=== PATIENT | female | born 1940 | race Caucasian/White ===

== ENCOUNTER 2017-02-04 15:57 | Emergency (ER) | payer BC, MEDICARE ==
[2014-08-27 08:38] VITALS: BMI 22.5
[~2017-02-04 15:57] MED LIST: ADVIL200 MG PO; AMBIEN10 MG PO; BAYER CHEWABLE81 MG PO; BYSTOLIC10 MG PO; CARDIZEM CD120 MG PO; CELEBREX200 MG; CELEBREX200 MG PO; CLARINEX5 MG PO; CORDARONE200 MG PO; DILT-CD120 MG PO; DIOVAN HCT 320/1 TA2 PO; FLEXERIL10 MG PO; HYDROCODON-ACE1 EAC7 PO; MULTAQ400 MG PO; NORVASC5 MG PO; PLAVIX75 MG PO; PREMARIN0.9 MG PO; PROTONIX40 MG PO; RESTORIL15 MG PO; SYNTHROID50 MCG PO; TEMAZEPAM PO; TRIAMCINOLONE A60 M1 TP; XARELTO15 MG PO; ZOFRAN4 MG PO
== END 2017-02-04 17:27 | disposition home or self-care (01) ==
LOC: D.ER 15:57
DX: R51 Headache (principal); K21.9 Gastro-esophageal reflux disease without esophagitis; I10 Essential (primary) hypertension; E03.9 Hypothyroidism, unspecified; Z95.0 Presence of cardiac pacemaker; Z95.1 Presence of aortocoronary bypass graft

== ENCOUNTER 2017-04-27 13:27 | Inpatient (IN) | payer OTHER, MEDICARE ==
[~2017-04-27] VITALS: Ht 165.1 cm; Wt 60.5 kg
[~2017-04-27 13:27] MED LIST changes: +DIOVAN320 MG PO
[2017-04-27 13:55] LABS: BASOPHILS 0.3 % (0-2); EOSINOPHILS 2.5 % (0-7); HEMATOCRIT 40.1 % (36.0-48.0); HEMOGLOBIN 12.7 g/dL (12-16); IMMATURE GRANULOCYTES 0.4 % (0-5); LYMPHOCYTES 6.2 % (15-50); MCHC 31.7 g/dL (31.0-37.0); MCV 79.1 fL (80.0-100.0); MEAN PLATELET VOLUME 9.7 fL (7.4-10.4); MONOCYTES 5.2 % (2-11); NEUTROPHILS 85.4 % (40-80); PLATELET COUNT 331 10x3/uL (130-400); RBC 5.07 10x6/uL (4.00-5.40); RDW 16.5 % (11.5-14.5); WBC 18.8 10x3/uL (4.8-10.8)
[2017-04-27 14:24] LABS: APPEARANCE SLT CLOUDY (CLEAR); BACTERIA MODERATE /hpf (NONE SEEN); BILIRUBIN NEGATIVE (NEGATIVE); COLOR YELLOW (YELLOW); EPITHELIAL CELLS 25-50 /hpf (0-5); GLUCOSE NEGATIVE (NEGATIVE); KETONE NEGATIVE (NEGATIVE); MUCUS <1+ /lpf (NONE SEEN); NITRITE NEGATIVE (NEGATIVE); PROTEIN TRACE mg/dL (NEGATIVE); RED CELLS - URINE 0-5 /hpf (0-5); SPECIFIC GRAVITY 1.025 (1.005-1.020); UROBILINOGEN NORMAL (NORMAL); WHITE CELLS - URINE 0-5 /hpf (0-5)
[2017-04-27 14:36] LABS: ALBUMIN 3.7 g/dL (3.4-5.0); ANION GAP 17.8 mmol/L (8-16); BILIRUBIN - TOTAL 0.69 mg/dL (0.2-1.3); CALCIUM 9.7 mg/dL (8.5-10.1); CARBON DIOXIDE 18.9 mmol/L (21.0-32.0); CREATININE - SERUM 1.4 mg/dL (0.6-1.3); POTASSIUM - SERUM 4.7 mmol/L (3.5-5.1); PROTEIN - SERUM 7.4 g/dL (6.4-8.2)
[2017-04-27 17:35] LABS: CHOL - HDL RATIO 1.9 ratio (2.3-4.1); LDL-HDL RATIO 0.7 ratio (1.5-3.5)
[2017-04-27] MEDS ORDERED: PEPCID20 MG PO (23:59)
[2017-04-28] MEDS ORDERED: ULORIC40 MG PO
[2017-04-28] MEDS ORDERED: SYNTHROID88 MCG PO
[2017-04-28] MEDS ORDERED: NEURONTIN 300300 MG PO (00:01)
[2017-04-28] MEDS ORDERED: FUROSEMIDE20 MG PO (00:02)
[2017-04-28] MEDS ORDERED: ULTRAM50 MG PO (00:03)
[2017-04-28] MEDS ORDERED: SOMA350 MG PO (00:03)
[2017-04-28 00:32] VITALS: BP 98/51; Ht 165.1 cm; Wt 60.5 kg
[2017-04-28 02:45] VITALS: BP 98/51
[2017-04-28 04:32] VITALS: BP 107/74
[2017-04-28 10:00] LABS: ANION GAP 15.1 mmol/L (8-16); CALCIUM 8.8 mg/dL (8.5-10.1); CARBON DIOXIDE 18.3 mmol/L (21.0-32.0); CREATININE - SERUM 1.4 mg/dL (0.6-1.3); POTASSIUM - SERUM 4.4 mmol/L (3.5-5.1)
[2017-04-28 10:04] LABS: BASOPHILS 0.1 % (0-2); EOSINOPHILS 2.2 % (0-7); HEMATOCRIT 35.8 % (36.0-48.0); HEMOGLOBIN 11.2 g/dL (12-16); IMMATURE GRANULOCYTES 0.4 % (0-5); LYMPHOCYTES 7.9 % (15-50); MCH 24.7 pg (26.0-34.0); MCHC 31.3 g/dL (31.0-37.0); MCV 78.9 fL (80.0-100.0); MEAN PLATELET VOLUME 10.3 fL (7.4-10.4); MONOCYTES 7.4 % (2-11); PLATELET COUNT 253 10x3/uL (130-400); RBC 4.54 10x6/uL (4.00-5.40); RDW 16.6 % (11.5-14.5); WBC 20.2 10x3/uL (4.8-10.8)
[2017-04-28 10:10] LABS: APTT 31.7 SECONDS (22.8-39.4); INR 1.44 (0.85-1.17); PROTIME 17.1 SECONDS (11.6-15.0)
[2017-04-28 10:51] VITALS: BP 113/60
[2017-04-28 11:16] LABS: CKMB 0.7 U/L (0.0-3.6); CREATINE KINASE 40 UL (21-215)
[2017-04-28 11:22] LABS: TROPONIN-I < 0.017 ng/mL (0.000-0.060)
== END 2017-04-28 11:30 | disposition short-term general hospital (02) | DRG 440 ==
LOC: D.ER 13:27 → D.EDHOLD 18:52 → D.MS 19:04
PROVIDERS: Emergency Medicine; Family Medicine
DX: K85.90 Acute pancreatitis without necrosis or infection, unspecified (principal); D72.829 Elevated white blood cell count, unspecified; R47.81 Slurred speech; R41.82 Altered mental status, unspecified; R53.1 Weakness; I10 Essential (primary) hypertension; E03.9 Hypothyroidism, unspecified; D63.8 Anemia in other chronic diseases classified elsewhere; Z95.0 Presence of cardiac pacemaker; I25.10 Atherosclerotic heart disease of native coronary artery without angina pectoris; Z87.891 Personal history of nicotine dependence

== ENCOUNTER 2017-04-28 10:09 | Emergency (ER) | payer OTHER, MEDICARE ==
[2017-04-28 00:32] VITALS: BMI 22.1
[~2017-04-28 10:09] MED LIST changes: +FUROSEMIDE20 MG PO; +NEURONTIN 300300 MG PO; +PEPCID20 MG PO; +SOMA350 MG PO; +SYNTHROID88 MCG PO; +ULORIC40 MG PO; +ULTRAM50 MG PO
== END 2017-04-28 11:10 | disposition critical access hospital (66) ==
LOC: D.ER 10:09
DX: I63.9 Cerebral infarction, unspecified (principal); K21.9 Gastro-esophageal reflux disease without esophagitis; I10 Essential (primary) hypertension; Z95.0 Presence of cardiac pacemaker; E03.9 Hypothyroidism, unspecified

== ENCOUNTER 2017-05-15 17:01 | Inpatient (IN) | payer OTHER, MEDICARE ==
[~2017-05-15] VITALS: Ht 165.1 cm; Wt 61.2 kg
[2017-05-15] MEDS ORDERED: PREMARIN0.3 MG PO (17:21)
[2017-05-15] MEDS ORDERED: VITAMIN B-1250 MCG PO (17:22)
[2017-05-15] MEDS ORDERED: CENTRUM SILVER1 EAC3 PO (17:22)
[2017-05-15 18:36] VITALS: BP 152/73; BMI 22.5
[2017-05-15 20:00] VITALS: BP 144/63
[2017-05-15 20:19] LABS: HEMATOCRIT 33.8 % (36.0-48.0); HEMOGLOBIN 10.4 g/dL (12-16); MCH 25.1 pg (26.0-34.0); MCHC 30.8 g/dL (31.0-37.0); MCV 81.4 fL (80.0-100.0); MEAN PLATELET VOLUME 10.1 fL (7.4-10.4); PLATELET COUNT 486 10x3/uL (130-400); RBC 4.15 10x6/uL (4.00-5.40); RDW 15.8 % (11.5-14.5); WBC 15.3 10x3/uL (4.8-10.8)
[2017-05-15 20:36] LABS: ALBUMIN 2.6 g/dL (3.4-5.0); ANION GAP 15.6 mmol/L (8-16); BILIRUBIN - TOTAL 0.35 mg/dL (0.2-1.3); CALCIUM 9.2 mg/dL (8.5-10.1); CARBON DIOXIDE 25.7 mmol/L (21.0-32.0); POTASSIUM - SERUM 4.3 mmol/L (3.5-5.1); PROTEIN - SERUM 7.6 g/dL (6.4-8.2)
[2017-05-15 21:54] LABS: EOSINOPHILS 2 % (0-7); LYMPHOCYTES 20 % (15-50); MONOCYTES 2 % (2-11); NEUTROPHILS 76 % (40-80); PLATELET ESTIMATE NORMAL
[2017-05-16 04:00] VITALS: BP 135/59
[2017-05-16 04:42] LABS: APPEARANCE TURBID (CLEAR); BILIRUBIN NEGATIVE (NEGATIVE); COLOR YELLOW (YELLOW); GLUCOSE NEGATIVE (NEGATIVE); KETONE NEGATIVE (NEGATIVE); NITRITE NEGATIVE (NEGATIVE); PROTEIN 2+ mg/dL (NEGATIVE); SPECIFIC GRAVITY 1.025 (1.005-1.020); UROBILINOGEN NORMAL (NORMAL)
[2017-05-16 04:52] LABS: BACTERIA MANY /hpf (NONE SEEN); EPITHELIAL CELLS 0-5 /hpf (0-5); RED CELLS - URINE >50 /hpf (0-5); WHITE CELLS - URINE >50 /hpf (0-5); YEAST >1+ WITH HYPHAE /hpf (NONE SEEN)
[2017-05-16 09:22] VITALS: BP 147/66
[2017-05-16 10:55] VITALS: Ht 165.1 cm; Wt 61.2 kg
[2017-05-16] MEDS ORDERED: NEURONTIN 300300 MG PO (10:55)
[2017-05-16] MEDS ORDERED: INDOCIN25 MG PO (10:57)
[2017-05-16] MEDS ORDERED: NORVASC2.5 MG PO (10:59)
[2017-05-16] MEDS ORDERED: PREMARIN0.9 MG PO (11:00)
[2017-05-16] MEDS ORDERED: THERALITH XR T1 EACH PO (11:01)
[2017-05-16 12:44] VITALS: BP 123/73
[2017-05-16 15:15] LABS: INR 1.19 (0.85-1.17); PROTIME 14.7 SECONDS (11.6-15.0)
[2017-05-16 15:20] LABS: % SATURATION 5 % (15-55); IRON 15 ug/dl (35-150); TOTAL IRON BIND CAPACITY 262 ug/dl (260-445); UNSAT IRON BIND CAPACITY 247 ug/dl (150-375)
[2017-05-16 15:34] LABS: FERRITIN 96 ng/mL (3-244); LIPASE 402 U/L (73-393)
[2017-05-16 16:36] VITALS: BP 156/70
[2017-05-16 20:00] VITALS: BP 139/54
[2017-05-17] VITALS: BP 119/71
[2017-05-17 04:00] VITALS: BP 150/66
[2017-05-17 08:11] VITALS: BP 159/67
[2017-05-17 12:46] VITALS: BP 184/82
[2017-05-17 15:54] VITALS: BP 132/54
[2017-05-17 20:00] VITALS: BP 136/61
[2017-05-18] VITALS: BP 156/74
[2017-05-18 04:00] VITALS: BP 145/91; BP 160/77
[2017-05-18 08:18] LABS: FOLATE (FOLIC ACID) - SERUM 15.2 ng/mL (>3.0)
[2017-05-18 08:40] VITALS: BP 139/59
[2017-05-18 13:01] VITALS: BP 120/70
[2017-05-18] MEDS ORDERED: BACTRIM 400-801 TAB PO (14:50)
[2017-05-18] MEDS ORDERED: COUMADIN5 MG PO (14:51)
== END 2017-05-18 17:12 | DRG 56 ==
LOC: D.MS 17:01
PROVIDERS: Internal Medicine Nephrology
DX: I69.354 Hemiplegia and hemiparesis following cerebral infarction affecting left non-dominant side (principal); J18.9 Pneumonia, unspecified organism; N39.0 Urinary tract infection, site not specified; N17.9 Acute kidney failure, unspecified; I69.320 Aphasia following cerebral infarction; R13.12 Dysphagia, oropharyngeal phase; I69.391 Dysphagia following cerebral infarction; I10 Essential (primary) hypertension

== ENCOUNTER 2017-05-18 17:13 | Inpatient (IN) | payer OTHER, MEDICARE ==
[~2017-05-18] VITALS: Ht 165.1 cm; Wt 61.2 kg
--- NOTE | ~2017-05-18 | DS ---
PATIENT:ROGERIO DIXON :42 MEDICAL RECORD: [id number] DISCHARGE SUMMARY ADMISSION DATE: 05/18/17 DISCHARGE DATE: 06/12/17 This is a discharge from inpatient rehab dated 06/12/2017. PRIMARY DIAGNOSIS: Decreased functional ability and ability to provide activities of daily living secondary to stroke. SECONDARY DIAGNOSES: 1. Right side hemiparesis. 2. Oropharyngeal dysphagia. 3. Aphasia. 4. Hypertension. 5. Anemia. 6. Hypothyroidism. 7. Yeast UTI. PROCEDURES THIS HOSPITALIZATION: Bedside swallow eval with no overt signs and symptoms of aspiration. HOSPITAL COURSE: Full H&P is located elsewhere on the chart on this 76-year-old female who was admitted to inpatient rehab for physical therapy and occupational therapy to improve gait, transfer skills, bed mobility, and activities of daily living to a modified independent level. She was evaluated by PT and OT and their plans of care were followed. She was evaluated by speech therapy and their plans of care were followed as well. She required custodial care for observation and assessment and medication administration. She was continued on appropriate home medications. She had a UA consistent with UTI, was started on Zyvox for antibiotic coverage and then Diflucan was added with yeast growing on cultures. She did have a bedside swallow eval on 05/21/2017 with no overt signs and symptoms of aspiration. Diet recommendations from were followed. She was cooperative with all therapies, progressing towards goals. Case management was involved for discharge planning. She was considered stable for discharge on 06/12/2017. DISCHARGE MEDICATIONS: As per discharge medication reconciliation. DISCHARGE DISPOSITION: The patient is discharged to [facility]. She will continue her current diet and level of activity. She will follow up with primary care at the rehab facility and then with her primary care physician upon discharge from that facility. She will follow up with specialists as directed. At least 30 minutes was spent in this discharge activity. TRANSINT:[id number] Voice Confirmation ID: [id number] DOCUMENT ID: [id number] Dictated By: WAYLON BURCIAGA I have interviewed/examined the above patient and agree with these documented findings. DISCHARGE SUMMARY REPORT [id number] DIXONROGERIO SEEMA FRIEDMAN MD at 1157 at 0940 CC: [id number] DICTATION DATE: 06/24/171899 PORCELAIN SLUSHER: 06/25/17 0321 DIS IN 06/12/17 [facility] [address] [id number]
--- NOTE | ~2017-05-18 | RHP ---
PATIENT: ROGERIO DIXON MEDICAL RECORD: [id number] ACCOUNT: [id number] LOCATION:[facility] : 42 ADMISSION DATE: 05/18/17 REHABILITATION HISTORY AND PHYSICAL EXAMINATION POST ADMISSION PHYSICIAN EXAMINATION Post-Admission Physical Examination and History and Physical DATE OF ADMISSION TO THE REHAB: 05/18/2017 ADMITTING DIAGNOSES: Subacute left middle cerebral artery infarct with associated mild mass effect. HISTORY OF PRESENT ILLNESS: The patient is a 76-year-old female patient who is admitted secondary to a subacute left middle cerebral artery territory infarct. She was admitted to the acute hospitalist on 04/27 for pancreatitis, she had a change in condition on 04/28. Upon workup in [facility], she was found to have an acute CVA and was med flighted out to an outsourced hospital for higher level of care. She has not progressed well and according to the family has other 3 strokes while she was there. She was transferred to inpatient hospice where she had a change in condition, began to wake up, became alert and desired to eat. The patient was transferred back to [place] and family requested a workup since the significant change in condition. The patient had further testing and pancreatitis had resolved. CT of her head showed the left middle cerebral artery territory infarct. She does have significant right-sided weakness. She has been evaluated and continues to be treated with PT, OT, and speech therapy, slowly progressed over few days and has become more alert and is eating well with assistance. 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 She has had a very supportive family life, especially from her . She was completely independent with mobility and ADLs. Currently, max assist to total assist for ADLs and mobility. She is aphasic, family plans to continue and progress her and hopefully return her home if possible. COMORBIDITIES: In this patient include status post embolic CVA, pancreatitis, oropharyngeal dysphagia, aphasia, right hemiparesis, hypertension, microcytic anemia, acute kidney injury, possible pneumonia, and history of valvular disease. PAST MEDICAL HISTORY: Significant for CVA. She has had a history of thyroid problems, hypertension, pacemaker problems, valve problems in the past. She has had pancreatitis and splenic infarct. PAST SURGICAL HISTORY: Includes hernia repair, tonsillectomy, adenoidectomy, hysterectomy, valve repair, bilateral carotid endarterectomy, cataract surgery, pacemaker placement. ALLERGIES: TRAZODONE AND CARLO INHIBITORS. CURRENT MEDICATIONS: Include a multivitamin daily. She is on Coumadin 5 mg daily, Synthroid 88 mcg daily, Indocin 50 mg b.i.d., Multaq 400 mg b.i.d., B12 50 mcg daily, aspirin 81 mg daily. She is on Bactrim 1 tab b.i.d., Neurontin 300 mg b.i.d., Pepcid 20 mg b.i.d., and Celebrex 200 mg as needed. HABITS: No alcohol or tobacco use. HISTORY AND PHYSICAL [id number] DIXON,ROGERIO AVILEZ FAMILY HISTORY: Noncontributory. SOCIAL HISTORY: The patient hopes to return back home and get back to her prior level of functioning with her family. REVIEW OF SYSTEMS: Unable to obtain secondary to the patient being aphasic at this time. PHYSICAL EXAMINATION: VITAL SIGNS: Stable, afebrile. GENERAL: Well-developed female in no acute distress, alert upon exam. HEENT: Normocephalic and atraumatic. Mucosa moist. NECK: Supple. LUNGS: Clear at this time. HEART: Irregular rate and rhythm. ABDOMEN: Benign. EXTREMITIES: No clubbing, cyanosis, or edema. NEUROLOGIC: Consistent with a CVA. She is aphasic. LABORATORY DATA: Showed a white count of 9.2, H&H OF 8.9 and 29.9, and platelet count was noted to be 377. Her INR is 1.68. Sodium 140, potassium 4.2, BUN and creatinine of 16 and 1.0, and blood sugar is noted to be 102. ASSESSMENT: This 76-year-old female patient admitted to rehab with a working diagnosis OF middle cerebral artery infarct. The patient has potential to make improvement. We instituted the following multidisciplinary therapies including to, but not limited to physical, occupational, respiratory, speech, nutritional services, prosthetics, and orthotics. Given her complex condition and risk for more complications, rehabilitation service provided at a lower level of care such as a detention facility. PLAN: 1. Admit to [facility] rehab for intensive inpatient therapy to include the following disciplines: A. Physical therapy to improve gait, all transfer skills and bed mobility to a modified independent level. B. Occupational therapy to improve activities of daily living to a modified independent level. C. Case management to assist with discharge planning and placement options. D. Nutrition to assist with nutritional needs. E. Rehabilitation nursing to assist in monitoring the patient's underlying medical conditions and to assist with any type of bowel or bladder management. 2. The patient's current medications and medical care will be continued. 3. The patient will be placed on standard fall precautions. 4. The patient's stay is approximately 10-14 days. 5. Discuss this patient during care team staff meeting this week. I am going to keep her , Jorge L up to date on her care and we will go ahead and continue to progress with speech therapy and we will assess her on a daily basis. TRANSINT:[id number] Voice Confirmation ID: [id number] DOCUMENT ID: [id number] DARIUS notes whether there has been none or any medical/functional HISTORY AND PHYSICAL [id number] DIXON,ROGERIO AVILEZ change since admission: - No change since preadmission screen. DARIUS attests patient continues to be appropriate for IRF: - Continues to be appropriate. SEEMA CAMPOS MD at 1344 CC: [id number] DICTATION DATE: 05/19/17 0836 CENTRAL OFFICE MAINTAINER: 05/19/17 1113 ADM IN [facility] [address] [id number]
[~2017-05-18 17:13] MED LIST changes: +BACTRIM 400-801 TAB PO; +CENTRUM SILVER1 EAC3 PO; +COUMADIN5 MG PO; +INDOCIN25 MG PO; +NORVASC2.5 MG PO; +PREMARIN0.3 MG PO; +THERALITH XR T1 EACH PO; +VITAMIN B-1250 MCG PO
[2017-05-18 18:19] VITALS: BP 131/56; BMI 22.5
[2017-05-18 22:50] VITALS: BP 131/56
[2017-05-19 05:13] LABS: BASOPHILS 0.4 % (0-2); EOSINOPHILS 7.6 % (0-7); HEMATOCRIT 29.9 % (36.0-48.0); HEMOGLOBIN 8.9 g/dL (12-16); IMMATURE GRANULOCYTES 0.4 % (0-5); LYMPHOCYTES 15.9 % (15-50); MCH 24.4 pg (26.0-34.0); MCHC 29.8 g/dL (31.0-37.0); MCV 81.9 fL (80.0-100.0); MEAN PLATELET VOLUME 10.1 fL (7.4-10.4); MONOCYTES 13.2 % (2-11); NEUTROPHILS 62.5 % (40-80); RBC 3.65 10x6/uL (4.00-5.40); RDW 15.8 % (11.5-14.5); WBC 9.2 10x3/uL (4.8-10.8)
[2017-05-19 05:16] LABS: PLATELET COUNT 377 10x3/uL (130-400)
[2017-05-19 05:22] LABS: INR 1.68 (0.85-1.17); PROTIME 19.3 SECONDS (11.6-15.0)
[2017-05-19 05:23] LABS: ANION GAP 15.5 mmol/L (8-16); CALCIUM 8.7 mg/dL (8.5-10.1); CARBON DIOXIDE 23.7 mmol/L (21.0-32.0); POTASSIUM - SERUM 4.2 mmol/L (3.5-5.1)
[2017-05-19 07:11] VITALS: BP 121/61
[2017-05-19 14:11] VITALS: Ht 165.1 cm; Wt 61.2 kg
[2017-05-19 22:35] VITALS: BP 131/58
[2017-05-20 05:13] LABS: INR 1.95 (0.85-1.17); PROTIME 21.7 SECONDS (11.6-15.0)
[2017-05-20 08:00] VITALS: BP 122/53
[2017-05-20 21:45] VITALS: BP 104/53; BP 139/65
[2017-05-21 05:58] LABS: BASOPHILS 0.4 % (0-2); EOSINOPHILS 7.1 % (0-7); HEMATOCRIT 31.6 % (36.0-48.0); HEMOGLOBIN 9.3 g/dL (12-16); IMMATURE GRANULOCYTES 0.6 % (0-5); LYMPHOCYTES 17.5 % (15-50); MCH 24.8 pg (26.0-34.0); MCHC 29.4 g/dL (31.0-37.0); MCV 84.3 fL (80.0-100.0); MEAN PLATELET VOLUME 9.8 fL (7.4-10.4); MONOCYTES 11.1 % (2-11); NEUTROPHILS 63.3 % (40-80); PLATELET COUNT 376 10x3/uL (130-400); RBC 3.75 10x6/uL (4.00-5.40); RDW 16.6 % (11.5-14.5); WBC 9.5 10x3/uL (4.8-10.8)
[2017-05-21 06:03] LABS: ANION GAP 11.7 mmol/L (8-16); CALCIUM 9.2 mg/dL (8.5-10.1); CREATININE - SERUM 1.2 mg/dL (0.6-1.3); POTASSIUM - SERUM 4.7 mmol/L (3.5-5.1)
[2017-05-21 06:10] LABS: INR 2.66 (0.85-1.17); PROTIME 27.7 SECONDS (11.6-15.0)
[2017-05-21 08:26] VITALS: BP 134/65
[2017-05-21 19:45] VITALS: BP 140/72
[2017-05-22 05:25] LABS: INR 2.93 (0.85-1.17); PROTIME 29.8 SECONDS (11.6-15.0)
[2017-05-22 08:04] VITALS: BP 151/62
[2017-05-22 20:00] VITALS: BP 127/54
[2017-05-23 06:41] LABS: ANION GAP 14.9 mmol/L (8-16); CALCIUM 9.2 mg/dL (8.5-10.1); CARBON DIOXIDE 24.7 mmol/L (21.0-32.0); CREATININE - SERUM 1.2 mg/dL (0.6-1.3); INR 2.68 (0.85-1.17); POTASSIUM - SERUM 4.6 mmol/L (3.5-5.1); PROTIME 27.8 SECONDS (11.6-15.0)
[2017-05-23 06:43] LABS: BASOPHILS 0.4 % (0-2); EOSINOPHILS 4.9 % (0-7); HEMOGLOBIN 9.4 g/dL (12-16); IMMATURE GRANULOCYTES 0.4 % (0-5); LYMPHOCYTES 13.5 % (15-50); MCH 24.7 pg (26.0-34.0); MCHC 29.4 g/dL (31.0-37.0); MEAN PLATELET VOLUME 10.3 fL (7.4-10.4); MONOCYTES 7.7 % (2-11); NEUTROPHILS 73.1 % (40-80); PLATELET COUNT 359 10x3/uL (130-400); RBC 3.81 10x6/uL (4.00-5.40); RDW 17.2 % (11.5-14.5); WBC 12.3 10x3/uL (4.8-10.8)
[2017-05-23 11:13] VITALS: BP 130/62
[2017-05-23 22:15] VITALS: BP 138/64
[2017-05-24 06:42] LABS: PROTIME 32.3 SECONDS (11.6-15.0)
[2017-05-24 06:57] LABS: INR 3.24 (0.85-1.17)
[2017-05-24 08:00] VITALS: BP 128/61
[2017-05-24 22:30] VITALS: BP 136/66
[2017-05-25 06:31] LABS: BASOPHILS 0.2 % (0-2); EOSINOPHILS 5.7 % (0-7); HEMATOCRIT 30.5 % (36.0-48.0); IMMATURE GRANULOCYTES 0.5 % (0-5); LYMPHOCYTES 18.9 % (15-50); MCH 24.6 pg (26.0-34.0); MCHC 29.5 g/dL (31.0-37.0); MCV 83.3 fL (80.0-100.0); MEAN PLATELET VOLUME 9.6 fL (7.4-10.4); NEUTROPHILS 63.7 % (40-80); PLATELET COUNT 309 10x3/uL (130-400); RBC 3.66 10x6/uL (4.00-5.40); RDW 17.4 % (11.5-14.5); WBC 9.3 10x3/uL (4.8-10.8)
[2017-05-25 06:38] LABS: ANION GAP 15.6 mmol/L (8-16); CALCIUM 8.8 mg/dL (8.5-10.1); CARBON DIOXIDE 25.7 mmol/L (21.0-32.0); CREATININE - SERUM 1.3 mg/dL (0.6-1.3); POTASSIUM - SERUM 4.3 mmol/L (3.5-5.1)
[2017-05-25 07:13] LABS: INR 3.03 (0.85-1.17); PROTIME 30.7 SECONDS (11.6-15.0)
[2017-05-25 08:00] VITALS: BP 143/64
[2017-05-25 22:25] VITALS: BP 136/67
[2017-05-26 07:19] LABS: INR 2.94 (0.85-1.17)
[2017-05-26 13:29] VITALS: BP 125/963
[2017-05-26 18:26] LABS: APPEARANCE TURBID (CLEAR); BILIRUBIN NEGATIVE (NEGATIVE); COLOR YELLOW (YELLOW); GLUCOSE NEGATIVE (NEGATIVE); KETONE NEGATIVE (NEGATIVE); NITRITE NEGATIVE (NEGATIVE); PROTEIN 1+ mg/dL (NEGATIVE); UROBILINOGEN NORMAL (NORMAL)
[2017-05-26 18:30] LABS: BACTERIA MANY /hpf (NONE SEEN); EPITHELIAL CELLS 0-5 /hpf (0-5); WHITE CELLS - URINE >50 /hpf (0-5); YEAST >1+ WITH HYPHAE /hpf (NONE SEEN)
[2017-05-26 20:15] VITALS: BP 152/73
[2017-05-27 06:56] LABS: INR 2.43 (0.85-1.17); PROTIME 25.8 SECONDS (11.6-15.0)
[2017-05-27 09:40] VITALS: BP 128/62
[2017-05-27 19:35] VITALS: BP 140/64
[2017-05-28 06:33] LABS: BASOPHILS 0.2 % (0-2); EOSINOPHILS 4.8 % (0-7); HEMATOCRIT 31.7 % (36.0-48.0); HEMOGLOBIN 9.4 g/dL (12-16); IMMATURE GRANULOCYTES 0.6 % (0-5); LYMPHOCYTES 15.6 % (15-50); MCH 24.8 pg (26.0-34.0); MCHC 29.7 g/dL (31.0-37.0); MCV 83.6 fL (80.0-100.0); MEAN PLATELET VOLUME 9.3 fL (7.4-10.4); MONOCYTES 10.5 % (2-11); NEUTROPHILS 68.3 % (40-80); PLATELET COUNT 252 10x3/uL (130-400); RBC 3.79 10x6/uL (4.00-5.40); RDW 17.7 % (11.5-14.5)
[2017-05-28 06:42] LABS: ANION GAP 15.9 mmol/L (8-16); CALCIUM 8.8 mg/dL (8.5-10.1); CARBON DIOXIDE 24.1 mmol/L (21.0-32.0); CREATININE - SERUM 1.1 mg/dL (0.6-1.3)
[2017-05-28 06:47] LABS: PROTIME 21.4 SECONDS (11.6-15.0)
[2017-05-28 06:49] LABS: INR 1.92 (0.85-1.17)
[2017-05-28 08:00] VITALS: BP 144/93
[2017-05-28 19:23] VITALS: BP 145/59
[2017-05-29 08:15] VITALS: BP 156/70
[2017-05-29 08:17] LABS: INR 1.67 (0.85-1.17); PROTIME 19.2 SECONDS (11.6-15.0)
[2017-05-29 19:24] VITALS: BP 128/59
[2017-05-30 07:42] LABS: BASOPHILS 0.4 % (0-2); EOSINOPHILS 5.7 % (0-7); HEMATOCRIT 30.5 % (36.0-48.0); HEMOGLOBIN 9.2 g/dL (12-16); IMMATURE GRANULOCYTES 1.8 % (0-5); LYMPHOCYTES 18.4 % (15-50); MCH 25.6 pg (26.0-34.0); MCHC 30.2 g/dL (31.0-37.0); MCV 84.7 fL (80.0-100.0); MEAN PLATELET VOLUME 9.4 fL (7.4-10.4); MONOCYTES 10.9 % (2-11); NEUTROPHILS 62.8 % (40-80); PLATELET COUNT 222 10x3/uL (130-400); RDW 18.7 % (11.5-14.5); WBC 9.8 10x3/uL (4.8-10.8)
[2017-05-30 07:52] LABS: INR 1.73 (0.85-1.17); PROTIME 19.7 SECONDS (11.6-15.0)
[2017-05-30 07:55] LABS: ANION GAP 15.4 mmol/L (8-16); CALCIUM 8.8 mg/dL (8.5-10.1); CARBON DIOXIDE 25.6 mmol/L (21.0-32.0)
[2017-05-30 08:01] VITALS: BP 139/59
[2017-05-30 19:46] VITALS: BP 108/66
[2017-05-31 06:52] LABS: INR 1.66 (0.85-1.17); PROTIME 19.1 SECONDS (11.6-15.0)
[2017-05-31 08:23] VITALS: BP 146/54
[2017-05-31 19:17] VITALS: BP 131/55
[2017-06-01 06:12] LABS: BASOPHILS 0.5 % (0-2); EOSINOPHILS 5.5 % (0-7); HEMATOCRIT 29.4 % (36.0-48.0); HEMOGLOBIN 8.9 g/dL (12-16); IMMATURE GRANULOCYTES 2.5 % (0-5); MCH 25.6 pg (26.0-34.0); MCHC 30.3 g/dL (31.0-37.0); MCV 84.7 fL (80.0-100.0); MEAN PLATELET VOLUME 9.7 fL (7.4-10.4); MONOCYTES 13.1 % (2-11); NEUTROPHILS 61.4 % (40-80); PLATELET COUNT 220 10x3/uL (130-400); RBC 3.47 10x6/uL (4.00-5.40); WBC 9.5 10x3/uL (4.8-10.8)
[2017-06-01 06:21] LABS: INR 1.83 (0.85-1.17); PROTIME 20.6 SECONDS (11.6-15.0)
[2017-06-01 06:31] LABS: ANION GAP 15.8 mmol/L (8-16); CALCIUM 8.8 mg/dL (8.5-10.1); CARBON DIOXIDE 24.3 mmol/L (21.0-32.0); CREATININE - SERUM 1.1 mg/dL (0.6-1.3); POTASSIUM - SERUM 4.1 mmol/L (3.5-5.1)
[2017-06-01 08:30] VITALS: BP 128/58
[2017-06-01 22:15] VITALS: BP 136/97
[2017-06-02 07:23] LABS: INR 1.73 (0.85-1.17); PROTIME 19.7 SECONDS (11.6-15.0)
[2017-06-02 08:00] VITALS: BP 131/61
[2017-06-02 12:50] LABS: APPEARANCE CLOUDY (CLEAR); BILIRUBIN NEGATIVE (NEGATIVE); COLOR YELLOW (YELLOW); GLUCOSE NEGATIVE (NEGATIVE); KETONE NEGATIVE (NEGATIVE); NITRITE NEGATIVE (NEGATIVE); PROTEIN 2+ mg/dL (NEGATIVE); UROBILINOGEN NORMAL (NORMAL)
[2017-06-02 12:52] LABS: BACTERIA MODERATE /hpf (NONE SEEN); EPITHELIAL CELLS 0-5 /hpf (0-5); RED CELLS - URINE 0-5 /hpf (0-5); YEAST >1+ WITH HYPHAE /hpf (NONE SEEN)
[2017-06-02 21:35] VITALS: BP 136/61
[2017-06-03 10:29] LABS: INR 1.82 (0.85-1.17); PROTIME 20.5 SECONDS (11.6-15.0)
[2017-06-03 22:35] VITALS: BP 144/67
[2017-06-04 07:03] LABS: BASOPHILS 0.3 % (0-2); EOSINOPHILS 7.2 % (0-7); HEMATOCRIT 32.9 % (36.0-48.0); HEMOGLOBIN 9.8 g/dL (12-16); IMMATURE GRANULOCYTES 1.3 % (0-5); LYMPHOCYTES 21.3 % (15-50); MCH 25.5 pg (26.0-34.0); MCHC 29.8 g/dL (31.0-37.0); MCV 85.5 fL (80.0-100.0); MEAN PLATELET VOLUME 10.1 fL (7.4-10.4); MONOCYTES 9.6 % (2-11); NEUTROPHILS 60.3 % (40-80); PLATELET COUNT 259 10x3/uL (130-400); RBC 3.85 10x6/uL (4.00-5.40); RDW 19.6 % (11.5-14.5); WBC 8.7 10x3/uL (4.8-10.8)
[2017-06-04 07:12] LABS: INR 1.82 (0.85-1.17); PROTIME 20.5 SECONDS (11.6-15.0)
[2017-06-04 07:22] LABS: ANION GAP 12.2 mmol/L (8-16); CALCIUM 9.1 mg/dL (8.5-10.1); CARBON DIOXIDE 25.9 mmol/L (21.0-32.0); CREATININE - SERUM 1.1 mg/dL (0.6-1.3); POTASSIUM - SERUM 4.1 mmol/L (3.5-5.1)
[2017-06-04 07:40] VITALS: BP 156/96
[2017-06-04 19:19] VITALS: BP 142/63
[2017-06-05 06:58] LABS: INR 1.77 (0.85-1.17); PROTIME 20.1 SECONDS (11.6-15.0)
[2017-06-05 08:00] VITALS: BP 157/72
[2017-06-05 19:09] VITALS: BP 133/62
[2017-06-06 07:08] LABS: BASOPHILS 0.4 % (0-2); EOSINOPHILS 7.4 % (0-7); HEMATOCRIT 32.5 % (36.0-48.0); HEMOGLOBIN 9.8 g/dL (12-16); IMMATURE GRANULOCYTES 0.8 % (0-5); LYMPHOCYTES 22.9 % (15-50); MCH 25.7 pg (26.0-34.0); MCHC 30.2 g/dL (31.0-37.0); MCV 85.1 fL (80.0-100.0); MEAN PLATELET VOLUME 10.1 fL (7.4-10.4); MONOCYTES 9.9 % (2-11); NEUTROPHILS 58.6 % (40-80); PLATELET COUNT 289 10x3/uL (130-400); RBC 3.82 10x6/uL (4.00-5.40); RDW 19.6 % (11.5-14.5); WBC 9.7 10x3/uL (4.8-10.8)
[2017-06-06 07:26] LABS: ANION GAP 14.1 mmol/L (8-16); CARBON DIOXIDE 27.4 mmol/L (21.0-32.0); POTASSIUM - SERUM 4.5 mmol/L (3.5-5.1)
[2017-06-06 07:37] LABS: INR 2.14 (0.85-1.17); PROTIME 23.3 SECONDS (11.6-15.0)
[2017-06-06 08:00] VITALS: BP 131/57
[2017-06-06 22:07] VITALS: BP 127/55
[2017-06-07 07:09] LABS: INR 2.53 (0.85-1.17); PROTIME 26.6 SECONDS (11.6-15.0)
[2017-06-07 08:00] VITALS: BP 132/60
[2017-06-07 19:09] VITALS: BP 142/59
[2017-06-08 06:36] LABS: BASOPHILS 0.7 % (0-2); EOSINOPHILS 8.5 % (0-7); HEMATOCRIT 34.4 % (36.0-48.0); HEMOGLOBIN 10.2 g/dL (12-16); IMMATURE GRANULOCYTES 0.8 % (0-5); LYMPHOCYTES 23.3 % (15-50); MCH 25.4 pg (26.0-34.0); MCHC 29.7 g/dL (31.0-37.0); MCV 85.6 fL (80.0-100.0); MEAN PLATELET VOLUME 10.2 fL (7.4-10.4); MONOCYTES 11.9 % (2-11); NEUTROPHILS 54.8 % (40-80); PLATELET COUNT 317 10x3/uL (130-400); RBC 4.02 10x6/uL (4.00-5.40); RDW 18.9 % (11.5-14.5); WBC 8.7 10x3/uL (4.8-10.8)
[2017-06-08 06:38] LABS: INR 2.9 (0.85-1.17); PROTIME 29.6 SECONDS (11.6-15.0)
[2017-06-08 07:05] LABS: ANION GAP 13.7 mmol/L (8-16); CALCIUM 9.5 mg/dL (8.5-10.1); CARBON DIOXIDE 25.8 mmol/L (21.0-32.0); POTASSIUM - SERUM 4.5 mmol/L (3.5-5.1)
[2017-06-08 07:09] LABS: CREATININE - SERUM 1.3 mg/dL (0.6-1.3)
[2017-06-08 08:00] VITALS: BP 162/67
[2017-06-08 20:39] VITALS: BP 159/66
[2017-06-09 08:05] LABS: INR 4.07 (0.85-1.17); PROTIME 38.7 SECONDS (11.6-15.0)
[2017-06-09 08:38] VITALS: BP 148/59
[2017-06-09 20:54] VITALS: BP 142/66
[2017-06-10 07:45] LABS: INR 4.89 (0.85-1.17); PROTIME 44.7 SECONDS (11.6-15.0)
[2017-06-10 09:09] VITALS: BP 165/78
[2017-06-10 20:00] VITALS: BP 144/70
[2017-06-11 06:03] LABS: INR 4.29 (0.85-1.17); PROTIME 40.3 SECONDS (11.6-15.0)
[2017-06-11 06:25] LABS: ANION GAP 13.4 mmol/L (8-16); CARBON DIOXIDE 23.1 mmol/L (21.0-32.0); CREATININE - SERUM 1.2 mg/dL (0.6-1.3); POTASSIUM - SERUM 4.5 mmol/L (3.5-5.1)
[2017-06-11 06:49] LABS: BASOPHILS 0.4 % (0-2); EOSINOPHILS 11.3 % (0-7); HEMOGLOBIN 9.8 g/dL (12-16); IMMATURE GRANULOCYTES 0.5 % (0-5); MCH 25.6 pg (26.0-34.0); MCHC 30.6 g/dL (31.0-37.0); MCV 83.6 fL (80.0-100.0); MEAN PLATELET VOLUME 9.9 fL (7.4-10.4); MONOCYTES 10.9 % (2-11); NEUTROPHILS 51.9 % (40-80); PLATELET COUNT 372 10x3/uL (130-400); RBC 3.83 10x6/uL (4.00-5.40); RDW 18.7 % (11.5-14.5); WBC 7.8 10x3/uL (4.8-10.8)
[2017-06-11 08:00] VITALS: BP 149/70
[2017-06-11] MEDS ORDERED: ZYVOX600 MG PO (08:12)
[2017-06-11] MEDS ORDERED: COUMADIN5 MG PO (08:19)
[2017-06-11 19:54] VITALS: BP 140/65
[2017-06-12 06:57] LABS: INR 4.26 (0.85-1.17); PROTIME 40.1 SECONDS (11.6-15.0)
[2017-06-12 08:00] VITALS: BP 158/76
[2017-06-30 12:12] LABS: AMPHOTERICIN B MIC 0.5 ug/mL (())
== END 2017-06-12 12:02 | DRG 57 ==
LOC: D.REHAB 17:13
PROVIDERS: Emergency Medicine
DX: I69.351 Hemiplegia and hemiparesis following cerebral infarction affecting right dominant side (principal); N17.9 Acute kidney failure, unspecified; N39.0 Urinary tract infection, site not specified; Z66 Do not resuscitate; I69.320 Aphasia following cerebral infarction; I69.321 Dysphasia following cerebral infarction; I69.391 Dysphagia following cerebral infarction; R13.12 Dysphagia, oropharyngeal phase; I10 Essential (primary) hypertension; D50.9 Iron deficiency anemia, unspecified

== ENCOUNTER → 2017-09-28 13:32 | Outpatient (CLI) | payer MEDICARE ==
[2017-05-19 14:11] VITALS: BMI 22.4
[~2017-09-28 13:32] MED LIST changes: +ZYVOX600 MG PO
[2017-09-28 16:29] LABS: INR 1.74 (0.85-1.17); PROTIME 19.8 SECONDS (11.6-15.0)
== END | disposition home or self-care (01) ==
LOC: D.LABREF 13:32
PROVIDERS: Emergency Medicine
DX: Z51.81 Encounter for therapeutic drug level monitoring (principal); Z79.01 Long term (current) use of anticoagulants; I63.9 Cerebral infarction, unspecified

== ENCOUNTER → 2017-10-12 13:58 | Outpatient (CLI) | payer MEDICARE ==
[2017-05-19 14:11] VITALS: BMI 22.4
[2017-10-12 14:39] LABS: INR 2.58 (0.85-1.17)
== END | disposition home or self-care (01) ==
LOC: D.LABREF 13:58
PROVIDERS: Emergency Medicine
DX: I63.9 Cerebral infarction, unspecified (principal); I48.91 Unspecified atrial fibrillation

== ENCOUNTER → 2017-10-24 14:41 | Outpatient (CLI) | payer MEDICARE ==
[2017-05-19 14:11] VITALS: BMI 22.4
[2017-10-24 16:37] LABS: INR 2.51 (0.85-1.17); PROTIME 26.5 SECONDS (11.6-15.0)
== END | disposition home or self-care (01) ==
LOC: D.LABREF 14:41
PROVIDERS: Emergency Medicine
DX: I63.9 Cerebral infarction, unspecified (principal); I48.2 Chronic atrial fibrillation

== ENCOUNTER 2017-12-21 19:05 | Inpatient (IN) | payer MEDICARE, OTHER ==
[~2017-12-21] VITALS: Ht 157.5 cm; Wt 61.7 kg
--- NOTE | ~2017-12-21 | MORECARE ---
CASE MANAGEMENT DISCHARGE SUMMARY PATIENT: ROGERIO ROJAS UNIT: [id number] ADM DATE: 12/23/17 AGE: 76 : 41 SEX: F ROOM/BED: D.2236 AUTHOR: APRIL JIMÉNEZ PHYSICIAN: REFERRING PHYSICIAN: HUBER ORDOÑEZ MD DATE OF SERVICE: 12/25/17 Discharge Plan Patient Name: ROGERIO ROJAS [facility] [facility] 1940 Planned Disposition: Home with Home Health Anticipated Discharge Date: Discharge Date: Expected LOS: Initial Reviewer: [email or web address] Initial Review Date: 12/25/2017 Generated: 12/25/17 1:05 pm DCPIA - Discharge Planning Initial Assessment Updated by [email or web address]: Nava Álvarez on 12/25/17 11:59 am * How many steps to enter\exit or inside your home? Ramp/0 * PCP Dr. Blanton * Preadmission Environment Home with Family * ADLs Partial Dependent * Partial ADLs (Assistance needed) Ambulation Bathing Dressing Medication Management Toileting Transfers * Equipment Bedside [facility] Bed Leia Lift Other Wheelchair * Other Equipment Gait belt * List name and contact numbers for known caregivers / representatives who currently or will assist patient after discharge: Lilli Forrest - DTR - [phone] Clark Rojas - - [phone] Summer - grand daughter * Verbal permission to speak to the caregivers and representatives has been obtained from the patient. Yes * Community resources currently utilized Home Health * Please name any agencies selected above. [facility] * Additional services required to return to the preadmission environment? No * Can the patient safely return to the preadmission environment? Yes * Has this patient been hospitalized within the prior 30 days at any hospital? No Last DP export: 12/25/17 10:58 a Patient Name: ROGERIO ROJAS Page [id number] at 1205 All edits/amendments must be made on the electronic document DICTATION DATE: 12/25/17 1204 SENIOR TREASURY CONSULTANT: NORA 12/25/17 1204 RPT#: [id number] DC DATE: STATUS: ADM IN [facility] [address] [place] [address] END OF REPORT
--- NOTE | ~2017-12-21 | MORECARE ---
CASE MANAGEMENT DISCHARGE SUMMARY PATIENT: ROGERIO DIXON UNIT: [id number] ADM DATE: 12/23/17 AGE: 76 : 41 SEX: F ROOM/BED: D.2236 AUTHOR: APRIL JIMÉNEZ PHYSICIAN: REFERRING PHYSICIAN: HUBER ORDOÑEZ MD DATE OF SERVICE: 12/25/17 Discharge Plan Patient Name: ROGERIO DIXON [facility] [facility] 1940 Planned Disposition: Home with Home Health Anticipated Discharge Date: Discharge Date: Expected LOS: Initial Reviewer: [email or web address] Initial Review Date: 12/25/2017 Generated: 12/25/17 12:58 pm Patient Name: ROGERIO DIXON Page [phone] at 1158 All edits/amendments must be made on the electronic document DICTATION DATE: 12/25/17 1158 PIPELINE INTEGRITY ENGINEER: NORA 12/25/17 1158 RPT#: [id number] DC DATE: STATUS: ADM IN [facility] [address] [place] [address] END OF REPORT
--- NOTE | ~2017-12-21 | MORECARE ---
CASE MANAGEMENT DISCHARGE SUMMARY PATIENT: ROGERIO ROJAS UNIT: [id number] ADM DATE: 12/23/17 AGE: 76 : 41 SEX: F ROOM/BED: D.2236 AUTHOR: JESSY,DOC PHYSICIAN: REFERRING PHYSICIAN: HUBER ORDOÑEZ MD DATE OF SERVICE: 12/28/17 Discharge Plan Patient Name: ROGERIO ROJAS Facility: [facility]:[place] : 1940 Planned Disposition: Home with Home Health Anticipated Discharge Date: Discharge Date: 12/27/2017 Expected LOS: 0 Initial Reviewer: [email or web address] Initial Review Date: 12/25/2017 Generated: 12/28/17 5:53 pm Comments DCP- Discharge Planning Updated by [email or web address]: Mackenzie Linda on 12/27/17 3:[address] Patient discharging home today, IMM served and explained to daughter. [facility] will be the one to transport patient home, family will call them when they are ready. Patient is current with . CM will continue to follow and assist as needed DCP- Discharge Planning Updated by [email or web address]: Nava Álvarez on 12/25/17 11:[address] Patient Name: ROGERIO ROJAS Admission Status: ER Accout number: [id number] Admission Date: 12-23-2017 : 1940 Admission Diagnosis: Attending: HUBER ORDOÑEZ Current LOS: 2 Anticipated DC Date: Planned Disposition: Home with Home Health Primary Insurance: MEDICARE A & B Discharge Planning Comments: CM met with patient and her daughter (Lilli Forrest) to discuss discharge planning. Patient is alert, nonverbal. I received all information from her daughter. States she lives with her spouse and grand daughter (Summer). Lilli (daughter) states she lives downstairs. Lilli states Radha helps her at night and she is with her during the day so that she has 24/7 care. 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 States they have a leia lift and use it when her mother is unable to assist with transfers. States they use Clark with [facility] to take her to her doctor visits or whenever she needs to get out of the house. States at this time they have [facility] for PT, OT and ST. States this will end after Thanksgiving according to the home health agency. I discussed availability of SNF and DME. Daughter states they have all the DME they need. States they have used [facility] for SNF in the past but declines need at this time. States discharge plan is to return home with family. Daughter states "I have the number to [facility] and will notify him when we are ready. CM will continue to follow and assist with discharge palnning/needs. Argon Tester: Nava Álvarez DCPIA - Discharge Planning Initial Assessment Updated by [email or web address]: Nava Álvarez on 12/25/17 11:59 am * How many steps to enter\\exit or inside your home? Ramp/0 * PCP Dr. Blanton * Preadmission Environment Home with Family * ADLs Partial Dependent * Partial ADLs (Assistance needed) Ambulation Bathing Dressing Medication Management Toileting Transfers * Equipment Bedside [facility] Bed Leia Lift Other Wheelchair * Other Equipment Gait belt * List name and contact numbers for known caregivers / representatives who currently or will assist patient after discharge: Lilli Forrest - DTR - [phone] Clark Rojas - - [phone] Summer - grand daughter * Verbal permission to speak to the caregivers and representatives has been obtained from the patient. Yes * Community resources currently utilized Home Health * Please name any agencies selected above. [facility] * Additional services required to return to the preadmission environment? No * Can the patient safely return to the preadmission environment? Yes * Has this patient been hospitalized within the prior 30 days at any hospital? No Coverage Notice Reviewer: [email or web address] - Mackenzie Linda Notice Issued Date-Time: 12/27/2017 16:38 Notice Type: IM Discharge Notice Notice Delivered To: Family Member Relationship to Patient: Daughter Commission Clerk Name: lilli Delivery Method: HAND - Hand Delivered Lianne Days: Prior Verbal Notification: Recipient Understood Notice: Yes Recipient Signature: Yes Med Rec Note Co-signed by Attending: Coverage Notice Comment: Last DP export: 12/27/17 3:54 p Patient Name: ROGERIO ROJAS Page [phone] at 1654 All edits/amendments must be made on the electronic document DICTATION DATE: 12/28/171652 CUPOLA LINER: NORA 12/28/171652 RPT#: [id number] DC DATE:12/27/17 STATUS: DIS IN [facility] [address] [address] END OF REPORT
--- NOTE | ~2017-12-21 | MORECARE ---
CASE MANAGEMENT DISCHARGE SUMMARY PATIENT: ROGERIO ROJAS UNIT: [id number] ADM DATE: 12/23/17 AGE: 76 : 41 SEX: F ROOM/BED: D.2236 AUTHOR: JESSYDOC PHYSICIAN: REFERRING PHYSICIAN: HUBER ORDOÑEZ MD DATE OF SERVICE: 12/25/17 Discharge Plan Patient Name: ROGERIO ROJAS Facility[facility]:[place] : 1940 Planned Disposition: Home with Home Health Anticipated Discharge Date: Discharge Date: Expected LOS: Initial Reviewer: [email or web address] Initial Review Date: 12/25/2017 Generated: 12/25/17 1:12 pm Comments DCP- Discharge Planning Updated by [email or web address]: Nava Álvarez on 12/25/17 11:[address] Patient Name: ROGERIO Loaiza ROJAS Admission Status: ER Accout number: [id number] Admission Date: 12-23-2017 : 1940 Admission Diagnosis: Attending: HUBER ORDOÑEZ Current LOS: 2 Anticipated DC Date: Planned Disposition: Home with Home Health Primary Insurance: MEDICARE A & B Discharge Planning Comments: CM met with patient and her daughter (Lilli Forrest) to discuss discharge planning. Patient is alert, nonverbal. I received all information from her daughter. States she lives with her spouse and grand daughter (Radha). Lilli (daughter) states she lives downstairs. Lilli states Radha helps her at night and she is with her during the day so that she has 24/7 care. 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 States they have a leia lift and use it when her mother is unable to assist with transfers. States they use Clark with [facility] to take her to her doctor visits or whenever she needs to get out of the house. States at this time they have [facility] for PT, OT and ST. States this will end after Thanks[place] according to the home health agency. I discussed availability of SNF and DME. Daughter states they have all the DME they need. States they have used [facility] for SNF in the past but declines need at this time. States discharge plan is to return home with family. Daughter states "I have the number to [facility] [employer] and will notify him when we are ready. CM will continue to follow and assist with discharge palnning/needs. Package Wrapper: Nava Preeti DCPIA - Discharge Planning Initial Assessment Updated by [id number]: Nava Álvarez on 12/25/17 11:59 am * How many steps to enter\\exit or inside your home? Ramp/0 * PCP Dr. Blanton * Preadmission Environment Home with Family * ADLs Partial Dependent * Partial ADLs (Assistance needed) Ambulation Bathing Dressing Medication Management Toileting Transfers * Equipment Bedside [facility] Bed Leia Lift Other Wheelchair * Other Equipment Gait belt * List name and contact numbers for known caregivers / representatives who currently or will assist patient after discharge: Lilli Forrest - DTR - [phone] Clark Rojas - - [phone] Summer - grand daughter * Verbal permission to speak to the caregivers and representatives has been obtained from the patient. Yes * Community resources currently utilized Home Health * Please name any agencies selected above. [facility] * Additional services required to return to the preadmission environment? No * Can the patient safely return to the preadmission environment? Yes * Has this patient been hospitalized within the prior 30 days at any hospital? No Last DP export: 12/25/17 11:05 a Patient Name: ROGERIO ROJAS Page [phone] at 1212 All edits/amendments must be made on the electronic document DICTATION DATE: 12/25/17 1212 SHIFT MGR: NORA 12/25/17 1212 RPT#: [id number] DC DATE: STATUS: ADM IN [facility] [address] [place] [address] END OF REPORT
--- NOTE | ~2017-12-21 | MORECARE ---
CASE MANAGEMENT DISCHARGE SUMMARY PATIENT: ROGERIO ROJAS UNIT: [id number] ADM DATE: 12/23/17 AGE: 76 : 41 SEX: F ROOM/BED: D.2236 AUTHOR: JESSY,DOC PHYSICIAN: REFERRING PHYSICIAN: HUBRE ORDOÑEZ MD DATE OF SERVICE: 12/27/17 Discharge Plan Patient Name: ROGERIO ROJAS Facility: [facility]:[place] : 1940 Planned Disposition: Home with Home Health Anticipated Discharge Date: Discharge Date: Expected LOS: Initial Reviewer: [email or web address] Initial Review Date: 12/25/2017 Generated: 12/27/17 5:54 pm Comments DCP- Discharge Planning Updated by [email or web address]: Mackenzie Linda on 12/27/17 3:[address] Patient discharging home today, IMM served and explained to daughter. [facility] will be the one to transport patient home, family will call them when they are ready. Patient is current with HH. CM will continue to follow and assist as needed DCP- Discharge Planning Updated by [email or web address]: Nava Álvarez on 12/25/17 11:[address] Patient Name: ROGERIO ROJAS Admission Status: ER Accout number: [id number] Admission Date: 12-23-2017 : 1940 Admission Diagnosis: Attending: HUBER ORDOÑEZ Current LOS: 2 Anticipated DC Date: Planned Disposition: Home with Home Health Primary Insurance: MEDICARE A & B Discharge Planning Comments: CM met with patient and her daughter (Lilli Forrest) to discuss discharge planning. Patient is alert, nonverbal. I received all information from her daughter. States she lives with her spouse and grand daughter (Summer). Lilli (daughter) states she lives downstairs. Lilli states Summer helps her at night and she is with her during the day so that she has 24/7 care. 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 States they have a leia lift and use it when her mother is unable to assist with transfers. States they use Clark with [facility] to take her to her doctor visits or whenever she needs to get out of the house. States at this time they have [facility] for PT, OT and ST. States this will end after Thanksgiving according to the home health agency. I discussed availability of SNF and DME. Daughter states they have all the DME they need. States they have used [facility] for SNF in the past but declines need at this time. States discharge plan is to return home with family. Daughter states "I have the number to [facility] and will notify him when we are ready. CM will continue to follow and assist with discharge palnning/needs. Sausage Cutter: Nava Álvarez DCPIA - Discharge Planning Initial Assessment Updated by [id number]: Nava Álvarez on 12/25/17 11:59 am * How many steps to enter\\exit or inside your home? Ramp/0 * PCP Dr. Blanton * Preadmission Environment Home with Family * ADLs Partial Dependent * Partial ADLs (Assistance needed) Ambulation Bathing Dressing Medication Management Toileting Transfers * Equipment Bedside Com[facility] Hospital Bed Leia Lift Other Wheelchair * Other Equipment Gait belt * List name and contact numbers for known caregivers / representatives who currently or will assist patient after discharge: Lilli Forrest - DTR - [phone] Clark Rojas - - [phone] Summer - grand daughter * Verbal permission to speak to the caregivers and representatives has been obtained from the patient. Yes * Community resources currently utilized Home Health * Please name any agencies selected above. [facility] * Additional services required to return to the preadmission environment? No * Can the patient safely return to the preadmission environment? Yes * Has this patient been hospitalized within the prior 30 days at any hospital? No External Providers External Provider: [facility] Next Contact Date: Service Request Date: Service Type: Resolution: Reviewer: Comments: Coverage Notice Reviewer: [email or web address] Shannon Linda Notice Issued Date-Time: 12/27/2017 16:38 Notice Type: IM Discharge Notice Notice Delivered To: Family Member Relationship to Patient: Daughter Ac/Dc Rewinder Name: lilli Delivery Method: HAND - Hand Delivered Lianne Days: Prior Verbal Notification: Recipient Understood Notice: Yes Recipient Signature: Yes Med Rec Note Co-signed by Attending: Coverage Notice Comment: Last DP export: 12/25/17 11:12 a Patient Name: ROGERIO ROJAS Page [phone] at 1654 All edits/amendments must be made on the electronic document DICTATION DATE: 12/27/171652 SPORTS DOCTOR: NORA 12/27/171652 RPT#: [id number] DC DATE: STATUS: ADM IN [facility] [address] [place] [address] END OF REPORT
[2017-12-21 20:12] LABS: BASOPHILS 0.4 % (0-2); HEMATOCRIT 42.3 % (36.0-48.0); HEMOGLOBIN 13.9 g/dL (12-16); IMMATURE GRANULOCYTES 0.3 % (0-5); LYMPHOCYTES 22.8 % (15-50); MCH 27.5 pg (26.0-34.0); MCHC 32.9 g/dL (31.0-37.0); MCV 83.8 fL (80.0-100.0); MEAN PLATELET VOLUME 10.7 fL (7.4-10.4); MONOCYTES 9.9 % (2-11); NEUTROPHILS 57.6 % (40-80); PLATELET COUNT 250 10x3/uL (130-400); RBC 5.05 10x6/uL (4.00-5.40); WBC 10.1 10x3/uL (4.8-10.8)
[2017-12-21 20:28] LABS: INR 2.15 (0.85-1.17); PROTIME 23.4 SECONDS (11.6-15.0)
[2017-12-21 20:35] VITALS: BP 127/65
[2017-12-21 20:40] LABS: ALBUMIN 3.8 g/dL (3.4-5.0); ALKALINE PHOSPHATASE 109 U/L (46-116); ALT (SGPT) 24 U/L (10-68); BILIRUBIN - TOTAL 0.62 mg/dL (0.2-1.3); CALC OSMOLALITY 286 mosm/kg (275-300); CALCIUM 9.5 mg/dL (8.5-10.1); CARBON DIOXIDE 24.1 mmol/L (21.0-32.0); CHLORIDE - SERUM 105 mmol/L (98-107); GLUCOSE 116 mg/dL (74-106); POTASSIUM - SERUM 4.6 mmol/L (3.5-5.1); PROTEIN - SERUM 8.1 g/dL (6.4-8.2); SODIUM 140 mmol/L (136-145); UREA NITROGEN 31 mg/dL (7-18); eGFR NON AFRICAN AMERICAN 57 mL/min (90-120)
[2017-12-21 20:43] LABS: CKMB 1.6 U/L (0.0-3.6); CREATINE KINASE 49 UL (21-215); PRO BNP 440 pg/mL (0-450); THYROID STIMULATING HORMONE 3.86 uIU/mL (0.36-3.74); TROPONIN-I 0.057 ng/mL (0.000-0.060)
[2017-12-21 21:23] LABS: APPEARANCE CLEAR (CLEAR); BILIRUBIN NEGATIVE (NEGATIVE); COLOR YELLOW (YELLOW); GLUCOSE NEGATIVE (NEGATIVE); KETONE NEGATIVE (NEGATIVE); NITRITE NEGATIVE (NEGATIVE); PROTEIN TRACE mg/dL (NEGATIVE); SPECIFIC GRAVITY 1.015 (1.005-1.020); UROBILINOGEN NORMAL (NORMAL)
[2017-12-21 21:25] VITALS: BP 139/75
[2017-12-22 01:24] VITALS: BP 112/54; BMI 24.9
[2017-12-22 12:28] LABS: BASOPHILS 0.3 % (0-2); EOSINOPHILS 6.7 % (0-7); HEMATOCRIT 38.7 % (36.0-48.0); HEMOGLOBIN 12.6 g/dL (12-16); IMMATURE GRANULOCYTES 0.4 % (0-5); LYMPHOCYTES 22.2 % (15-50); MCH 27.2 pg (26.0-34.0); MCHC 32.6 g/dL (31.0-37.0); MCV 83.6 fL (80.0-100.0); MEAN PLATELET VOLUME 11.4 fL (7.4-10.4); MONOCYTES 9.3 % (2-11); NEUTROPHILS 61.1 % (40-80); PLATELET COUNT 272 10x3/uL (130-400); RBC 4.63 10x6/uL (4.00-5.40); RDW 16.1 % (11.5-14.5); WBC 9.8 10x3/uL (4.8-10.8)
[2017-12-22 12:43] LABS: ALBUMIN 3.4 g/dL (3.4-5.0); ANION GAP 14.3 mmol/L (8-16); BILIRUBIN - TOTAL 0.7 mg/dL (0.2-1.3); CALCIUM 9.6 mg/dL (8.5-10.1); POTASSIUM - SERUM 4.3 mmol/L (3.5-5.1); PROTEIN - SERUM 7.2 g/dL (6.4-8.2)
[2017-12-22 13:06] LABS: INR 2.04 (0.85-1.17); PROTIME 22.4 SECONDS (11.6-15.0)
[2017-12-22 13:21] VITALS: Ht 157.5 cm; Wt 61.7 kg
[2017-12-22] MEDS ORDERED: NORVASC2.5 MG PO (14:50)
[2017-12-22] MEDS ORDERED: CYMBALTA20 MG PO (14:50)
[2017-12-22] MEDS ORDERED: VITAMIN B-12500 MC1 PO (14:53)
[2017-12-22] MEDS ORDERED: NEURONTIN600 MG PO (14:54)
[2017-12-22] MEDS ORDERED: NORCO 5/325 TAB1 TAB PO (14:56)
[2017-12-22] MEDS ORDERED: TYLENOL W/CODEI1 TAB PO (14:57)
[2017-12-22 18:07] VITALS: BP 143/72
[2017-12-23 06:38] LABS: BASOPHILS 0.2 % (0-2); EOSINOPHILS 4.9 % (0-7); HEMATOCRIT 35.5 % (36.0-48.0); HEMOGLOBIN 11.2 g/dL (12-16); IMMATURE GRANULOCYTES 0.2 % (0-5); LYMPHOCYTES 14.6 % (15-50); MCH 26.9 pg (26.0-34.0); MCHC 31.5 g/dL (31.0-37.0); MCV 85.1 fL (80.0-100.0); MEAN PLATELET VOLUME 10.8 fL (7.4-10.4); MONOCYTES 10.2 % (2-11); NEUTROPHILS 69.9 % (40-80); RBC 4.17 10x6/uL (4.00-5.40); RDW 16.1 % (11.5-14.5); WBC 10.2 10x3/uL (4.8-10.8)
[2017-12-23 06:46] LABS: INR 2.07 (0.85-1.17); PLATELET COUNT 211 10x3/uL (130-400); PROTIME 22.7 SECONDS (11.6-15.0)
[2017-12-23 07:04] LABS: ANION GAP 14.2 mmol/L (8-16); BILIRUBIN - TOTAL 0.84 mg/dL (0.2-1.3); CALCIUM 9.1 mg/dL (8.5-10.1); POTASSIUM - SERUM 4.2 mmol/L (3.5-5.1); PROTEIN - SERUM 6.2 g/dL (6.4-8.2)
[2017-12-24 07:45] LABS: BASOPHILS 0.3 % (0-2); EOSINOPHILS 6.4 % (0-7); HEMATOCRIT 35.8 % (36.0-48.0); HEMOGLOBIN 11.3 g/dL (12-16); IMMATURE GRANULOCYTES 0.3 % (0-5); LYMPHOCYTES 22.2 % (15-50); MCH 27.1 pg (26.0-34.0); MCHC 31.6 g/dL (31.0-37.0); MCV 85.9 fL (80.0-100.0); MEAN PLATELET VOLUME 10.9 fL (7.4-10.4); MONOCYTES 10.5 % (2-11); NEUTROPHILS 60.3 % (40-80); PLATELET COUNT 234 10x3/uL (130-400); RBC 4.17 10x6/uL (4.00-5.40); RDW 15.9 % (11.5-14.5); WBC 9.7 10x3/uL (4.8-10.8)
[2017-12-24 07:56] LABS: INR 2.01 (0.85-1.17); PROTIME 22.2 SECONDS (11.6-15.0)
[2017-12-24 08:06] LABS: ANION GAP 10.9 mmol/L (8-16); BILIRUBIN - TOTAL 1.04 mg/dL (0.2-1.3); CALCIUM 9.1 mg/dL (8.5-10.1); CREATININE - SERUM 0.9 mg/dL (0.6-1.3); POTASSIUM - SERUM 3.9 mmol/L (3.5-5.1); PROTEIN - SERUM 6.6 g/dL (6.4-8.2)
[2017-12-25 06:28] LABS: BASOPHILS 0.2 % (0-2); EOSINOPHILS 4.8 % (0-7); HEMATOCRIT 35.7 % (36.0-48.0); HEMOGLOBIN 11.3 g/dL (12-16); IMMATURE GRANULOCYTES 0.2 % (0-5); LYMPHOCYTES 14.4 % (15-50); MCH 27.2 pg (26.0-34.0); MCHC 31.7 g/dL (31.0-37.0); MCV 85.8 fL (80.0-100.0); MEAN PLATELET VOLUME 11.2 fL (7.4-10.4); MONOCYTES 10.3 % (2-11); NEUTROPHILS 70.1 % (40-80); PLATELET COUNT 235 10x3/uL (130-400); RBC 4.16 10x6/uL (4.00-5.40); RDW 15.9 % (11.5-14.5)
[2017-12-25 06:53] LABS: ANION GAP 13.3 mmol/L (8-16); BILIRUBIN - TOTAL 0.89 mg/dL (0.2-1.3); CALCIUM 8.9 mg/dL (8.5-10.1); CARBON DIOXIDE 27.6 mmol/L (21.0-32.0); CREATININE - SERUM 0.9 mg/dL (0.6-1.3); POTASSIUM - SERUM 3.9 mmol/L (3.5-5.1); PROTEIN - SERUM 6.2 g/dL (6.4-8.2)
[2017-12-25 07:10] LABS: INR 1.8 (0.85-1.17); PROTIME 20.4 SECONDS (11.6-15.0)
[2017-12-25 20:08] VITALS: BP 155/84
[2017-12-26 05:00] VITALS: BP 142/68
[2017-12-26 06:48] LABS: BASOPHILS 0.4 % (0-2); HEMOGLOBIN 10.9 g/dL (12-16); IMMATURE GRANULOCYTES 0.3 % (0-5); LYMPHOCYTES 20.7 % (15-50); MCH 26.8 pg (26.0-34.0); MCHC 31.1 g/dL (31.0-37.0); MCV 86.2 fL (80.0-100.0); MEAN PLATELET VOLUME 10.8 fL (7.4-10.4); MONOCYTES 10.6 % (2-11); PLATELET COUNT 231 10x3/uL (130-400); RBC 4.06 10x6/uL (4.00-5.40); RDW 15.9 % (11.5-14.5)
[2017-12-26 06:49] LABS: WBC 7.4 10x3/uL (4.8-10.8)
[2017-12-26 06:58] LABS: INR 1.79 (0.85-1.17); PROTIME 20.3 SECONDS (11.6-15.0)
[2017-12-26 07:06] LABS: ALBUMIN 2.8 g/dL (3.4-5.0); ANION GAP 10.9 mmol/L (8-16); BILIRUBIN - TOTAL 0.63 mg/dL (0.2-1.3); CALCIUM 9.2 mg/dL (8.5-10.1); CARBON DIOXIDE 27.8 mmol/L (21.0-32.0); POTASSIUM - SERUM 3.7 mmol/L (3.5-5.1); PROTEIN - SERUM 6.5 g/dL (6.4-8.2)
[2017-12-26 09:57] VITALS: BP 148/70
[2017-12-26 12:48] VITALS: BP 128/62
[2017-12-26 17:08] VITALS: BP 105/57
[2017-12-26 20:00] VITALS: BP 137/64
[2017-12-27 05:00] VITALS: BP 118/58
[2017-12-27 06:08] LABS: BASOPHILS 0.3 % (0-2); EOSINOPHILS 8.7 % (0-7); HEMATOCRIT 35.8 % (36.0-48.0); HEMOGLOBIN 11.1 g/dL (12-16); IMMATURE GRANULOCYTES 0.2 % (0-5); LYMPHOCYTES 23.3 % (15-50); MCH 26.9 pg (26.0-34.0); MCV 86.7 fL (80.0-100.0); MEAN PLATELET VOLUME 11.2 fL (7.4-10.4); MONOCYTES 9.2 % (2-11); NEUTROPHILS 58.3 % (40-80); PLATELET COUNT 261 10x3/uL (130-400); RBC 4.13 10x6/uL (4.00-5.40); RDW 15.8 % (11.5-14.5)
[2017-12-27 06:25] LABS: INR 1.45 (0.85-1.17); PROTIME 17.2 SECONDS (11.6-15.0)
[2017-12-27 06:27] LABS: ALBUMIN 3.1 g/dL (3.4-5.0); ANION GAP 12.7 mmol/L (8-16); BILIRUBIN - TOTAL 0.42 mg/dL (0.2-1.3); CALCIUM 8.9 mg/dL (8.5-10.1); CARBON DIOXIDE 29.8 mmol/L (21.0-32.0); CREATININE - SERUM 1.3 mg/dL (0.6-1.3); POTASSIUM - SERUM 3.5 mmol/L (3.5-5.1); PROTEIN - SERUM 6.9 g/dL (6.4-8.2)
[2017-12-27 08:35] VITALS: BP 130/67
[2017-12-27 13:48] VITALS: BP 110/51
[2017-12-27] MEDS ORDERED: LEVAQUIN750 MG PO (16:26)
[2017-12-27] MEDS ORDERED: MIRALAX17 GM PO (16:28)
[2017-12-27 17:53] VITALS: BP 126/77
== END 2017-12-27 21:37 | disposition home health service (06) | DRG 884 ==
LOC: D.ER 19:05 → D.MS 23:28 → OBSVTIME 23:28 → D.MS 12-23 15:29
PROVIDERS: Emergency Medicine; Family Medicine
DX: R54 Age-related physical debility (principal); G93.41 Metabolic encephalopathy; I50.43 Acute on chronic combined systolic (congestive) and diastolic (congestive) heart failure; N39.0 Urinary tract infection, site not specified; I69.351 Hemiplegia and hemiparesis following cerebral infarction affecting right dominant side; K59.09 Other constipation; Z79.01 Long term (current) use of anticoagulants; E03.9 Hypothyroidism, unspecified; I10 Essential (primary) hypertension; I11.0 Hypertensive heart disease with heart failure; D72.1 Eosinophilia; I25.10 Atherosclerotic heart disease of native coronary artery without angina pectoris; D50.9 Iron deficiency anemia, unspecified; Z95.0 Presence of cardiac pacemaker

== ENCOUNTER → 2018-01-09 12:56 | Outpatient (CLI) | payer MEDICARE, OTHER ==
[2017-12-22 13:21] VITALS: BMI 24.8
[~2018-01-09 12:56] MED LIST changes: +CYMBALTA20 MG PO; +LEVAQUIN750 MG PO; +MIRALAX17 GM PO; +NEURONTIN600 MG PO; +NORCO 5/325 TAB1 TAB PO; +TYLENOL W/CODEI1 TAB PO; +VITAMIN B-12500 MC1 PO
== END | disposition home or self-care (01) ==
LOC: D.LABREF 12:56
DX: N39.0 Urinary tract infection, site not specified (principal); I69.351 Hemiplegia and hemiparesis following cerebral infarction affecting right dominant side

== ENCOUNTER 2018-03-05 12:15 | Inpatient (IN) | payer MEDICARE, OTHER ==
[~2018-03-05] VITALS: Ht 157.5 cm; Wt 68.0 kg
[2018-03-05 12:48] VITALS: BP 161/80; BMI 27.5
--- NOTE | 2018-03-05 14:45 | NUR ---
PT LYING IN BED. CL IN REACH. PT DENIES NEEDS OR PAIN. WCTM
--- NOTE | 2018-03-05 19:45 | NUR ---
RECEIVED PATIENT SITTING UP IN BED WATCHING TV. PATIENT ASSESSMENT & VITAL SIGNS DONE. PATIENT HAD NO S/S OF PAIN OR DISTRESS. PATIENT UNABLE TO USE CALL LIGHT. PATIENT CHECKED ON FREQUENTLY. BED LOW. ALARM ON. WILL CONTINUE TO MONITOR.
[2018-03-05 20:00] VITALS: BP 133/67
--- NOTE | 2018-03-06 01:24 | NUR ---
PATIENT EYES CLOSED. RESPIRATIONS 18 & EVEN. PATIENT BED LOW. ALARM ON. CALL LIGHT WITHIN REACH. WILL CONTINUE TO MONITOR.
--- NOTE | 2018-03-06 04:30 | NUR ---
PATIENT ABLE TO LIFT BUTTOCKS OFF PAD FOR CHANGE. PATIENT USED LEFT HAND & HELPED PULL UP BRIEF. PATIENT BED LOW. ALARM ON. CALL LIGHT WITHIN REACH. WILL CONTINUE TO MONITOR.
[2018-03-06 07:01] LABS: BASOPHILS 0.3 % (0-2); EOSINOPHILS 8.5 % (0-7); HEMATOCRIT 37.6 % (36.0-48.0); IMMATURE GRANULOCYTES 0.3 % (0-5); LYMPHOCYTES 25.5 % (15-50); MCHC 31.9 g/dL (31.0-37.0); MCV 84.5 fL (80.0-100.0); MEAN PLATELET VOLUME 11.2 fL (7.4-10.4); MONOCYTES 8.5 % (2-11); NEUTROPHILS 56.9 % (40-80); PLATELET COUNT 260 10x3/uL (130-400); RBC 4.45 10x6/uL (4.00-5.40); RDW 14.2 % (11.5-14.5); WBC 8.8 10x3/uL (4.8-10.8)
[2018-03-06 07:12] LABS: ANION GAP 12.6 mmol/L (8-16); CALCIUM 9.1 mg/dL (8.5-10.1); CARBON DIOXIDE 25.6 mmol/L (21.0-32.0); CREATININE - SERUM 1.1 mg/dL (0.6-1.3); POTASSIUM - SERUM 4.2 mmol/L (3.5-5.1)
[2018-03-06 09:40] LABS: INR 2.55 (0.85-1.17); PROTIME 26.7 SECONDS (11.6-15.0)
[2018-03-06 12:59] VITALS: BMI 27.4
--- NOTE | 2018-03-06 15:19 | NUR ---
RESTING QUIETLY.CL IN REACH.
--- NOTE | 2018-03-06 15:51 | NUR ---
PATIENT ADMITTED TO REHAB . SHE IS A CLIENT OF [facility], DME AT HOME IS A BEDSIDE COMMODE, MANOLO LIFT AND WHEELCHAIR. DR. CAMPOS IS HER PCP. SHE HAS 11/09 CARE GIVERS AND WILL DISCHARGE HOME. WILL CONTINUE TO FOLLOW WITH PATIENT.
--- NOTE | 2018-03-06 16:41 | RHP ---
PATIENT: ROGERIO DIXON MEDICAL RECORD: [id number] ACCOUNT: [id number] LOCATION:[facility] : [birth year] ADMISSION DATE: 03/05/18 REHABILITATION HISTORY AND PHYSICAL EXAMINATION POST ADMISSION PHYSICIAN EXAMINATION DATE OF ADMISSION: 03/05/2018. ADMITTING DIAGNOSIS: Sequelae of CVA. HISTORY OF PRESENT ILLNESS: The patient is a 77-year-old female patient with a history of subacute left middle cerebral artery infarct. She has had right-sided weakness and aphasia. She was originally rehabilitated at [facility], went to a skilled facility. She had been working with [employer] and has done well; however, I felt like she could be placed back in the hospital in the inpatient rehab to get some further therapy to help her at home and help her family with being able to get her more independent in her ADLs. She continues to exhibit decreased independence with basic ADLs secondary to mobility, balance, strength, and functional deficit of the right upper extremity. OT services will provide some new reeducation of how to use her right upper extremity and also some therapeutic activity with functional activity during ADLs. PT will hopefully provide some strength, balance, and transfer training, so the patient can prepare her wheelchair using her left upper and lower extremity. Speech therapy will work with the patient for verbal communication training, so she can demonstrate ability to indicate distress. Before her CVA, she was independent with ADLs and mobility. 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 She is currently mod to max assist for ADLs and remains immobile. The patient is working very hard towards therapy goals, but making slow progress. She and her family are going to take her back home after this short stay in the rehabilitation. COMORBIDITIES: Include right hemiplegia, AFib, history of CVA, hypertension, chronic kidney disease, generalized weakness, deconditioning, hypothyroidism, history of valve replacement, coronary artery disease, CHF, and pancreatitis. PAST MEDICAL HISTORY: Significant for CVA with right hemiparesis, thyroid problems, hypertension, pancreatitis, splenic infarct, arthritis, and depression. PAST SURGICAL HISTORY: Includes hernia repair, tonsillectomy and adenoidectomy, hysterectomy, valve repair, cataract surgery, history of catheterization, and pacemaker placement. ALLERGIES: CARLO INHIBITORS AND TRAZODONE. CURRENT MEDICATIONS: Include polyethylene glycol 17 grams in 8 ounces of water daily, Celebrex 200 mg daily, aspirin chewable 81 mg daily, Cymbalta 20 mg daily, levothyroxine 88 mcg daily, amlodipine 2.5 mg daily, multivitamin daily, Neurontin 300 mg daily and 600 mg b.i.d. She is on Tylenol 1 tab q.4 hours p.r.n., Fortuna 5/325 every 6 hours p.r.n., Coumadin 5 mg daily, Pepcid 20 mg b.i.d., Zofran p.r.n., and Multaq 400 mg b.i.d. with meals. HABITS: No alcohol or tobacco use. FAMILY HISTORY: Noncontributory. HISTORY AND PHYSICAL [id number] DIXON,ROGERIO SOCIAL HISTORY: The patient hopes to return back home. She is somewhat aphasic per family request. REVIEW OF SYSTEMS: Unable to obtain. PHYSICAL EXAMINATION: GENERAL: A well-developed female in no acute distress, alert upon exam. HEENT: Normocephalic and atraumatic. Mucosa moist. NECK: Supple. No lymphadenopathy. LUNGS: Clear at this time. HEART: Irregular rate and rhythm. ABDOMEN: Benign. EXTREMITIES: No clubbing, cyanosis, or edema. NEUROLOGIC: She does have noted weakness, mainly unilateral. She is aphasic. LABORATORY DATA: White count is 8.8, H&H of 12 and 37, and platelet count is 260. Her sodium is 141, potassium 4.2, BUN and creatinine of 30 and 1.1, and blood sugar is noted to be 85. Her INR is not available at this time. ASSESSMENT: This is a 77-year-old female patient admitted to the rehab with a working diagnosis of sequelae secondary to CVA. The patient has potential to make improvement. We instituted the following multidisciplinary therapies including but not limited to physical, occupational, respiratory, speech, nutritional services, prosthetics and orthotics. Given her complex medical condition and risks for more complications, rehabilitation services cannot be provided at a low level of care such as skilled nurse facility. PLAN: 1. Admit to [facility] rehab for intensive inpatient therapy to include the following disciplines: A. Physical therapy to improve gait, all transfer skills and bed mobility to a modified independent level. B. Occupational therapy to improve activities of daily living to a modified independent level. C. Case management to assist with discharge planning and placement options. D. Nutrition to assist with nutritional needs. E. Rehabilitation nursing to assist in monitoring the patient's underlying medical conditions and to assist with any type of bowel or bladder management. 2. The patient's current medication and medical care will be continued. 3. The patient will be placed on standard fall precautions. 4. I am going to follow her INR closely. 5. We will check her vitamin D levels and also her thyroid stuff during her stay. 6. We will hopefully get her more mobile and help her to be able to be more helpful towards her family members at home and we will keep her family abreast of her care. TRANSINT:[id number] Voice Confirmation ID: [id number] DOCUMENT ID: [id number] DARIUS notes whether there has been none or any medical/functional change since admission: - No change since prescreen. HISTORY AND PHYSICAL [id number] DIXON,ROGERIO MCCOY attests patient continues to be appropriate for IRF: - Continues to be appropriate. SEEMA CAMPOS MD at 1641 CC: [id number] DICTATION DATE: 03/06/18824 SCUBA DIVE TRAINING INSTRUCTOR: 03/06/18 0937 ADM IN [facility] [address] [id number]
--- NOTE | 2018-03-06 18:34 | NUR ---
PT RESTING IN BED WITH EYES OPEN CALL LIGHT IN REACH NO PROBLEMS WILL MONITER
--- NOTE | 2018-03-06 19:31 | NUR ---
AWAKE AND ALERT BUT APHASIC. ONLY SAYS "PATRICIO" IN RESPONSE TO ALL QUESTIONS. RESPIRATIONS UNLABORED. RIGHT SIDE FLACCID. NO ACUTE DISTRESS NOTED. SAFETY MEASURES IN PLACE.
[2018-03-07 01:19] VITALS: BP 141/64
--- NOTE | 2018-03-07 01:59 | NUR ---
RESTING IN BED WITH RESPIRATIONS UNLABORED. NO DISTRESS NOTED.
--- NOTE | 2018-03-07 04:22 | NUR ---
CONTINUES RESTING IN BED WITH NO DISTRESS NOTED.
[2018-03-07 08:00] VITALS: BP 106/53
--- NOTE | 2018-03-07 08:15 | NUR ---
PT RESTING IN BED WITH EYES OPEN CALL LIGHT IN REACH NO PROBLEMS WILL MONITER
--- NOTE | 2018-03-07 12:05 | NUR ---
CL IN REACH
--- NOTE | 2018-03-07 13:07 | NUR ---
PT INCONTINENT OF URINE PT CLEANED AND DRYED AND REPOSITIONED IN BED CALL LIGHT IN REACH WILL MONITER
--- NOTE | 2018-03-07 18:43 | NUR ---
PT RESTING IN BED WITH DAUGHTER AT BEDSIDE CALL LIGHT IN REACH WILL MONITER
[2018-03-07 19:00] VITALS: BP 134/54
--- NOTE | 2018-03-07 20:16 | NUR ---
AWAKE AND ALERT TALKING WITH FAMILY. SMILING. NOTED ASPHAGIC. RESPIRATIONS UNLABORED. NO DISTRESS NOTED.
--- NOTE | 2018-03-08 03:12 | NUR ---
RESTING IN BED WITH NO DISTRESS NOTED.
--- NOTE | 2018-03-08 06:34 | NUR ---
AWAKE AND ALERT. RESPIRATIONS UNLABORED. NO DISTRESS NOTED.
[2018-03-08 07:14] VITALS: BP 156/80
[2018-03-08 07:20] LABS: BASOPHILS 0.9 % (0-2); EOSINOPHILS 9.4 % (0-7); HEMATOCRIT 39.7 % (36.0-48.0); HEMOGLOBIN 12.7 g/dL (12-16); IMMATURE GRANULOCYTES 0.2 % (0-5); LYMPHOCYTES 29.6 % (15-50); MCH 27.1 pg (26.0-34.0); MCV 84.6 fL (80.0-100.0); MEAN PLATELET VOLUME 11.3 fL (7.4-10.4); MONOCYTES 9.5 % (2-11); NEUTROPHILS 50.4 % (40-80); PLATELET COUNT 270 10x3/uL (130-400); RBC 4.69 10x6/uL (4.00-5.40); RDW 14.4 % (11.5-14.5); WBC 8.6 10x3/uL (4.8-10.8)
[2018-03-08 07:32] LABS: CALCIUM 9.3 mg/dL (8.5-10.1); CARBON DIOXIDE 26.2 mmol/L (21.0-32.0); CREATININE - SERUM 1.2 mg/dL (0.6-1.3); POTASSIUM - SERUM 4.2 mmol/L (3.5-5.1)
--- NOTE | 2018-03-08 08:00 | NUR ---
SITTING UP IN BED FOR BREAKFAST. INCONT OF BOWEL AND BLADDER. PT AND BED CHANGED. FAMILY AT BEDSIDE.
--- NOTE | 2018-03-08 12:37 | NUR ---
SITTING IN WC IN ROOM EATING LUNCH. FAMILY STILL WITH PT. SHE IS FLACCID ON RIGHT SIDE. SHE ANSWERS ALL QUESTIONS WITH THE WORD "PATRICIO". CAN FOLLOW SIMPLE COMMANDS. NO SKIN BREAKDOWN NOTED. CALL LIGHT IN REACH
--- NOTE | 2018-03-08 18:22 | NUR ---
SITTING UP IN BED EATING SUPPER. FAMILY STILL WITH PT IN ROOM.
--- NOTE | 2018-03-08 19:20 | NUR ---
PATIENT RECEIVED SITTING UP IN BED WATCHING TV. PATIENT ASSESSMENT DONE. PATIENT HAD NO C/O PAIN OR DISTRESS. PATIENT BED LOW. ALARM ON. CALL LIGHT WITHIN REACH. WILL CONTINUE TO MONITOR.
[2018-03-08 20:02] VITALS: BP 119/55
--- NOTE | 2018-03-08 21:47 | NUR ---
PATIENT GIVEN BED BATH. REDNESS NOTED TO PERIAREA & BUTTOCKS. BUTT PASTE APPLIED. LINENS CHANGED. PATIENT TOLERATED IT WELL. BED LOW. ALARM ON. CALL LIGHT WITHIN REACH. WILL CONTINUE TO MONITOR.
--- NOTE | 2018-03-08 23:47 | NUR ---
PT ASLEEP NO NEEDS NOTED FLUIDS AND CALL LIGHT WITHIN REACH
--- NOTE | 2018-03-09 02:15 | NUR ---
PATIENT CHECKED FOR INCONTINENCE. PATIENT HAD SOFT MEDIUM BM, & URINE. PATIENT CLEANED BUTT PASTE APPLIED TO RED AREA TO INNER BUTTOCKS & PERIAREA. CALL LIGHT PLACED WITHIN REACH. BED LOW. ALARM ON. WILL CONTINUE TO MONITOR.
[2018-03-09 06:37] LABS: INR 2.78 (0.85-1.17); PROTIME 28.6 SECONDS (11.6-15.0)
--- NOTE | 2018-03-09 06:56 | NUR ---
RESTING QUIETLY IN BED. NO S/S DISTRESS OR NEEDS. CALL LIGHT IN REACH. BED IN LOWEST POSITION.
[2018-03-09 08:07] VITALS: BP 172/74
--- NOTE | 2018-03-09 12:13 | NUR ---
PARTICIPATED IN THERAPY THIS AM. SAT IN WC IN ROOM, ASSISTED TO BED TOTAL ASSIST. ACCIDENT URINE ON LINENS THIS AM. REPOSITIONED UP IN BED. FAMILY AT .
--- NOTE | 2018-03-09 18:23 | NUR ---
NO CHANGE IN ASSESSMENT. RESP EVEN AND UNLABORED. NO DISTRES NOTED.
--- NOTE | 2018-03-09 22:41 | NUR ---
WATCHING TV NO NEEDS NOTED FLUIDS AND CALL LIGHT WITHIN REACH
[2018-03-09 23:09] VITALS: BP 111/66
--- NOTE | 2018-03-10 | NUR ---
PT ASLEEP NO NEEDS NOTED FLUIDS AND CALL LIGHT WITHIN REACH
--- NOTE | 2018-03-10 08:00 | NUR ---
PATIENT ALERT AND AWAKE THIS MORNING. FED SELF 60% OF BREAKFAST. NO COMPLAINTS AT THIS TIME. WILL CONTINUE TO MONITOR.
--- NOTE | 2018-03-10 10:06 | NUR ---
HAD INCONTINENT EPISODE. COMPLETE BED CHANGE DONE.
[2018-03-10 10:47] VITALS: BP 161/66
--- NOTE | 2018-03-10 16:41 | NUR ---
PATIENT SLEPT MOST OF AFTERNOON WITH DAUGHTER AND AT BEDSIDE. HAD 2 MORE INCONTIENT EPISODES SO FAR THIS SHIFT. RESTING QUIETLY AT THIS TIME.
--- NOTE | 2018-03-10 19:10 | NUR ---
THE PATIENT WAS SITTING IN BED WHEN STAFF ENTERED HER AREA. BED IN LOW POSITION WITH SIDERAILS X2 AND CALL LIGHT WITHIN REACH. PATIENT EDUCATED ON USE OF A CALL LIGHT BUT UNABLE TO RETURN EDUCATE. THE PATIENT APPEARS COMFORTABLE WITH NO CONCERNS AT THIS TIME.
--- NOTE | 2018-03-11 01:22 | NUR ---
THE PATIENT APPEARS TO BE SLEEPING COMFORTABLY. BED REMAINS IN LOW POSITITON WITH SIDERAILS X2 AND CALL LIGHT WITHIN REACH.
[2018-03-11 05:46] VITALS: BP 148/61
[2018-03-11 07:23] LABS: BASOPHILS 0.8 % (0-2); EOSINOPHILS 8.7 % (0-7); HEMATOCRIT 37.8 % (36.0-48.0); HEMOGLOBIN 12.1 g/dL (12-16); IMMATURE GRANULOCYTES 0.2 % (0-5); LYMPHOCYTES 23.8 % (15-50); MCH 27.1 pg (26.0-34.0); MCV 84.6 fL (80.0-100.0); MEAN PLATELET VOLUME 10.9 fL (7.4-10.4); MONOCYTES 10.1 % (2-11); NEUTROPHILS 56.4 % (40-80); PLATELET COUNT 258 10x3/uL (130-400); RBC 4.47 10x6/uL (4.00-5.40); RDW 14.3 % (11.5-14.5); WBC 8.8 10x3/uL (4.8-10.8)
[2018-03-11 07:35] LABS: ANION GAP 14.2 mmol/L (8-16); CALCIUM 9.1 mg/dL (8.5-10.1); POTASSIUM - SERUM 4.2 mmol/L (3.5-5.1)
[2018-03-11 08:27] VITALS: BP 168/74
--- NOTE | 2018-03-11 09:40 | NUR ---
PATIENT AWAKE AND ALERT THIS MORNING. FED SELF 60% OF BREAKFAST. NO OTHER COMPLAINTS. RESTING IN BED WITH DAUGHTER AT BEDSIDE.
--- NOTE | 2018-03-11 16:30 | NUR ---
PATIENT RESTING QUIETLY IN BED AT THIS TIME WITH VIOLET AT BEDSIDE. HAD THERAPY TODAY AND TOLERATED WELL BUT IS TIRED. NO COMPLAINTS AT THIS TIME. WILL CONTINUE TO MONITOR.
[2018-03-11 19:00] VITALS: BP 117/56
--- NOTE | 2018-03-11 20:02 | NUR ---
PT WATCHING TV NO NEEDS NOTED AT THIS TIME FLUIDS AND CALL LIGHT WITHIN REACH
--- NOTE | 2018-03-12 03:19 | NUR ---
PT ASLEEP NO NEEDS NOTED FLUIDS AND CALL LIGHT WITHIN REACH
--- NOTE | 2018-03-12 07:34 | NUR ---
SITTING UP IN BED.DENIES NEEDS.
[2018-03-12 08:00] VITALS: BP 143/64
--- NOTE | 2018-03-12 08:00 | NUR ---
PT RESTING IN BED WITH EYES OPEN CALL LIGHT IN REACH NO PROBLEMS WILL MONITER
[2018-03-12 08:01] LABS: INR 2.99 (0.85-1.17); PROTIME 30.3 SECONDS (11.6-15.0)
[2018-03-12 12:33] VITALS: Ht 157.5 cm; Wt 68.0 kg
--- NOTE | 2018-03-12 18:06 | NUR ---
PT RESTING IN BED WITH EYES OPEN CALL LIGHT IN REACH NO PROBLEMS WILL MONITER
[2018-03-12 19:00] VITALS: BP 123/56
--- NOTE | 2018-03-12 19:09 | NUR ---
AWAKE AND ALERT. RESPIRATIONS UNLABORED. NO DISTRESS NOTED. SITTING IN WHEELCHAIR.
--- NOTE | 2018-03-13 00:20 | NUR ---
NOTED WITH LEGS HANGING OFF BED. REMINDED TO NOT GET UP WITHOUT OF ASSISTANCE. STATED "COFFEE" SMALL CUP OF COFFEE GIVEN PO. NOW RESTING WITH NO DISTRESS NOTED.
--- NOTE | 2018-03-13 03:32 | NUR ---
RESTING IN BED WITH NO DISTRESS NOTED. NO CHANGE IN CONDITION NOTED.
--- NOTE | 2018-03-13 06:34 | NUR ---
RESTING IN BED WITH NO DISTRESS NOTED. CONDITION UNCHANGED. QUIET HOURS.
[2018-03-13 07:30] LABS: BASOPHILS 0.9 % (0-2); EOSINOPHILS 11.8 % (0-7); HEMATOCRIT 35.9 % (36.0-48.0); HEMOGLOBIN 11.5 g/dL (12-16); IMMATURE GRANULOCYTES 0.1 % (0-5); LYMPHOCYTES 27.5 % (15-50); MCV 84.3 fL (80.0-100.0); MEAN PLATELET VOLUME 11.1 fL (7.4-10.4); NEUTROPHILS 46.7 % (40-80); PLATELET COUNT 263 10x3/uL (130-400); RBC 4.26 10x6/uL (4.00-5.40); RDW 14.4 % (11.5-14.5); WBC 6.9 10x3/uL (4.8-10.8)
[2018-03-13 07:51] LABS: CALCIUM 8.9 mg/dL (8.5-10.1); CARBON DIOXIDE 24.1 mmol/L (21.0-32.0); POTASSIUM - SERUM 4.1 mmol/L (3.5-5.1)
[2018-03-13 08:00] VITALS: BP 152/76
--- NOTE | 2018-03-13 08:00 | NUR ---
SHIFT ASSMT COMPLETED.
[2018-03-13 08:18] LABS: INR 2.4 (0.85-1.17); PROTIME 25.4 SECONDS (11.6-15.0)
--- NOTE | 2018-03-13 12:00 | NUR ---
SITTING UP IN WC EATING LUNCH.
[2018-03-13 19:00] VITALS: BP 103/53
--- NOTE | 2018-03-13 19:28 | NUR ---
PATIENT IS RESTING IN HER BED. BED IS DOWN LOW WITH SIDE RAILS UP X2. BED ALARM ACTIVATED AND CALL LIGHT IN REACH.
--- NOTE | 2018-03-13 21:56 | NUR ---
PATIENT IS RESTING IN HER BED. SHE DENIES ANY NEEDS. BED IS DOWN LOW WITH SIDE RAILS UP X2, BED ALARM ACTIVATED AND CALL LIGHT IN REACH.
--- NOTE | 2018-03-14 00:12 | NUR ---
PATIENT SLEEPING. BED IS DOWN LOW. SIDE RAILS ARE UP X2. BED ALARM REMAINS ACTIVATED. CALL LIGHT IS IN REACH.
--- NOTE | 2018-03-14 04:10 | NUR ---
PATIENT IS SLEEPING. BED IS DOWN LOW WITH SIDE RAILS UP X2 AND BED ALARM ACTIVATED.
[2018-03-14 08:00] VITALS: BP 161/70
[2018-03-14 08:31] LABS: INR 1.98 (0.85-1.17); PROTIME 21.8 SECONDS (11.6-15.0)
--- NOTE | 2018-03-14 13:17 | NUR ---
Nutrition Follow Up: Pt was nonverbal but shook head yes when asked if her appetite was good. She shook her head no when asked if there were any nutritional concerns. Pt's daughter present and stated that everything is good and pt's appetite is great. RD encouraged pt to increase po intake as able. Diet: Regular Mechanical Soft with Chopped Meats PO intake: 61% meal avg BM: 03/14/18 Labs reviewed Meds noted including MV, Vit B12 Rec continue current diet. Will continue to honor food preferences. RD following.
[2018-03-14 19:00] VITALS: BP 137/54
--- NOTE | 2018-03-14 19:40 | NUR ---
PATIENT RECEIVED SITTING UP IN BED WATCHING TV. PATIENT ASSESSMENT & VITAL SIGNS DONE. PATIENT BED LOW. ALARM ON. CALL LIGHT WITHIN REACH. WILL CONTINUE TO MONITOR.
--- NOTE | 2018-03-15 02:11 | NUR ---
PATIENT EYES CLOSED. RESPIRATIONS 18 & EVEN. BED LOW. ALARM ON. CALL LIGHT WITHIN REACH. WILL CONTINUE TO MONITOR.
[2018-03-15 07:51] LABS: ANION GAP 13.6 mmol/L (8-16); BASOPHILS 0.6 % (0-2); CALCIUM 8.7 mg/dL (8.5-10.1); CREATININE - SERUM 1.2 mg/dL (0.6-1.3); EOSINOPHILS 9.8 % (0-7); HEMATOCRIT 35.9 % (36.0-48.0); HEMOGLOBIN 11.3 g/dL (12-16); IMMATURE GRANULOCYTES 0.1 % (0-5); LYMPHOCYTES 30.3 % (15-50); MCH 26.8 pg (26.0-34.0); MCHC 31.5 g/dL (31.0-37.0); MCV 85.1 fL (80.0-100.0); MEAN PLATELET VOLUME 11.2 fL (7.4-10.4); MONOCYTES 11.7 % (2-11); NEUTROPHILS 47.5 % (40-80); PLATELET COUNT 292 10x3/uL (130-400); POTASSIUM - SERUM 4.6 mmol/L (3.5-5.1); RBC 4.22 10x6/uL (4.00-5.40); RDW 14.3 % (11.5-14.5)
[2018-03-15 08:00] VITALS: BP 144/63
--- NOTE | 2018-03-15 08:00 | NUR ---
PATIENT IS NON VERBALE. SITTING UP IN BED TO EAT BREAKFAST. FOOD CUT UP FOR PATIENT. PATIENT ABLE TO FEED SELF WITH SOME ASST. BED ALARM ON. CALL LIGHT WITHIN REACH. WILL CONTINUE WITH PLAN OF CARE.
[2018-03-15 08:08] LABS: INR 2.16 (0.85-1.17); PROTIME 23.4 SECONDS (11.6-15.0)
--- NOTE | 2018-03-15 10:45 | NUR ---
PATIENT IN REHAB ROOM. WORKING WITH PHYSICAL THERAPIST.
--- NOTE | 2018-03-15 16:49 | NUR ---
PATIENT SITTING UP IN WHEELCHAIR AT BEDSIDE AFTER THERAPY. FAMILY IN ROOM VISITING.
[2018-03-15 19:00] VITALS: BP 125/60
--- NOTE | 2018-03-15 23:28 | NUR ---
RESTING IN BED WITH RESPIRATIONS UNLABORED. NO DISTRESS NOTED. SAFETY MEASURES IN PLACE.
--- NOTE | 2018-03-16 04:31 | NUR ---
RESTING IN BED WITH NO DISTRESS NOTED. RESPIRATIONS UNLABORED.
[2018-03-16 07:12] LABS: INR 2.32 (0.85-1.17); PROTIME 24.8 SECONDS (11.6-15.0)
--- NOTE | 2018-03-16 08:00 | NUR ---
PATIENT IS ALERT. UNABLE TO COMMUNICATE WELL. BED ALARM ON. CALL LIGHT WITHIN REACH ON LEFT HAND. FLACCID ON RIGHT SIDE. WILL CONTINUE WITH PLAN OF CARE.
[2018-03-16 10:09] VITALS: BP 134/66
--- NOTE | 2018-03-16 10:23 | NUR ---
PATIENT IS INCONT OF BOWEL AND BLADDER. THIS NURSE CHANGED PATIENT. VERONIQUE CARE GIVEN.
--- NOTE | 2018-03-16 17:42 | NUR ---
FAMILY IN ROOM. HELPING PATIENT EAT SUPPER
[2018-03-16 20:04] VITALS: BP 120/48
--- NOTE | 2018-03-16 20:06 | NUR ---
AWAKE AND ALERT. RESTING IN BED. RESPIRATIONS UNLABORED. RIGHT SIDE FLACCID. ASPHAGIC. NO ACUTE DISTRESS NOTED.
--- NOTE | 2018-03-17 01:32 | NUR ---
RESTING IN BED WITH NO DISTRESS NOTED. CALL LIGHT IN REACH. RESPIRATIONS UNLABORED.
[2018-03-17 07:19] LABS: INR 2.59 (0.85-1.17); PROTIME 27.1 SECONDS (11.6-15.0)
--- NOTE | 2018-03-17 07:23 | NUR ---
RESTING QUIETLY IN BED. NO S/S DISTRESS. CALL LIGHT IN REACH. BED IN LOWEST POSITION.
--- NOTE | 2018-03-17 07:45 | NUR ---
RECEIVED REPORT. SITTING UP IN BED ALERT EYES OPEN, WHEN ASKING ORIENTATION QUESTIONS PT JUST SMILES AND SAYS COFFEE. NO FAMILY AT BEDSIDE NOTED. CALL LIGHT WITHIN REACH, FALL PRECAUTIONS IN PLACE
[2018-03-17 08:00] VITALS: BP 120/63
--- NOTE | 2018-03-17 10:15 | NUR ---
PERFORMED INCONTIENCE CARE D/T LARGE URINE INCONTIENCY
--- NOTE | 2018-03-17 12:45 | NUR ---
PERFORMED INCONTINENCE CARE D/T MED INCONTINENCE CARE
--- NOTE | 2018-03-17 17:36 | NUR ---
LYING IN BED EYES CLOSED RESTING. FAMILY AT BEDSIDE NOTED. CALL LIGHT WITHIN REACH, FALL PRECAUTIONS IN PLACE
--- NOTE | 2018-03-17 18:37 | NUR ---
PERFORMED INCONTINENCE CARE D/T MED URINE INCONTINENCE
--- NOTE | 2018-03-17 19:33 | NUR ---
AWAKE AND ALERT. RESTING IN BED. RESPIRATIONS UNLABORED. RIGHT SIDE FLACCID. APHASIC. SPEAKS OCCASSIONAL ONE WORD NOT RELATED TO CONVERSATION. SMILING AND COOPERATIVE. CALL LIGHT IN PLACE AND SAFETY MEASURES IN PLACE.
[2018-03-17 21:06] VITALS: BP 133/60
--- NOTE | 2018-03-18 05:45 | NUR ---
QUIET HOURS. NO CHANGE IN CONDITION NOTED. RESTING QUIETLY.
[2018-03-18 07:16] LABS: BASOPHILS 0.7 % (0-2); EOSINOPHILS 10.7 % (0-7); HEMATOCRIT 37.3 % (36.0-48.0); HEMOGLOBIN 11.7 g/dL (12-16); IMMATURE GRANULOCYTES 0.1 % (0-5); LYMPHOCYTES 28.2 % (15-50); MCH 26.6 pg (26.0-34.0); MCHC 31.4 g/dL (31.0-37.0); MCV 84.8 fL (80.0-100.0); MEAN PLATELET VOLUME 10.7 fL (7.4-10.4); MONOCYTES 10.4 % (2-11); NEUTROPHILS 49.9 % (40-80); PLATELET COUNT 269 10x3/uL (130-400); RDW 14.2 % (11.5-14.5); WBC 7.5 10x3/uL (4.8-10.8)
[2018-03-18 07:33] LABS: ANION GAP 13.6 mmol/L (8-16); CALCIUM 8.9 mg/dL (8.5-10.1); CARBON DIOXIDE 26.4 mmol/L (21.0-32.0); CREATININE - SERUM 1.1 mg/dL (0.6-1.3)
[2018-03-18 07:34] LABS: INR 2.5 (0.85-1.17); PROTIME 26.3 SECONDS (11.6-15.0)
[2018-03-18 08:00] VITALS: BP 133/58
--- NOTE | 2018-03-18 10:48 | NUR ---
PATIENT AWAKE AND ALERT THIS MORNING. FED SELF 90% OF BREAKFAST. AND GRAND-DAUGHTER AT BEDSIDE. BOTTOM IS RED, CALMOSEPTINE APPLIED. UP FOR THERAPY. TOLERATED WELL. WILL CONTINUE TO MONITOR. CALL LIGHT WITHIN REACH.
--- NOTE | 2018-03-18 18:06 | NUR ---
PATIENT SITTING IN ROOMEATING SUPPER AT THIS TIME WITH GRANDDAUGHTER AT BEDSIDE. TOLERATED PT WELL. NO COMPLAINTS AT THIS TIME. WILL CONTINUE TO MONITOR.
[2018-03-18 19:00] VITALS: BP 116/57
[2018-03-19 07:47] LABS: INR 2.29 (0.85-1.17); PROTIME 24.5 SECONDS (11.6-15.0)
--- NOTE | 2018-03-19 08:15 | NUR ---
PT RESTING IN BED WITH EYES OPEN CALL LIGHT IN REACH AT BEDSIDE CALL LIGHT IN REACH PT EATING BREAKFAST WITH ASSISTANCE IN SET UP
--- NOTE | 2018-03-19 12:00 | NUR ---
EATING LUNCH.FAMILY AT BEDSIDE
--- NOTE | 2018-03-19 12:46 | NUR ---
Nutrition Follow Up: Pt shook head yes and daughter stated that pt's appetite was good. Daughter/pt reported no nutritional concerns at this time. Diet: Regular Mechanical Soft with Chopped Meats PO Intake: 81% meal avg BM: 03/16/18 Meds and labs reviewed Rec continue current diet. RD following.
--- NOTE | 2018-03-19 18:56 | NUR ---
PT RESTING IN BED WITH EYES OPEN CALL LIGHT IN REACH WILL MONITER
[2018-03-19 19:00] VITALS: BP 143/61
--- NOTE | 2018-03-19 19:26 | NUR ---
INTRODUCED SELF TO PATIENT, PATIENT AWAKE IN BED WATCHING TV. BED IN LOWEST POSITION, NO CALL LIGHT IN REACH.
--- NOTE | 2018-03-19 22:40 | NUR ---
ANSWERED CALL LIGHT, PATIENT NEEDED TO BE CHANGED. NEW CHUCKS AND WATER PROVIDED. NO S/SX OF PAIN OR DISCOMFORT.
--- NOTE | 2018-03-20 06:19 | NUR ---
PATIENT AWAKE SITTING QUIETLY IN THE ROOM, TOOK 0600 MEDS WITHOUT DIFFICULTY. BED IN LOWEST POSITION, CALL LIGHT IN REACH.
[2018-03-20 07:27] LABS: BASOPHILS 0.4 % (0-2); EOSINOPHILS 11.3 % (0-7); HEMATOCRIT 38.2 % (36.0-48.0); HEMOGLOBIN 12.1 g/dL (12-16); IMMATURE GRANULOCYTES 0.1 % (0-5); LYMPHOCYTES 27.9 % (15-50); MCH 26.9 pg (26.0-34.0); MCHC 31.7 g/dL (31.0-37.0); MCV 85.1 fL (80.0-100.0); MEAN PLATELET VOLUME 10.9 fL (7.4-10.4); MONOCYTES 12.3 % (2-11); PLATELET COUNT 287 10x3/uL (130-400); RBC 4.49 10x6/uL (4.00-5.40); RDW 14.2 % (11.5-14.5)
[2018-03-20 07:48] LABS: ANION GAP 14.6 mmol/L (8-16); CALCIUM 9.3 mg/dL (8.5-10.1); CARBON DIOXIDE 25.6 mmol/L (21.0-32.0); POTASSIUM - SERUM 4.2 mmol/L (3.5-5.1)
[2018-03-20 08:00] VITALS: BP 123/47
--- NOTE | 2018-03-20 09:02 | NUR ---
ALERT. NO SIGNS OF PAIN NOTED. AT BS. CL IN REACH.
--- NOTE | 2018-03-20 11:41 | NUR ---
PARTICIPATED IN THERAPY THIS AM. NO SIGNS OF DISTRESS NOTED,
[2018-03-20 13:13] LABS: INR 2.35 (0.85-1.17)
--- NOTE | 2018-03-20 16:32 | NUR ---
SITTING IN WC IN ROOM. NO CHANGE IN ASSESSMENT. FAMILY AT BS. ACCIDENT X2 OF URINE ON LINENS/FLOOR TODAY.
[2018-03-20 19:00] VITALS: BP 109/53
--- NOTE | 2018-03-20 19:26 | NUR ---
AWAKE AND RESTING IN BED. RESPIRATIONS UNLABORED. RIGHT SIDE FLACCID. APHASIC. NO DISTRESS NOTED. CALL LIGHT IN REACH.
--- NOTE | 2018-03-21 00:43 | NUR ---
RESTING IN BED WITH NO DISTRESS NOTED. RESPIRATIONS UNLABORED. CALL LIGHT IN REACH.
--- NOTE | 2018-03-21 03:20 | NUR ---
RESTING IN BED WITH RTESPIRATIONS UNLABORED. NO DISTRESS NOTED.
--- NOTE | 2018-03-21 05:45 | NUR ---
QUIET HOURS. RESPIRATIONS UNLABORED. NO DISTRESS NOTED.
[2018-03-21 07:19] LABS: INR 2.82 (0.85-1.17); PROTIME 28.9 SECONDS (11.6-15.0)
--- NOTE | 2018-03-21 07:39 | NUR ---
PATIENT RESTING IN BED. BED ALARM ON. CALL LIGHT WITHIN REACH. VOICES NO NEEDS AT THIS TIME. WILL CONTINUE WITH PLAN OF CARE
--- NOTE | 2018-03-21 08:00 | NUR ---
IN ROOM WITH PATIENT. STATES PATIENT IS WET. THIS NURSE AND NURSE ASST WENT INTO PATIENTS ROOM TO CHANGE PATIENT. WOULD NOT LET US CHANGE PATIENT UNTIL AFTER SHE HAS EATTEN HER BREAKFAST. FEEDING PATIENT BREAKFAST
[2018-03-21 08:08] VITALS: BP 109/58
--- NOTE | 2018-03-21 08:15 | NUR ---
PATIENT IS DONE EATTING. THIS NURSE AND NURSE ASST IN ROOM TO CHANGE PATIENT. BLUE PADS CHANGED. GOWN AND SHEETS DRY
--- NOTE | 2018-03-21 10:10 | NUR ---
PATIENT IN REHAB. WORKING WITH PHYSICAL THERAPIST. DENIES ANY PAIN/DISC AT THIS TIME.
--- NOTE | 2018-03-21 12:00 | NUR ---
SITTING UP IN WC FOR LUNCH.CL IN REACH.
--- NOTE | 2018-03-21 16:09 | NUR ---
PATIENT IS A TOTAL ASST OF TWO TO CHANGE WET PANTS. PATIENT IS NOT ABLE TO STAND STRAIGHT UP OR TO TURN WHEN STANDING.
[2018-03-21 19:00] VITALS: BP 176/47
--- NOTE | 2018-03-21 19:32 | NUR ---
AWAKE AND ALERT. SITTING UP IN CHAIR. DIFFICULTY SPEECH BUT IS IMPROVING WITH WORDS AT TIMES. ASSISTED TO BED. SMILING AND COOPERATIVE. RESPIRATIONS UNLABORED. CALL LIGHT IN REACH.
--- NOTE | 2018-03-22 03:53 | NUR ---
RESTING IN BED WITH NO DISTRESS NOTED. RESPIRATIONS UNLABORED. CALL LIGHT IN REACH.
--- NOTE | 2018-03-22 07:27 | NUR ---
PATIENT IS ALERT/CONFUSED. APASIC. BED ALARM ON. CALL LIGHT WITHIN REACH. WILL CONTINUE WITH PLAN OF CARE
[2018-03-22 07:35] LABS: INR 2.48 (0.85-1.17); PROTIME 26.1 SECONDS (11.6-15.0)
[2018-03-22 07:47] VITALS: BP 167/72
--- NOTE | 2018-03-22 10:12 | NUR ---
PATIENT IN REHAB ROOM. WORKING WITH PHYSICAL THERAPIST
--- NOTE | 2018-03-22 14:44 | NUR ---
PATIENT INCONT OF URINE. TOLTAL ASST OF TWO TO CHANGE OUT OF WET PANTS AND BRIEFS .
--- NOTE | 2018-03-22 17:52 | NUR ---
DAUGHTER IN ROOM WITH PATIENT. HELPING PATIENT EAT SUPPER. PRN BACLOFEN GIVEN PER DAUGHTER REQUEST
--- NOTE | 2018-03-22 19:46 | NUR ---
PATIENT IS SLEEPING. BED IS DOWN LOW WITH SIDE RAILS UP X2. CALL LIGHT IN REACH.
--- NOTE | 2018-03-22 20:27 | NUR ---
PATIENT IS RESTING IN HER BED. BED IS DOWN LOW WITH SIDE RAILS UP X2. CALL LIGHT IS IN REACH.
--- NOTE | 2018-03-23 00:08 | NUR ---
PATIENT IS SLEEPING. BED IS DOWN LOW WITH SIDE RAILS UP X2. CALL LIGHT IS IN REACH.
--- NOTE | 2018-03-23 04:08 | NUR ---
PATIENT IS SLEEPING. BED IS DOWN LOW WITH SIDE RAILS UP X2. CALL LIGHT IS IN REACH.
[2018-03-23 07:19] LABS: INR 2.17 (0.85-1.17); PROTIME 23.5 SECONDS (11.6-15.0)
--- NOTE | 2018-03-23 07:40 | NUR ---
ALERT. MOSTLY NON VERBAL. REPEATS SAME WORD . AT BS. CONFUSED. NO DISTRESS NOTED. CL IN REACH.
[2018-03-23 08:18] VITALS: BP 196/89
--- NOTE | 2018-03-23 11:43 | NUR ---
RESTING IN ROOM WO DISTRESS. IN ROOM. CL IN REACH.
--- NOTE | 2018-03-23 19:09 | NUR ---
PATIENT IS SLEEPING. BED IS DOWN LOW WITH SIDE RAILS UP X2 AND CALL LIGHT IS IN REACH.
--- NOTE | 2018-03-23 20:22 | NUR ---
PATIENT IS RESTING IN HER BED. NO SIGNS OF DISTRESS.
--- NOTE | 2018-03-24 00:14 | NUR ---
PATIENT IS RESTING IN HER BED. SHE IS SMILING AND SHOWS NO SIGNS OF DISTRESS. VITAL SIGNS ARE STABLE. BED IS DOWN LOW WITH SIDE RAILS UP X2.
[2018-03-24 00:15] VITALS: BP 124/60
--- NOTE | 2018-03-24 04:13 | NUR ---
PATIENT IS SLEEPING. BED IS DOWN LOW WIHT SIDE RAILS UP X2 AND CALL LIGHT IS IN REACH.
[2018-03-24 06:34] LABS: INR 2.35 (0.85-1.17)
--- NOTE | 2018-03-24 07:19 | NUR ---
REQUESTED VIT B-12 FROM PHARMACY. PYXIS IS OUT. (DOSE 500MG/ONLY HAD 250MG IN PYXIS).
--- NOTE | 2018-03-24 07:44 | NUR ---
ALERT. CONFUSED. RESP EVEN AND UNLABORED. NO C/O PAIN. FAMILY AT BS.
[2018-03-24 07:59] VITALS: BP 134/63
--- NOTE | 2018-03-24 15:48 | NUR ---
NO CHANGE IN ASSESSMENT. WATCHING TV WHILE RESTING IN BED. FAMILY AT BS. CL IN REACH.
[2018-03-24 18:43] VITALS: BP 118/61
--- NOTE | 2018-03-24 19:01 | NUR ---
PATIENT IS AWAKE. SPOUSE IS AT BEDSIDE. THEY DENY ANY NEEDS.
--- NOTE | 2018-03-24 20:48 | NUR ---
PATIENT IS SLEEPING. BED IS DOWN LOW WITH SIDE RAILS UP X2. CALL LIGHT IS IN REACH.
--- NOTE | 2018-03-25 00:13 | NUR ---
PATIENT IS SLEEPING. BED IS DOWN LOW WITH SIDE RAILS UP X2.
--- NOTE | 2018-03-25 04:10 | NUR ---
PATIENT IS SLEEPING. BED IS DWON LOW WITH SIDE RAILS UP X2.
--- NOTE | 2018-03-25 07:35 | NUR ---
PT RESTING QUIETLY. CL IN REACH. NO SIGNS OF DISTRESS OR PAIN. BED IN LOW POSITION. SIDE RAILS X2. WILL CONTINUE TO MONITOR.
[2018-03-25 07:53] LABS: INR 2.59 (0.85-1.17)
[2018-03-25 08:00] VITALS: BP 187/73
--- NOTE | 2018-03-25 11:43 | NUR ---
PT LYING IN BED. CL IN REACH. PT DENIES NEEDS OR PAIN. CHANGED PT X2 THIS AM. WCTM BED IN LOW POSITION. SIDE RAILS X2. VISITOR IN ROOM.
--- NOTE | 2018-03-25 15:33 | NUR ---
PT IN THERAPY. DENIES NEEDS
--- NOTE | 2018-03-25 17:44 | NUR ---
PT SITTING UP IN BED.CL IN REACH. PT DENIES NEEDS OR PAIN. VISITOR IN ROOM.
--- NOTE | 2018-03-25 19:15 | NUR ---
PT WATCHING TV, INFORMED PT THAT I WILL BE BACK SHORTLY TO DO ASSESSMENT, DENIES NEEDS OR PAIN AT THIS TIME, BED IN LOW POSITION, SIDE RAILS X 2, CALL LIGHT IN REACH, BED ALARM ON AND WORKING PROPERLY
[2018-03-25 20:00] VITALS: BP 148/69
--- NOTE | 2018-03-25 20:00 | NUR ---
ASSESSMENT PER FLOW SHEET, PT APHASIC, BED IN LOW POSITION, SIDE RAILS X 2, CALL LIGHT IN REACH, BED ALARM ON AND WORKING PROPERLY
--- NOTE | 2018-03-25 21:15 | NUR ---
PT AWAKE, ADM 2100 MEDS PER MD ORDERS, SEE EMAR, IN APPLIESAUCE
--- NOTE | 2018-03-25 22:00 | NUR ---
PT AWAKE, PT INCONTINENT, PT CLEANED UP WITH WET WARM WIPES, BLUE CHUX CHANGED, PT REFUSES TO CHANGE INTO GOWN, LEFT PT IN OWN SHIRT, BED IN LOW POSITION, SIDE RAILS X 2, CALL LIGHT IN REACH, BED ALARM ON AND WORKING PROPERLY
--- NOTE | 2018-03-25 23:15 | NUR ---
PT AWAKE, PARTIALS REMOVED, WARM BLANKET PROVIDED, PT DENIES NEEDS OR PAIN, BED IN LOW POSITION, SIDE RAILS X 2, CALL LIGHT IN REACH, BED ALARM ON AND WORKING PROPERLY
--- NOTE | 2018-03-26 03:12 | NUR ---
THIS RN AND MELLO CAIN CLEANED PT UP WITH WET WIPES, BLUE CHUX CHANGED, BUTT PASTE APPLIED, PT REPOSITIONED IN BED, PT DENIES NEEDS OR PAIN AT THIS TIME, BED IN LOW POSITION, SIDE RAILS X 2, CALL LIGHT IN REACH, BED ALARM ON AND WORKING PROPERLY
--- NOTE | 2018-03-26 05:18 | NUR ---
PT RESTING WITH EYES CLOSED, AROUSES TO SOFT VERBAL STIMULATION, ADM 0600 MED PER MD ORDERS, SEE EMAR, WITH APPLESAUCE, PT DENIES NEEDS OR PAIN AT THIS TIME, BED IN LOW POSITION, SIDE RAILS X 2, CALL LIGHT IN REACH, BED ALARM ON AND WORKING PROPERLY
[2018-03-26 06:09] LABS: INR 2.97 (0.85-1.17); PROTIME 30.1 SECONDS (11.6-15.0)
--- NOTE | 2018-03-26 07:25 | NUR ---
REMAINS SLEEPING.CL IN REACH. AT BEDSIDE.
--- NOTE | 2018-03-26 07:27 | NUR ---
PT RESTING QUIETLY. CL IN REACH. NO SIGNS OF DISTRESS OR PAIN. BED IN LOW POSITION. SIDE RAILS X2. RESP EVEN AND UNLABORED. WILL CONTINUE TO MONITOR.
[2018-03-26 08:00] VITALS: BP 123/55
--- NOTE | 2018-03-26 11:02 | NUR ---
Nutrition Follow Up: Chart reviewed Diet: Regular Mech Soft with Chopped Meats PO Intake: 78% meal avg BM: 03/22/18 Labs reviewed Meds noted including Vit B12, MV Rec continue current diet. RD following.
--- NOTE | 2018-03-26 11:10 | NUR ---
PT IN THERAPY. DENIES NEEDS
--- NOTE | 2018-03-26 14:38 | NUR ---
PT SITTING UP IN WHEELCHAIR. CL IN REACH. PT DENIES NEEDS OR PAIN. WCTM
--- NOTE | 2018-03-26 17:46 | NUR ---
PT SITTING UP IN BED. CL IN REACH. PT DENIES NEEDS OR PAIN. WCTM
--- NOTE | 2018-03-26 19:12 | NUR ---
PATIENT IS RESTING IN HER BED. NO SIGNS OF DISTRESS. BED IS DOWN LOW WITH SIDE RAILS UP X2.
--- NOTE | 2018-03-26 20:45 | NUR ---
PATIENT IS RESTING IN HER BED. BED IS DWON LOW WITH SIDE RAILS UP X2.
[2018-03-26 21:34] VITALS: BP 120/60
[2018-03-27 07:20] LABS: PROTIME 24.9 SECONDS (11.6-15.0)
[2018-03-27 07:21] LABS: CALCIUM 8.8 mg/dL (8.5-10.1); CARBON DIOXIDE 24.1 mmol/L (21.0-32.0); CREATININE - SERUM 1.1 mg/dL (0.6-1.3); POTASSIUM - SERUM 4.1 mmol/L (3.5-5.1)
[2018-03-27 07:30] LABS: BASOPHILS 0.8 % (0-2); HEMATOCRIT 35.7 % (36.0-48.0); HEMOGLOBIN 11.3 g/dL (12-16); IMMATURE GRANULOCYTES 0.3 % (0-5); LYMPHOCYTES 33.1 % (15-50); MCH 26.3 pg (26.0-34.0); MCHC 31.7 g/dL (31.0-37.0); MCV 83.2 fL (80.0-100.0); MEAN PLATELET VOLUME 10.5 fL (7.4-10.4); MONOCYTES 12.3 % (2-11); NEUTROPHILS 43.5 % (40-80); PLATELET COUNT 278 10x3/uL (130-400); RBC 4.29 10x6/uL (4.00-5.40); WBC 7.1 10x3/uL (4.8-10.8)
[2018-03-27 07:31] LABS: INR 2.33 (0.85-1.17)
--- NOTE | 2018-03-27 07:39 | NUR ---
RESTING WO DISTRESS. RESP EVEN AND UNLABORED.
[2018-03-27 08:00] VITALS: BP 141/59
--- NOTE | 2018-03-27 12:03 | NUR ---
SHOWER TODAY PER THERAPY.
--- NOTE | 2018-03-27 17:09 | NUR ---
SITTING UP IN CHAIR. NO C/O PAIN. FAMILY AT BS. NO CHANGE IN ASSESSMENT.
--- NOTE | 2018-03-27 18:47 | NUR ---
ACCIDENT URINE X2 ON CLOTHING/CHAIR.
--- NOTE | 2018-03-27 19:30 | NUR ---
THE PATIENT WAS LYING IN BED WHEN STAFF ENTERED HER ROOM. BED IN THE LOW POSITION WITH SIDERAILS X2 AND CALL LIGHT WITHIN REACH. THE PATIENT WAS EDUCATED ON THE USE OF A CALL LIGHT AND WAS ABLE TO DEMONSTRATE, BUT FURTHER EDUCATION IS NEEDED. THE PATIENT APPEARS COMFORTABLE WITH NO QUESTIONS OR CONCERNS AT THIS TIME.
--- NOTE | 2018-03-28 04:03 | NUR ---
THE PATIENT APPEARS TO BE SLEEPING. BED IN LOW POSITION WITH SIDERAILS X2 AND CALL LIGHT WITHIN REACH.
[2018-03-28 08:05] VITALS: BP 129/59
--- NOTE | 2018-03-28 09:43 | NUR ---
PATIENT DISCHARGING HOME TODAY WITH FAMILY. [facility] WILL PROVIDE THERAPY AT HOME. NO NEW DME NEEDED AT THIS TIME. HOUSE CALLS WILL SEE PATIENT IN 5-[address] CAMPOS NEEDED. PATIENT CHOICE FORM FOR HOME HEALTH AND [facility] [place] FORMS SIGNED AND COPIES GIVEN TO PATIENT SPOUSE AND FILED IN CHART. DISCHARGE INSTRUCTIONS WITH FIM DATA FAXED TO PCP, HOME HEALTH AND [facility].
== END 2018-03-28 12:30 | disposition home health service (06) | DRG 56 ==
LOC: D.REHAB 12:15
PROVIDERS: ADMIT Emergency Medicine
DX: I69.320 Aphasia following cerebral infarction (principal); K85.90 Acute pancreatitis without necrosis or infection, unspecified; G81.91 Hemiplegia, unspecified affecting right dominant side; I13.0 Hypertensive heart and chronic kidney disease with heart failure and stage 1 through stage 4 chronic kidney disease, or unspecified chronic kidney disease; I48.91 Unspecified atrial fibrillation; N18.9 Chronic kidney disease, unspecified; I50.9 Heart failure, unspecified; I25.10 Atherosclerotic heart disease of native coronary artery without angina pectoris; E03.9 Hypothyroidism, unspecified; R53.1 Weakness; R15.9 Full incontinence of feces

== ENCOUNTER → 2018-06-13 11:35 | Outpatient (CLI) | payer MEDICARE, OTHER ==
[2018-03-12 12:33] VITALS: BMI 27.4
[~2018-06-13 11:35] MED LIST changes: +CYMBALTA30 MG PO; +MACRODANTIN100 MG PO; +MELATONIN 3 MG1 TAB PO; +MELATONIN5 MG PO
[2018-06-13 11:51] LABS: APPEARANCE CLOUDY (CLEAR); BILIRUBIN NEGATIVE (NEGATIVE); COLOR YELLOW (YELLOW); GLUCOSE NEGATIVE (NEGATIVE); KETONE NEGATIVE (NEGATIVE); NITRITE POSITIVE (NEGATIVE); PROTEIN TRACE mg/dL (NEGATIVE); UROBILINOGEN NORMAL (NORMAL)
[2018-06-13 11:52] LABS: BACTERIA MANY /hpf (NONE SEEN); EPITHELIAL CELLS OCC /hpf (0-5); MUCUS <1+ /lpf (NONE SEEN); RED CELLS - URINE 0-5 /hpf (0-5); WHITE CELLS - URINE >50 /hpf (0-5)
== END | disposition home or self-care (01) ==
LOC: D.LABREF 11:35
PROVIDERS: ATTEND Internal Medicine Nephrology
DX: N18.9 Chronic kidney disease, unspecified (principal); I69.351 Hemiplegia and hemiparesis following cerebral infarction affecting right dominant side; I50.9 Heart failure, unspecified

== ENCOUNTER 2018-06-14 17:01 | Inpatient (IN) | payer MEDICARE, OTHER ==
[~2018-06-14] VITALS: Ht 157.5 cm; Wt 61.6 kg
[~2018-06-14 17:01] MED LIST changes: -CYMBALTA30 MG PO; -MACRODANTIN100 MG PO; -MELATONIN 3 MG1 TAB PO; -MELATONIN5 MG PO; -NORCO 5/325 TAB1 TAB PO; +Norco 5/325 PO
[2018-06-14] MEDS ORDERED: COUMADIN5 MG PO (20:22)
[2018-06-14] MEDS ORDERED: CYMBALTA30 MG PO (20:23)
[2018-06-14] MEDS ORDERED: NORVASC5 MG PO (20:25)
[2018-06-14] MEDS ORDERED: MELATONIN 3 MG1 TAB PO (20:26)
[2018-06-14 20:27] VITALS: BP 129/50
[2018-06-14] MEDS ORDERED: MELATONIN5 MG PO (20:27)
[2018-06-14] MEDS ORDERED: MACRODANTIN100 MG PO (20:28)
[2018-06-14 22:08] VITALS: BP 129/50; BMI 26.0
--- NOTE | 2018-06-14 22:40 | NUR ---
RECIEVED PT DURING SHIFT CHANGE IN W/C WITH STAFF AND FAMILY AT SIDE. UNABLE TO ANSWER QUESTIONS AND ONLY SAYING COFFEE. HISTORY OF CVA WITH RIGHT SIDED PARALYSIS. INCONTINENT OF B/B. IV STARTED TO RIGHT HAND AND D5 1/2 NS INFUSING AT 100 AT THIS TIME. WILL INCREASE UNTIL REACHES 150. VEINS ARE VERY SMALL AND DIFFICULT TO STICK. HAD A BM WHEN ARRIVED TO ROOM. PERICARE PROVIDED AND YELLOW GOWN PLACED ON PT. AMADO ALARM ON BED. NO S/S OF DISTRESS OBSERVED.
[2018-06-15 01:10] VITALS: BP 91/46
[2018-06-15 05:28] VITALS: BP 106/45
[2018-06-15 06:51] LABS: BASOPHILS 0.5 % (0-2); EOSINOPHILS 7.4 % (0-7); HEMATOCRIT 27.9 % (36.0-48.0); HEMOGLOBIN 8.6 g/dL (12-16); IMMATURE GRANULOCYTES 0.3 % (0-5); LYMPHOCYTES 21.8 % (15-50); MCHC 30.8 g/dL (31.0-37.0); MCV 81.1 fL (80.0-100.0); MEAN PLATELET VOLUME 10.1 fL (7.4-10.4); MONOCYTES 10.2 % (2-11); NEUTROPHILS 59.8 % (40-80); PLATELET COUNT 279 10x3/uL (130-400); RBC 3.44 10x6/uL (4.00-5.40); RDW 15.3 % (11.5-14.5); WBC 8.7 10x3/uL (4.8-10.8)
[2018-06-15 07:25] LABS: ALBUMIN 2.9 g/dL (3.4-5.0); BILIRUBIN - TOTAL 1.07 mg/dL (0.2-1.3); CALCIUM 8.5 mg/dL (8.5-10.1); CARBON DIOXIDE 25.1 mmol/L (21.0-32.0); CREATININE - SERUM 1.1 mg/dL (0.6-1.3); POTASSIUM - SERUM 4.1 mmol/L (3.5-5.1); PROTEIN - SERUM 6.3 g/dL (6.4-8.2); THYROID STIMULATING HORMONE 1.18 uIU/mL (0.36-3.74)
[2018-06-15 07:32] LABS: INR 3.41 (0.85-1.17); PROTIME 33.6 SECONDS (11.6-15.0)
[2018-06-15 07:49] VITALS: BP 113/74
--- NOTE | 2018-06-15 08:00 | NUR ---
ASSESSMENT COMPLETE. R SIDED WEAKNESS FROM CVA LAST YEAR. ONLY SAYS "COFEE" AND "COLD". INCONT OF BOWEL AND BLADDER. REDNESS NOTED TO BUTTOCKS. GOVERNMENT AUDITOR SHOWING SR 90 PER TECH. SCAB NOTED TO R GREAT TOE. SCD'S IN USE TO BILAT LEGS. DAUGHTER AT BEDSIDE.
[2018-06-15 10:04] LABS: % SATURATION 6 % (15-55); IRON 19 ug/dl (35-150); TOTAL IRON BIND CAPACITY 307 ug/dl (260-445); UNSAT IRON BIND CAPACITY 288 ug/dl (150-375)
[2018-06-15 10:21] VITALS: BMI 25.9
[2018-06-15 10:31] LABS: FERRITIN 39 ng/mL (3-244); LIPASE 112 U/L (73-393)
[2018-06-15 11:21] VITALS: BP 126/51
--- NOTE | 2018-06-15 12:00 | NUR ---
NO CHANGES NOTED AT THIS TIME. DAUGHTER AT BEDSIDE.
[2018-06-15 15:38] VITALS: BP 126/56
--- NOTE | 2018-06-15 16:00 | NUR ---
NO CHANGES NOTED AT THIS TIME.
--- NOTE | 2018-06-15 16:56 | MORECARE ---
CASE MANAGEMENT DISCHARGE SUMMARY PATIENT: ROGERIO DIXON UNIT: [id number] ADM DATE: 06/14/18 AGE: 77 : 41 SEX: F ROOM/BED: D.1213 AUTHOR: APRIL JIMÉNEZ PHYSICIAN: REFERRING PHYSICIAN: CHANDAN BLANTON MD DATE OF SERVICE: 06/15/18 Discharge Plan Patient Name: ROGERIO DIXON [facility] [facility] 1940 Planned Disposition: Home Anticipated Discharge Date: Discharge Date: Expected LOS: Initial Reviewer: LALITHA Initial Review Date: 06/15/2018 Generated: 06/15/18 5:56 pm DCPIA - Discharge Planning Initial Assessment Updated by LALITHA: Alethea Venegas on 06/15/18 4:52 pm * Is the patient Alert and Oriented? Yes * How many steps to enter\exit or inside your home? * PCP Javier Blanton * Pharmacy [facility] [address] * Preadmission Environment Home with Family * ADLs Total Dependent * Equipment Walker Wheelchair * Other Equipment hospital bed, gait belt * List name and contact numbers for known caregivers / representatives who currently or will assist patient after discharge: Daughter [phone] * Verbal permission to speak to the caregivers and representatives has been obtained from the patient. N/A * Community resources currently utilized None * Additional services required to return to the preadmission environment? No * Can the patient safely return to the preadmission environment? Yes * Has this patient been hospitalized within the prior 30 days at any hospital? No Patient Name: ROGERIO DIXON Page [id number] at 1656 All edits/amendments must be made on the electronic document DICTATION DATE: 06/15/181654 OFFICE COORDINATOR: NORA 06/15/181654 RPT#: [id number] DC DATE: STATUS: ADM IN [facility] [address] [place] [address] END OF REPORT
--- NOTE | 2018-06-15 17:03 | MORECARE ---
CASE MANAGEMENT DISCHARGE SUMMARY PATIENT: ROGERIO DIXON UNIT: [id number] ADM DATE: 06/14/18 AGE: 77 : 41 SEX: F ROOM/BED: D.1213 AUTHOR: JESSY,DOC PHYSICIAN: REFERRING PHYSICIAN: CHANDAN BLANTON MD DATE OF SERVICE: 06/15/18 Discharge Plan Patient Name: ROGERIO DIXON Facility: [facility]:[place] : 1940 Planned Disposition: Home Anticipated Discharge Date: Discharge Date: Expected LOS: Initial Reviewer: [email or web address] Initial Review Date: 06/15/2018 Generated: 06/15/18 6:03 pm Comments DCP- Discharge Planning Updated by [email or web address]: Alethea Venegas on 06/15/18 3:[address] Patient Name: ROGERIO DIXON Admission Status: Urgent Accout number: [id number] Admission Date: 06-14-2018 : 1940 Admission Diagnosis: Attending: JAVIER BLANTON Current LOS: 1 Anticipated DC Date: Planned Disposition: Home Primary Insurance: MEDICARE A & B Discharge Planning Comments: CM met with patient and daughter about discharge planning. CM explained CM role and verbal consent was given to do dc assessment. CM educated on Home Health, DME and rehab services that are available. Daughter states discharge plan is to return to home . The family are her total caregivers. Pt has all DME that the family feels she needs. States home environment is safe. Denies any discharge planning needs at this time. Family states the mobile van service they use and will call at dc will transport home upon discharge. CM will continue to follow and assist as needed with discharge planning needs. Inhalation Therapy Teacher: Alethea Venegas DCPIA - Discharge Planning Initial Assessment Updated by [email or web address]: Alethea Venegas on 06/15/18 4:52 pm * Is the patient Alert and Oriented? Yes * How many steps to enter\exit or inside your home? * PCP Javier Blanton * Pharmacy [facility] [address] * Preadmission Environment Home with Family * ADLs Total Dependent * Equipment Walker Wheelchair * Other Equipment hospital bed, gait belt * List name and contact numbers for known caregivers / representatives who currently or will assist patient after discharge: Daughter [phone] * Verbal permission to speak to the caregivers and representatives has been obtained from the patient. N/A * Community resources currently utilized None * Additional services required to return to the preadmission environment? No * Can the patient safely return to the preadmission environment? Yes * Has this patient been hospitalized within the prior 30 days at any hospital? No Last DP export: 06/15/18 3:56 p Patient Name: ROGERIO DIXON Page [id number] at 1703 All edits/amendments must be made on the electronic document DICTATION DATE: 06/15/181701 SHEETER MACHINE OPERATOR: NORA 06/15/181701 RPT#: [id number] DC DATE: STATUS: ADM IN [facility] [address] [place] [address] END OF REPORT
--- NOTE | 2018-06-15 17:50 | NUR ---
DAUGHTER REPORTS THAT UA/CULTURE WAS DONE SUNDAY BY HOME HEALTH NURSE AND SENT TO THE LAB HERE. LAB REPORT LOCATED. NADIA GLASGOW APN NOTIFIED OF RESULTS. NEW ORDER RECEIVED. DAUGHTER AT BEDSIDE INFORMED OF RESULTS AND NEW ORDER FOR LEVAQUIN.
--- NOTE | 2018-06-15 19:46 | NUR ---
THE PATIENT WAS AWAKE AND WATCHING TELEVISION WITH HER FAMILY. PATIENT IS A&O X1. BED IS IN THE LOW POSITION WITH SIDERAILS X2 AND CALL LIGHT WITHIN REACH. FAMILY WAS EDUCATE DON AND DEMONSTRATED USE OF A CALL LIGHT. THE PATIENT APPEARS COMFORTABLE WITH NO QUESTIONS OR CONCERNS AT THIS TIME.
[2018-06-16 00:50] VITALS: BP 125/48
--- NOTE | 2018-06-16 03:05 | NUR ---
THE PATIENT APPEARS TO BE SLEEPING. FAMILY IN THE ROOM.
[2018-06-16 05:00] VITALS: BP 113/52
[2018-06-16 06:41] LABS: BASOPHILS 0.2 % (0-2); EOSINOPHILS 3.8 % (0-7); HEMATOCRIT 26.1 % (36.0-48.0); HEMOGLOBIN 8.1 g/dL (12-16); IMMATURE GRANULOCYTES 0.4 % (0-5); LYMPHOCYTES 14.2 % (15-50); MCH 25.2 pg (26.0-34.0); MCV 81.3 fL (80.0-100.0); NEUTROPHILS 68.4 % (40-80); PLATELET COUNT 253 10x3/uL (130-400); RBC 3.21 10x6/uL (4.00-5.40); RDW 15.4 % (11.5-14.5); WBC 12.8 10x3/uL (4.8-10.8)
[2018-06-16 06:47] LABS: INR 2.81 (0.85-1.17); PROTIME 28.9 SECONDS (11.6-15.0)
[2018-06-16 06:53] LABS: ANION GAP 13.5 mmol/L (8-16); CALCIUM 8.4 mg/dL (8.5-10.1); CARBON DIOXIDE 22.6 mmol/L (21.0-32.0); CREATININE - SERUM 0.9 mg/dL (0.6-1.3); POTASSIUM - SERUM 4.1 mmol/L (3.5-5.1)
[2018-06-16 08:09] VITALS: BP 127/63
--- NOTE | 2018-06-16 10:45 | NUR ---
CONFUSED. RESPONDS TO EVERY QUESTION AND STATEMENT, "COFFEE." FAMILY AT BEDSIDE. NOTIFY BRANDON ZUNIGA OF NEW ONSET OF WHEEZING AND SOB. BED BATH AND LINEN CHANGE COMPLETE. ENCOURAGE TO TAKE DEEP SLOW BREATHES. CONTINUE PLAN OF CARE AND SAFETY PRECAUTIONS.
--- NOTE | 2018-06-16 14:30 | NUR ---
LAB CALLS INQUIRING ABOUT UA. PER PATIENT DAUGHTER, UA COLLECTED IN OUTPATIENT 06/13/18.
[2018-06-16 15:43] VITALS: BP 122/61
[2018-06-16 20:51] VITALS: BP 148/66
--- NOTE | 2018-06-16 21:50 | NUR ---
INITIAL ROUNDING ON THE PATIENT, SHE IS AWAKE AND RESPONDS TO GREETING SAYING "COFFEE, COFFEE, COLD". FAMILY AT THE BEDSIDE.
[2018-06-17] VITALS (23 sets, daily range): BP systolic 105–151; BP diastolic 42–74; Ht 157.5 cm; Wt 61.6 kg
--- NOTE | 2018-06-17 01:33 | NUR ---
CALLED DR MILLER AGAIN PER RESPIRATORY REQUEST FOR LASIX. ONE TIME ORDER RECVD FOR IV LASIX
[2018-06-17 05:32] LABS: PROTIME 23.3 SECONDS (11.6-15.0)
[2018-06-17 05:36] LABS: INR 2.15 (0.85-1.17)
[2018-06-17 05:39] LABS: ANION GAP 17.6 mmol/L (8-16); CALCIUM 8.7 mg/dL (8.5-10.1); CARBON DIOXIDE 22.7 mmol/L (21.0-32.0); CREATININE - SERUM 1.3 mg/dL (0.6-1.3); POTASSIUM - SERUM 3.3 mmol/L (3.5-5.1)
[2018-06-17 06:10] LABS: BASOPHILS 0 % (0-2); EOSINOPHILS 0.2 % (0-7); HEMATOCRIT 26.1 % (36.0-48.0); HEMOGLOBIN 8.2 g/dL (12-16); IMMATURE GRANULOCYTES 0.3 % (0-5); LYMPHOCYTES 2.2 % (15-50); MCH 25.4 pg (26.0-34.0); MCHC 31.4 g/dL (31.0-37.0); MCV 80.8 fL (80.0-100.0); MEAN PLATELET VOLUME 10.5 fL (7.4-10.4); MONOCYTES 3.3 % (2-11); PLATELET COUNT 277 10x3/uL (130-400); RBC 3.23 10x6/uL (4.00-5.40); RDW 15.2 % (11.5-14.5)
[2018-06-17 06:11] LABS: WBC 17.9 10x3/uL (4.8-10.8)
--- NOTE | 2018-06-17 08:36 | NUR ---
CALL REPORT TO SHIRA YUSUF IN ICU. TRANSFER TO ROOM 2304.
--- NOTE | 2018-06-17 09:00 | NUR ---
RECEVIED PATIENT FROM FLOOR VIA BED, ON O2 AT 14 LPM VIA HIGH FLOW CANNULA, SPO2- 99%, NO S/S OF RESPIRATORY DISTRESS, RR 20, REGULAR RATE AND RHYTHM, BBS CLEAR WITH EXPIRATORY WHEEZES NOTED TO RIGHT, HR 88, NSR ON CM, O2 DECREASED TO 4 LPM WITH SP02 - 96%. HEAD TO TOE ASSESSMENT COMPLETED. POSITIONED IN BED.
--- NOTE | 2018-06-17 09:20 | NUR ---
Nutrition follow-up: Pt tx to ICU today due to breathing issues Labs reviewed Wt: 142# PO intake poor at this time RDN following.
--- NOTE | 2018-06-17 09:30 | NUR ---
PATIENTS DAUGHTER AND NIECE AT BEDSIDE, VSS. SPO2 - 96% ON 4LPM VIA NC, O2 DECREASED TO 2 LPM VIA NC. UPDATED AND ANSWERED QUESTIONS.
--- NOTE | 2018-06-17 09:45 | NUR ---
DR. MCCANN AT ROOM UPDATED AND EXAMINES PATIENT. SPEAKS WITH PATIENTS DAUGHTER. VSS. SPO2 - 93% ON 2 LPM VIA NC.
--- NOTE | 2018-06-17 10:56 | NUR ---
PATIENT INCONTINENT URINE X 2 SINCE ARRIVAL IN ICU, SPOKE TO DR. MCCANN WHO ORDERS CHANDRA CATH PLACE TO MONITOR I&O DUE TO DEHYDRATION AND THEN FLUID OVERLOAD WITH LASIX GIVEN. CHANDRA CATH PLACED WITH 150 CC OF URINE, STRAW COLORED WITH SEDIMENT RETURNED.
--- NOTE | 2018-06-17 11:30 | NUR ---
REASSESSMENT COMPLETED. VSS. URINE SAMPLE OBTAINED FROM CHANDRA AND SENT TO LAB. REPOSITIONED IN BED.
--- NOTE | 2018-06-17 13:17 | NUR ---
PATIENT TURNED AND REPOSITIONED, VSS. WATCHING TV.
--- NOTE | 2018-06-17 14:56 | NUR ---
REASSESSMENT COMPLETE. VSS. BBS - CLEAR, SPO2 - 97% ON 2 LPM NC. TURNED AND REPOSITIONED IN BED.
--- NOTE | 2018-06-17 16:49 | NUR ---
PATIENT TURNED AND REPOSITIONED IN BED. DINNER TRAY PROVIDED. VSS.
--- NOTE | 2018-06-17 19:20 | NUR ---
Received patient resting in bed with eyes open and family at bedside, assessment completed per flowsheet. Patient nods appropriately/follows instructions, inappropriate verbal responses to questions. S1/S2 noted NSR on telemetry with HR 96, rythmic and regular. Breathing is even/unlabored on 2L via NC with O2 sat 93%, crackles noted bialteral upper with expiratory wheeze mid and clear lower. Abdomen is flat/soft with bowel sounds active x4, non-tender. Lundy secured with clear/yellow urine noted. RUE/RLE impaired ROM from previous stroke, all pulses palpable with cap refill < 3 sec. Denies pain or other needs at this time, see flowsheet for details. All VSS and will continue to monitor.
--- NOTE | 2018-06-17 21:10 | NUR ---
HS meds given without difficulty, family at bedside. Repositioned for comfort, no further needs and will continue to monitor.
--- NOTE | 2018-06-17 23:10 | NUR ---
Reassessment completed per flowsheet, no changes from previous assessment with family at bedside. S1/S2 noted NSR on telemetry with HR 92, rythmic and regular. Breathing is even/unlabored on 2L via NC with O2 sat 92%, crackles noted bilateral upper with expiratory wheeze mid and diminished lower. All pulses palpable with cap refill < 3 sec, skin warm/dry. Denies pain or other needs at this time, see flowsheet for details. All VSS and will continue to monitor.
[2018-06-18] VITALS (20 sets, daily range): BP systolic 101–147; BP diastolic 54–95
--- NOTE | 2018-06-18 01:10 | NUR ---
Patient resting in bed with eyes closed and family at bedside, no s/s of distress at this time. All VSS and will continue to monitor.
--- NOTE | 2018-06-18 03:10 | NUR ---
Reassessment completed per flowsheet, no changes noted from previous assessment. S1/S2 noted NSR on telemetry with HR 92, rythmic and regular. Breathing is even/unlabored on 4L via NC with O2 sat 92%, lung sounds clear bilateral upper with expiratory wheeze noted mid and clear lower. All pulses palpable with cap refill < 3 sec, skin warm/dry. Denies pain or other needs at this time, see flowsheet for details. All VSS and will continue to monitor.
[2018-06-18 05:17] LABS: INR 2.44 (0.85-1.17); PROTIME 25.8 SECONDS (11.6-15.0)
[2018-06-18 05:40] LABS: HEMATOCRIT 24.2 % (36.0-48.0); HEMOGLOBIN 7.6 g/dL (12-16); MCH 25.2 pg (26.0-34.0); MCHC 31.4 g/dL (31.0-37.0); MCV 80.1 fL (80.0-100.0); MEAN PLATELET VOLUME 10.6 fL (7.4-10.4); PLATELET COUNT 282 10x3/uL (130-400); RBC 3.02 10x6/uL (4.00-5.40); RDW 15.2 % (11.5-14.5); WBC 21.4 10x3/uL (4.8-10.8)
[2018-06-18 05:51] LABS: ANION GAP 14.9 mmol/L (8-16); CALCIUM 8.8 mg/dL (8.5-10.1); CARBON DIOXIDE 23.6 mmol/L (21.0-32.0); CREATININE - SERUM 1.4 mg/dL (0.6-1.3); POTASSIUM - SERUM 3.5 mmol/L (3.5-5.1); THYROID STIMULATING HORMONE 1.92 uIU/mL (0.36-3.74)
--- NOTE | 2018-06-18 07:20 | NUR ---
REPORT RECIEVED, SHIFT ASSESSMENT COMPLETE, PT IS ALERT FOLLOWS COMMANDS, ON 4L HF WITH 97% O2 SAT. ALL PPP, VSS,
[2018-06-18 08:10] LABS: ANISOCYTOSIS OCC; HYPOCHROMASIA OCC; LYMPHOCYTES 5 % (15-50); MONOCYTES 26 % (2-11); NEUTROPHILS 66 % (40-80); PLATELET ESTIMATE NORMAL
--- NOTE | 2018-06-18 09:10 | NUR ---
FAMILY AT BEDSIDE, UPDATE GIVEN
[2018-06-18 10:14] LABS: FOLATE (FOLIC ACID) - SERUM >20.0 ng/mL (>3.0)
--- NOTE | 2018-06-18 11:15 | NUR ---
DR. ORDOÑEZ AT BEDSIDE, NEW ORDERS RECIEVED
--- NOTE | 2018-06-18 13:03 | NUR ---
FAMILY AT BEDSIDE, UPDATE GIVEN
--- NOTE | 2018-06-18 15:00 | NUR ---
PT O2 SAT DROPPING, VENTI MASK PLACED, O2 SAT 95%
--- NOTE | 2018-06-18 16:00 | NUR ---
PT PLACED ON BIPAP AT THIS TIME, DR. MCCANN AND DR. ORDOÑEZ AT BEDSIDE
--- NOTE | 2018-06-18 17:00 | NUR ---
FAMILY AT BEDSIDE, PT RESTING AT THIS TIME, WILL CON'T TO MONITOR
--- NOTE | 2018-06-18 19:20 | NUR ---
REPORT RECEIVED, SHIFT ASSESSMENT COMPLETED PER FLOW SHEET. AWAKE AND ALERT. DAUGHTER AT BEDSIDE. ON BIPAP 01/28, 50%. LT HAND PIV PATENT, NO SIGNS OF INFECTION OR INFILTRATION. SEE FLOW SHEET FOR COMPLETE ASSESSMENT. TEMPERATURE ELEVATED, WILL CALL PHYSICIAN.
--- NOTE | 2018-06-18 19:25 | NUR ---
TEMPERATURE ELEVATED. CALLED DR. MADDOX, WILL WAIT FOR CALL BACK.
--- NOTE | 2018-06-18 19:35 | NUR ---
AUGUSTO COTTO APN, WHO IS OTR DRIVER FOR DR. ORDOÑEZ RETURED CALL. UPDATE GIVEN ON PATIENT STATUS, VS REVIEWED. NEW ORDERS RECEIVED.
--- NOTE | 2018-06-18 20:51 | NUR ---
SCHEDULED MEDS GIVEN, DAUGHTER AT BEDSIDE. NO PROBLEMS NOTED SWALLOWING. PLACED ON 7 L OXYMIZER AND ORAL CARE PROVIDED. AFTER INTERVENTIONS PATIENT WAS PLACED BACK ON BIPAP. WILL CONTINUE TO MONITOR.
--- NOTE | 2018-06-18 22:00 | NUR ---
VIOLET AT BEDSIDE, NO ACUTE DISTRESS NOTED. WILL CONTINUE TO MONITOR.
--- NOTE | 2018-06-18 23:01 | NUR ---
REASSESSMENT COMPLETED PER FLOW SHEET, SEE FOR DETAILS. VIOLET AT BEDSIDE. REPOSITIONED IN BED. WILL CONTINUE TO MONITOR.
[2018-06-19] VITALS (25 sets, daily range): BP systolic 92–150; BP diastolic 53–71
--- NOTE | 2018-06-19 01:00 | NUR ---
RESTING, NO ACUTE CHANGES NOTED. WILL CONTINUE TO MONITOR.
--- NOTE | 2018-06-19 01:45 | NUR ---
Assumed care of patient, resting in bed on BiPAP 50% with family at bedside. No s/s of distress, all VSS and will continue to monitor.
--- NOTE | 2018-06-19 03:10 | NUR ---
Reassessment completed per flowsheet, see flowsheet for details. S1/S2 noted NSR on telemetry with HR 98, rythmic and regular. Breathing is shallow on BiPAP 50% with O2 sat 97%, crackles noted bilateral upper and mid with diminished lower. Impaired ROM RUE/RLE with all pulses palpable, cap refill < 3 sec with skin warm/dry. Repositioned for comfort, no further needs at this time and will continue to monitor.
--- NOTE | 2018-06-19 05:00 | NUR ---
Patient sleeping in bed on BiPAP 50% with family at bedside, no s/s of distress. All VSS and will continue to monitor.
--- NOTE | 2018-06-19 07:00 | NUR ---
REPORT RECIEVED, SHIFT ASSESSMENT COMPLETE, PT IS ALERT, FOLLOWS COMMANDS, ON 50% BIPAP WITH 97% O2 SAT. ALL PPP, VSS, CALL LIGHT IN REACH
--- NOTE | 2018-06-19 09:00 | NUR ---
COMPLETE BATH AND LINEN CHANGE, PT TOLERATED WELL
--- NOTE | 2018-06-19 09:37 | NUR ---
Nutrition follow-up: Diet: Regular moist mechanical soft with thin liquids PO intake ~50% of meals Labs reviewed Wt: 150# Pt still on BIPAP Will offer nutritional supplements to increase kcal, protein intake RDN following.
[2018-06-19 09:42] LABS: BASOPHILS 0.1 % (0-2); EOSINOPHILS 1.6 % (0-7); HEMATOCRIT 28.5 % (36.0-48.0); IMMATURE GRANULOCYTES 0.4 % (0-5); LYMPHOCYTES 4.9 % (15-50); MCH 26.2 pg (26.0-34.0); MCHC 33.3 g/dL (31.0-37.0); MCV 78.7 fL (80.0-100.0); MEAN PLATELET VOLUME 10.2 fL (7.4-10.4); MONOCYTES 12.6 % (2-11); NEUTROPHILS 80.4 % (40-80); PLATELET COUNT 277 10x3/uL (130-400); RBC 3.62 10x6/uL (4.00-5.40); WBC 18.6 10x3/uL (4.8-10.8)
[2018-06-19 09:48] LABS: HEMOGLOBIN 9.5 g/dL (12-16)
--- NOTE | 2018-06-19 10:00 | NUR ---
DR. MCCANN AT BEDSIDE, UPDATE GIVEN TO FAMILY
[2018-06-19 10:09] LABS: ALBUMIN 2.6 g/dL (3.4-5.0); ANION GAP 15.7 mmol/L (8-16); BILIRUBIN - TOTAL 1.06 mg/dL (0.2-1.3); CARBON DIOXIDE 24.3 mmol/L (21.0-32.0); CREATININE - SERUM 1.4 mg/dL (0.6-1.3); PROTEIN - SERUM 6.7 g/dL (6.4-8.2)
--- NOTE | 2018-06-19 11:15 | NUR ---
PT UPTO CHAIR AT THIS TIME, TOTAL LIFT, PLACED ON VENTI MASK, DR. MCCANN AT BEDSIDE
--- NOTE | 2018-06-19 12:15 | NUR ---
DR. ORDOÑEZ AT BEDSIDE, UPDATE GIVEN TO FAMILY, NEW ORDERS RECIEVED,
--- NOTE | 2018-06-19 13:15 | NUR ---
PT BACK TO BED AT THIS TIME, PT TOLERATED WEL
--- NOTE | 2018-06-19 15:10 | NUR ---
REASSESSMENT COMPLETE, NO CHANGES NOTED, PT RESTING AT THIS TIME, VSS, CALL LIGHT IN REACH
--- NOTE | 2018-06-19 17:00 | NUR ---
FAMILY AT BEDSIDE, UPDATE GIVEN
--- NOTE | 2018-06-19 19:10 | NUR ---
Received patient resting in bed with eyes open and family at bedside, assessment completed per flowsheet. Patient Awake/Alert with Aphasia noted, nods appropriately/follows instructions. S1/S2 noted Sinus Tach on telemetry with HR 102, rythmic and regular. Breathing is shallow on BiPAP 50% with O2 sat 97%, crackles noted bilateral upper and mid with diminished lower. Abdomen is flat/soft with bowel sounds active x4, non-tender. Lundy secured, clear yellow urine noted. Impaired ROM RUE/RLE with weakness noted LUE/LLE, all pulses palpable with cap refill < 3 sec with skin warm/dry. Denies pain or other needs at this time, see flowsheet for details. All VSS and will continue to monitor.
--- NOTE | 2018-06-19 19:40 | NUR ---
Patient provided food tray with daughter at bedside, changed from BiPAP 50% to 6L HFNC with O2 sat 93%. Patient feeding self with L hand, daughter at bedside to assist. No difficulties swallowing/breathing observed with mechanical soft diet, no overt s/s of aspiration seen. All VSS and will continue to monitor.
--- NOTE | 2018-06-19 21:05 | NUR ---
Patient resting in bed with eyes open and family at bedside, discussed medications/current status with all questions answered to satisfaction. HS meds given with applesauce, no difficulties swallowing observed. Repositioned for comfort, all VSS and will continue to monitor.
--- NOTE | 2018-06-19 23:00 | NUR ---
Reassessment completed per flowsheet, no changes from previous assessment. S1/S2 noted Sinus Tach with HR 108, rythmic and regular. Breathing is shallow on BiPAP 50% with O2 sat 96%, crackles noted bilateral upper and mid with diminished lower. All pulses palpable with cap refill < 3 sec, skin warm/dry. Denies pain or other needs at this time, see flowsheet for details. All VSS and will continue to monitor.
[2018-06-20] VITALS (26 sets, daily range): BP systolic 100–141; BP diastolic 46–94
--- NOTE | 2018-06-20 00:58 | NUR ---
Patient sleeping in bed on BiPAP 50% with family at bedside, no s/s of distress at this time. All VSS and will continue to monitor.
--- NOTE | 2018-06-20 03:00 | NUR ---
Reassessment completed per flowsheet, no changes from previous assessment. S1/S2 noted Sinus Tach on telemetry with HR 102, rythmic and regular. Breathing is shallow on BiPAP 50% with O2 sat 95%, crackles noted bilateral upper and mid with diminished lower. All pulses palpable with cap refill < 3 sec, skin warm/dry. Denies pain or other needs at this time, see flowsheet for details. All VSS and will continue to monitor.
[2018-06-20 03:57] LABS: BASOPHILS 0.1 % (0-2); EOSINOPHILS 1.2 % (0-7); HEMATOCRIT 28.6 % (36.0-48.0); HEMOGLOBIN 9.3 g/dL (12-16); IMMATURE GRANULOCYTES 0.5 % (0-5); LYMPHOCYTES 3.7 % (15-50); MCHC 32.5 g/dL (31.0-37.0); MCV 79.9 fL (80.0-100.0); MEAN PLATELET VOLUME 10.1 fL (7.4-10.4); MONOCYTES 12.1 % (2-11); NEUTROPHILS 82.4 % (40-80); PLATELET COUNT 263 10x3/uL (130-400); RBC 3.58 10x6/uL (4.00-5.40); RDW 15.3 % (11.5-14.5); WBC 19.8 10x3/uL (4.8-10.8)
[2018-06-20 04:07] LABS: INR 2.31 (0.85-1.17); PROTIME 24.7 SECONDS (11.6-15.0)
[2018-06-20 04:25] LABS: ALBUMIN 2.6 g/dL (3.4-5.0); BILIRUBIN - TOTAL 1.35 mg/dL (0.2-1.3); CALCIUM 8.8 mg/dL (8.5-10.1); CARBON DIOXIDE 24.7 mmol/L (21.0-32.0); CREATININE - SERUM 1.5 mg/dL (0.6-1.3); MAGNESIUM - SERUM 1.8 mg/dL (1.8-2.4); PHOSPHOROUS 3.4 mg/dL (2.5-4.9)
[2018-06-20 04:26] LABS: POTASSIUM - SERUM 2.7 mmol/L (3.5-5.1)
--- NOTE | 2018-06-20 05:00 | NUR ---
Patient sleeping in bed on BiPAP 50% with family at bedside, no s/s of distress at this time. Repositioned for comfort, no further needs and will continue to monitor.
--- NOTE | 2018-06-20 07:09 | NUR ---
REPORT RECEIVED. ASSESSMENT COMPLETE PER FLOW SHEET. VSS. PT RESTING COMFORTABLY DENIES NEEDS WILL CONTINUE TO MONITOR
--- NOTE | 2018-06-20 07:10 | NUR ---
REPORT RECIEVED, SHIFT ASSESSMENT COMPLETE, PT IS AWAKE AND ALERT, FOLLOWS COMMANDS, ON 6L HF WITH 94% O2 SAT. ALL PPP, VSS, CALL LIGHT IN REACH
--- NOTE | 2018-06-20 09:30 | NUR ---
PT UPTO CHAIR WITH PT, TOLERATED WELL
--- NOTE | 2018-06-20 10:00 | NUR ---
DR. MCCANN AT BEDSIDE, NEW ORDERS RECIEVED
--- NOTE | 2018-06-20 10:26 | NUR ---
DR. ORDOÑEZ AT BEDSIDE, UPDATE GIVEN
--- NOTE | 2018-06-20 10:37 | NUR ---
DANYELLE DELEON AT BEDSIDE TO PLACE MIDLINE, PT BACK TO BED
--- NOTE | 2018-06-20 13:30 | NUR ---
PT TO CT AT THIS TIME VIA BED
--- NOTE | 2018-06-20 13:45 | NUR ---
PT BACK FROM CT, HOOKED TO MONITORS
--- NOTE | 2018-06-20 15:00 | NUR ---
REASSESSMENT COMPLETE, NO CHANGES NOTED, PT RESTING AT THIS TIME, FAMILY AT BEDSIDE, WILL CON'T TO MONITOR
--- NOTE | 2018-06-20 16:24 | NUR ---
OT NOTE: PT COMPLETED UE PROM TO DECREASE RISK OF SKIN BREAKDOWN. 140/148 THANK YOU, MARYLOU HONG
--- NOTE | 2018-06-20 19:15 | NUR ---
PT RECEIVED WITH EYES OPEN HH AID AT BEDSIDE. VSS STABLE. ON OXIMIZER 8LPM. NO COMPLAINTS OF PAIN. WILL CONTINUE TO OBSERVE. CALL LIGHT IN REACH.
--- NOTE | 2018-06-20 20:33 | NUR ---
FAMILY AT BEDSIDE, HH AIDE HAS LEFT. RECEIVED PO MEDICATIONS WITH APPLESAUCE. A SMALL COUGH NOTED, SPO2 MAINTAINED. NO S/S OF DISTRESS. RESPIRATORY PLACED PT ON BIPAP 50%. TOLERATING WELL AT THIS TIME. WILL CONTINUE TO OBSERVE.
--- NOTE | 2018-06-20 21:32 | NUR ---
PT ON BIPAP 50%. FAMILY AT BEDSIDE. VSS. REPOSITIONING PROVIDED. CALL LIGHT IN REACH. WILL CONTINUE TO OBSERVE.
--- NOTE | 2018-06-20 23:04 | NUR ---
PT RESTING WITH EYES CLOSED AND CHEST RISING. ON BIPAP 50%. FAMILY AT BEDSIDE. VSS. WILL CONTINUE TO OBSERVE.
[2018-06-21] VITALS (37 sets, daily range): BP systolic 75–129; BP diastolic 38–68
--- NOTE | 2018-06-21 01:18 | NUR ---
PT WITH EYES CLOSED AND CHEST RISING. ON BIPAP 50%. FAMILY AT BEDSIDE. VSS. CALL LIGHT IN REACH. WILL CONTINUE TO OBSERVE.
[2018-06-21 03:40] LABS: HEMATOCRIT 28.9 % (36.0-48.0); HEMOGLOBIN 9.3 g/dL (12-16); MCH 26.3 pg (26.0-34.0); MCHC 32.2 g/dL (31.0-37.0); MCV 81.6 fL (80.0-100.0); MEAN PLATELET VOLUME 10.1 fL (7.4-10.4); PLATELET COUNT 273 10x3/uL (130-400); RBC 3.54 10x6/uL (4.00-5.40); RDW 15.7 % (11.5-14.5); WBC 22.2 10x3/uL (4.8-10.8)
[2018-06-21 03:54] LABS: ANION GAP 14.9 mmol/L (8-16); CALCIUM 9.4 mg/dL (8.5-10.1); CARBON DIOXIDE 28.4 mmol/L (21.0-32.0); CREATININE - SERUM 1.4 mg/dL (0.6-1.3); MAGNESIUM - SERUM 2.1 mg/dL (1.8-2.4); POTASSIUM - SERUM 3.3 mmol/L (3.5-5.1)
[2018-06-21 04:05] LABS: EOSINOPHILS 2 % (0-7); LYMPHOCYTES 7 % (15-50); MONOCYTES 10 % (2-11); NEUTROPHILS 79 % (40-80); PLATELET ESTIMATE NORMAL
--- NOTE | 2018-06-21 06:53 | NUR ---
REASSESSMENT COMPLETED, SEE FLOW SHEET. CONTINUES BIPAP. TOLERATING WELL. WILL CONTINUE TO OBSERVE.
--- NOTE | 2018-06-21 06:55 | NUR ---
POTASSIUM 3.3 TREATED WITH KCL 10MEQ IV PER ELECTROLYTE PROTOCOL. REPORTED TO ONCOMING STAFF.
--- NOTE | 2018-06-21 08:53 | NUR ---
Nutrition follow-up: Pt now intubated, s/p bronch NPO labs reviewed Wt: 144# Midline placed Recommend Pulmocare start @ 25 ml/hr with increase to goal rate of 45 ml/hr with 25 ml H2O flush Q hr. RDN following.
--- NOTE | 2018-06-21 08:58 | NUR ---
PT RESTING COMFORTABLY VSS. ATE 30% BREAKFAST. DENIES NEEDS WILL CONTINUE TO MONITOR
--- NOTE | 2018-06-21 09:00 | NUR ---
DR. MCCANN AT BEDSIDE, PT INTUBATED AND BROSANCHEZ PERFORMED, PT TOLERATED WELL
--- NOTE | 2018-06-21 10:00 | NUR ---
FAMILY AT BEDSIDE, UPDATE GIVEN BY DR. MCCANN
--- NOTE | 2018-06-21 10:55 | NUR ---
AT BEDSIDE, UPDATE GIVEN, NEW ORDERS RECIEVED
--- NOTE | 2018-06-21 11:00 | NUR ---
REASSESSMENT DREW, PT NOW SEDATED ON VENT, FOLLOWS COMMANDS, VSS, WILL CON'T TO MONITOR
--- NOTE | 2018-06-21 11:35 | NUR ---
PT'S CALLED AND SAID TO NOT GIVE OUT ANY INFORMATION TO ANYONE UNTIL HE SPEAKS WITH ENA LATER. SAID TO DELETE THE CODE NUMBER AND THAT HE WOULD GIVE A NEW ONE LATER. UPDATED ENA, SECOND CUTTER.
[2018-06-21 12:22] LABS: MACROPHAGES BF 33 %; MESOTHELIALS BF 12 %; NEUT - BF 37 %
[2018-06-21 13:24] LABS: MACROPHAGES BF 1 %; NEUT - BF 80 %
[2018-06-21 13:27] LABS: MACROPHAGES BF 1 %; NEUT - BF 86 %
--- NOTE | 2018-06-21 15:30 | NUR ---
REASSESSMENT COMPLETE, NO CHANGES NOTED, WILL CON'T TO MONITOR
--- NOTE | 2018-06-21 15:48 | NUR ---
UPDATE CALLED TO DR. ORDOÑEZ, NEW ORDERS RECIEVED
--- NOTE | 2018-06-21 17:15 | NUR ---
VENT ALARMING. ORAL ENDOTRACH CARE ADM. REPOSITIONED ON R SIDE. VSS NO NEW CHANGES WILL CONTINUE TO MONTIOR
--- NOTE | 2018-06-21 21:10 | NUR ---
NO VISITORS PRESENT AT THIS TIME, ORAL CARE AND SUCTIONING PROVIDED, THICK BROWNISH SECRETIONS NOTED, POSITIONED FOR COMFORT SUPPORTED WITH PILLOWS.
[2018-06-22] VITALS (36 sets, daily range): BP systolic 88–122; BP diastolic 44–61
[2018-06-22 03:16] LABS: BASOPHILS 0.1 % (0-2); EOSINOPHILS 4.6 % (0-7); HEMATOCRIT 27.5 % (36.0-48.0); HEMOGLOBIN 8.4 g/dL (12-16); IMMATURE GRANULOCYTES 0.5 % (0-5); LYMPHOCYTES 7.4 % (15-50); MCH 25.4 pg (26.0-34.0); MCHC 30.5 g/dL (31.0-37.0); MCV 83.1 fL (80.0-100.0); MEAN PLATELET VOLUME 10.4 fL (7.4-10.4); MONOCYTES 7.7 % (2-11); NEUTROPHILS 79.7 % (40-80); PLATELET COUNT 254 10x3/uL (130-400); RBC 3.31 10x6/uL (4.00-5.40); RDW 16.2 % (11.5-14.5); WBC 20.8 10x3/uL (4.8-10.8)
[2018-06-22 03:26] LABS: ANION GAP 17.1 mmol/L (8-16); CALCIUM 9.1 mg/dL (8.5-10.1); CARBON DIOXIDE 24.9 mmol/L (21.0-32.0); CREATININE - SERUM 1.3 mg/dL (0.6-1.3)
--- NOTE | 2018-06-22 05:10 | NUR ---
AM LABS REVIEWED, NOTHING TO TREAT PER ELECTROLYTE PROTOCOL.
--- NOTE | 2018-06-22 11:30 | NUR ---
DR. AMIN CHANGED VENT SETTINGS
--- NOTE | 2018-06-22 21:15 | NUR ---
NO VISITORS PRESENT AT THIS TIME, ORAL CARE AND SUCTIONING PROVIDED, REPOSITIONED SUPPORTED WITH PILLOWS.
[2018-06-22 22:05] LABS: ACID FAST SMEAR Negative (()); AFB SPECIMEN PROCESSING Concentration (())
[2018-06-23] VITALS (75 sets, daily range): BP systolic 74–158; BP diastolic 27–80
--- NOTE | 2018-06-23 01:00 | NUR ---
PT REPOSITIONED FOR COMFORT, TF RESIDUAL 20CC, INCREASED RATE TO 20 CC/HR, ORAL CARE PROVIDED.
--- NOTE | 2018-06-23 03:12 | NUR ---
TF BAG CHANGED OUT, ORAL CARE PROVIDED, POSITIONED FOR COMFORT SUPPORTED WITH PILLOWS.
[2018-06-23 04:26] LABS: BASOPHILS 0.1 % (0-2); EOSINOPHILS 6.5 % (0-7); HEMATOCRIT 28.6 % (36.0-48.0); HEMOGLOBIN 9.1 g/dL (12-16); IMMATURE GRANULOCYTES 0.8 % (0-5); LYMPHOCYTES 13.5 % (15-50); MCH 25.9 pg (26.0-34.0); MCHC 31.8 g/dL (31.0-37.0); MCV 81.5 fL (80.0-100.0); MEAN PLATELET VOLUME 10.1 fL (7.4-10.4); MONOCYTES 7.9 % (2-11); NEUTROPHILS 71.2 % (40-80); PLATELET COUNT 270 10x3/uL (130-400); RBC 3.51 10x6/uL (4.00-5.40); RDW 16.2 % (11.5-14.5); WBC 18.2 10x3/uL (4.8-10.8)
[2018-06-23 04:46] LABS: ALBUMIN 2.5 g/dL (3.4-5.0); BILIRUBIN - TOTAL 0.86 mg/dL (0.2-1.3); CALCIUM 8.8 mg/dL (8.5-10.1); CARBON DIOXIDE 30.7 mmol/L (21.0-32.0); CREATININE - SERUM 1.3 mg/dL (0.6-1.3); MAGNESIUM - SERUM 1.9 mg/dL (1.8-2.4); PROTEIN - SERUM 6.8 g/dL (6.4-8.2)
[2018-06-23 04:55] LABS: POTASSIUM - SERUM 2.7 mmol/L (3.5-5.1)
--- NOTE | 2018-06-23 05:37 | NUR ---
NO VISITORS PRESENT AT THIS TIME, ORAL CARE AND SUCTIONING PROVIDED, POTASSIUM COVERED PER ELECTROLYTE PROTOCOL, VSS.
--- NOTE | 2018-06-23 10:04 | NUR ---
UTILIZING WEDGES FOR REPOSITIONING
--- NOTE | 2018-06-23 11:34 | NUR ---
PATIENT WILL WAKE WHEN SEDATION ON HOLD FOR 7 MIN.
--- NOTE | 2018-06-23 12:37 | NUR ---
SBP CONSISTANTLY IN 70s, DECREASED SEDATION WITHOUT INCREASE IN BP, LEVOPHED STARTED ORDERED,
--- NOTE | 2018-06-23 19:38 | NUR ---
PT RECEIVED SEDATED ON VENT, OPENS EYES SPONTANEOUSLY. VSS. RECEIVING DIPROVAN AND LEVOPHED. CHANDRA PATENT WITH YELLOW URINE NOTED. OGT WITH PULMACARE AT 45ML/HR WITH FLUSH AT 100ML/2HR. ASSESSMENT COMPLETED, SEE FLOW SHEET. WILL CONTINUE TO OBSERVE.
--- NOTE | 2018-06-23 23:50 | NUR ---
REASSESSMENT COMPLETED, SEE FLOW SHEET. REPOSITIONING PROVIDED. WILL CONTINUE TO OBSERVE.
[2018-06-24] VITALS (99 sets, daily range): BP systolic 91–154; BP diastolic 25–83
--- NOTE | 2018-06-24 02:15 | NUR ---
PT REPOSITIONED. TITRATING LEVOPHED TOLERATED. WILL CONTINUE TO OBSERVE.
--- NOTE | 2018-06-24 03:08 | NUR ---
REASSESSMENT COMPLETED, SEE FLOW SHEET. WILL CONTINUE TO OBSERVE.
[2018-06-24 04:30] LABS: HEMATOCRIT 36.3 % (36.0-48.0); HEMOGLOBIN 11.5 g/dL (12-16); MCH 25.6 pg (26.0-34.0); MCHC 31.7 g/dL (31.0-37.0); MCV 80.7 fL (80.0-100.0); MEAN PLATELET VOLUME 10.1 fL (7.4-10.4); PLATELET COUNT 444 10x3/uL (130-400); RDW 16.4 % (11.5-14.5)
[2018-06-24 04:41] LABS: INR 2.41 (0.85-1.17); PROTIME 25.5 SECONDS (11.6-15.0)
[2018-06-24 04:58] LABS: EOSINOPHILS 4 % (0-7); LYMPHOCYTES 11 % (15-50); MONOCYTES 12 % (2-11); NEUTROPHILS 65 % (40-80); PLATELET ESTIMATE INCREASED; PLATELET MORPHOLOGY GIANT PLTS PRESENT
[2018-06-24 05:02] LABS: ALBUMIN 2.6 g/dL (3.4-5.0); ANION GAP 15.3 mmol/L (8-16); BILIRUBIN - TOTAL 0.87 mg/dL (0.2-1.3); CALCIUM 8.6 mg/dL (8.5-10.1); CARBON DIOXIDE 27.4 mmol/L (21.0-32.0); CREATININE - SERUM 1.2 mg/dL (0.6-1.3); MAGNESIUM - SERUM 2.2 mg/dL (1.8-2.4); PHOSPHOROUS 3.7 mg/dL (2.5-4.9); POTASSIUM - SERUM 3.7 mmol/L (3.5-5.1); PROTEIN - SERUM 7.3 g/dL (6.4-8.2)
--- NOTE | 2018-06-24 06:15 | NUR ---
HEBICLENS BATH GIVEN WITH COMPLETE LINEN CHANGE. PT TOLERATED WELL. WILL CONTINUE TO OBSERVE.
--- NOTE | 2018-06-24 10:15 | NUR ---
WILL GIVE NEUROTON WHEN AVAILABLE FROM Rx
--- NOTE | 2018-06-24 12:22 | NUR ---
Nutrition follow-up: Pulmocare off at this time for bronchoscopy Per nursing, pt has been tolerating TF @ 45 ml/hr Labs reviewed Wt: 142# RDN following.
--- NOTE | 2018-06-24 19:00 | NUR ---
REC'D TO CARE, CIRCLE SAW OPERATOR PER FLOWSHEET. PT SEDATED ON VENT. OPENS EYES AND WILL WEAKLY FOLLOW COMMANDS WITH L EXTR, R EXTR WITH MINIMAL MOVEMENT/SHAKING NOTED - HX CVA. IVFS INFUSING TO L ARM MIDLINE, DSG C/D/I - SEE FLOWSHEET. CM - ST, NO SIGN OF DISTRESS. WILL CONT Q2H TURN/ORAL CARE. HEELS BRIDGED. ALARMS ON.
--- NOTE | 2018-06-24 21:00 | NUR ---
HERE, UPDATE GIVEN AND QUESTIONS ANSWERED. PT REPOSITIONED UP IN BED, ORAL CARE AND ROM PROVIDED. RUBEN - .
[2018-06-24 21:52] LABS: MACROPHAGES BF 2 %; NEUT - BF 95 %
[2018-06-24 21:55] LABS: MACROPHAGES BF 2 %; NEUT - BF 93 %
--- NOTE | 2018-06-24 23:10 | NUR ---
REASSESSMENT PER FLOWSHEET. NO ACUTE CHANGES. NO SIGN OF DISTRESS.
[2018-06-25] VITALS (24 sets, daily range): BP systolic 91–125; BP diastolic 36–67
--- NOTE | 2018-06-25 01:00 | NUR ---
PT HAD LARGE FORMED DARK BROWN BM. COMPLETE HIBICLENS BATH AND VERONIQUE-CARE DONE. HAIR WASHED. LOTION TO DRY SKIN. YEAST-LIKE REDNESS TO PERINEUM - POSITIONED TO KEEP DRY.
--- NOTE | 2018-06-25 03:30 | NUR ---
REASSESSMENT PER FLOWSHEET, NO ACUTE CHANGES. NO SIGN OF DISTRESS.
--- NOTE | 2018-06-25 03:58 | NUR ---
PT HAD MED FORMED BM. VERONIQUE-CARE DONE, PAD CHANGED AND PT REPOSITIONED UP IN BED WITH PILLOWS. VSS. NO SIGN OF DISTRESS.
[2018-06-25 04:52] LABS: BASOPHILS 0.3 % (0-2); EOSINOPHILS 4.3 % (0-7); IMMATURE GRANULOCYTES 2.2 % (0-5); LYMPHOCYTES 12.6 % (15-50); MCH 25.2 pg (26.0-34.0); MEAN PLATELET VOLUME 10.4 fL (7.4-10.4); MONOCYTES 6.8 % (2-11); NEUTROPHILS 73.8 % (40-80); RDW 16.7 % (11.5-14.5); WBC 19.5 10x3/uL (4.8-10.8)
--- NOTE | 2018-06-25 05:00 | NUR ---
REPOSITIONED UP IN BED, ORAL CARE DONE, PT AROUSES EASILY, FOLLOWS COMMANDS, NO SIGN OF DISTRESS. VSS.
[2018-06-25 05:05] LABS: PLATELET COUNT 297 10x3/uL (130-400); RBC 3.57 10x6/uL (4.00-5.40)
[2018-06-25 05:20] LABS: ALBUMIN 2.2 g/dL (3.4-5.0); ANION GAP 14.3 mmol/L (8-16); BILIRUBIN - TOTAL 0.55 mg/dL (0.2-1.3); CALCIUM 7.9 mg/dL (8.5-10.1); CARBON DIOXIDE 25.9 mmol/L (21.0-32.0); CREATININE - SERUM 1.1 mg/dL (0.6-1.3); MAGNESIUM - SERUM 2.3 mg/dL (1.8-2.4); POTASSIUM - SERUM 4.2 mmol/L (3.5-5.1); PROTEIN - SERUM 5.5 g/dL (6.4-8.2)
--- NOTE | 2018-06-25 09:38 | NUR ---
SEDATION OFF, RT CHANGED VENT SETTINGS FOR TRIAL, LASIX IV GIVEN
--- NOTE | 2018-06-25 10:09 | NUR ---
NO NOTED CHANGE
--- NOTE | 2018-06-25 10:21 | NUR ---
NO CHANGE AT PRESENT
--- NOTE | 2018-06-25 11:49 | NUR ---
CPAP TRIAL: @0940 SWITCHED PATIENT TO SPONT 11/23 40%. @1145 SWITCHED PATIENT TO SIMV (PATIENT FAILED TRIAL) RR 46, HR 96, SPO2 99%, RSBI 140.
--- NOTE | 2018-06-25 11:49 | NUR ---
PATIENT FAILED RESP. TRIAL, RR RATE UP INTO THE 40s, RT CHANGED VENT SETTINGS, TF RESTARTED AND SEDATION RESTARTED PER RN
--- NOTE | 2018-06-25 19:00 | NUR ---
REC'D TO CARE, TREE TRIMMING LINE TECHNICIAN PER FLOWSHEET, PT SEDATED ON VENT VIA OETT, VSS. PT WILL MOVE L EXTR TO COMMAND, R SIDE VERY WEAK, HX CVA.
--- NOTE | 2018-06-25 20:18 | NUR ---
OT NOTE: PT REMAINS ON VENT. WILL DC UNTIL PT IS MORE ABLE TO PARTICIPATE. DENA CHRISTIANSON,OTR/L
--- NOTE | 2018-06-25 21:00 | NUR ---
NO VISITORS, PT REPOSITIONED UP IN BED, ORAL CARE PROVIDED, ROM DONE AND HEELS BRIDGED.
--- NOTE | 2018-06-25 23:00 | NUR ---
REASSESSMENT PER FLOWSHEET, NO ACUTE CHANGES. PT AWAKENS EASILY, NO SIGN OF DISTRESS. CHANDRA-CARE PER PROTOCOL. REDNESS TO VERONIQUE-AREA - CLEANSED AND DRIED. REPOSITIONED TO L SIDE WITH PILLOWS.
[2018-06-26] VITALS (28 sets, daily range): BP systolic 85–146; BP diastolic 36–74
--- NOTE | 2018-06-26 01:00 | NUR ---
PT AWAKENS EASILY, NO SIGN OF DISTRESS. VSS. REPOSITIONED FOR COMFORT - HEELS BRIDGED. ALARMS ON.
--- NOTE | 2018-06-26 03:00 | NUR ---
REASSESSMENT PER FLOWSHEET, NO ACUTE CHANGES.
--- NOTE | 2018-06-26 05:00 | NUR ---
REPOSITIONED UP IN BED TO L SIDE WITH PILLOWS. STERILD DSG CHANGE TO L MIDLINE PER PROTOCOL, NO REDNESS OR SWELLING AT SITE.
[2018-06-26 05:32] LABS: ALBUMIN 2.1 g/dL (3.4-5.0); ANION GAP 12.9 mmol/L (8-16); BILIRUBIN - TOTAL 0.47 mg/dL (0.2-1.3); CARBON DIOXIDE 24.9 mmol/L (21.0-32.0); CREATININE - SERUM 1.1 mg/dL (0.6-1.3); MAGNESIUM - SERUM 2.2 mg/dL (1.8-2.4); POTASSIUM - SERUM 3.8 mmol/L (3.5-5.1); PROTEIN - SERUM 6.1 g/dL (6.4-8.2)
[2018-06-26 05:48] LABS: HEMATOCRIT 25.8 % (36.0-48.0); HEMOGLOBIN 7.8 g/dL (12-16); MCH 25.4 pg (26.0-34.0); MCHC 30.2 g/dL (31.0-37.0); MEAN PLATELET VOLUME 10.5 fL (7.4-10.4); PLATELET COUNT 267 10x3/uL (130-400); RBC 3.07 10x6/uL (4.00-5.40)
--- NOTE | 2018-06-26 07:00 | NUR ---
REC'D REPORT AND RESUMED CARE, ETT TO VENTILATION AND SECURED, IN SIMV MODE, RATE OF 16 AND 40% FIO2, OGT WITH PULMOCARE INFUSING AT 45 CC/HR, RESIDUAL CHECK 15 CC, LEFT UUPER ARM MIDLINE WITH NS AT 75 CC/HR AND PROPOFAL AT 20 MCG/7.8 CC/HR, LEFT WRIST WITH SOFT RESTRAINT, CHANDRA CATHETER WITH CLEAR YELLOW DRAINAGE TO BAG, REPOSTIIONED TO BACK WITH HEELS FLOATED, EYES ONPEN FOLLOWS SIMPLE COMMANDS, ASSESSMNET COMPLETED PER FLOWSHEET
--- NOTE | 2018-06-26 07:30 | NUR ---
PROPOFAL TITRATED TO 15 MCG FOR PENDING CPAP TRIAL
--- NOTE | 2018-06-26 08:00 | NUR ---
PROPOFAL TITRATED TO 10 MCG FOR PENDING CPAP TRIAL
--- NOTE | 2018-06-26 08:10 | NUR ---
PROPORAL TITRATED TO 5 MCG FOR PENDING CPAP TRIAL
[2018-06-26 08:30] LABS: BASOPHILS 1 % (0-2); EOSINOPHILS 1 % (0-7); LYMPHOCYTES 14 % (15-50); MONOCYTES 11 % (2-11); NEUTROPHILS 66 % (40-80); PLATELET ESTIMATE NORMAL
--- NOTE | 2018-06-26 08:30 | NUR ---
PROPOFAL OFF FOR CPAP TRIAL, PATIENT AWAKE AND FOLLOWING COMMANDS
[2018-06-26 08:31] LABS: ANISOCYTOSIS OCC
--- NOTE | 2018-06-26 08:35 | NUR ---
CPAP TRIAL BEGAN, PROPOFAL TITRATED OFF LINES FLUSHED
--- NOTE | 2018-06-26 08:39 | NUR ---
Nutrition follow-up: Pt remains intubated TF on hold for possible extubation today Labs reviewed Wt: 143# RDN following.
--- NOTE | 2018-06-26 11:00 | NUR ---
LARGE DIARRHEA STOOL TO VERONIQUE PAD, SKINCARE AND LINEN CHANGE COMPLETED, CONTINUES ON CPAP, WITH ELEVATED TEMP AT 101.5, ROOM COOLED AND COVERS OFF, NO OTHER ACUTE CHANGE FROM PREVIOUS ASSESSMENT
--- NOTE | 2018-06-26 12:35 | NUR ---
EXTUBATED WITHOUT DIFFICULTY, 2L NC INITIATED,, ORAL CARE AND SUCTION COMPLETED, ENCOURAGED COUGHING, IS AND ACUPELLA TO BEDSIDE, TEACHING COMPLETED
--- NOTE | 2018-06-26 15:00 | NUR ---
RESTING WITH NO SIGNS OF DISTRESS, VSS, DENIES PAIN, NO ACUTE CHANGE FROM PREVIOUS ASSESSMENT, REPOSITIONED UP AND TO BACK
--- NOTE | 2018-06-26 16:00 | NUR ---
I AND O'S COMPLETED, NO FAMILY HERE AT THIS TIME
--- NOTE | 2018-06-26 17:00 | NUR ---
SPO2 86, O2 TITRATED TO 5L NC, PER DR MCCANN
[2018-06-26 17:08] LABS: ACID FAST SMEAR Negative (()); AFB SPECIMEN PROCESSING Concentration (())
[2018-06-26 17:08] LABS: ACID FAST SMEAR Negative (()); AFB SPECIMEN PROCESSING Concentration (())
--- NOTE | 2018-06-26 18:00 | NUR ---
O2 SAT 99%, O2 TITRATED TO 4L NC
--- NOTE | 2018-06-26 19:10 | NUR ---
Received patient resting in bed with eyes closed, assessment completed per flowsheet. Patient lethargic, answers appropriately/follows instructions. S1/S2 noted Sinus Tach on telemetry with HR 115, rythmic and regular. Breathing is shallow/unlabored on 7L HFNC with O2 sat 94%, crackles noted bilateral upper and mid with diminished lower. Abdomen is soft/round with bowel sounds active x4, non-tender. Ludny secured, clear/yellow urine. RUE/RLE impaired ROM, remianing pulses palpable with cap refill < 3 sec. Denies pain or other needs at this time, see flowsheet for details. All VSS and will continue to monitor.
--- NOTE | 2018-06-26 21:00 | NUR ---
Patient resting in bed with eyes closed, no visitors at this time. Repositioned for comfort, denies pain or other needs and will continue to monitor.
--- NOTE | 2018-06-26 22:45 | NUR ---
Patient O2 sat < 90% on 7L via HFNC, O2 increased to 12L with humidity added by RT. O2 sat increased to 93% and will continue to monitor.
--- NOTE | 2018-06-26 23:10 | NUR ---
Reassessment completed per flowsheet. Patient Sinus Tach on telemetry with HR 110, rythmic and regular. Breathing is shallow on 12L via HFNC with O2 sat 96%, crackles noted bilateral upper and mid with diminished lower. All pulses palpable with cap refill < 3 sec, skin warm/dry. Denies pain or other needs at this time, see flowsheet for details. All VSS and will continue to monitor.
[2018-06-27] VITALS (21 sets, daily range): BP systolic 80–177; BP diastolic 6–88
--- NOTE | 2018-06-27 01:00 | NUR ---
Patient sleeping in bed with eyes closed, no s/s of distress at this time. Weak non-prodictive cough noted, denies pain or other needs and will continue to monitor.
--- NOTE | 2018-06-27 03:10 | NUR ---
Reassessment completed per flowsheet, no changes from previous assessment. S1/S2 noted Sinus Tach on telemetry with HR 113, rythmic and regular. Breathing is shallow on 12L via HFNC with O2 sat 94%, crackles noted bilateral upper and mid with diminished lower. All pulses palpable with cap refill < 3 sec, skin warm/dry. Denies pain or other needs at this time, see flowsheet for details. All VSS and will continue to monitor.
[2018-06-27 04:36] LABS: INR 1.44 (0.85-1.17); PROTIME 16.9 SECONDS (11.6-15.0)
--- NOTE | 2018-06-27 05:00 | NUR ---
Patient laying in bed with eyes closed, O2 sat remains > 90% with observed increased work of breathing. Moderate BM noted, patient cleaned and repositioned with full linen change performed. Will continue to monitor.
--- NOTE | 2018-06-27 05:45 | NUR ---
Patient work of breathing elevated with O2 sat 89%, weak non-productive cough noted on 12L HFNC. Discussed current status with market development manager, ABG ordered to verify condition.
--- NOTE | 2018-06-27 09:00 | NUR ---
PER DR. MCCANN HOLD PO MEDS FOR TODAY
--- NOTE | 2018-06-27 09:30 | NUR ---
OOB TO CHAIR WITH PERSONNEL X2, 50 % LIFT, ATTEMPTS TO USE LEFT FOOT TO PIVOT,
--- NOTE | 2018-06-27 11:09 | MORECARE ---
CASE MANAGEMENT DISCHARGE SUMMARY PATIENT: ROGERIO DIXON UNIT: [id number] ADM DATE: 06/14/18 AGE: 77 : 42 SEX: F ROOM/BED: D.2304 AUTHOR: JESSY,DOC PHYSICIAN: REFERRING PHYSICIAN: CHANDAN BLANTON MD DATE OF SERVICE: 06/27/18 Discharge Plan Patient Name: ROGERIO DIXON Facility: [facility]:[place] : 1940 Planned Disposition: Home Anticipated Discharge Date: Discharge Date: Expected LOS: Initial Reviewer: [email or web address] Initial Review Date: 06/15/2018 Generated: 06/27/18 12:09 pm DCP- Discharge Planning Updated by [email or web address]: Alethea Venegas on 06/15/18 3:[address] Patient Name: ROGERIO DIXON Admission Status: Urgent Accout number: [id number] Admission Date: 06-14-2018 : 1940 Admission Diagnosis: Attending: JAVIER BLANTON Current LOS: 1 Anticipated DC Date: Planned Disposition: Home Primary Insurance: MEDICARE A & B Discharge Planning Comments: CM met with patient and daughter about discharge planning. CM explained CM role and verbal consent was given to do dc assessment. CM educated on Home Health, DME and rehab services that are available. Daughter states discharge plan is to return to home . The family are her total caregivers. Pt has all DME that the family feels she needs. States home environment is safe. Denies any discharge planning needs at this time. Family states the mobile van service they use and will call at dc will transport home upon discharge. CM will continue to follow and assist as needed with discharge planning needs. Room Service Supervisor: Alethea Venegas DCPIA - Discharge Planning Initial Assessment Updated by [email or web address]: Alethea Venegas on 06/15/18 4:52 pm * Is the patient Alert and Oriented? Yes * How many steps to enter\exit or inside your home? * PCP Javier Blanton * [facility]acy [facility] [address] * Preadmission Environment Home with Family * ADLs Total Dependent * Equipment Walker Wheelchair * Other Equipment hospital bed, gait belt * List name and contact numbers for known caregivers / representatives who currently or will assist patient after discharge: Daughter [phone] * Verbal permission to speak to the caregivers and representatives has been obtained from the patient. N/A * Community resources currently utilized None * Additional services required to return to the preadmission environment? No * Can the patient safely return to the preadmission environment? Yes * Has this patient been hospitalized within the prior 30 days at any hospital? No Last DP export: 06/15/18 4:03 p Patient Name: ROGERIO DIXON Page [id number] at 1109 All edits/amendments must be made on the electronic document DICTATION DATE: 06/27/181108 MARBLEIZER: NORA 06/27/181108 RPT#: [id number] DC DATE: STATUS: ADM IN [facility] [address] [place] [address] END OF REPORT
--- NOTE | 2018-06-27 13:30 | NUR ---
BACK TO BED WITH ASSIST, TOLERATED TRANSFER WITHOUT DIFFICULTY, VSS, CONTINUES TO ASK FOR COFFEE, STRICT NPO AT THIS TIME
--- NOTE | 2018-06-27 14:00 | NUR ---
OOB TO [facility] CHAIR FOR PENDING MODIFIED BARIUM IN RADIOLOGY, TOLERATED TRANSFER WELL
--- NOTE | 2018-06-27 14:30 | NUR ---
BACK TO ROOM FROM RAKEL TONY, RECONNECTED TO ICU MONITORS, VSS, REPOSITIONED IN BED TO BACK WITH HEELS FLOATED
--- NOTE | 2018-06-27 15:00 | NUR ---
SLEEPING WITH NO SIGNS OF DISTRESS, VSS, NO ACUTE CHANGE FROM PREVIOUS
--- NOTE | 2018-06-27 18:00 | NUR ---
COUMADIN 4MG PO GIVEN CRUSHED IN APPLE SAUCE, TOLERATED WITHOUT DIFFICULTY
--- NOTE | 2018-06-27 19:10 | NUR ---
RECEIVED REPORT. RECEIVED PT IN BED. AWAKE AND ALERT. NONVERBAL AT PRESENT. HOB UP 45 DEGREES. MONITORS CONNECTED TO PATIENT WITH ALARMS TURNED ON. VSS. SHIFT ASSESSMENT COMPLETED AT THIS TIME. NO ACUTE DISTRESS OBSERVED.
--- NOTE | 2018-06-27 21:00 | NUR ---
AWAKE AND ALERT. VSS. NO ACUTE DISTRESS OBSERVED AT PRESENT
--- NOTE | 2018-06-27 23:00 | NUR ---
REASSESSMENT COMPLETED PER FLOW SHEET WITH NO CHANGES OR ACUTE DISTRESS OBSERVED AT PRESENT. VSS
--- NOTE | 2018-06-28 01:00 | NUR ---
RESTING WITH EYES CLOSED, EASILY ROUSED AND ALERT. VSS. NO ACUTE DISTRESS OBSERVED AT PRESENT
[2018-06-28 03:00] VITALS: BP 114/90
--- NOTE | 2018-06-28 03:00 | NUR ---
REASSESSMENT COMPLETED PER FLOW SHEET WITH NO CHANGES OR ACUTE DISTRESS OBSERVED AT PRESENT. VSS.
--- NOTE | 2018-06-28 05:00 | NUR ---
RESTING WITH EYES CLOSED, EASILY ROUSED AND ALERT. VSS. NO ACUTE DISTRESS OBSERVED.
[2018-06-28 07:00] VITALS: BP 104/38
--- NOTE | 2018-06-28 08:30 | NUR ---
OOB TO CHAIR WITH ASSIST FROM PT, TOLERATED TRANSFER WITHOUT DIFFICULTY
--- NOTE | 2018-06-28 10:15 | NUR ---
MORNING MEDS GIVEN PER APR FLOWSHEET
--- NOTE | 2018-06-28 10:31 | NUR ---
Nutrition Follow Up: Spoke with pt and family member who reported that diet may advance today. Chart reviewed. Diet: NPO I<O BM: 06/27/18 Wt stable Labs reviewed Meds noted including Solu Medrol, Lasix Rec advancing VICTORIA as medically feasible. If diet unable to advance, rec resume TF. RD following.
[2018-06-28 11:00] VITALS: BP 122/59
--- NOTE | 2018-06-28 11:00 | NUR ---
CONTINUES UP IN CHAIR WITH DAUGHTER AT BEDSIDE, IS AND ACAPPELLA IN USE, NO OTHER ACUTE CHANGE FROM PREVIOUS ASSESSMENT
[2018-06-28 11:10] LABS: HEMATOCRIT 26.4 % (36.0-48.0); MCHC 30.3 g/dL (31.0-37.0); MCV 82.5 fL (80.0-100.0); MEAN PLATELET VOLUME 10.8 fL (7.4-10.4); RDW 16.4 % (11.5-14.5); WBC 15.7 10x3/uL (4.8-10.8)
[2018-06-28 11:11] LABS: PLATELET COUNT 394 10x3/uL (130-400)
[2018-06-28 11:28] LABS: LYMPHOCYTES 5 % (15-50); MONOCYTES 2 % (2-11); NEUTROPHILS 92 % (40-80)
[2018-06-28 11:29] LABS: PLATELET ESTIMATE NORMAL
--- NOTE | 2018-06-28 13:45 | NUR ---
EVALUATED AND EXCEPTED TO HOSPICE FOR COMFORT CARE
[2018-06-28 14:00] VITALS: BP 110/62
--- NOTE | 2018-06-28 14:06 | NUR ---
Rehab Prescreening Consult recieved and the chart has been reviewed. According to the PT notes she is a total assist patient and cannot support herself to sit up. She also has an order to transfer out of ICU to the floor. Rehab will follow and see if she can progress with therapy and be able to actively participate in the required 3 hrs of therapy a day that medicare requires. Thank You for the referral. Nadine Raya RN Clinical liaison, Rehab
--- NOTE | 2018-06-28 14:30 | NUR ---
TRAY ORDERED FOR PATIENT. STATED SHE HAD NOT EATENT LUNCH YET. REPOSITIONED AND CHANGED AT THIS TIME. RASH TO BUTTOCKS NOTED. IV INTACT. CALL LIGHT WITHIN REACH. FAMILY AT BEDSIDE.
[2018-06-28 16:50] VITALS: BP 129/57
--- NOTE | 2018-06-28 17:50 | NUR ---
PATIENT CHANGED AND REPOSITIONED. NO COMPLAINTS AT THIS TIME. CHANDRA AND IV INTACT. FAMILY AT BEDSIDE. CALL JEANETTEW CARLOS GENTILE.
[2018-06-28 20:00] VITALS: BP 100/55
[2018-06-29] VITALS: BP 109/50
[2018-06-29 04:00] VITALS: BP 126/53
[2018-06-29 09:13] VITALS: BP 140/51
--- NOTE | 2018-06-29 11:50 | NUR ---
PT DAUGHTER C/O OF WHITE SUBSTANCE CLUMPED AROUND PT VERONIQUE AREA, I EXPRESSED TO THE PT THAT I APPOLIZE AND PT FAMILY STATED "I THINK THIS OCCURED WHILE SHE WAS IN ICU ON THE VENT" I EXPRESSED TO THE FAMILY MEMBER WE WOULD DO BETTER AT MONITORING AND CLEANING THE PT VERONIQUE AREA
--- NOTE | 2018-06-29 11:50 | NUR ---
ALSO GAVE FAMILY MEMBER SOME CREAM TO USE ON PT VERONIQUE AREA
--- NOTE | 2018-06-29 11:54 | NUR ---
CHANDRA CATH D/C WITH 450CC OUTPUT OF YELLOW URINE AT THIS TIME PT TOLERATED W/O COMPLAINT FAMILY AT BEDSIDE
--- NOTE | 2018-06-29 13:59 | NUR ---
I have reviewed this patient and I concur with the Shift Assessment completed by the Licensed Practical Nurse today this shift.
[2018-06-29 14:18] VITALS: BP 143/56
--- NOTE | 2018-06-29 19:00 | NUR ---
REPORT RECEIVED AND CARE OF PT ASSUMED. PT SITTING UP IN CHAIR VISITING WITH FAMILY MEMBERS. LEFT MIDLINE SALINE LOCKED. O2 IN USE VIA NC AT 2L. WILL MONITOR FOR NEEDS.
[2018-06-29 19:53] VITALS: BP 140/54
--- NOTE | 2018-06-29 20:54 | NUR ---
HS MEDICATIONS GIVEN CRUSHED AND OR THICKENED PER DIET ORDERS. ASSISTED PT BACK TO BED WITH AIRPLANE COVERER HELP. WILL CONTINUE TO MONITOR FOR NEEDS. FAMILY MEMBERS ARE AT BEDSIDE.
--- NOTE | 2018-06-29 23:50 | NUR ---
PT CLEANED AND BEDPADS CHANGED DUE TO INCONTINENCE. APPLIED DALLIN'S PASTE TO REDDENED PERINEAL AREA. TURNED ONTO RIGHT SIDE PER TURN SCHEDULE, PROPPED WITH WEDGES. PILLOW PLACED BETWEEN KNEES. HEEL PROTECTORS ON BLE. WILL CONTINUE TO MONITOR FOR NEEDS. BED ALARM IN USE FOR SAFETY.
[2018-06-30] VITALS: BP 120/45
--- NOTE | 2018-06-30 02:39 | NUR ---
BEDPAD CHANGED DUE TO INCONTINENCE EPISODE. VERONIQUE CARE PERFORMED AND DALLIN'S PASTE APPLIED TO REDDENED AREAS. POSITIONED IN SUPINE POSITION PER TURN SCHEDULE. HEELS BRIDGED AND HEEL PROTECTORS IN PLACE. FAMILY MEMBER IS AT BEDSIDE.
[2018-06-30 04:00] VITALS: BP 134/60
[2018-06-30 05:42] LABS: BASOPHILS 0.1 % (0-2); EOSINOPHILS 0.6 % (0-7); HEMATOCRIT 26.6 % (36.0-48.0); HEMOGLOBIN 7.9 g/dL (12-16); IMMATURE GRANULOCYTES 1.4 % (0-5); LYMPHOCYTES 5.9 % (15-50); MCH 24.8 pg (26.0-34.0); MCHC 29.7 g/dL (31.0-37.0); MCV 83.6 fL (80.0-100.0); MEAN PLATELET VOLUME 10.1 fL (7.4-10.4); RBC 3.18 10x6/uL (4.00-5.40); RDW 16.4 % (11.5-14.5); WBC 16.3 10x3/uL (4.8-10.8)
[2018-06-30 05:43] LABS: PLATELET COUNT 499 10x3/uL (130-400)
[2018-06-30 05:44] LABS: CALCIUM 9.4 mg/dL (8.5-10.1); CARBON DIOXIDE 27.8 mmol/L (21.0-32.0); CREATININE - SERUM 1.3 mg/dL (0.6-1.3); POTASSIUM - SERUM 3.8 mmol/L (3.5-5.1)
[2018-06-30 05:49] LABS: INR 1.81 (0.85-1.17); PROTIME 20.3 SECONDS (11.6-15.0)
--- NOTE | 2018-06-30 07:30 | NUR ---
LYING IN BED. ALERT AND ORIENTED. NONVERBAL. NODS HEAD TO ANSWER QUESTIONS. LUNGS CLEAR BILATERALLY IN ALL LAMB. HEART SOUND S1 AND S2 HEARD IN ALL LAMB. BOWEL SOUNDS ACTIVE X 4. INCONTINENT. BED CHANGED. TURNED TO RIGHT SIDE. SKIN INTACT. REDNESS NOTED TO VERONIQUE AREA. BILATERAL HEEL PROTECTORS IN PLACE. SCDS IN PLACE. GRANDDAUGHTER AT BEDSIDE. DENIES PAIN. DENIES NEEDS. BED LOW. FALL PRECAUTIONS IN PLACE. CALL [place] AND PERSONAL ITEMS IN REACH. LEFT MIDLINE PATENT WITHOUT REDNESS. O2 IN PLACE AT 2L NC
[2018-06-30 08:45] VITALS: BP 117/77
--- NOTE | 2018-06-30 09:45 | NUR ---
SITTING IN CHAIR AT BEDSIDE PER NURSING STAFF. DENIES PAIN. DENIES NEEDS
--- NOTE | 2018-06-30 11:24 | MORECARE ---
CASE MANAGEMENT DISCHARGE SUMMARY PATIENT: ROGERIO DIXON UNIT: [id number] ADM DATE: 06/14/18 AGE: 77 : 41 SEX: F ROOM/BED: D.2230 AUTHOR: JESSY,DOC PHYSICIAN: REFERRING PHYSICIAN: CHANDAN BLANTON MD DATE OF SERVICE: 06/30/18 Discharge Plan Patient Name: ROGERIO DIXON Facility: [facility]:[place] : 1940 Planned Disposition: Home Anticipated Discharge Date: Discharge Date: Expected LOS: Initial Reviewer: [email or web address] Initial Review Date: 06/15/2018 Generated: 06/30/18 12:23 pm Comments DCP- Discharge Planning Updated by [email or web address]: Debra Duvall on 06/30/18 10:[address] CASE MANAGEMENT CONSULT RECEIVED. CM WENT TO MET WITH THE PATIENT. SHE AND HER , ENOCH, ARE AT THE BEDSIDE. CM EXPLAINED ROLE AND REQUEST TO REVISIT FOR DISCHARGE PLANNING. THE STATES HE HAD SPOKEN WITH DR BLANTON REGARDING HIS . HE STATES DR BLANTON ENCOURAGED HIM TO HAVE HIS EVALUATED FOR REHAB AT [facility]. HE DID NOT WISH TO CONSIDER SNF AT THIS TIME. REHAB PRESCREEN ORDER RECEIVED. DCP- Discharge Planning Updated by [id number]: Alethea Venegas on 06/15/18 3:[address] Patient Name: ROGERIO DIXON Admission Status: Urgent Accout number: [id number] Admission Date: 06-14-2018 : 1940 Admission Diagnosis: Attending: JAVIER BLANTON Current LOS: 1 Anticipated DC Date: Planned Disposition: Home Primary Insurance: MEDICARE A & B Discharge Planning Comments: CM met with patient and daughter about discharge planning. CM explained CM role and verbal consent was given to do dc assessment. CM educated on Home Health, DME and rehab services that are available. Daughter states discharge plan is to return to home . The family are her total caregivers. Pt has all DME that the family feels she needs. States home environment is safe. Denies any discharge planning needs at this time. Family states the mobile van service they use and will call at dc will transport home upon discharge. CM will continue to follow and assist as needed with discharge planning needs. Commercial Accountant: Alethea Venegas DCPIA - Discharge Planning Initial Assessment Updated by [email or web address]: Alethea Venegas on 06/15/18 4:52 pm * Is the patient Alert and Oriented? Yes * How many steps to enter\exit or inside your home? * PCP Javier Blanton * [facility] * Preadmission Environment Home with Family * ADLs Total Dependent * Equipment Walker Wheelchair * Other Equipment hospital bed, gait belt * List name and contact numbers for known caregivers / representatives who currently or will assist patient after discharge: Daughter [phone] * Verbal permission to speak to the caregivers and representatives has been obtained from the patient. N/A * Community resources currently utilized None * Additional services required to return to the preadmission environment? No * Can the patient safely return to the preadmission environment? Yes * Has this patient been hospitalized within the prior 30 days at any hospital? No Last DP export: 06/27/18 10:09 am Patient Name: ROGERIO DIXON Page [id number] at 1124 All edits/amendments must be made on the electronic document DICTATION DATE: 06/30/18 1123 CAREER COORDINATOR: NORA 06/30/18 1123 RPT#: [id number] DC DATE: STATUS: ADM IN [facility] [address] [place] [address] END OF REPORT
--- NOTE | 2018-06-30 11:31 | MORECARE ---
CASE MANAGEMENT DISCHARGE SUMMARY PATIENT: ROGERIO DIXON UNIT: [id number] ADM DATE: 06/14/18 AGE: 77 : 41 SEX: F ROOM/BED: D.2230 AUTHOR: APRIL JIMÉNEZ PHYSICIAN: REFERRING PHYSICIAN: CHANDAN BLANTON MD DATE OF SERVICE: 06/30/18 Discharge Plan Patient Name: ROGERIO DIXON Facility: [facility]:[place] : 1940 Planned Disposition: Home Anticipated Discharge Date: Discharge Date: Expected LOS: Initial Reviewer: [email or web address] Initial Review Date: 06/15/2018 Generated: 06/30/18 12:30 pm Comments DCP- Discharge Planning Updated by [email or web address]: Debra Duvall on 06/30/18 10:[address] REHAB PRESCREEN WAS DONE 06/28/18. REHAB WILL FOLLOW HER TO SEE IF SHE CAN PROGRESS WITH THERAPY AND TO BE ABLE TO PARTICIPATE IN THE REQUIRED 3 HRS OF THERAPY A DAY. THAT IS THE MEDICARE REQUIREMENT FOR ACUTE REHAB. DCP- Discharge Planning Updated by [id number]: Debra Duvall on 06/30/18 10:[address] CASE MANAGEMENT CONSULT RECEIVED. CM WENT TO MET WITH THE PATIENT. SHE AND HER , ENOCH, ARE AT THE BEDSIDE. CM EXPLAINED ROLE AND REQUEST TO REVISIT FOR DISCHARGE PLANNING. THE STATES HE HAD SPOKEN WITH DR BLANTON REGARDING HIS . HE STATES DR BLANTON ENCOURAGED HIM TO HAVE HIS EVALUATED FOR REHAB AT [facility]. HE DID NOT WISH TO CONSIDER SNF AT THIS TIME. REHAB PRESCREEN ORDER RECEIVED. DCP- Discharge Planning Updated by [email or web address]: Alethea Venegas on 06/15/18 3:[address] Patient Name: ROGERIO Loaiza DIXON Admission Status: Urgent Accout number: [id number] Admission Date: 06-14-2018 : 1940 Admission Diagnosis: Attending: JAVIRE BLANTON Current LOS: 1 Anticipated DC Date: Planned Disposition: Home Primary Insurance: MEDICARE A & B Discharge Planning Comments: CM met with patient and daughter about discharge planning. CM explained CM role and verbal consent was given to do dc assessment. CM educated on Home Health, DME and rehab services that are available. Daughter states discharge plan is to return to home . The family are her total caregivers. Pt has all DME that the family feels she needs. States home environment is safe. Denies any discharge planning needs at this time. Family states the mobile van service they use and will call at dc will transport home upon discharge. CM will continue to follow and assist as needed with discharge planning needs. Administrator Of Home Health: Alethea Venegas DCPIA - Discharge Planning Initial Assessment Updated by [email or web address]: Alethea Venegas on 06/15/18 4:52 pm * Is the patient Alert and Oriented? Yes * How many steps to enter\exit or inside your home? * PCP Javier Blanton * Pharm[facility] [address] * Preadmission Environment Home with Family * ADLs Total Dependent * Equipment Walker Wheelchair * Other Equipment hospital bed, gait belt * List name and contact numbers for known caregivers / representatives who currently or will assist patient after discharge: Daughter [phone] * Verbal permission to speak to the caregivers and representatives has been obtained from the patient. N/A * Community resources currently utilized None * Additional services required to return to the preadmission environment? No * Can the patient safely return to the preadmission environment? Yes * Has this patient been hospitalized within the prior 30 days at any hospital? No Last DP export: 06/30/18 10:24 a Patient Name: ROGERIO DIXON Page [phone] at 1131 All edits/amendments must be made on the electronic document DICTATION DATE: 06/30/18 113 MIDDLEWARE ENGINEER: NORA 06/30/18 1130 RPT#: [id number] NE DATE: STATUS: ADM IN [facility] [address] [place] [address] END OF REPORT
[2018-06-30 12:23] VITALS: BP 157/75
--- NOTE | 2018-06-30 12:43 | NUR ---
SITTING IN CHAIR. FAMILY AT BEDSIDE. DENIES NEEDS.
--- NOTE | 2018-06-30 14:41 | NUR ---
OBTAINED VERBAL CONSENT FOR BLOOD OVER PHONE FROM SPOUSE.
--- NOTE | 2018-06-30 17:15 | NUR ---
BLOOD INITIATED. VITALS STABLE.
--- NOTE | 2018-06-30 17:30 | NUR ---
BLOOD CONTINUES INFUSING. VITALS STABLE
[2018-06-30 17:39] VITALS: BP 138/57
--- NOTE | 2018-06-30 19:00 | NUR ---
REPORT RECEIVED AND CARE OF PT ASSUMED. PT LYING IN SUPINE POSITION WITH HOB AT 30 DEGREES. LEFT MIDLINE PATENT WITH PRBC'S INFUSING AT THIS TIME. SCD'S IN PLACE ON BLE. WILL MONITOR FOR NEEDS. FAMILY MEMBERS ARE AT BEDSIDE.
[2018-06-30 20:00] VITALS: BP 141/52
--- NOTE | 2018-06-30 20:20 | NUR ---
PRBC INFUSION COMPLETE AND LINE FLUSHING.
--- NOTE | 2018-06-30 20:30 | NUR ---
PT CHANGED AFTER INCONTINENT EPISODE. IN AND OUT CATH PERFORMED TO COLLECT URINE FOR ORDERED UA. DALLIN'S APPLIED TO REDNESS IN VERONIQUE AREA. TURNED ONTO RIGHT SIDE PER TURN SCHEDULE. FAMILY MEMBERS ARE AT BEDSIDE.
[2018-06-30 21:08] LABS: APPEARANCE CLEAR (CLEAR); BILIRUBIN NEGATIVE (NEGATIVE); COLOR YELLOW (YELLOW); GLUCOSE NEGATIVE (NEGATIVE); KETONE NEGATIVE (NEGATIVE); NITRITE NEGATIVE (NEGATIVE); PROTEIN TRACE mg/dL (NEGATIVE); UROBILINOGEN NORMAL (NORMAL)
--- NOTE | 2018-06-30 21:48 | NUR ---
HS MEDICATIONS GIVEN...PILLS CRUSHED AND MIXED WITH PUDDING, AND K+ POWDER MIXED WITH THICKENED JUICE. PT TOLERATED WELL. FAMILY MEMBERS ARE AT BEDSIDE.
[2018-07-01 03:00] VITALS: BP 102/80
[2018-07-01 05:19] LABS: HEMATOCRIT 34.7 % (36.0-48.0); HEMOGLOBIN 10.8 g/dL (12-16); MCH 26.6 pg (26.0-34.0); MCHC 31.1 g/dL (31.0-37.0); MCV 85.5 fL (80.0-100.0); MEAN PLATELET VOLUME 10.3 fL (7.4-10.4); PLATELET COUNT 522 10x3/uL (130-400); RBC 4.06 10x6/uL (4.00-5.40); WBC 30.4 10x3/uL (4.8-10.8)
[2018-07-01 05:30] LABS: ANION GAP 14.8 mmol/L (8-16); CALCIUM 9.1 mg/dL (8.5-10.1); CREATININE - SERUM 1.1 mg/dL (0.6-1.3); POTASSIUM - SERUM 3.8 mmol/L (3.5-5.1)
[2018-07-01 05:44] LABS: LYMPHOCYTES 12 % (15-50); MONOCYTES 9 % (2-11); NEUTROPHILS 75 % (40-80); PLATELET ESTIMATE INCREASED
--- NOTE | 2018-07-01 08:15 | NUR ---
PT SITTING UP IN BED. ALERT, BUT NON VERBAL. FAMILY AT BEDSIDE. PT MOANING, FAMILY REPORTS PAIN. TYLENOL ADMINISTERED PER MD ORDERS. LEFT UPPER ARM MIDLINE INTACT AND SL, SITE WITHOUT REDNESS OR EDEMA. FAMILY ASSISTED PT UP TO BEDSIDE CHAIR. PT DRE WELL. PT AND FAMILY DENY FURTHER NEEDS AT THIS TIME. CL WITHIN REACH. ENCOURAGED TO CALL WITH NEEDS. CONTINUE POC
[2018-07-01 09:10] VITALS: BP 187/73
--- NOTE | 2018-07-01 10:43 | NUR ---
ASSISTED FAMILY IN PLACING PT BACK TO BED. O2 @ 4L HIFLO NC IN PLACE. BATH AND PERICARE PROVIDED PER FAMILY AT THIS TIME. CL WITHIN REACH.
--- NOTE | 2018-07-01 11:26 | NUR ---
EDUCATED PT AND FAMILY REGARDING NEW MEDICATION FOR REDNESS IN PERINEA AREA. FAMILY VOICES UNDERSTANDING
--- NOTE | 2018-07-01 11:30 | NUR ---
PT FAMILY/CAREGIVER AT BEDSIDE. PROVIDED INCONTINENT CARE AND ASSISTED TO BEDSIDE CHAIR FOR LUNCH. NO ACUTE DISTRESS NOTED AT THIS TIME. ENCOURAGED TO CALL WITH NEEDS. WILL CONTINUE TO MONITOR.
--- NOTE | 2018-07-01 12:40 | NUR ---
PT ASSISTED FROM BEDSIDE CHAIR BACK TO BED PER FAMILY/CAREGIVER. INCONTINENT CARE PROVIDED AT THIS TIME. VERONIQUE AREA REMAINS EXCORIATED AND REDDENED. APPLIED NYSTATIN OINTMENT PER MD ORDERS TO VERONIQUE AREA.
[2018-07-01 12:54] LABS: INR 1.6 (0.85-1.17); PROTIME 18.5 SECONDS (11.6-15.0)
--- NOTE | 2018-07-01 13:30 | NUR ---
ASSISTED FAMILY IN PROVIDING INCONTINENT CARE AT THIS TIME. PT TURNED TO RIGHT SIDE. O2 @ 4L NC IN PLACE O2 SATS 97%. WILL CONTINUE TO MONITOR.
[2018-07-01 13:33] VITALS: BP 151/60
--- NOTE | 2018-07-01 15:20 | NUR ---
PT PROVIDED VERONIQUE CARE. APPLIED NYSTATIN OINTMENT PER MD ORDERS.
[2018-07-01 16:49] VITALS: BP 114/63
--- NOTE | 2018-07-01 17:05 | NUR ---
PT FAMILY/CAREGIVER PROVIDED VERONIQUE CARE, ASSISTED WITH. PT TRANSFERED FROM BED TO BEDSIDE CHAIR. NO ACUTE DISTRESS NOTED.
[2018-07-01 18:00] VITALS: BP 148/55
--- NOTE | 2018-07-01 18:38 | NUR ---
INCONTINENT CARE PROVIDED PER FAMILY/CAREGIVER, ASSISTED FAMILY WITH. REMAINS UP IN CHAIR AT BEDSIDE. O2 IN PLACE. NO ACUTE DISTRESS NOTED. WILL CONTINUE TO MONITOR.
[2018-07-02 01:06] VITALS: BP 138/80
--- NOTE | 2018-07-02 03:01 | NUR ---
REC'D. AT CHGE OF SHIFT. DTR DOING INCONTINENT CARE. LASIX EARLIER.BOTTOM AND VERONIQUE AREA RED.MYCOLOG CREAM APPLIED BY DTR.WILL CONTINUE TO MONITOR FOR ANY CHGES. AND FOLLOW CURRENT PLAN OF CARE.
[2018-07-02 05:19] LABS: BASOPHILS 0.3 % (0-2); EOSINOPHILS 3.4 % (0-7); HEMATOCRIT 33.7 % (36.0-48.0); HEMOGLOBIN 10.2 g/dL (12-16); IMMATURE GRANULOCYTES 4.2 % (0-5); LYMPHOCYTES 12.8 % (15-50); MCH 26.4 pg (26.0-34.0); MCHC 30.3 g/dL (31.0-37.0); MCV 87.3 fL (80.0-100.0); MEAN PLATELET VOLUME 10.5 fL (7.4-10.4); MONOCYTES 5.9 % (2-11); NEUTROPHILS 73.4 % (40-80); PLATELET COUNT 466 10x3/uL (130-400); RBC 3.86 10x6/uL (4.00-5.40); RDW 16.9 % (11.5-14.5); WBC 26.5 10x3/uL (4.8-10.8)
[2018-07-02 05:29] LABS: ANION GAP 13.6 mmol/L (8-16); CARBON DIOXIDE 29.7 mmol/L (21.0-32.0); CREATININE - SERUM 1.1 mg/dL (0.6-1.3); POTASSIUM - SERUM 4.3 mmol/L (3.5-5.1)
--- NOTE | 2018-07-02 05:49 | NUR ---
I have reviewed this patient and I concur with the Shift Assessment completed by the Licensed Practical Nurse today this shift.
[2018-07-02 05:51] LABS: INR 1.81 (0.85-1.17); PROTIME 20.4 SECONDS (11.6-15.0)
[2018-07-02 05:56] VITALS: BP 151/57
[2018-07-02 09:13] VITALS: BP 143/65
--- NOTE | 2018-07-02 11:01 | MORECARE ---
CASE MANAGEMENT DISCHARGE SUMMARY PATIENT: ROGERIO DIXON UNIT: [id number] ADM DATE: 06/14/18 AGE: 77 : 41 SEX: F ROOM/BED: D.2230 AUTHOR: JESSY,DOC PHYSICIAN: REFERRING PHYSICIAN: CHANDAN BLANTON MD DATE OF SERVICE: 07/02/18 Discharge Plan Patient Name: ROGERIO DIXON Facility: [facility]:[place] : 1940 Planned Disposition: Home Anticipated Discharge Date: Discharge Date: Expected LOS: Initial Reviewer: [email or web address] Initial Review Date: 06/15/2018 Generated: 07/02/18 12:01 pm Comments DCP- Discharge Planning Updated by [email or web address]: Nava Álvarez on 07/02/18 9:[address] Met with patient and daughter, Lilli, in the room. States discharge plan is for inpatient rehab at [facility]. Daughter states if she is not approved for inpatient rehab, they would consider [facility], DIANNE form signed. CM will continue to follow and assist with discharge planning/needs. DCP- Discharge Planning Updated by [email or web address]: Debra Duvall on 06/30/18 10:[address] REHAB PRESCREEN WAS DONE 06/28/18. REHAB WILL FOLLOW HER TO SEE IF SHE CAN PROGRESS WITH THERAPY AND TO BE ABLE TO PARTICIPATE IN THE REQUIRED 3 HRS OF THERAPY A DAY. THAT IS THE MEDICARE REQUIREMENT FOR ACUTE REHAB. DCP- Discharge Planning Updated by [id number]: Debra Duvall on 06/30/18 10:[address] CASE MANAGEMENT CONSULT RECEIVED. CM WENT TO MET WITH THE PATIENT. SHE AND HER , ENOCH, ARE AT THE BEDSIDE. CM EXPLAINED ROLE AND REQUEST TO REVISIT FOR DISCHARGE PLANNING. THE STATES HE HAD SPOKEN WITH DR BLANTON REGARDING HIS . HE STATES DR BLANTON ENCOURAGED HIM TO HAVE HIS EVALUATED FOR REHAB AT [facility]. HE DID NOT WISH TO CONSIDER SNF AT THIS TIME. REHAB PRESCREEN ORDER RECEIVED. DCP- Discharge Planning Updated by [id number]: Alethea Venegas on 06/15/18 3:[address] Patient Name: ROGERIO Loaiza DIXON Admission Status: Urgent Accout number: [id number] Admission Date: 06-14-2018 : 111942 Admission Diagnosis: Attending: JAVIER BLANTON Current LOS: 1 Anticipated DC Date: Planned Disposition: Home Primary Insurance: MEDICARE A & B Discharge Planning Comments: CM met with patient and daughter about discharge planning. CM explained CM role and verbal consent was given to do dc assessment. CM educated on Home Health, DME and rehab services that are available. Daughter states discharge plan is to return to home . The family are her total caregivers. Pt has all DME that the family feels she needs. States home environment is safe. Denies any discharge planning needs at this time. Family states the mobile van service they use and will call at dc will transport home upon discharge. CM will continue to follow and assist as needed with discharge planning needs. Kiln Operator: Alethea Venegas DCPIA - Discharge Planning Initial Assessment Updated by [id number]: Alethea Venegas on 06/15/18 4:52 pm * Is the patient Alert and Oriented? Yes * How many steps to enter\exit or inside your home? * PCP Javier Blanton * Pharmacy [facility] [address] * Preadmission Environment Home with Family * ADLs Total Dependent * Equipment Walker Wheelchair * Other Equipment hospital bed, gait belt * List name and contact numbers for known caregivers / representatives who currently or will assist patient after discharge: Daughter [phone] * Verbal permission to speak to the caregivers and representatives has been obtained from the patient. N/A * Community resources currently utilized None * Additional services required to return to the preadmission environment? No * Can the patient safely return to the preadmission environment? Yes * Has this patient been hospitalized within the prior 30 days at any hospital? No Coverage Notice Reviewer: [id number] Shannon Álvarez Notice Issued Date-Time: 07/02/2018 10:52 Notice Type: Patient Choice Letter Notice Delivered To: Family Member Relationship to Patient: Daughter Corporate Representative Name: Lilli Forrest Delivery Method: HAND - Hand Delivered Lianne Days: Prior Verbal Notification: Recipient Understood Notice: Yes Recipient Signature: Yes Med Rec Note Co-signed by Attending: Coverage Notice Comment: DIANNE for [facility] Last DP export: 06/30/18 10:31 a Patient Name: ROGERIO DIXON Page [phone] at 1101 All edits/amendments must be made on the electronic document DICTATION DATE: 07/02/181100 STATISTICS TUTOR: NORA 07/02/181100 RPT#: [id number] DC DATE: STATUS: ADM IN [facility] [address] [place] [address] END OF REPORT
[2018-07-02 12:00] VITALS: BP 152/68
--- NOTE | 2018-07-02 14:41 | NUR ---
Nutrition follow up Pureed diet ordered with 50,75,100% intake yesterday Daughter reports pt had a change today and she has not eaten much and "aspirated" meals Spoke with speech therapist about this Will continue to monitor and follow up
[2018-07-02 21:14] VITALS: BP 94/49
[2018-07-03] VITALS (9 sets, daily range): BP systolic 100–165; BP diastolic 47–96
--- NOTE | 2018-07-03 01:24 | NUR ---
RESTING IN BED RESPRATIONS EVEN AND UNLABORED FAMILY AT BEDSIDE. NO NEEDS AT THIS TIME.
[2018-07-03 06:48] LABS: HEMATOCRIT 31.7 % (36.0-48.0); HEMOGLOBIN 9.6 g/dL (12-16); MCH 26.2 pg (26.0-34.0); MCHC 30.3 g/dL (31.0-37.0); MCV 86.6 fL (80.0-100.0); MEAN PLATELET VOLUME 10.2 fL (7.4-10.4); PLATELET COUNT 425 10x3/uL (130-400); RBC 3.66 10x6/uL (4.00-5.40); RDW 17.1 % (11.5-14.5); WBC 21.3 10x3/uL (4.8-10.8)
[2018-07-03 07:00] LABS: CALCIUM 8.8 mg/dL (8.5-10.1); CARBON DIOXIDE 31.4 mmol/L (21.0-32.0); CREATININE - SERUM 1.1 mg/dL (0.6-1.3); MAGNESIUM - SERUM 2.2 mg/dL (1.8-2.4); PHOSPHOROUS 3.8 mg/dL (2.5-4.9); POTASSIUM - SERUM 4.4 mmol/L (3.5-5.1)
[2018-07-03 07:48] LABS: INR 1.95 (0.85-1.17); PROTIME 21.6 SECONDS (11.6-15.0)
[2018-07-03 08:37] LABS: EOSINOPHILS 4 % (0-7); LYMPHOCYTES 11 % (15-50); MONOCYTES 15 % (2-11); NEUTROPHILS 68 % (40-80)
[2018-07-03 08:38] LABS: ANISOCYTOSIS OCC; PLATELET ESTIMATE INCREASED; ROULEAUX OCC
--- NOTE | 2018-07-03 15:41 | NUR ---
PATIENT TOLERATING MEDS CRUSHED IN APPLESAUCE AND THICKEND JUICE
--- NOTE | 2018-07-03 15:53 | NUR ---
Nutrition Follow Up Reviewed chart and spoke with nursing and speech therapist Speech therapist plans to see pt today to make adjustments if needed Pt has a pureed diet ordered however refusing trays Pt was started on procalamine and PEG placement is being considered RD following
--- NOTE | 2018-07-03 16:14 | NUR ---
PER DR MARTINEZ PATIENT IS TO HAVE NOTHING BY MOUTH
--- NOTE | 2018-07-03 20:20 | NUR ---
STATES REPORT GIVEN TO CLEMENTE. TRANSFERED VIA BED WITH ASSISTANCE OF RESP. THERAPY.FAMILY IN ASSISTANCE.ROOM [address]ARTINE[address]
--- NOTE | 2018-07-03 21:23 | NUR ---
PT RECEIVED FROM [facility] AT 2009. TRANSFERRED TO ICU BED. PT TOLERATED WELL. RECEIVING O2 VIA MASK AND O2 TANK, CHANGED TO VAPOTHERM 40L/70%. VSS. LEFT ARM RESTRAINED DUE TO PULLING AT NGT. RIGHT ARM WEAK WITH LITTLE MOVEMENT. NO S/S OF DISTRESS/PAIN. WILL CONTINUE TO OBSERVE.
--- NOTE | 2018-07-03 23:37 | NUR ---
PT WITH EYES CLOSED AND CHEST RISING. ON VAPOTHERM 40LPM 70%O2, TOLERATING WELL. REASSESSMENT COMPLETED, SEE FLOW SHEET. WILL CONTINUE TO OBSERVE.
[2018-07-04] VITALS (24 sets, daily range): BP systolic 122–188; BP diastolic 60–102
--- NOTE | 2018-07-04 01:12 | NUR ---
PT WITH EYES CLOSED AND CHEST RISING. CONTINUES VAPOTHERM WITH NO CHANGED TO SETTINGS. AROUSES EASILY. VSS. WILL CONTINUE TO OBSERVE.
--- NOTE | 2018-07-04 02:42 | NUR ---
PT INCONTINENT OF URINE, PERICARE PROVIDED WITH PARTIAL LINEN CHANGE. PT TOLERATED WELL. DRESSING TO LEFT UPPER ARM MIDLINE CHANGED DUE TO LAST CHANGE ON 06/26/18. WILL CONTINUE TO OBSERVE.
--- NOTE | 2018-07-04 04:07 | NUR ---
PT WITH EYES CLOSED AND CHEST RISING. EASILY AROUSED TO VERBAL STIMULI. REASSESSMENT COMPLETED, SEE FLOW SHEET. WILL CONTINUE TO OBSERVE.
[2018-07-04 04:40] LABS: BASOPHILS 0.1 % (0-2); EOSINOPHILS 0.5 % (0-7); IMMATURE GRANULOCYTES 2.6 % (0-5); INR 2.13 (0.85-1.17); LYMPHOCYTES 5.4 % (15-50); MCH 26.1 pg (26.0-34.0); MCHC 30.3 g/dL (31.0-37.0); MCV 86.2 fL (80.0-100.0); MEAN PLATELET VOLUME 10.6 fL (7.4-10.4); MONOCYTES 0.8 % (2-11); NEUTROPHILS 90.6 % (40-80); PLATELET COUNT 429 10x3/uL (130-400); PROTIME 23.2 SECONDS (11.6-15.0); RBC 3.83 10x6/uL (4.00-5.40); RDW 17.5 % (11.5-14.5)
[2018-07-04 04:41] LABS: WBC 14.5 10x3/uL (4.8-10.8)
[2018-07-04 04:44] LABS: CALCIUM 8.9 mg/dL (8.5-10.1)
--- NOTE | 2018-07-04 05:30 | NUR ---
NGT ADVANCE 4CM TO 5 CM PT PHYSICIAN ORDER. NGT RESECURED AT 2245. PT TOLERATED WELL.
--- NOTE | 2018-07-04 05:57 | NUR ---
PT INCONTINENT OF URINE WITH PERICARE PROVIDED. BATH GIVEN WITH LINENS CHANGED. PT TOLERATED WELL. WILL CONTINUE TO OBSERVE
--- NOTE | 2018-07-04 08:35 | NUR ---
Nutrition follow-up: Pt now in ICU NPO NGT in place Clinimix PPN started @ 50 ml/hr Labs reviewed Wt: 135# Recommend starting Pulmocare @ 20 ml/hr with gradual increase to goal rate of 40 ml/hr RDN following.
--- NOTE | 2018-07-04 10:00 | NUR ---
PT PULLED OUT NG TUBE, AWARE. RESTRAINT D/C'D AT THIS TIME. MONITORS ON AND WORKING, VITALS STABLE, NO SIGNS/SYMPTOMS OF PAIN OR DISCOMFORT NOTED AT THIS TIME, WILL CONTINUE TO OBSERVE.
--- NOTE | 2018-07-04 11:00 | NUR ---
NO CHANGES, SEE FLOW SHEET FOR FURTHER DETIALS, MONITORS ON AND WORKING, VITALS STABLE. WILL CONTINUE TO OBSERVE.
--- NOTE | 2018-07-04 13:00 | NUR ---
FAMILY AT BEDSIDE, UPDATE PROVIDED, NO SIGNS/SYMPTOMS OF PAIN OR DISCOMFORT NOTED AT THIS TIME. PT TURNED AND REPOSITIONED, VERONIQUE CARE DONE Q1H AND PRN, ORAL CARE PROVIDED Q1H AND PRN, COMPLETE LINEN CHANGE COMPLETED AT THIS TIME WELL. WILL CONTINUE TO OBSERVE.
--- NOTE | 2018-07-04 15:00 | NUR ---
MONITORS ON AND WORKING, VITALS STABLE, NO SIGNS/SYMPTOMS OF PAIN OR DISCOMFORT NOTED. SEE FLOW SHEET FOR FURTHER DETIALS.
[2018-07-04] MEDS ORDERED: K-DUR20 MEQ PO (16:16)
--- NOTE | 2018-07-04 17:00 | NUR ---
PT TURNED AND REPOSITIONED FOR COMFORT, NO SIGNS/SYMPTOMS OF PAIN OR DISCOMFORT NOTED. PT CLEANED VERONIQUE CARE PROVIDED AND COMPLETE LINEN CHANGE COMPLETED AT THIS TIME. WILL CONTINUE TO OBSERVE.
--- NOTE | 2018-07-04 19:30 | NUR ---
SHIFT ASSESSMENT COMPLETE, PER NURSING FLOWSHEET. PATIENT REPOSITIONED, ORAL CARE PROVIDIED, PARTIAL LINEN CHANGE FOR INCONTINENT URINE EPISODE
--- NOTE | 2018-07-04 21:00 | NUR ---
PATIENT REPOSITIONED, ORAL CARE PROVIDED, PARTIAL LINEN CHANGE FOR INCONTINENT URINE EPISODE
--- NOTE | 2018-07-04 23:00 | NUR ---
RE-ASSESSMENT COMPLETE, PER NURSING FLOWSHEET, ORAL CARE PROVIDED, PATIENT REPOSITIONED, COMPLETE LINEN CHANGE FOR INCONTINENT URINE EPISODE, NYSTATIN APPLIED
[2018-07-05] VITALS (25 sets, daily range): BP systolic 100–153; BP diastolic 50–99
--- NOTE | 2018-07-05 01:00 | NUR ---
PATIENT REPOSITIONED, PARTIAL LINEN CHANGE FOR INCONTINENT URINE EPISODE, NYSTATIN APPLIED TO VERONIQUE AREA
--- NOTE | 2018-07-05 03:00 | NUR ---
RE-ASSESSMENT COMPLETE, PER NURSING FLOWSHEET, PATIENT REPOSITIONED, PARTIAL LINEN CHANGE FOR INCONTINENT URINE EPISODE
[2018-07-05 04:47] LABS: HEMATOCRIT 33.8 % (36.0-48.0); HEMOGLOBIN 10.6 g/dL (12-16); MCH 26.7 pg (26.0-34.0); MCHC 31.4 g/dL (31.0-37.0); MCV 85.1 fL (80.0-100.0); MEAN PLATELET VOLUME 10.2 fL (7.4-10.4); PLATELET COUNT 431 10x3/uL (130-400); RBC 3.97 10x6/uL (4.00-5.40); RDW 17.3 % (11.5-14.5)
[2018-07-05 04:51] LABS: INR 2.33 (0.85-1.17); PROTIME 24.8 SECONDS (11.6-15.0)
--- NOTE | 2018-07-05 05:00 | NUR ---
PATIENT REPOSITITIONED, ORAL CARE PROVIDED, COMPLETE LINEN CHANGE FOR INCONTINENT URINE EPISODE
[2018-07-05 05:04] LABS: ANION GAP 15.1 mmol/L (8-16); CALCIUM 8.9 mg/dL (8.5-10.1); CARBON DIOXIDE 24.6 mmol/L (21.0-32.0); CREATININE - SERUM 0.9 mg/dL (0.6-1.3); MAGNESIUM - SERUM 2.4 mg/dL (1.8-2.4); PHOSPHOROUS 3.8 mg/dL (2.5-4.9); POTASSIUM - SERUM 4.7 mmol/L (3.5-5.1)
[2018-07-05 05:06] LABS: EOSINOPHILS 1 % (0-7); LYMPHOCYTES 8 % (15-50); MONOCYTES 2 % (2-11); NEUTROPHILS 84 % (40-80); PLATELET ESTIMATE INCREASED
--- NOTE | 2018-07-05 07:00 | NUR ---
PT RESTING IN BED, PARTIAL LINEN CHANGE PERFORMED DUE TO INCONTINENCE OF URINE. SHIFT ASSESSMENT PERFORMED. CALL LIGHT WITHIN REACH. BED IN LOWEST POSITION, HOB AT 30 DEGREE, SIDERAILS UP X2. WILL CONT TO FOLLOW POC
--- NOTE | 2018-07-05 09:00 | NUR ---
PT RESTING IN BED, FAMILY AT BEDSIDE. FAMILY CONCERNED OF ORAL LESIONS. ADVISED FAMILY THAT WITH FREQUENT ORAL CARE AND MOISTURIZER, LESIONS WILL HEAL. DEMONSTRATED ORAL CARE TO FAMILY. FAMILY STATES THAT THE LAST TIME THE PT WAS IN THE ICU, THE FAMILY WAS GIVEN SPECIAL MD ORDERS TO BE ALLOWED TO STAY AT BEDSIDE AT ALL TIMES. SPOKE WITH ICU CHARGE NURSE AND THE LAST TIME PT WAS IN THE ICU SHE WAS NOT EXPECTED TO PULL THROUGH SO FAMILY WAS GIVEN THAT PERMISSION BUT DUE TO PT SOMEWHAT STABLE CONDITION, FAMILY WILL NEED TO ADHERE TO VISITING HOURS. FAMILY VERBALIZES UNDERSTANDING. CALL LIGHT WITHIN REACH. SIDE RAILS UP X2, BED IN LOWEST POSITION. WILL CONT TO FOLLOW POC
--- NOTE | 2018-07-05 10:50 | NUR ---
CHLOREXIDENE FOAM BATH PROVIDED AND COMPLETE LINEN CHANGE PROVIDED. CARDIAC ELECTRODES CHANGED. PT POSITIONED ON LEFT SIDE. SIDE RAILS X2, CALL LIGHT WITHIN REACH, BED IN LOWEST POSITION, WILL CONT TO FOLLOW POC
--- NOTE | 2018-07-05 11:03 | NUR ---
PT GROANING AND MOANING. PT SHAKES HER HEAD YES WHEN ASKED IF SHE IS IN PAIN. PAGED SINCE PT ONLY HAS PO PAIN MEDICATION ORDERED AND PT IS NPO. ASKED PT IF SHE WOULD LIKE DENA, HER DAUGHTER. PT SHAKES HER HEAD YES, DAUGHTER ASSISTED FROM WAITING ROOM INTO PT ROOM.
--- NOTE | 2018-07-05 11:54 | NUR ---
DR. MARTINEZ AT BEDSIDE, SPOKE AT LENGTH ABOUT PT POC, FAMILY HAS DECIDED TO MAKE PT A DNR
--- NOTE | 2018-07-05 13:15 | NUR ---
PT GRIMACING AND MOANING. SHAKES HEAD YES WHEN ASKED IF IN PAIN. PAGED . FAMILY AT BEDSIDE. CALL LIGHT WITHIN REACH. WILL CONT TO FOLLOW POC
--- NOTE | 2018-07-05 15:11 | NUR ---
PT SLEEPING, BROTHER JUST ARRIVED FROM OUT OF [place]OWN AND IS PRESENT AT BEDSIDE. SCDS IN PLACE, HEEL PROTECTORS IN PLACE. BED IN LOWEST POSITION, CALL LIGHT WITHIN REACH. WILL CONT TO FOLLOW POC
--- NOTE | 2018-07-05 17:00 | NUR ---
FAMILY ALERTED NURSE THAT PT HAD A "RASH" ON HER CHEST. UPON ASSESSMENT, PT HAS THICK RED STREAKS ACROSS HER CHEST ALL GOING IN THE SAME DIRECTION, PLACED PT HAND ON HER CHEST AND THE STREAKS LINE UP WITH PT FINGERNAILS. ASKED PT IF SHE IS ITCHING. PT SHOOK HER HEAD YES. CALLED AND RECIEVED NEW ORDER FOR PRN IV BENADRYL. BED IN LOWEST POSITION, CALL LIGHT WITHIN REACH. WILL CONT TO FOLLOW POC
--- NOTE | 2018-07-05 19:30 | NUR ---
SHIFT ASSESSMENT COMPLETE, PER NURSING FLOWSHEET. ORAL CARE PROVIDED, PARIAL LINEN CHANGE FOR URINARY INCONTINENCE, NYSTATIN CREAM APPLIED, PATIENT REPOSITIONED, VSS, WILL CONTINUE TO MONIOTOR
--- NOTE | 2018-07-05 21:00 | NUR ---
PATIENT REPOSITIONED, PARTIAL LINEN CHANGE FOR URINARY INCONTIENCE, NYSTATIN CREAM APPLIED, METICULOUS VERONIQUE CARE PROVIDED PRIOR TO NYSTATIN APPLICATION
--- NOTE | 2018-07-05 21:45 | NUR ---
REPORT RECEIVED AGREE WITH ASSESSMENT
--- NOTE | 2018-07-05 21:45 | NUR ---
REPORT GIVEN TO CHAVEZ RINCON RN, TO ASSUME THIS PATIENT'S CARE
--- NOTE | 2018-07-05 23:00 | NUR ---
REASSESSMENT MADE CPOC VSS
[2018-07-06] VITALS (22 sets, daily range): BP systolic 117–164; BP diastolic 55–93
--- NOTE | 2018-07-06 00:50 | NUR ---
PT MOANING NODS HEAD YES TO QUESTION OF PAIN MEDICATED WITH PRN MED CPOC
--- NOTE | 2018-07-06 01:00 | NUR ---
VSS NO DISTRESS NOTED CPOC PAIN MED EFFECTIVE
[2018-07-06 02:49] LABS: BASOPHILS 0.1 % (0-2); EOSINOPHILS 1.5 % (0-7); HEMATOCRIT 32.3 % (36.0-48.0); IMMATURE GRANULOCYTES 1.4 % (0-5); LYMPHOCYTES 5.9 % (15-50); MCH 26.1 pg (26.0-34.0); MCV 84.3 fL (80.0-100.0); MEAN PLATELET VOLUME 10.3 fL (7.4-10.4); MONOCYTES 4.3 % (2-11); NEUTROPHILS 86.8 % (40-80); PLATELET COUNT 415 10x3/uL (130-400); RBC 3.83 10x6/uL (4.00-5.40); RDW 16.7 % (11.5-14.5)
[2018-07-06 02:52] LABS: INR 2.27 (0.85-1.17); PROTIME 24.4 SECONDS (11.6-15.0)
[2018-07-06 02:55] LABS: ANION GAP 13.2 mmol/L (8-16); CALCIUM 8.6 mg/dL (8.5-10.1); CARBON DIOXIDE 25.7 mmol/L (21.0-32.0); CREATININE - SERUM 0.8 mg/dL (0.6-1.3); MAGNESIUM - SERUM 2.3 mg/dL (1.8-2.4); PHOSPHOROUS 3.7 mg/dL (2.5-4.9); POTASSIUM - SERUM 4.9 mmol/L (3.5-5.1)
--- NOTE | 2018-07-06 03:00 | NUR ---
REASSESSMENT CPOC LINEN CHANGE WET FROM INCONTINENCE
--- NOTE | 2018-07-06 05:00 | NUR ---
LINEN CHANGE AND PARTIAL BED BATH INCONTINENT URINE
--- NOTE | 2018-07-06 05:40 | NUR ---
PT ITCHING ABD AND HAIR MOANING. ASKED IF SHE WAS HURTING OR ITCHING. JUST NODS HEAD YES. MEDICATED WITH BENADRYL 25 MG PER PRN. HAD TAKEN OUT DIALUDID BUT WASTED DID NOT GIVE SINCE PT ITCHING. WILL MONITOR
--- NOTE | 2018-07-06 08:03 | NUR ---
AWAKES TO PHYSICAL STIMULATION. SPEECH GARBLED. RETURNS TO SLEEP QUICKLY. LEFT MIDLINE INFUSING WITH CLIMI 75 ML HOUR. NO DISTRESS
--- NOTE | 2018-07-06 09:00 | NUR ---
FAMILY HERE UPDATE GIVEN. PATIENT SLEEPING WELL. NO DISTRESS
--- NOTE | 2018-07-06 10:00 | NUR ---
VOIDING INCONT IN BED. PERICARE GIVEN BATH GIVEN. COMPLETE LINEN CHANGE PATEINT TOLERATED FAIR. RESP THERAPY WEANING OXYGEN TOLERATED
--- NOTE | 2018-07-06 12:00 | NUR ---
DR. MARTINEZ HERE TALKED WITH FAMILY. NO DISTRESS. CONTINUE TO WEAN OXYGEN
--- NOTE | 2018-07-06 13:30 | NUR ---
VOIDED LARGE AMOUNT OF URINE. REPOSITIONED PARTIAL LINE CHANGE. PATIENT TOLERATED FAIR
--- NOTE | 2018-07-06 13:30 | NUR ---
DR. CAMPOS HERE TALKED WITH FAMILY. NO DISTRESS.
--- NOTE | 2018-07-06 15:30 | NUR ---
NO CHANGES NO DISTRESS. AWAKE AND WATCHING TV
--- NOTE | 2018-07-06 16:30 | NUR ---
FAMILY HERE UPDATE GIVEN NO DISTRESS NO CHANGE
--- NOTE | 2018-07-06 19:00 | NUR ---
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 O2 NC 4 LPM BREATH SOUNDS RELATIVELY CLEAR O2 SAT 97%. CM ALARMS ON AND AUDIBLE. MIDLINE PATENT LEFT ARM. NO CHANDRA PT INCONTINENT OF URINE CLEANED UP AND BATH WITH CHG COMPLETE LINEN CHANGED. NODS HEAD NO TO PAIN
--- NOTE | 2018-07-06 23:00 | NUR ---
CHECKING ON PATIENT DENIES PAIN OR SOB REPOSITIONED FOR COMFORT AND PARTIAL LINEN CHANGE AFTER PT INCONTINENT OF URINE.
[2018-07-07 02:56] LABS: HEMATOCRIT 31.5 % (36.0-48.0); HEMOGLOBIN 9.9 g/dL (12-16); MCH 26.2 pg (26.0-34.0); MCHC 31.4 g/dL (31.0-37.0); MCV 83.3 fL (80.0-100.0); PLATELET COUNT 356 10x3/uL (130-400); RBC 3.78 10x6/uL (4.00-5.40); RDW 16.5 % (11.5-14.5)
[2018-07-07 03:09] LABS: ANION GAP 11.9 mmol/L (8-16); CALCIUM 9.1 mg/dL (8.5-10.1); CARBON DIOXIDE 26.7 mmol/L (21.0-32.0); CREATININE - SERUM 0.8 mg/dL (0.6-1.3); MAGNESIUM - SERUM 2.4 mg/dL (1.8-2.4); PHOSPHOROUS 3.4 mg/dL (2.5-4.9); POTASSIUM - SERUM 4.6 mmol/L (3.5-5.1)
[2018-07-07 03:41] LABS: EOSINOPHILS 1 % (0-7); LYMPHOCYTES 11 % (15-50); MONOCYTES 9 % (2-11); NEUTROPHILS 70 % (40-80); PLATELET ESTIMATE NORMAL
--- NOTE | 2018-07-07 05:30 | NUR ---
INCONTINENT OF URINE COMPLETE LINEN CHANGE AND BATH PT STATES COLD WARM BLANKET PLACED POST BATH.
--- NOTE | 2018-07-07 05:50 | NUR ---
REPORT CALLED TO JARED TORREZ GOING TO ROOM 2207.
--- NOTE | 2018-07-07 07:00 | NUR ---
BETH YEBOAH VIA BED WITH STAFF. MIDLINE WITH DRESSING C/D/I TO UPER LEFT ARM. SHE IS NPO. O2 AT 4L VIA N/C. NO S/S OF DISTRESS. SOURS IN MOUTH, DENTERS IN PLACE. POSE ALARM, SCD'S IN PLACE. CALL LIGHT IN REACH, BED LOW.
[2018-07-07 08:57] VITALS: BP 166/69
[2018-07-07 12:26] VITALS: BP 148/68
--- NOTE | 2018-07-07 13:42 | NUR ---
MEDCIATED WITH OXY AT THIS TIME FOR C/O PAIN. C/L IN REACH AT BEDSIDE
[2018-07-07 17:49] VITALS: BP 143/56
[2018-07-07 20:00] VITALS: BP 116/47
--- NOTE | 2018-07-07 20:00 | NUR ---
ALERT NON VERBAL NODS OR SHAKES HEAD, FAMILY AT BEDSIDE, SEE SHIFT ASSESSMENT, INCONTIENT OF URINE PADS CHANGED, CALL LIGHT IN REACH
[2018-07-07 23:25] VITALS: BP 148/68
[2018-07-08 04:30] VITALS: BP 102/56
[2018-07-08 05:13] LABS: BASOPHILS 0.1 % (0-2); EOSINOPHILS 0.5 % (0-7); HEMATOCRIT 35.7 % (36.0-48.0); HEMOGLOBIN 11.2 g/dL (12-16); IMMATURE GRANULOCYTES 2.2 % (0-5); LYMPHOCYTES 5.7 % (15-50); MCH 26.2 pg (26.0-34.0); MCHC 31.4 g/dL (31.0-37.0); MCV 83.4 fL (80.0-100.0); MEAN PLATELET VOLUME 10.2 fL (7.4-10.4); MONOCYTES 3.5 % (2-11); PLATELET COUNT 362 10x3/uL (130-400); RBC 4.28 10x6/uL (4.00-5.40); RDW 16.9 % (11.5-14.5); WBC 16.4 10x3/uL (4.8-10.8)
[2018-07-08 05:32] LABS: ANION GAP 13.3 mmol/L (8-16); BILIRUBIN - TOTAL 0.85 mg/dL (0.2-1.3); CALCIUM 9.4 mg/dL (8.5-10.1); CARBON DIOXIDE 27.7 mmol/L (21.0-32.0); CREATININE - SERUM 0.9 mg/dL (0.6-1.3); PROTEIN - SERUM 7.6 g/dL (6.4-8.2)
--- NOTE | 2018-07-08 07:47 | NUR ---
AWAKE AND ALERT. ORIENTED TO SELF. PATIENT IS NON VERBAL AND DIFFICULT TO ASSESS ORIENTATION. FAMILY AT BEDSIDE. LUNGS HAVE INSPIRATORY WHEEZES INTERMITTANTLY, NO COUGH NOTED. SKIN IS INTACT WITHOUT REDNESS. RIGHT MIDLINE PATENT WITHOUT REDNESS AT INSERTION SITE. NO NEEDS NOTED.
[2018-07-08 08:29] VITALS: BP 106/39
--- NOTE | 2018-07-08 10:00 | NUR ---
REPOSITIONED TO RIGHT SIDE PER FAMILY. DENIES NEEDS.
--- NOTE | 2018-07-08 10:06 | EC ---
PATIENT:ROGERIO DIXON DATE OF SERVICE: 06/14/18 SEX: F MEDICAL RECORD: [id number] DATE OF : 42 LOCATION:[facility] AGE OF PATIENT: 77 ADMISSION DATE: 06/14/18 REFERRING PHYSICIAN: INTERPRETING PHYSICIAN: AMY MANDUJANO MD ECHOCARDIOGRAM REPORT ECHO CHARGES 4 ECHO COMPLETE Date: 07/02/17 CLINICAL DIAGNOSIS: AFIB HX OF MV REPAIR,PACER ECHOCARDIOGRAPHIC MEASUREMENTS (adult normal given) AC root (d.<3.7cm) 3.0 cm LV Septum d (<1.2 cm> 1.4 cm Valve Excursion 1.6 cm LV Septum (systole) 1.6 cm Left Atria (s.<4.0cm> 3.1 cm LVPW d(<1.2cm) 1.4 cm RV (d.<2.3cm) 3.7 cm LVPW (sytole) 1.6 cm LV diastole(<5.6CM) 2.6 cm MV E-F(>70mm/sec) cm LV systole 1.7 cm LVOT Diameter 1.9 cm MV exc.(>10mm) 0.90 cm Est.ejection fraction (50-75%) % DOPPLER: LVIT cm/sec A 133 cm/sec E 202 cm/sec LA cm/sec RVSP 21 mmHg LVOT 125 cm/sec AOP1/2T m/s Asc. Ao 142 cm/sec RVOT 85 cm/sec RA cm/sec PA 117 cm/sec AV Gradient Peak 8.09 mmHg AV Mean 4.19 mmHg AV Area 2.5 cm MV Gradient Peak 17.75mmHg MV Mean 5.98 mmHg MV Area cm COMMENTS: Drill Press Tender: 2 HORACE DOWELL Electric Motor Tester Assembler: 3 Dr. Clayton TAPE# PACS Pericardial Effusion N DATE OF SERVICE: Adequate 2D, color flow, spectral Doppler, and M-Mode. Mild LVH. LV internal dimension is normal. Wall motion is normal. EF is greater than or equal to 55%. Aortic valve sclerosis without evidence of stenosis on Doppler interrogation. Left atrium is normal at 3.1 cm. Mitral valve shows mitral valve repair with acceptable Doppler velocity and only mild MR. Right-sided chambers grossly normal. Trace TR. TRANSINT:[id number] Voice Confirmation ID: [id number] DOCUMENT ID: [id number] ECHOCARDIOGRAM REPORT [id number] ROGERIO DIXON GREGORY A MD at 1006 CC: [id number] DICTATION DATE: 07/02/18 1155 CAPACITOR INSPECTOR: 07/02/18 1305 ADM IN [facility] [address] [place] [address]
--- NOTE | 2018-07-08 10:26 | NUR ---
Nutrition Follow up: NPO Reviewed chart-pt pulled out NGT and therefore no TF at this time Plans for PEG sunday or Procalamine at 75mL/hour REC: May want to consider TPN and lipids to better meet pts nutritional needs until PEG placed RD following
--- NOTE | 2018-07-08 12:26 | NUR ---
FAMILY REQUESTED PAIN MEDS FOR PATIENT. PATIENT IS CRYING AND RESTLESS. GIVNE ONE MG DILAUDID SLOW IVP FOR SAME. WILL MONITOR.
--- NOTE | 2018-07-08 13:21 | NUR ---
RESTING QUIETLY WTIH EYES CLOSED. NO NEEDS NOTED.
[2018-07-08 14:50] VITALS: BP 116/68
[2018-07-08 16:32] VITALS: BP 154/82
--- NOTE | 2018-07-08 17:00 | NUR ---
HAD MODERATE AMOUNT OF GREENISH EMESIS. DENIES NAUSEA. WILL CALL FOR ZOFRAN.
--- NOTE | 2018-07-08 19:00 | NUR ---
IN/OUT CATH USING STERILE TECHNIQUE. 250CC CLEAR YELLOW URINE RETURNED. SPECIMEN SENT TO LAB. NO CHANGES NOTED. FAMILY AT BEDSIDE.
--- NOTE | 2018-07-08 20:00 | NUR ---
RESTING IN BED, NON VERBAL NODS OR SHAKES HEAD IN RESPONSE TO QUESTIONS, NO APPARENT DISTRESS, FAMILY AT BEDSIDE, CALL LIGHT IN REACH
[2018-07-08 21:24] VITALS: BP 116/51
[2018-07-09 01:28] VITALS: BP 137/57
[2018-07-09 05:34] VITALS: BP 131/69
[2018-07-09 05:37] LABS: BASOPHILS 0.1 % (0-2); EOSINOPHILS 0.6 % (0-7); HEMATOCRIT 31.4 % (36.0-48.0); HEMOGLOBIN 9.9 g/dL (12-16); IMMATURE GRANULOCYTES 1.5 % (0-5); LYMPHOCYTES 6.3 % (15-50); MCH 26.2 pg (26.0-34.0); MCHC 31.5 g/dL (31.0-37.0); MCV 83.1 fL (80.0-100.0); MEAN PLATELET VOLUME 10.9 fL (7.4-10.4); NEUTROPHILS 87.5 % (40-80); PLATELET COUNT 329 10x3/uL (130-400); RBC 3.78 10x6/uL (4.00-5.40); RDW 17.3 % (11.5-14.5); WBC 17.5 10x3/uL (4.8-10.8)
[2018-07-09 05:56] LABS: ALBUMIN 4.1 g/dL (3.4-5.0); ALKALINE PHOSPHATASE 84 U/L (46-116); ALT (SGPT) 23 U/L (10-68); BILIRUBIN - TOTAL 0.85 mg/dL (0.2-1.3); CALC OSMOLALITY 279 mosm/kg (275-300); CALCIUM 9.4 mg/dL (8.5-10.1); CARBON DIOXIDE 25.5 mmol/L (21.0-32.0); CHLORIDE - SERUM 99 mmol/L (98-107); GLUCOSE 149 mg/dL (74-106); PROTEIN - SERUM 6.7 g/dL (6.4-8.2); SODIUM 133 mmol/L (136-145); UREA NITROGEN 44 mg/dL (7-18)
[2018-07-09 05:59] LABS: CREATININE - SERUM 0.6 mg/dL (0.6-1.3); eGFR NON AFRICAN AMERICAN > 90 mL/min (90-120)
--- NOTE | 2018-07-09 07:37 | NUR ---
PT IS RESTING IN BED WITH EYES OPEN. RESPIRATIONS ARE EVEN AND UNLABORED. FAMILY IS AT BEDSIDE. PT IS NON VERBAL AND SHOWS NO SIGNS OF DISTRESS AT THIS TIME. PT IS PARALYZED TO RIGHT SIDE AND IS SHOWING SOME CONTRACTURES TO THE RIGHT UPPER EXTREMITY. ROM COMPLETED. BED IS IN THE LOWEST POSITION. CALL LIGHT AND BEDSIDE TABLE ARE WITHIN REACH. SIDE RAILS X 2. AMADO ALARM IS ON AND WORKING. PT FAMILY AND PT DENY FURTHER NEEDS AT THIS TIME. WILL CONT TO MONITOR.
--- NOTE | 2018-07-09 08:30 | NUR ---
PT REPOSITIONED ONTO RIGHT SIDE. WEDGE USED FOR SUPPORT.
[2018-07-09 09:10] VITALS: BP 132/70
--- NOTE | 2018-07-09 10:30 | NUR ---
PT REPOSITIONED TO BACK.
--- NOTE | 2018-07-09 12:30 | NUR ---
PT ASSISTED INTO WHEELCHAIR BY FAMILY MEMBER. PT FAMILY MEMBER DENIES FURTHER NEEDS AT THIS TIME. WILL CONT TO MONITOR.
--- NOTE | 2018-07-09 14:00 | NUR ---
PT ASSISTED BACK TO BED. PT POSITIONED ONTO RIGHT SIDE. WEDGE USED FOR SUPPORT.
--- NOTE | 2018-07-09 15:14 | MORECARE ---
CASE MANAGEMENT DISCHARGE SUMMARY PATIENT: ROGERIO DIXON UNIT: [id number] ADM DATE: 06/14/18 AGE: 77 : 41 SEX: F ROOM/BED: D.2205 AUTHOR: JESSY,DOC PHYSICIAN: REFERRING PHYSICIAN: CHANDAN BLANTON MD DATE OF SERVICE: 07/09/18 Discharge Plan Patient Name: ROGERIO DIXON Facility: [facility]:[place] : 1940 Planned Disposition: Home Anticipated Discharge Date: Discharge Date: Expected LOS: Initial Reviewer: [email or web address] Initial Review Date: 06/15/2018 Generated: 07/09/18 4:14 pm Comments DCP- Discharge Planning Updated by [id number]: Mackenzie Torreken on 07/09/18 2:[address] RHIANNA WITH INPATIENT REHAB STATES THAT SHE IS TO LOW LEVEL FOR INPATIENT REHAB, REFERRAL SENT TO [facility] PER FAMILY REQUEST DCP- Discharge Planning Updated by [id number]: Nava Álvarez on 07/02/18 9:[address] Met with patient and daughter, Lilli, in the room. States discharge plan is for inpatient rehab at [facility]. Daughter states if she is not approved for inpatient rehab, they would consider [facility], DIANNE form signed. CM will continue to follow and assist with discharge planning/needs. DCP- Discharge Planning Updated by [id number]: Debra Duvall on 06/30/18 10:[address] REHAB PRESCREEN WAS DONE 06/28/18. REHAB WILL FOLLOW HER TO SEE IF SHE CAN PROGRESS WITH THERAPY AND TO BE ABLE TO PARTICIPATE IN THE REQUIRED 3 HRS OF THERAPY A DAY. THAT IS THE MEDICARE REQUIREMENT FOR ACUTE REHAB. DCP- Discharge Planning Updated by [id number]: Debra Duvall on 06/30/18 10:[address] CASE MANAGEMENT CONSULT RECEIVED. CM WENT TO MET WITH THE PATIENT. SHE AND HER , ENOCH, ARE AT THE BEDSIDE. CM EXPLAINED ROLE AND REQUEST TO REVISIT FOR DISCHARGE PLANNING. THE STATES HE HAD SPOKEN WITH DR BLANTON REGARDING HIS . HE STATES DR BLANTON ENCOURAGED HIM TO HAVE HIS EVALUATED FOR REHAB AT [facility]. HE DID NOT WISH TO CONSIDER SNF AT THIS TIME. REHAB PRESCREEN ORDER RECEIVED. DCP- Discharge Planning Updated by [id number]: Alethea Venegas on 06/15/18 3:[address] Patient Name: ROGERIO Loaiza DIXON Admission Status: Urgent Accout number: [id number] Admission Date: 06-14-2018 : 1940 Admission Diagnosis: Attending: JAVIER BLANTON Current LOS: 1 Anticipated DC Date: Planned Disposition: Home Primary Insurance: MEDICARE A & B Discharge Planning Comments: CM met with patient and daughter about discharge planning. CM explained CM role and verbal consent was given to do dc assessment. CM educated on Home Health, DME and rehab services that are available. Daughter states discharge plan is to return to home . The family are her total caregivers. Pt has all DME that the family feels she needs. States home environment is safe. Denies any discharge planning needs at this time. Family states the mobile van service they use and will call at dc will transport home upon discharge. CM will continue to follow and assist as needed with discharge planning needs. Senior Licensing Manager: Alethea Venegas DCPIA - Discharge Planning Initial Assessment Updated by [id number]: Alethea Venegas on 06/15/18 4:52 pm * Is the patient Alert and Oriented? Yes * How many steps to enter\exit or inside your home? * PCP Javier Blanton * [facility] [address] * Preadmission Environment Home with Family * ADLs Total Dependent * Equipment Walker Wheelchair * Other Equipment hospital bed, gait belt * List name and contact numbers for known caregivers / representatives who currently or will assist patient after discharge: Daughter [phone] * Verbal permission to speak to the caregivers and representatives has been obtained from the patient. N/A * Community resources currently utilized None * Additional services required to return to the preadmission environment? No * Can the patient safely return to the preadmission environment? Yes * Has this patient been hospitalized within the prior 30 days at any hospital? No External Providers [facility] Next Contact Date: Service Request Date: Service Type: Resolution: Reviewer: Comments: Coverage Notice Reviewer: [email or web address] Shannon Álvarez Notice Issued Date-Time: 07/02/2018 10:52 Notice Type: Patient Choice Letter Notice Delivered To: Family Member Relationship to Patient: Daughter Account Contact Associate Name: Lilli Forrest Delivery Method: HAND - Hand Delivered Lianne Days: Prior Verbal Notification: Recipient Understood Notice: Yes Recipient Signature: Yes Med Rec Note Co-signed by Attending: Coverage Notice Comment: [facility] for [facility] Last DP export: 07/02/18 10:01 a Patient Name: ROGERIO DIXON Page [phone] at 1514 All edits/amendments must be made on the electronic document DICTATION DATE: 07/09/181512 LAB MANAGER: NORA 07/09/181512 RPT#: [id number] DC DATE: STATUS: ADM IN [facility] [address] [place] [address] END OF REPORT
--- NOTE | 2018-07-09 15:58 | NUR ---
OT NOTE: PT COMPLETED BED MOB SUPINE TO SIT WITH MAX A. PT COMPLETED EOB SITTING TO WORK ON CORE STRENGTH WITH MIN A. PT COMPLETED RUE PROM TO DECREASE RISK OF SKIN BREAKDOWN AND CONTRACTURE MANAGEMENT. THANK YOU, MARYLOU HONG
--- NOTE | 2018-07-09 16:00 | NUR ---
PT REPOSITIONED ONTO LEFT SIDE. WEDGE USED FOR SUPPORT.
[2018-07-09 16:44] VITALS: BP 137/63
--- NOTE | 2018-07-09 18:04 | NUR ---
PT REPOSITIONED TO BACK. BED IS IN THE LOWEST POSITION. CALL LIGHT AND BEDSIDE TABLE ARE WITHIN REACH. SIDE RAILS X 2. AMADO ALARM IS ON AND WORKING. WILL CONT TO MONITOR.
--- NOTE | 2018-07-09 20:00 | NUR ---
ALERT NON VERBAL, NO APPARENT DISTRESS, SHAKES HEAD NO WHEN ASK IF IN PAIN, SEE SHIFT ASSESSMENT, CALL LIGHT IN REACH, FAMILY MEMBER AT BEDSIDE
[2018-07-09 20:57] VITALS: BP 167/77
[2018-07-10 01:42] VITALS: BP 154/57
[2018-07-10 04:58] LABS: BASOPHILS 0.1 % (0-2); EOSINOPHILS 0.8 % (0-7); HEMATOCRIT 30.9 % (36.0-48.0); HEMOGLOBIN 9.7 g/dL (12-16); IMMATURE GRANULOCYTES 1.4 % (0-5); LYMPHOCYTES 5.5 % (15-50); MCH 26.3 pg (26.0-34.0); MCHC 31.4 g/dL (31.0-37.0); MCV 83.7 fL (80.0-100.0); MEAN PLATELET VOLUME 10.6 fL (7.4-10.4); MONOCYTES 4.2 % (2-11); PLATELET COUNT 316 10x3/uL (130-400); RBC 3.69 10x6/uL (4.00-5.40); RDW 17.6 % (11.5-14.5); WBC 15.9 10x3/uL (4.8-10.8)
[2018-07-10 05:19] LABS: ALBUMIN 4.1 g/dL (3.4-5.0); ALKALINE PHOSPHATASE 77 U/L (46-116); ALT (SGPT) 22 U/L (10-68); BILIRUBIN - TOTAL 0.92 mg/dL (0.2-1.3); CALC OSMOLALITY 277 mosm/kg (275-300); CALCIUM 9.5 mg/dL (8.5-10.1); CARBON DIOXIDE 27.7 mmol/L (21.0-32.0); CHLORIDE - SERUM 99 mmol/L (98-107); CREATININE - SERUM 0.7 mg/dL (0.6-1.3); GLUCOSE 149 mg/dL (74-106); POTASSIUM - SERUM 4.8 mmol/L (3.5-5.1); SODIUM 133 mmol/L (136-145); UREA NITROGEN 38 mg/dL (7-18); eGFR NON AFRICAN AMERICAN 86 mL/min (90-120)
[2018-07-10 05:24] VITALS: BP 137/58
--- NOTE | 2018-07-10 06:31 | NUR ---
IN AND OUT CATH DONE FOR UA
--- NOTE | 2018-07-10 07:27 | NUR ---
AWAKE AND ALERT. ORIENTED TO SELF. DIFFFICULT TO ASSESS ORIENTATION PATIENT IS NON VERBAL. RESPONDS YES TO ALL QUESTIONS. LUNGS HAVE INSPIRATORY WHEEZES THROUGHOUT, NO COUGH NOTED. SKIN IS INTACT WITHOUT REDNESS. MIDLINE TO LEFT UPPER ARM IS PATENT WITHOUT REDNESS AT INSERTION SITE. NO NEEDS NOTED.
[2018-07-10 08:22] LABS: AMORPHOUS SEDIMENT <1+ /lpf (NONE SEEN); APPEARANCE HAZY (CLEAR); BILIRUBIN NEGATIVE (NEGATIVE); COLOR YELLOW (YELLOW); EPITHELIAL CELLS 0-5 /hpf (0-5); GLUCOSE NEGATIVE (NEGATIVE); KETONE NEGATIVE (NEGATIVE); MUCUS <1+ /lpf (NONE SEEN); NITRITE NEGATIVE (NEGATIVE); PROTEIN TRACE mg/dL (NEGATIVE); RED CELLS - URINE RARE /hpf (0-5); SPECIFIC GRAVITY 1.015 (1.005-1.020); UROBILINOGEN NORMAL (NORMAL)
[2018-07-10 08:26] LABS: BACTERIA FEW /hpf (NONE SEEN)
[2018-07-10 08:56] VITALS: BP 126/61
--- NOTE | 2018-07-10 10:00 | NUR ---
INCONTINENT OF URINE. SKIN CARE PER STAFF. LINENS CHANGED. REPOSITIONED IN BED FOR COMFORT.
--- NOTE | 2018-07-10 11:21 | MORECARE ---
CASE MANAGEMENT DISCHARGE SUMMARY PATIENT: ROGERIO DIXON UNIT: [id number] ADM DATE: 06/14/18 AGE: 77 : 41 SEX: F ROOM/BED: D.2205 AUTHOR: JESSY,DOC PHYSICIAN: REFERRING PHYSICIAN: CHANDAN BLANTON MD DATE OF SERVICE: 07/10/18 Discharge Plan Patient Name: ROGERIO DIXON Facility: [facility]:[place] : 1940 Planned Disposition: Home Anticipated Discharge Date: Discharge Date: Expected LOS: Initial Reviewer: [email or web address] Initial Review Date: 06/15/2018 Generated: 07/10/18 12:20 pm Comments DCP- Discharge Planning Updated by [id number]: Mackenzie Linda on 07/10/18 10:[address] Referral sent to [facility] (07/09) I spoke with Teresita today and she said that she has to review it and will call me back DCP- Discharge Planning Updated by [id number]: Mackenzie Linda on 07/09/18 2:[address] RHIANNA WITH INPATIENT REHAB STATES THAT SHE IS TO LOW LEVEL FOR INPATIENT REHAB, REFERRAL SENT TO [facility] PER FAMILY REQUEST DCP- Discharge Planning Updated by [id number]: Nava Douglasskelsey on 07/02/18 9:[address] Met with patient and daughter, Lilli, in the room. States discharge plan is for inpatient rehab at [facility]. Daughter states if she is not approved for inpatient rehab, they would consider [facility], DIANNE form signed. CM will continue to follow and assist with discharge planning/needs. DCP- Discharge Planning Updated by [id number]: Debra Duvall on 06/30/18 10:[address] REHAB PRESCREEN WAS DONE 06/28/18. REHAB WILL FOLLOW HER TO SEE IF SHE CAN PROGRESS WITH THERAPY AND TO BE ABLE TO PARTICIPATE IN THE REQUIRED 3 HRS OF THERAPY A DAY. THAT IS THE MEDICARE REQUIREMENT FOR ACUTE REHAB. DCP- Discharge Planning Updated by [email or web address]: Debra Duvall on 06/30/18 10:[address] CASE MANAGEMENT CONSULT RECEIVED. CM WENT TO MET WITH THE PATIENT. SHE AND HER , ENOCH, ARE AT THE BEDSIDE. CM EXPLAINED ROLE AND REQUEST TO REVISIT FOR DISCHARGE PLANNING. THE STATES HE HAD SPOKEN WITH DR BLANTON REGARDING HIS . HE STATES DR BLANTON ENCOURAGED HIM TO HAVE HIS EVALUATED FOR REHAB AT [facility]. HE DID NOT WISH TO CONSIDER SNF AT THIS TIME. REHAB PRESCREEN ORDER RECEIVED. DCP- Discharge Planning Updated by [id number]: Alethea Venegas on 06/15/18 3:[address] Patient Name: ROGERIO Loaiza DIXON Admission Status: Urgent Accout number: [id number] Admission Date: 06-14-2018 : 1940 Admission Diagnosis: Attending: JAVIER BLANTON Current LOS: 1 Anticipated DC Date: Planned Disposition: Home Primary Insurance: MEDICARE A & B Discharge Planning Comments: CM met with patient and daughter about discharge planning. CM explained CM role and verbal consent was given to do dc assessment. CM educated on Home Health, DME and rehab services that are available. Daughter states discharge plan is to return to home . The family are her total caregivers. Pt has all DME that the family feels she needs. States home environment is safe. Denies any discharge planning needs at this time. Family states the mobile van service they use and will call at dc will transport home upon discharge. CM will continue to follow and assist as needed with discharge planning needs. Director It Project: Alethea Venegas DCPIA - Discharge Planning Initial Assessment Updated by [id number]: Alethea Venegas on 06/15/18 4:52 pm * Is the patient Alert and Oriented? Yes * How many steps to enter\exit or inside your home? * PCP Javier Blanton * [facility] [address] * Preadmission Environment Home with Family * ADLs Total Dependent * Equipment Walker Wheelchair * Other Equipment hospital bed, gait belt * List name and contact numbers for known caregivers / representatives who currently or will assist patient after discharge: Daughter [phone] * Verbal permission to speak to the caregivers and representatives has been obtained from the patient. N/A * Community resources currently utilized None * Additional services required to return to the preadmission environment? No * Can the patient safely return to the preadmission environment? Yes * Has this patient been hospitalized within the prior 30 days at any hospital? No Coverage Notice Reviewer: [id number] Shannon Álvarez Notice Issued Date-Time: 07/02/2018 10:52 Notice Type: Patient Choice Letter Notice Delivered To: Family Member Relationship to Patient: Daughter Inventory Analyst Name: Lilli Forrest Delivery Method: HAND - Hand Delivered Lianne Days: Prior Verbal Notification: Recipient Understood Notice: Yes Recipient Signature: Yes Med Rec Note Co-signed by Attending: Coverage Notice Comment: [facility] for [facility] Last DP export: 07/09/18 2:14 p Patient Name: ROGERIO DIXON Page [phone] at 1121 All edits/amendments must be made on the electronic document DICTATION DATE: 07/10/18 112 PLANT SCIENTIST: NORA 07/10/18 1120 RPT#: [id number] DC DATE: STATUS: ADM IN [facility] [address] [place] [address] END OF REPORT
[2018-07-10 13:26] VITALS: BP 173/80
--- NOTE | 2018-07-10 15:30 | NUR ---
UP TO CHIAR WITH 2 PERSON MAX ASSIST. INCONTINENT OF URINE AT THIS TIME.
--- NOTE | 2018-07-10 16:30 | NUR ---
BACK TO BED WITH 2 PERSON MAX ASSIST. INCONTINENT OF URINE. SKIN CARE PER STAFF. DRESSING TO LEFT UPPER ARM MIDLIN CHANGED PER PROTOCAL. DENIES NEED.S
--- NOTE | 2018-07-10 16:41 | NUR ---
OT NOTE: PT COMPLETED BED MOB WITH MAX A. PT COMPLETED EOB SITTING WITH CGA. PT COMPLETED RUE PROM TO DECREASE TONE AND RISK OF SKIN BREAKDOWN. PT REQUIRED MAX A WITH HYGIENE. THANK YOU, MARYLOU HONG
[2018-07-10 17:25] VITALS: BP 157/74
--- NOTE | 2018-07-10 17:30 | NUR ---
GIVEN 50MG BENEDRYL SLOW IVP FOR C/O NAUSEA AND OR PAIN. WILL MONITOR.
--- NOTE | 2018-07-10 18:00 | NUR ---
RESTING QUIETLY WITH EYES CLOSED. NO NEEDS NOTED. NO CHANGES NOTED. DAUGHTER AT BEDSIDE.
--- NOTE | 2018-07-10 19:25 | NUR ---
LYING IN BED. DAUGHTER AT BEDSIDE. ALERT. 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 RT SIDE IS FLACCID. RESP NONLABORED. O2 @ 2L/NC. INCONT OF URINE. REPOSITIONED FOR COMFORT AFTER PERICARE PERFORMED. BBS COARSE. NONPROD COUGH NOTED. NPO. SURGICAL CONSENTS SIGNED AND ON CHART. BRUISES NOTED TO BUE. NS @ 20 MLHR INFUSING WITH CLINIMIX @ 75 MLHR TO LT UPPER ARM MIDLINE. SCDS IN USE BILAT. RT HEEL PROTECTOR IN USE. TELEMETRY SHOWS SR WITH RATE OF 86. MEDICATED FOR C/O GEN PAIN WITH DILAUDID. SR ELEVATED X2. AMADO ALARM IN USE FOR PT SAFETY. CL IN REACH.
[2018-07-10 20:00] VITALS: BP 156/83
--- NOTE | 2018-07-10 20:15 | NUR ---
INCONT OF URINE. PERICARE PERFORMED.
--- NOTE | 2018-07-10 22:00 | NUR ---
INCONT OF URINE. PERICARE PERFORMED. REPOSITIONED TO LT SIDE. SITTER AT BEDSIDE. CL IN REACH. NO DISTRESS.
[2018-07-11] VITALS (10 sets, daily range): BP systolic 131–180; BP diastolic 56–83
--- NOTE | 2018-07-11 00:05 | NUR ---
INCONT OF URINE. PERICARE PERFORMED. REPOSITIONED FOR COMFORT. SITTER AT BEDSIDE. CL IN REACH.
--- NOTE | 2018-07-11 02:00 | NUR ---
INCONT OF URINE. PERICARE PERFORMED. REPOSITIONED FOR COMFORT. SITTER AT BEDSIDE. CL IN REACH.
[2018-07-11 04:36] LABS: BASOPHILS 0.1 % (0-2); EOSINOPHILS 1.1 % (0-7); HEMOGLOBIN 10.1 g/dL (12-16); IMMATURE GRANULOCYTES 1.2 % (0-5); MCH 26.4 pg (26.0-34.0); MCHC 31.6 g/dL (31.0-37.0); MCV 83.6 fL (80.0-100.0); MEAN PLATELET VOLUME 10.2 fL (7.4-10.4); MONOCYTES 8.8 % (2-11); NEUTROPHILS 77.8 % (40-80); PLATELET COUNT 285 10x3/uL (130-400); RBC 3.83 10x6/uL (4.00-5.40); RDW 17.3 % (11.5-14.5); WBC 12.8 10x3/uL (4.8-10.8)
[2018-07-11 04:46] LABS: INR 1.34 (0.85-1.17)
[2018-07-11 05:17] LABS: ALBUMIN 3.9 g/dL (3.4-5.0); ALKALINE PHOSPHATASE 83 U/L (46-116); ALT (SGPT) 21 U/L (10-68); BILIRUBIN - TOTAL 0.86 mg/dL (0.2-1.3); CALC OSMOLALITY 276 mosm/kg (275-300); CALCIUM 9.4 mg/dL (8.5-10.1); CARBON DIOXIDE 27.3 mmol/L (21.0-32.0); CHLORIDE - SERUM 98 mmol/L (98-107); CREATININE - SERUM 0.6 mg/dL (0.6-1.3); GLUCOSE 138 mg/dL (74-106); POTASSIUM - SERUM 4.7 mmol/L (3.5-5.1); PROTEIN - SERUM 7.1 g/dL (6.4-8.2); SODIUM 133 mmol/L (136-145); UREA NITROGEN 38 mg/dL (7-18); eGFR NON AFRICAN AMERICAN > 90 mL/min (90-120)
--- NOTE | 2018-07-11 05:43 | NUR ---
ISABELLE AND JAZMYNE CHANGE DONE AT THIS TIME.
--- NOTE | 2018-07-11 08:07 | NUR ---
AWAKE AND ALERT. ORIENTED TO SELF. DIFFICULT TO ASSESS ORIENTATITON SINCE PATIENT IS NON VERBAL. LUNGS ARE CLEAR BUT DIMINISHED THROUGHOUT, OCCASSIONAL DRY COUGH NOTED. SKIN IS INTACT WTIHOUT REDNESS. FAMILY AT BEDSIDE. NPO FOR SURGERY. MIDLINE TO LEFT UPPER ARM IS PATENT WITHOUT REDNESS AT INSERITION SITE. NO NEEDS NOTED.
--- NOTE | 2018-07-11 08:50 | NUR ---
OFF UNIT VIA BED FOR PROCEDURE.
--- NOTE | 2018-07-11 09:43 | NUR ---
EGD WITH PEG TUBE PLACED, ABDOMINAL BINDER IN PLACE. REPORT CALLED TO KLEBER SILVA. VSS
--- NOTE | 2018-07-11 09:59 | NUR ---
RETURNED FROM PROCEDURE. VSS. NO FAMILY IN ROOM AT THIS TIME.
--- NOTE | 2018-07-11 11:43 | NUR ---
PEG TUBE FLLUSHED WITH 20CC H2O PER ORDERS. PLACED TO GRAVITY WELL.
--- NOTE | 2018-07-11 12:01 | NUR ---
REQUESTED BY FAMILY AND GIVEN 0.5MG DILAUDID SLOW IVP FOR C/O ABDOMINAL PAIN LEVEL 6. WILL MONITOR.
--- NOTE | 2018-07-11 14:00 | NUR ---
VSS. INCONTINENT OF URINE. FAMILY CHANGED PATIENT AND REPOSITIONED. DENIES NEEDS.
--- NOTE | 2018-07-11 17:11 | NUR ---
RESTING QUIETLY IN BED. NO C/O AT THIS TIME. FAMILY AT BEDSIDE.
--- NOTE | 2018-07-11 18:30 | NUR ---
RESTING QUIETLY IN BED. DENIES NEEDS. NO CHANGES NOTED.
[2018-07-12] VITALS: BP 150/65
--- NOTE | 2018-07-12 02:40 | NUR ---
RESTING IN BED FAMILY AT BEDSIDE. PEG TUB IN PLACE CHECKED BY a&a. ABD BINDER IN PLACE.NO S/S OF DISTRESS
[2018-07-12 04:00] VITALS: BP 178/79
--- NOTE | 2018-07-12 04:38 | NUR ---
MDDLINE WAS NOTED TO BE LEAKING WITH PT CARE AND WHEN PT. ROLLED IT CAME OUT OF ARM. APEARS TO BE INTACT. WITH MARKINGS JUST PAST 12. PLACED IN BAG FOR VACKULAR NURSE TO SEE. 20 GAG PLACED TO RIGHT HAND WITH TWO ATEMPS TOLLARATED WELL.
[2018-07-12 05:21] LABS: BASOPHILS 0.1 % (0-2); EOSINOPHILS 1.1 % (0-7); HEMATOCRIT 32.7 % (36.0-48.0); HEMOGLOBIN 10.4 g/dL (12-16); IMMATURE GRANULOCYTES 1.1 % (0-5); LYMPHOCYTES 8.7 % (15-50); MCH 26.8 pg (26.0-34.0); MCHC 31.8 g/dL (31.0-37.0); MCV 84.3 fL (80.0-100.0); MEAN PLATELET VOLUME 10.7 fL (7.4-10.4); MONOCYTES 8.3 % (2-11); NEUTROPHILS 80.7 % (40-80); PLATELET COUNT 277 10x3/uL (130-400); RBC 3.88 10x6/uL (4.00-5.40); RDW 17.5 % (11.5-14.5); WBC 14.4 10x3/uL (4.8-10.8)
[2018-07-12 05:39] LABS: ALBUMIN 4.1 g/dL (3.4-5.0); ANION GAP 12.2 mmol/L (8-16); BILIRUBIN - TOTAL 1.14 mg/dL (0.2-1.3); CALCIUM 9.7 mg/dL (8.5-10.1); CARBON DIOXIDE 28.9 mmol/L (21.0-32.0); CREATININE - SERUM 0.8 mg/dL (0.6-1.3); POTASSIUM - SERUM 5.1 mmol/L (3.5-5.1); PROTEIN - SERUM 7.3 g/dL (6.4-8.2)
--- NOTE | 2018-07-12 07:42 | NUR ---
ALERT BUT NONVERBAL. LUNGS CLEAR BILATERALLY IN ALL LAMB. HEART SOUNDS S1 AND S2 HEARD IN ALL LAMB. BOWEL SOUNDS ACTIVE X 4. SKIN INTACT WITHOUT REDNESS. HEEL PROTECTORS NOTED. O2 IN PLACE AT 2L NC. IV TO RIGHT HAND PATENT WITHOUT REDNESS. PEG TUBE NOTED. SCDS IN PLACE. BED LOW. CALL LANDAVERDE AND PERSONAL ITEMS IN REACH. WILL CONTINUE TO MONITOR.
--- NOTE | 2018-07-12 08:32 | NUR ---
NUTRITION F/U TUBE FEED ORDERS WRITTEN AND NURSING MESSAGE ENTERED TO START TUBE FEEDS. TAPER AND DC PROCALAMINE. RD FOLLOWING
[2018-07-12 09:00] VITALS: BP 146/71
--- NOTE | 2018-07-12 10:18 | NUR ---
RESTING IN BED. DAUGHTER AT BEDSIDE. DENIES NEEDS.
--- NOTE | 2018-07-12 11:02 | NUR ---
CALLED KITCHEN FOR PATIENT JEVITY. STATES WILL BRING TO UNIT.
--- NOTE | 2018-07-12 11:30 | NUR ---
EDUCATION PROVIDED ON NEED FOR STOOL SAMPLE. DAUGHTER AT BEDSIDE VERBALIZED UNDERSTANDING.
--- NOTE | 2018-07-12 12:30 | NUR ---
FIRST DOSE OF JEVITY INITIATED. TOLERATING AT THIS POINT. WILL CONTINUE TO MONITOR.
--- NOTE | 2018-07-12 12:57 | NUR ---
ASSISTED BACK TO BED PER THERAPY. GOWN CHANGED D/T BEING SOILED IN CHAIR. WARM BLANKET PROVIDED. DENIES FURTHER NEEDS.
[2018-07-12 13:23] VITALS: BP 168/74
--- NOTE | 2018-07-12 14:16 | NUR ---
RESTING IN BED.DENIES PAIN. DENIES NEEDS. DAUGHTER AT BEDSIDE. WILL CONTINUE TO MONITOR.
[2018-07-12 17:22] VITALS: BP 143/61
--- NOTE | 2018-07-12 17:37 | NUR ---
CONTINUES TO TOLERATE TUBE FEED. DENIES NEEDS. DAUGHTER AT BEDSIDE. WILL CONTINUE TO MONITOR.
--- NOTE | 2018-07-12 18:26 | NUR ---
RESTING IN BED. DENIES PAIN. DENIES NEEDS. BED LOW. CALL LANDAVERDE AND PERSONAL ITEMS IN REACH. FALL PRECAUTIONS IN PLACE.
[2018-07-12 19:47] VITALS: BP 151/68
[2018-07-13] VITALS: BP 137/66
[2018-07-13 04:00] VITALS: BP 151/66
--- NOTE | 2018-07-13 04:44 | NUR ---
PT IN BED IN LOW FOWLERS POSITION. ALERT AND ORIENTED X4. RESPIRATIONS EVEN AND UNLABORED. VS STABLE AND AFREBRILE. NO VISUAL CUES OF DISTRESS NOTED. DENIES ANY OTHER NEEDS AT THIS TIME. BED LOW, SIDE RAILS UP X2. CALL LIGHT IN REACH. WILL CONTINUE TO MONITOR.
[2018-07-13 07:36] LABS: CALC OSMOLALITY 278 mosm/kg (275-300); CALCIUM 9.4 mg/dL (8.5-10.1); CARBON DIOXIDE 24.5 mmol/L (21.0-32.0); CHLORIDE - SERUM 97 mmol/L (98-107); CREATININE - SERUM 0.7 mg/dL (0.6-1.3); GLUCOSE 110 mg/dL (74-106); SODIUM 133 mmol/L (136-145); UREA NITROGEN 45 mg/dL (7-18); eGFR NON AFRICAN AMERICAN 86 mL/min (90-120)
[2018-07-13 07:38] LABS: POTASSIUM - SERUM 4.2 mmol/L (3.5-5.1)
[2018-07-13 08:35] VITALS: BP 134/62
[2018-07-13 08:47] LABS: BASOPHILS 0.1 % (0-2); EOSINOPHILS 2.9 % (0-7); HEMATOCRIT 30.7 % (36.0-48.0); HEMOGLOBIN 9.8 g/dL (12-16); LYMPHOCYTES 15.3 % (15-50); MCH 26.7 pg (26.0-34.0); MCHC 31.9 g/dL (31.0-37.0); MCV 83.7 fL (80.0-100.0); MEAN PLATELET VOLUME 10.3 fL (7.4-10.4); MONOCYTES 12.6 % (2-11); NEUTROPHILS 68.1 % (40-80); PLATELET COUNT 236 10x3/uL (130-400); RBC 3.67 10x6/uL (4.00-5.40); RDW 17.8 % (11.5-14.5); WBC 13.7 10x3/uL (4.8-10.8)
--- NOTE | 2018-07-13 10:11 | NUR ---
PT NON-VERBAL, DAUGHTER IN ROOM. BREATH SOUNDS COURSE BILAT. PEG TUBE TO LUQ, ABDOMINAL BINDER IN PLACE, JEVITY 1.2 RUNNING AT 40 ML/HR, RESIDUAL CHECKED 60ML. IV TO RIGHT WRIST, PATENT, DRESSING CDI. MEPILEX TO LEFT HEEL. USING LAZARO BROWN SCALE, PT PAIN RATED AT 7/10, MEDICATED PER ORDERS, WILL MONITOR. BED LOW, CALL LIGHT IN REACH. NO OTHER NEEDS AT THIS TIME.
[2018-07-13 12:48] VITALS: BP 140/58
--- NOTE | 2018-07-13 15:17 | NUR ---
PT RESTING IN BED. FAMILY AT BEDSIDE. NO OTHER NEEDS AT THIS TIME.
[2018-07-13 16:47] VITALS: BP 126/58
[2018-07-13 20:00] VITALS: BP 138/62
[2018-07-14] VITALS: BP 131/47
[2018-07-14 04:00] VITALS: BP 160/72
[2018-07-14 07:15] LABS: BASOPHILS 0.1 % (0-2); EOSINOPHILS 1.5 % (0-7); HEMATOCRIT 30.6 % (36.0-48.0); HEMOGLOBIN 9.7 g/dL (12-16); IMMATURE GRANULOCYTES 0.9 % (0-5); LYMPHOCYTES 10.8 % (15-50); MCH 26.8 pg (26.0-34.0); MCHC 31.7 g/dL (31.0-37.0); MCV 84.5 fL (80.0-100.0); MEAN PLATELET VOLUME 10.9 fL (7.4-10.4); MONOCYTES 11.3 % (2-11); NEUTROPHILS 75.4 % (40-80); PLATELET COUNT 260 10x3/uL (130-400); RBC 3.62 10x6/uL (4.00-5.40); RDW 17.8 % (11.5-14.5)
[2018-07-14 07:31] LABS: CALC OSMOLALITY 278 mosm/kg (275-300); CALCIUM 9.2 mg/dL (8.5-10.1); CARBON DIOXIDE 26.2 mmol/L (21.0-32.0); CHLORIDE - SERUM 100 mmol/L (98-107); CREATININE - SERUM 0.6 mg/dL (0.6-1.3); GLUCOSE 90 mg/dL (74-106); POTASSIUM - SERUM 4.5 mmol/L (3.5-5.1); SODIUM 135 mmol/L (136-145); UREA NITROGEN 38 mg/dL (7-18); eGFR NON AFRICAN AMERICAN > 90 mL/min (90-120)
[2018-07-14 09:05] VITALS: BP 139/64
--- NOTE | 2018-07-14 11:16 | NUR ---
rehab prescreen: we have reviewed this pt chart and unfortunlly she is to low function to bet able to paricipate the required 3 hours of therapy that medicare requires. the patient may be better suited for a group home care facility where she can get ther therapy that is needed at a slower pace. thank you for this eval. katerina gonzalez lpn clinical liasion
[2018-07-14 13:10] VITALS: BP 139/63
--- NOTE | 2018-07-14 13:18 | NUR ---
DRESSING TO PEG TUBE BLOODY. DRESSING CHANGED. NO REDDNESS OR SWELLING NOTED.
--- NOTE | 2018-07-14 15:13 | NUR ---
PT NON-VERBAL. FAMILY AT BEDSIDE. COURSE WHEEZING TO ALL LAMB, 2L O2 PER NC. IV TO RIGHT WRIST, SALINE LOCKED. PEG TUBE RO LUQ, ABDOMINAL BINDER IN PLACE. PT INCONTINENT. BED LOW, CALL LIGHT IN REACH. NO OTHER NEEDS AT THIS TIME.
[2018-07-14 16:34] VITALS: BP 129/59
--- NOTE | 2018-07-14 19:15 | NUR ---
RECEIVED CARE FROM DAY SHIFT. LYING IN BED ON BACK WITH GRANDAUGHTER AT SIDE. FEEDING TO PEG AT THIS TIME. PATENT IV SL TO RIGHT WRIST.
[2018-07-14 20:00] VITALS: BP 149/61
[2018-07-15] VITALS: BP 138/59
[2018-07-15 04:00] VITALS: BP 151/60
[2018-07-15 05:01] LABS: BASOPHILS 0 % (0-2); EOSINOPHILS 2.3 % (0-7); HEMATOCRIT 29.1 % (36.0-48.0); HEMOGLOBIN 9.1 g/dL (12-16); IMMATURE GRANULOCYTES 0.8 % (0-5); LYMPHOCYTES 15.8 % (15-50); MCH 26.5 pg (26.0-34.0); MCHC 31.3 g/dL (31.0-37.0); MCV 84.6 fL (80.0-100.0); MEAN PLATELET VOLUME 10.1 fL (7.4-10.4); MONOCYTES 11.6 % (2-11); NEUTROPHILS 69.5 % (40-80); PLATELET COUNT 226 10x3/uL (130-400); RBC 3.44 10x6/uL (4.00-5.40); RDW 17.9 % (11.5-14.5); WBC 10.4 10x3/uL (4.8-10.8)
[2018-07-15 05:07] LABS: CALC OSMOLALITY 276 mosm/kg (275-300); CALCIUM 9.3 mg/dL (8.5-10.1); CARBON DIOXIDE 26.8 mmol/L (21.0-32.0); CHLORIDE - SERUM 99 mmol/L (98-107); CREATININE - SERUM 0.7 mg/dL (0.6-1.3); GLUCOSE 134 mg/dL (74-106); POTASSIUM - SERUM 4.4 mmol/L (3.5-5.1); SODIUM 134 mmol/L (136-145); UREA NITROGEN 33 mg/dL (7-18); eGFR NON AFRICAN AMERICAN 86 mL/min (90-120)
[2018-07-15 09:02] VITALS: BP 117/69
--- NOTE | 2018-07-15 12:02 | MORECARE ---
CASE MANAGEMENT DISCHARGE SUMMARY PATIENT: ROGERIO DIXON UNIT: [id number] ADM DATE: 06/14/18 AGE: 77 : 41 SEX: F ROOM/BED: D.2205 AUTHOR: JESSY,DOC PHYSICIAN: REFERRING PHYSICIAN: CHANDAN BLANTON MD DATE OF SERVICE: 07/15/18 Discharge Plan Patient Name: ROGERIO DIXON Facility: [facility]:[place] : 1940 Planned Disposition: Home Anticipated Discharge Date: Discharge Date: Expected LOS: Initial Reviewer: [id number] Initial Review Date: 06/15/2018 Generated: 07/15/18 1:02 pm Comments DCP- Discharge Planning Updated by [id number]: Jignacaleb Lizama on 07/15/18 10:[address] RECEIVED A CALL FROM DR MCCANN. HE HAS STATED THAT THE PATIENT DID NOT MEET CRITERIA FOR INPATIENT REHAB. HE STATED THAT THE FAMILY WANTED TO GET HER IN TO [facility] AND [facility] OR [facility] LIKE THAT AND REQUESTED I GO SPEAK WTIH THEM. UPON ENTRY TO THE ROOM, PATIENT IN CHAIR AT BEDSIDE, NON VERBAL. DAUGHTER, LILLI HAMM, AT BEDSIDE. SHE STATED THAT THE PATIENTS IS HER POA AND SHE JUST CARES FOR HER AT HOME. SHE STATED THAT DR BLANTON PROMISED THEM INPATIENT REHAB FOR 21 DAYS AND THEN THEY PLANNED TO GO TO [place] FOR THE OTHER 90 DAYS TO GET HER OFF THE FEEDING TUBE AND HOME. TOOTIE CROCKETT APN HAD ENTERED THE ROOM THE CONVERSATION WAS STARTING. SHE EXPLAINED THAT THERE WERE RULES/CRITERIA THAT HAD TO BE MET IN ORDER FOR [place] TO [place] AND THAT SHE AND/OR DR CRAWFORD WOULD TALK TO DR BLANTON TOMORROW AND SEE. I HAVE ALSO EXPLAINED THAT WITH IT BEING A HOLIDAY, NO DECISION WOULD BE MADE TODAY ANYWAY. I HAVE EXPLAINED THAT I WOULD MAKE SURE TO SPEAK WITH THE PATIENT ASSIGNED ASSISTANT PROFESSOR SCULPTURE TOMORROW AND LET HER KNOW WHERE WE WERE AND FURTHER INTERVENTION COULD HAPPEN AFTER DR BLANTON WAS TALKED TO. DCP- Discharge Planning Updated by [id number]: Mackenzie Linda on 07/10/18 10:[address] Referral sent to [facility] (07/09) I spoke with Teresita today and she said that she has to review it and will call me back DCP- Discharge Planning Updated by [email or web address]: Mackenzie Linda on 07/09/18 2:[address] RHIANNA WITH INPATIENT REHAB STATES THAT SHE IS TO LOW LEVEL FOR INPATIENT REHAB, REFERRAL SENT TO [facility] PER FAMILY REQUEST DCP- Discharge Planning Updated by [id number]: Nava Álvarez on 07/02/18 9:[address] Met with patient and daughter, Lilli, in the room. States discharge plan is for inpatient rehab at [facility]. Daughter states if she is not approved for inpatient rehab, they would consider [facility], DIANNE form signed. CM will continue to follow and assist with discharge planning/needs. DCP- Discharge Planning Updated by [email or web address]: Debra Duvall on 06/30/18 10:[address] REHAB PRESCREEN WAS DONE 06/28/18. REHAB WILL FOLLOW HER TO SEE IF SHE CAN PROGRESS WITH THERAPY AND TO BE ABLE TO PARTICIPATE IN THE REQUIRED 3 HRS OF THERAPY A DAY. THAT IS THE MEDICARE REQUIREMENT FOR ACUTE REHAB. DCP- Discharge Planning Updated by [id number]: Debra Duvall on 06/30/18 10:[address] CASE MANAGEMENT CONSULT RECEIVED. CM WENT TO MET WITH THE PATIENT. SHE AND HER , ENOCH, ARE AT THE BEDSIDE. CM EXPLAINED ROLE AND REQUEST TO REVISIT FOR DISCHARGE PLANNING. THE STATES HE HAD SPOKEN WITH DR BLANTON REGARDING HIS . HE STATES DR BLANTON ENCOURAGED HIM TO HAVE HIS EVALUATED FOR REHAB AT [facility]. HE DID NOT WISH TO CONSIDER SNF AT THIS TIME. REHAB PRESCREEN ORDER RECEIVED. DCP- Discharge Planning Updated by [id number]: Alethea Padillaman on 06/15/18 3:[address] Patient Name: ROGERIO Loaiza DIXON Admission Status: Urgent Accout number: [id number] Admission Date: 06-14-2018 : 1940 Admission Diagnosis: Attending: JAVIER BLANTON Current LOS: 1 Anticipated DC Date: Planned Disposition: Home Primary Insurance: MEDICARE A & B Discharge Planning Comments: CM met with patient and daughter about discharge planning. CM explained CM role and verbal consent was given to do dc assessment. CM educated on Home Health, DME and rehab services that are available. Daughter states discharge plan is to return to home . The family are her total caregivers. Pt has all DME that the family feels she needs. States home environment is safe. Denies any discharge planning needs at this time. Family states the mobile van service they use and will call at dc will transport home upon discharge. CM will continue to follow and assist as needed with discharge planning needs. Nut Grinder: Alethea Venegas DCPIA - Discharge Planning Initial Assessment Updated by [id number]: Alethea Venegas on 06/15/18 4:52 pm * Is the patient Alert and Oriented? Yes * How many steps to enter\exit or inside your home? * PCP Javier Blanton * Pharmacy [facility] [address] * Preadmission Environment Home with Family * ADLs Total Dependent * Equipment Walker Wheelchair * Other Equipment hospital bed, gait belt * List name and contact numbers for known caregivers / representatives who currently or will assist patient after discharge: Daughter [phone] * Verbal permission to speak to the caregivers and representatives has been obtained from the patient. N/A * Community resources currently utilized None * Additional services required to return to the preadmission environment? No * Can the patient safely return to the preadmission environment? Yes * Has this patient been hospitalized within the prior 30 days at any hospital? No Coverage Notice Reviewer: [id number] Shannon Álvarez Notice Issued Date-Time: 07/02/2018 10:52 Notice Type: Patient Choice Letter Notice Delivered To: Family Member Relationship to Patient: Daughter Note Specialist Name: Lilli Forrest Delivery Method: HAND - Hand Delivered Lianne Days: Prior Verbal Notification: Recipient Understood Notice: Yes Recipient Signature: Yes Med Rec Note Co-signed by Attending: Coverage Notice Comment: [facility] for [facility] Last DP export: 07/10/18 10:21 a Patient Name: ROGERIO DIXON Page [phone] at 1202 All edits/amendments must be made on the electronic document DICTATION DATE: 07/15/18 1202 RADIOLOGIC TECHNOLOGIST MAMMOGRAM: NORA 07/15/18 1202 RPT#: [id number] DC DATE: STATUS: ADM IN [facility] [address] [place] [address] END OF REPORT
[2018-07-15 13:56] LABS: INR 1.14 (0.85-1.17); PROTIME 14.1 SECONDS (11.6-15.0)
[2018-07-15 13:57] VITALS: BP 146/62
--- NOTE | 2018-07-15 15:19 | NUR ---
PT NON-VERBAL. FAMILY AT BEDSIDE. LUNGS SOUND VERY WET. NOTIFIED ERIK, CHEST XR ORDERED, SUCTION ORDERED. TELEMETRY IN PLACE. IV TO RIGHT WRIST, SALINE LOCKED. BED LOW, CALL LIGHT IN REACH. NO OTHER NEEDS AT THIS TIME.
[2018-07-15 17:52] VITALS: BP 138/66
--- NOTE | 2018-07-15 18:18 | NUR ---
1600 RESIDUAL CHECK DONE AT 1818. 3ML. RESTARTED TUBE FEEDING AT 10 ML/HR.
--- NOTE | 2018-07-15 19:00 | NUR ---
REPORT RECEIVED, CARE ASSUMED. PT IS RESTING IN BED AT THIS TIME. PT IS NON VERBAL BUT DID NOD HER HEAD IN RESPONSE TO QUESTIONS. SHIFT ASSESSMENT COMPLETED, SEE FLOWSHEET FOR DETAILS. NO SIGNS OF ACUTE DISTRESS, WILL CONTINUE TO MONITOR.
[2018-07-15 20:41] VITALS: BP 159/63
--- NOTE | 2018-07-15 22:54 | NUR ---
ASSESSED RESP STATUS. BILATERAL CRACKLES HEARD THROUGHOUT ANTERIOR LAMB OF AUSCULTATION. NO AUDIBLE PHARENGEAL CRACKLES WHICH INDICATES NASOPHARENGEAL SUCTION AT THIS TIME WILL CONTINUE TO MONITOR. SPO2 93 ON SB O2. GRANDAUGHTER AT BEDSIDE
[2018-07-16 00:38] VITALS: BP 167/59
--- NOTE | 2018-07-16 02:21 | NUR ---
PROVIDED NASOPHARENGEAL SUCT APPROX 3 CC BORRERO SECRETIONS EVACUATED NO BLEEDING PT TOLERATED PROCEDURE WELL
[2018-07-16 05:22] VITALS: BP 125/50
--- NOTE | 2018-07-16 06:00 | NUR ---
PT HAD NOT HAD AN INCONTINENT EPISODE FOR SEVERAL HOURS, BLADDER SCANNED TO CHECK URINE RESIDUAL. RESIDUAL AMOUNT WAS 650. SPOKE WITH AUGUSTO TAYLOR AND RECEIVED ORDERS TO DO AN IN/OUT CATH. GOT 500 OUT.
[2018-07-16 06:37] LABS: BASOPHILS 0.1 % (0-2); EOSINOPHILS 2.3 % (0-7); HEMATOCRIT 27.9 % (36.0-48.0); HEMOGLOBIN 8.8 g/dL (12-16); IMMATURE GRANULOCYTES 0.7 % (0-5); LYMPHOCYTES 21.2 % (15-50); MCH 26.7 pg (26.0-34.0); MCHC 31.5 g/dL (31.0-37.0); MCV 84.8 fL (80.0-100.0); MEAN PLATELET VOLUME 10.8 fL (7.4-10.4); MONOCYTES 9.9 % (2-11); NEUTROPHILS 65.8 % (40-80); PLATELET COUNT 217 10x3/uL (130-400); RBC 3.29 10x6/uL (4.00-5.40); WBC 11.1 10x3/uL (4.8-10.8)
[2018-07-16 06:42] LABS: CALC OSMOLALITY 275 mosm/kg (275-300); CALCIUM 9.2 mg/dL (8.5-10.1); CARBON DIOXIDE 28.1 mmol/L (21.0-32.0); CHLORIDE - SERUM 100 mmol/L (98-107); CREATININE - SERUM 0.7 mg/dL (0.6-1.3); GLUCOSE 89 mg/dL (74-106); POTASSIUM - SERUM 4.2 mmol/L (3.5-5.1); SODIUM 135 mmol/L (136-145); UREA NITROGEN 31 mg/dL (7-18); eGFR NON AFRICAN AMERICAN 86 mL/min (90-120)
--- NOTE | 2018-07-16 08:53 | NUR ---
PT DAUGHTER AT BEDSIDE INQUIRED ON WHY PT RESIDUAL WAS SO HIGH YESTERDAY AND WHY PT OUTPUT IS REDUCED WELL PT BEING LETHARGIC THIS MORNING. PT WBC IS SLIGHTLY ELEVATED AT 11.1 BUT DID NOT SEE ANY CRITICAL LABS. PER DR CRAWFORD NOTES FROM 07/[address] CAMPOS TO SEE IF PT WOULD BENEFIT FROM SNF OR IP REHAB. ADVISED HER DR WOULD BE IN TO ANSWER ALL QUESTONS TODAY IS MY FIRST DAY WITH PT AND UNAWARE OF PT BASELINE AND WILL DO MY BEST TO CARE FOR PT BEST I CAN. BED IN LOW POSITION CL IN EACH
[2018-07-16 09:28] VITALS: BP 165/55
--- NOTE | 2018-07-16 10:58 | NUR ---
CHANGED TOWEL UNDER PT PEG TUBE, HAD OLD BLOOD ON TOWEL AND TUBE, PER PT DAUGHTER DO NOT REMOVE DRESSING PER DR. ADMINISTERED PT MEDS PER MAR, PT HAD GAS BUT NO BM. HAS NOT HAD TO HAVE BED LINENS CHANGED SINCE THIS MORING AT 7 WILL CONTINUE TO MONITOR
--- NOTE | 2018-07-16 11:27 | NUR ---
INCREASED PT'S FEEDING TO 30, PT DAUGHTER AND AT NURSING STATION AND STATED THEY WANTED TO SPEAK WITH CASE MANAGEMENT WEL ADMINISTRATION IN REAGRDS TO PT CARE. ONE DAUGHTER WANTED PT AT SIDE OF BED DUE TO BEING LETHARGIC THE OTHER DAUGHTER WANTED PT IN CHAIR AND THERE IS TOO MANY CONFLICTING IDEAS WHAT THE PT NEEDS AND WHAT CARE SHE NEEDS. ASKED PAUL TO SPEAK WITH FAMILY
--- NOTE | 2018-07-16 11:39 | MORECARE ---
CASE MANAGEMENT DISCHARGE SUMMARY PATIENT: ROGERIO DIXON UNIT: [id number] ADM DATE: 06/14/18 AGE: 77 : 41 SEX: F ROOM/BED: D.2205 AUTHOR: JESSY,DOC PHYSICIAN: REFERRING PHYSICIAN: CHANDAN BLANTON MD DATE OF SERVICE: 07/16/18 Discharge Plan Patient Name: ROGERIO DIXON Facility: [facility]:[place] : 1940 Planned Disposition: Home Anticipated Discharge Date: Discharge Date: Expected LOS: Initial Reviewer: [id number] Initial Review Date: 06/15/2018 Generated: 07/16/18 12:39 pm Comments DCP- Discharge Planning Updated by [id number]: Mackenzie Linda on 07/16/18 10:[address] PATIENT'S FAMILY REQUESTING TO SEE ADMINISTRATION TO SPEAK TO THEM ABOUT TRANSFERING HER TO [facility], I CALLED AND SPOKE WITH ALIDA PAIGE AND SHE STATED THAT SHE AND MARTIN WILL COME UP AND SPEAK TO HIM. CM TO FOLLOW AND ASSIST WITH DC PLANNING DCP- Discharge Planning Updated by [id number]: Jigna Lizama on 07/15/18 10:[address] RECEIVED A CALL FROM DR MCCANN. HE HAS STATED THAT THE PATIENT DID NOT MEET CRITERIA FOR INPATIENT REHAB. HE STATED THAT THE FAMILY WANTED TO GET HER IN TO [facility] AND [facility] OR [facility] LIKE THAT AND REQUESTED I GO SPEAK WTIH THEM. UPON ENTRY TO THE ROOM, PATIENT IN CHAIR AT BEDSIDE, NON VERBAL. DAUGHTER, LILLI HAMM, AT BEDSIDE. SHE STATED THAT THE PATIENTS IS HER POA AND SHE JUST CARES FOR HER AT HOME. SHE STATED THAT DR BLANTON PROMISED THEM INPATIENT REHAB FOR 21 DAYS AND THEN THEY PLANNED TO GO TO [place] FOR THE OTHER 90 DAYS TO GET HER OFF THE FEEDING TUBE AND HOME. TOOTIE CROCKETT APN HAD ENTERED THE ROOM THE CONVERSATION WAS STARTING. SHE EXPLAINED THAT THERE WERE RULES/CRITERIA THAT HAD TO BE MET IN ORDER FOR [place] TO [place] AND THAT SHE AND/OR DR CRAWFORD WOULD TALK TO DR BLANTON TOMORROW AND SEE. I HAVE ALSO EXPLAINED THAT WITH IT BEING A HOLIDAY, NO DECISION WOULD BE MADE TODAY ANYWAY. I HAVE EXPLAINED THAT I WOULD MAKE SURE TO SPEAK WITH THE PATIENT ASSIGNED IT SERVICE DELIVERY MANAGER TOMORROW AND LET HER KNOW WHERE WE WERE AND FURTHER INTERVENTION COULD HAPPEN AFTER DR BLANTON WAS TALKED TO. DCP- Discharge Planning Updated by [id number]: Mackenzie Linda on 07/10/18 10:[address] Referral sent to [facility] (07/09) I spoke with Teresita today and she said that she has to review it and will call me back DCP- Discharge Planning Updated by [id number]: Mackenzie Linda on 07/09/18 2:[address] RHIANNA WITH INPATIENT REHAB STATES THAT SHE IS TO LOW LEVEL FOR INPATIENT REHAB, [facility] DCP- Discharge Planning Updated by [id number]: Nava Álvarez on 07/02/18 9:[address] Met with patient and daughter, Lilli, in the room. States discharge plan is for inpatient rehab at [facility]. Daughter states if she is not approved for inpatient rehab, they would consider [facility], DIANNE form signed. CM will continue to follow and assist with discharge planning/needs. DCP- Discharge Planning Updated by [id number]: Debra Duvall on 06/30/18 10:[address] REHAB PRESCREEN WAS DONE 06/28/18. REHAB WILL FOLLOW HER TO SEE IF SHE CAN PROGRESS WITH THERAPY AND TO BE ABLE TO PARTICIPATE IN THE REQUIRED 3 HRS OF THERAPY A DAY. THAT IS THE MEDICARE REQUIREMENT FOR ACUTE REHAB. DCP- Discharge Planning Updated by [id number]: Debra Duvall on 06/30/18 10:[address] CASE MANAGEMENT CONSULT RECEIVED. CM WENT TO MET WITH THE PATIENT. SHE AND HER , ENOCH, ARE AT THE BEDSIDE. CM EXPLAINED ROLE AND REQUEST TO REVISIT FOR DISCHARGE PLANNING. THE STATES HE HAD SPOKEN WITH DR BLANTON REGARDING HIS . HE STATES DR BLANTON ENCOURAGED HIM TO HAVE HIS EVALUATED FOR REHAB AT [facility]. HE DID NOT WISH TO CONSIDER SNF AT THIS TIME. REHAB PRESCREEN ORDER RECEIVED. DCP- Discharge Planning Updated by [id number]: Alethea Venegas on 06/15/18 3:[address] Patient Name: ROGERIO Loaiza DIXON Admission Status: Urgent Accout number: [id number] Admission Date: 06-14-2018 : 1940 Admission Diagnosis: Attending: JAVIER BLANTON Current LOS: 1 Anticipated DC Date: Planned Disposition: Home Primary Insurance: MEDICARE A & B Discharge Planning Comments: CM met with patient and daughter about discharge planning. CM explained CM role and verbal consent was given to do dc assessment. CM educated on Home Health, DME and rehab services that are available. Daughter states discharge plan is to return to home . The family are her total caregivers. Pt has all DME that the family feels she needs. States home environment is safe. Denies any discharge planning needs at this time. Family states the mobile van service they use and will call at dc will transport home upon discharge. CM will continue to follow and assist as needed with discharge planning needs. Supervisor Forming Department: Alethea Venegas DCPIA - Discharge Planning Initial Assessment Updated by [id number]: Alethea Venegas on 06/15/18 4:52 pm * Is the patient Alert and Oriented? Yes * How many steps to enter\exit or inside your home? * PCP Javier Blanton * Pharmacy [facility] on [address] * Preadmission Environment Home with Family * ADLs Total Dependent * Equipment Walker Wheelchair * Other Equipment hospital bed, gait belt * List name and contact numbers for known caregivers / representatives who currently or will assist patient after discharge: Daughter [phone] * Verbal permission to speak to the caregivers and representatives has been obtained from the patient. N/A * Community resources currently utilized None * Additional services required to return to the preadmission environment? No * Can the patient safely return to the preadmission environment? Yes * Has this patient been hospitalized within the prior 30 days at any hospital? No Coverage Notice Reviewer: [id number] Shannon Álvarez Notice Issued Date-Time: 07/02/2018 10:52 Notice Type: Patient Choice Letter Notice Delivered To: Family Member Relationship to Patient: Daughter [employer] Miller Name: Lilli Forrest Delivery Method: HAND - Hand Delivered Lianne Days: Prior Verbal Notification: Recipient Understood Notice: Yes Recipient Signature: Yes Med Rec Note Co-signed by Attending: Coverage Notice Comment: DIANNE for [facility] Last DP export: 07/15/18 11:02 a Patient Name: ROGERIO DIXON Page [phone] at 1139 All edits/amendments must be made on the electronic document DICTATION DATE: 07/16/18 1138 WALL ATTENDANT: NORA 07/16/18 1138 RPT#: [id number] DC DATE: STATUS: ADM IN [facility] [address] [place] [address] END OF REPORT
--- NOTE | 2018-07-16 12:03 | NUR ---
OT NOTE: DTR AT BEDSIDE; NURSE IN ROOM REPOSITIONING PT. DTR REPORTS THAT PT HAS BEEN VERY LETHARGIC AND FEELS THERE IS SOMETHING GOING ON WITH HER MOM SHE HAS SLEPT DAY AND NIGHT FOR SEVERAL DAYS. ASSISTED PT TO EOB WITH MAX ASSIST. SITTING BALANCE ON EOB IWTH MOD ASSIST TO MAINTAIN STATIC SITTING. PROM EXS WITH B UE/LES; CONTSTANT CUES, TACTILE AND VERBAL, TO KEEP HEAD UP WHILE SITTING. BACK TO BED WITH MAX ASSIST. REPOSITIONED ON SIDE WITH WEDGE BEHIND HER, PILLOW BETWEEN KNEES, AND PILLOW UNDER R UE. DENA CHRISTIANSON, OTR/L
--- NOTE | 2018-07-16 12:55 | NUR ---
TURNED PT ON TO BACKSIDE FROM LEFT SIDE, PT HAS STILL OT VOIDED SINCE 7AM. WILL PERFORM BLADDER SCAN AND PERFORM ANOTHER I&O IF NECESSARY
--- NOTE | 2018-07-16 13:51 | NUR ---
BLADDER SCANNED PT AND PT HAS 717ML IN BLADDER, ASKED DR CRAWFORD IF CHANDRA CATHETER NEEDED TO BE PLACED. PER DR CRAWFORD WAIT UNTIL AGTER SHE SPEAKS TO PT
[2018-07-16 17:29] VITALS: BP 125/57
[2018-07-16 21:00] VITALS: BP 94/42
[2018-07-17 00:43] VITALS: BP 118/56
[2018-07-17 04:21] LABS: BASOPHILS 0.1 % (0-2); EOSINOPHILS 2.1 % (0-7); HEMATOCRIT 27.4 % (36.0-48.0); HEMOGLOBIN 8.7 g/dL (12-16); IMMATURE GRANULOCYTES 0.6 % (0-5); LYMPHOCYTES 20.2 % (15-50); MCH 26.7 pg (26.0-34.0); MCHC 31.8 g/dL (31.0-37.0); MEAN PLATELET VOLUME 10.4 fL (7.4-10.4); MONOCYTES 9.9 % (2-11); NEUTROPHILS 67.1 % (40-80); PLATELET COUNT 195 10x3/uL (130-400); RBC 3.26 10x6/uL (4.00-5.40)
[2018-07-17 04:52] LABS: ANION GAP 12.7 mmol/L (8-16); CALCIUM 9.2 mg/dL (8.5-10.1); CARBON DIOXIDE 28.3 mmol/L (21.0-32.0); CREATININE - SERUM 0.8 mg/dL (0.6-1.3)
[2018-07-17 05:33] VITALS: BP 108/53
--- NOTE | 2018-07-17 07:56 | NUR ---
PT RESTING IN BED. CHEST RISING AND FALLING. DAUGHTER EXPRESSES, "I WANT DR WOOD TO SEE MOM ABOUT HER KIDNEY FUNCTION AND DR WOOD SAID HE WOULD IF WE COULD GET AN ORDER." NO S/S OF ACUTE DISTRESS. CL IN PLACE. DAUGHTER AT BEDSIDE.
--- NOTE | 2018-07-17 09:28 | NUR ---
NUTRITION F/U FAMILY AT BEDSIDE. PT TOLERATING JEVITY 1.2 TUBE FEEDS AT 40 CC/HR WITH GOAL RATE 50 CC/HR. WILL CONTINUE TO MONITOR PT PROGRESS, TOLERANCE TO TUBE FEEDS. RD FOLLOWING
[2018-07-17 10:35] VITALS: BP 1236/54
--- NOTE | 2018-07-17 12:49 | NUR ---
OT NOTE: PT MORE ALERT TODAY; BED MOB REMAINS MAX ASSIST; SITTING BALANCE WITH MAX ASSIST; TRANSFERS WITH MAX ASSIST; DTR CONTINUES TO INSIST THAT PT BE SITTING IN CHAIR DAILY, NO MATTER WHAT OTHER SISTER SAYS. DTR ALSO WANTS PT TO GO TO REHAB, OF WHICH SHE IS NOT A CANDIDATE FOR REHAB. DTR AND FATHER ARE NOT REALISTIC REGARDING PTS PROGRESS. DENA CHRISTIANSON, OTR/L
--- NOTE | 2018-07-17 13:13 | MORECARE ---
CASE MANAGEMENT DISCHARGE SUMMARY PATIENT: ROGERIO DIXON UNIT: [id number] ADM DATE: 06/14/18 AGE: 77 : 41 SEX: F ROOM/BED: D.2205 AUTHOR: JESSY,DOC PHYSICIAN: REFERRING PHYSICIAN: CHANDAN BLANTON MD DATE OF SERVICE: 07/17/18 Discharge Plan Patient Name: ROGERIO DIXON Facility: [facility]:[place] : 1940 Planned Disposition: Home Anticipated Discharge Date: Discharge Date: Expected LOS: Initial Reviewer: [id number] Initial Review Date: 06/15/2018 Generated: 07/17/18 2:13 pm Comments DCP- Discharge Planning Updated by [id number]: Mackenzie Linda on 07/17/18 12:[address] BLANTON HERE TO SPEAK TO FAMILY, THEY WERE NOT IN THE ROOM DCP- Discharge Planning Updated by [id number]: Mackenzie Linda on 07/16/18 10:[address] PATIENT'S FAMILY REQUESTING TO SEE ADMINISTRATION TO SPEAK TO THEM ABOUT TRANSFERING HER TO [facility], I CALLED AND SPOKE WITH ALIDA PAIGE AND SHE STATED THAT SHE AND MARTIN WILL COME UP AND SPEAK TO HIM. CM TO FOLLOW AND ASSIST WITH DC PLANNING DCP- Discharge Planning Updated by [email or web address]: Jigna Lizama on 07/15/18 10:[address] RECEIVED A CALL FROM DR MCCANN. HE HAS STATED THAT THE PATIENT DID NOT MEET CRITERIA FOR INPATIENT REHAB. HE STATED THAT THE FAMILY WANTED TO GET HER IN TO [facility] AND [facility] OR [facility] LIKE THAT AND REQUESTED I GO SPEAK WTIH THEM. UPON ENTRY TO THE ROOM, PATIENT IN CHAIR AT BEDSIDE, NON VERBAL. DAUGHTER, LILLI HAMM, AT BEDSIDE. SHE STATED THAT THE PATIENTS IS HER POA AND SHE JUST CARES FOR HER AT HOME. SHE STATED THAT DR BLANTON PROMISED THEM INPATIENT REHAB FOR 21 DAYS AND THEN THEY PLANNED TO GO TO [place] FOR THE OTHER 90 DAYS TO GET HER OFF THE FEEDING TUBE AND HOME. TOOTIE CROCKETT APN HAD ENTERED THE ROOM THE CONVERSATION WAS STARTING. SHE EXPLAINED THAT THERE WERE RULES/CRITERIA THAT HAD TO BE MET IN ORDER FOR HER TO GO [facility] AND THAT SHE AND/OR DR CRAWFORD WOULD TALK TO DR BLANTON TOMORROW AND SEE. I HAVE ALSO EXPLAINED THAT WITH IT BEING A HOLIDAY, NO DECISION WOULD BE MADE TODAY ANYWAY. I HAVE EXPLAINED THAT I WOULD MAKE SURE TO SPEAK WITH THE PATIENT ASSIGNED LABORER PLUMBING TOMORROW AND LET HER KNOW WHERE WE WERE AND FURTHER INTERVENTION COULD HAPPEN AFTER DR BLANTON WAS TALKED TO. DCP- Discharge Planning Updated by [id number]: Mackenzie Linda on 07/10/18 10:[address] Referral sent to [facility] (07/09) I spoke with Teresita today and she said that she has to review it and will call me back DCP- Discharge Planning Updated by [id number]: Mackenzie Torreken on 07/09/18 2:[address] RHIANNA WITH INPATIENT REHAB STATES THAT SHE IS TO LOW LEVEL FOR INPATIENT REHAB, [facility] FAMILY REQUEST DCP- Discharge Planning Updated by [id number]: Nava Álvarez on 07/02/18 9:[address] Met with patient and daughter, Lilli, in the room. States discharge plan is for inpatient rehab at [facility]. Daughter states if she is not approved for inpatient rehab, [facility], DIANNE form signed. CM will continue to follow and assist with discharge planning/needs. DCP- Discharge Planning Updated by [id number]: Debra Duvall on 06/30/18 10:[address] REHAB PRESCREEN WAS DONE 06/28/18. REHAB WILL FOLLOW HER TO SEE IF SHE CAN PROGRESS WITH THERAPY AND TO BE ABLE TO PARTICIPATE IN THE REQUIRED 3 HRS OF THERAPY A DAY. THAT IS THE MEDICARE REQUIREMENT FOR ACUTE REHAB. DCP- Discharge Planning Updated by [email or web address]: Debra Duvall on 06/30/18 10:[address] CASE MANAGEMENT CONSULT RECEIVED. CM WENT TO MET WITH THE PATIENT. SHE AND HER , ENOCH, ARE AT THE BEDSIDE. CM EXPLAINED ROLE AND REQUEST TO REVISIT FOR DISCHARGE PLANNING. THE STATES HE HAD SPOKEN WITH DR BLANTON REGARDING HIS . HE STATES DR BLANTON ENCOURAGED HIM TO HAVE HIS EVALUATED FOR REHAB AT [facility]. HE DID NOT WISH TO CONSIDER SNF AT THIS TIME. REHAB PRESCREEN ORDER RECEIVED. DCP- Discharge Planning Updated by [id number]: Alethea Venegas on 06/15/18 3:[address] Patient Name: ROGERIO Loaiza DIXON Admission Status: Urgent Accout number: [id number] Admission Date: 06-14-2018 : 1940 Admission Diagnosis: Attending: JAVIER BLANTON Current LOS: 1 Anticipated DC Date: Planned Disposition: Home Primary Insurance: MEDICARE A & B Discharge Planning Comments: CM met with patient and daughter about discharge planning. CM explained CM role and verbal consent was given to do dc assessment. CM educated on Home Health, DME and rehab services that are available. Daughter states discharge plan is to return to home . The family are her total caregivers. Pt has all DME that the family feels she needs. States home environment is safe. Denies any discharge planning needs at this time. Family states the mobile van service they use and will call at dc will transport home upon discharge. CM will continue to follow and assist as needed with discharge planning needs. Professional Organizer: Alethea Venegas DCPIA - Discharge Planning Initial Assessment Updated by [email or web address]: Alethea Venegas on 06/15/18 4:52 pm * Is the patient Alert and Oriented? Yes * How many steps to enter\exit or inside your home? * PCP Javier Blanton * Pharmacy [facility] [address] * Preadmission Environment Home with Family * ADLs Total Dependent * Equipment Walker Wheelchair * Other Equipment hospital bed, gait belt * List name and contact numbers for known caregivers / representatives who currently or will assist patient after discharge: Daughter [phone] * Verbal permission to speak to the caregivers and representatives has been obtained from the patient. N/A * Community resources currently utilized None * Additional services required to return to the preadmission environment? No * Can the patient safely return to the preadmission environment? Yes * Has this patient been hospitalized within the prior 30 days at any hospital? No Coverage Notice Reviewer: [id number] Shannon Álvarez Notice Issued Date-Time: 07/02/2018 10:52 Notice Type: Patient Choice Letter Notice Delivered To: Family Member Relationship to Patient: Daughter Tapper Hand Name: Lilli Forrest Delivery Method: HAND - Hand Delivered Lianne Days: Prior Verbal Notification: Recipient Understood Notice: Yes Recipient Signature: Yes Med Rec Note Co-signed by Attending: Coverage Notice Comment: DIANNE [facility] Last DP export: 07/16/18 10:39 a Patient Name: ROGERIO DIXON Page [phone] at 1313 All edits/amendments must be made on the electronic document DICTATION DATE: 07/17/181312 STRAIGHT EDGER: NORA 07/17/181312 RPT#: [id number] DC DATE: STATUS: ADM IN [facility] [address] [place] [address] END OF REPORT
--- NOTE | 2018-07-17 13:22 | MORECARE ---
CASE MANAGEMENT DISCHARGE SUMMARY PATIENT: ROGERIO DIXON UNIT: [id number] ADM DATE: 06/14/18 AGE: 77 : 41 SEX: F ROOM/BED: D.2205 AUTHOR: JESSY,DOC PHYSICIAN: REFERRING PHYSICIAN: CHANDAN BLANTON MD DATE OF SERVICE: 07/17/18 Discharge Plan Patient Name: ROGERIO DIXON Facility: [facility]:[place] : 1940 Planned Disposition: Home Anticipated Discharge Date: Discharge Date: Expected LOS: Initial Reviewer: [id number] Initial Review Date: 06/15/2018 Generated: 07/17/18 2:22 pm Comments DCP- Discharge Planning Updated by [email or web address]: Mackenzie Linda on 07/17/18 12:[address] BLANTON HERE TO SPEAK TO FAMILY, PATIENT CARE WAS GOING ON DCP- Discharge Planning Updated by [email or web address]: Mackenzie Linda on 07/16/18 10:[address] PATIENT'S FAMILY REQUESTING TO SEE ADMINISTRATION TO SPEAK TO THEM ABOUT TRANSFERING HER TO [facility], I CALLED AND SPOKE WITH ALIDA PAIGE AND SHE STATED THAT SHE AND MARTIN WILL COME UP AND SPEAK TO HIM. CM TO FOLLOW AND ASSIST WITH DC PLANNING DCP- Discharge Planning Updated by [id number]: Jigna Lizama on 07/15/18 10:[address] RECEIVED A CALL FROM DR MCCANN. HE HAS STATED THAT THE PATIENT DID NOT MEET CRITERIA FOR INPATIENT REHAB. HE STATED THAT THE FAMILY WANTED TO GET HER IN TO [facility] AND [facility] OR [facility] LIKE THAT AND REQUESTED I GO SPEAK WTIH THEM. UPON ENTRY TO THE ROOM, PATIENT IN CHAIR AT BEDSIDE, NON VERBAL. DAUGHTER, LILLI HAMM, AT BEDSIDE. SHE STATED THAT THE PATIENTS IS HER POA AND SHE JUST CARES FOR HER AT HOME. SHE STATED THAT DR BLANTON PROMISED THEM INPATIENT REHAB FOR 21 DAYS AND THEN THEY PLANNED TO GO TO [place] FOR THE OTHER 90 DAYS TO GET HER OFF THE FEEDING TUBE AND HOME. TOOTIE CROCKETT APN HAD ENTERED THE ROOM THE CONVERSATION WAS STARTING. SHE EXPLAINED THAT THERE WERE RULES/CRITERIA THAT HAD TO BE MET IN ORDER FOR HER TO GO [facility] AND THAT SHE AND/OR DR CRAWFORD WOULD TALK TO DR BLANTON TOMORROW AND SEE. I HAVE ALSO EXPLAINED THAT WITH IT BEING A HOLIDAY, NO DECISION WOULD BE MADE TODAY ANYWAY. I HAVE EXPLAINED THAT I WOULD MAKE SURE TO SPEAK WITH THE PATIENT ASSIGNED DORMITORY MAID TOMORROW AND LET HER KNOW WHERE WE WERE AND FURTHER INTERVENTION COULD HAPPEN AFTER DR BLANTON WAS TALKED TO. DCP- Discharge Planning Updated by [id number]: Mackenzie Linda on 07/10/18 10:[address] Referral sent to [facility] (07/09) I spoke with Teresita today and she said that she has to review it and will call me back DCP- Discharge Planning Updated by [id number]: Mackenzie Torreken on 07/09/18 2:[address] RHIANNA WITH INPATIENT REHAB STATES THAT SHE IS TO LOW LEVEL FOR INPATIENT REHAB, [facility] DCP- Discharge Planning Updated by [email or web address]: Nava Álvarez on 07/02/18 9:[address] Met with patient and daughter, Lilli, in the room. States discharge plan is for inpatient rehab at [facility]. Daughter states if she is not approved for inpatient rehab, [facility], DIANNE form signed. CM will continue to follow and assist with discharge planning/needs. DCP- Discharge Planning Updated by [id number]: Debra Duvall on 06/30/18 10:[address] REHAB PRESCREEN WAS DONE 06/28/18. REHAB WILL FOLLOW HER TO SEE IF SHE CAN PROGRESS WITH THERAPY AND TO BE ABLE TO PARTICIPATE IN THE REQUIRED 3 HRS OF THERAPY A DAY. THAT IS THE MEDICARE REQUIREMENT FOR ACUTE REHAB. DCP- Discharge Planning Updated by [id number]: Debra Duvall on 06/30/18 10:[address] CASE MANAGEMENT CONSULT RECEIVED. CM WENT TO MET WITH THE PATIENT. SHE AND HER , ENOCH, ARE AT THE BEDSIDE. CM EXPLAINED ROLE AND REQUEST TO REVISIT FOR DISCHARGE PLANNING. THE STATES HE HAD SPOKEN WITH DR BLANTON REGARDING HIS . HE STATES DR BLANTON ENCOURAGED HIM TO HAVE HIS EVALUATED FOR REHAB AT [facility]. HE DID NOT WISH TO CONSIDER SNF AT THIS TIME. REHAB PRESCREEN ORDER RECEIVED. DCP- Discharge Planning Updated by [id number]: Alethea Venegas on 06/15/18 3:[address] Patient Name: ROGERIO Loaiza DIXON Admission Status: Urgent Accout number: [id number] Admission Date: 06-14-2018 : 1940 Admission Diagnosis: Attending: JAVIER BLANTON Current LOS: 1 Anticipated DC Date: Planned Disposition: Home Primary Insurance: MEDICARE A & B Discharge Planning Comments: CM met with patient and daughter about discharge planning. CM explained CM role and verbal consent was given to do dc assessment. CM educated on Home Health, DME and rehab services that are available. Daughter states discharge plan is to return to home . The family are her total caregivers. Pt has all DME that the family feels she needs. States home environment is safe. Denies any discharge planning needs at this time. Family states the mobile van service they use and will call at dc will transport home upon discharge. CM will continue to follow and assist as needed with discharge planning needs. Zipper Measurer: Alethea Venegas DCPIA - Discharge Planning Initial Assessment Updated by [id number]: Alethea Venegas on 06/15/18 4:52 pm * Is the patient Alert and Oriented? Yes * How many steps to enter\exit or inside your home? * PCP Javier Blanton * Pharmacy [facility] [address] * Preadmission Environment Home with Family * ADLs Total Dependent * Equipment Walker Wheelchair * Other Equipment hospital bed, gait belt * List name and contact numbers for known caregivers / representatives who currently or will assist patient after discharge: Daughter [phone] * Verbal permission to speak to the caregivers and representatives has been obtained from the patient. N/A * Community resources currently utilized None * Additional services required to return to the preadmission environment? No * Can the patient safely return to the preadmission environment? Yes * Has this patient been hospitalized within the prior 30 days at any hospital? No Coverage Notice Reviewer: [id number] Shannon Álvarez Notice Issued Date-Time: 07/02/2018 10:52 Notice Type: Patient Choice Letter Notice Delivered To: Family Member Relationship to Patient: Daughter Clay Digger Name: Lilli Forrest Delivery Method: HAND - Hand Delivered Lianne Days: Prior Verbal Notification: Recipient Understood Notice: Yes Recipient Signature: Yes Med Rec Note Co-signed by Attending: Coverage Notice Comment: DIANNE [facility] Last DP export: 07/17/18 12:13 p Patient Name: DIXON, ROGERIO Page [phone] at 1322 All edits/amendments must be made on the electronic document DICTATION DATE: 07/17/181321 SENIOR CHEMIST: NORA 07/17/18 132 RPT#: [id number] DC DATE: STATUS: ADM IN [facility] [address] [place] [address] END OF REPORT
[2018-07-17 13:45] VITALS: BP 127/57
--- NOTE | 2018-07-17 14:29 | NUR ---
DRE JEVITY 1.2 40ML /HR. INCREASED TO GOAL OF 50ML/HR. DAUGHTER AT BEDSIDE. NO S/S OF ACUTE DISTRESS. CL IN PLACE.
--- NOTE | 2018-07-17 19:20 | NUR ---
PT RESTING IN BED. DAUGHTER AT BEDSIDE. NO S/S OF ACUTE DISTRESS. CL IN PLACE.
--- NOTE | 2018-07-17 20:00 | NUR ---
ALERT RESTING IN BED, [facility] REQIESTING PAIN MEDS, NODS HEAD YES WHEN ASK IF HURTING, WILL GIVE DILAUDID ORDERED, SEE SHIFT ASSESSMENT, CALL LIGHT IN REACH
[2018-07-17 21:23] VITALS: BP 107/50
[2018-07-18 01:57] VITALS: BP 98/40
[2018-07-18 04:11] LABS: BASOPHILS 0.1 % (0-2); EOSINOPHILS 2.8 % (0-7); HEMATOCRIT 26.2 % (36.0-48.0); HEMOGLOBIN 8.2 g/dL (12-16); IMMATURE GRANULOCYTES 0.7 % (0-5); LYMPHOCYTES 19.4 % (15-50); MCH 26.5 pg (26.0-34.0); MCHC 31.3 g/dL (31.0-37.0); MCV 84.8 fL (80.0-100.0); MEAN PLATELET VOLUME 10.1 fL (7.4-10.4); MONOCYTES 10.3 % (2-11); NEUTROPHILS 66.7 % (40-80); PLATELET COUNT 190 10x3/uL (130-400); RBC 3.09 10x6/uL (4.00-5.40); RDW 17.9 % (11.5-14.5); WBC 9.4 10x3/uL (4.8-10.8)
[2018-07-18 04:45] LABS: ALBUMIN 3.2 g/dL (3.4-5.0); ALKALINE PHOSPHATASE 79 U/L (46-116); ALT (SGPT) 20 U/L (10-68); CALC OSMOLALITY 274 mosm/kg (275-300); CALCIUM 8.6 mg/dL (8.5-10.1); CARBON DIOXIDE 26.3 mmol/L (21.0-32.0); CHLORIDE - SERUM 100 mmol/L (98-107); CREATININE - SERUM 0.6 mg/dL (0.6-1.3); GLUCOSE 115 mg/dL (74-106); PROTEIN - SERUM 6.2 g/dL (6.4-8.2); SODIUM 135 mmol/L (136-145); UREA NITROGEN 25 mg/dL (7-18); eGFR NON AFRICAN AMERICAN > 90 mL/min (90-120)
[2018-07-18 05:41] VITALS: BP 125/86
[2018-07-18 09:42] VITALS: BP 120/52
--- NOTE | 2018-07-18 09:58 | NUR ---
MORNING ASSESSMENT COMPLETE. SEE ASSESSMENT FLOWSHEET FOR FURHTER DETIALS. PT LYING IN BED. DAUGHTER AT BEDSIDE. APHASIA NOTED. NO SIGNS OF DISCOMFORT. DENIES NEEDS AT THIS TIME. CL IN REACH. SIDE RAILS UP X3 FOR PT SAFETY. BED IN LOWEST POSITION.
[2018-07-18] MEDS ORDERED: BROVANA15 MCG/2 M INH (11:37)
[2018-07-18] MEDS ORDERED: Xopenex 0.63 MG INH INH (11:39)
[2018-07-18] MEDS ORDERED: ONCOLOGY MOUTHWASH PO (11:39)
[2018-07-18] MEDS ORDERED: LOVENOX40 MG/0.4 SC (11:39)
[2018-07-18] MEDS ORDERED: ATROVENT 0.02%2.5 ML UPD (11:39)
[2018-07-18] MEDS ORDERED: PULMICORT0.5 MG/21 UPD (11:40)
[2018-07-18] MEDS ORDERED: Stresstabs With Zinc PEG (11:40)
[2018-07-18] MEDS ORDERED: [UNRECOGNIZED DRUG - OTHER] PO (11:40)
[2018-07-18] MEDS ORDERED: MIRALAX17 GM PO (11:40)
--- NOTE | 2018-07-18 11:48 | MORECARE ---
CASE MANAGEMENT DISCHARGE SUMMARY PATIENT: ROGERIO DIXON UNIT: [id number] ADM DATE: 06/14/18 AGE: 77 : 41 SEX: F ROOM/BED: D.2205 AUTHOR: JESSYDOC PHYSICIAN: REFERRING PHYSICIAN: CHANDAN BLANTON MD DATE OF SERVICE: 07/18/18 Discharge Plan Patient Name: ROGERIO DIXON Facility: [facility]:[place] : 1940 Planned Disposition: Home Anticipated Discharge Date: Discharge Date: Expected LOS: Initial Reviewer: [email or web address] Initial Review Date: 06/15/2018 Generated: 07/18/18 12:48 pm Comments DCP- Discharge Planning Updated by [id number]: Mackenzie Linda on 07/18/18 10:[address] PATIENT WILL BE DISCHARGING TO INPATIENT REHAB TODAY, IMM SERVED AND EXLAINED TO PATIENT AND DAUGHTER. CM TO FOLLOW AND ASSIST NEEDED DCP- Discharge Planning Updated by [id number]: Mackenzie Linda on 07/17/18 12:[address] BLANTON HERE TO SPEAK TO FAMILY, PATIENT CARE WAS GOING ON DCP- Discharge Planning Updated by [email or web address]: Mackenzie Linda on 07/16/18 10:[address] PATIENT'S FAMILY REQUESTING TO SEE ADMINISTRATION TO SPEAK TO THEM ABOUT TRANSFERING HER TO [facility], I CALLED AND SPOKE WITH ALIDA PAIGE AND SHE STATED THAT SHE AND MARTIN WILL COME UP AND SPEAK TO HIM. CM TO FOLLOW AND ASSIST WITH DC PLANNING DCP- Discharge Planning Updated by [id number]: Jigna Lizama on 07/15/18 10:[address] RECEIVED A CALL FROM DR MCCANN. HE HAS STATED THAT THE PATIENT DID NOT MEET CRITERIA FOR INPATIENT REHAB. HE STATED THAT THE FAMILY WANTED TO GET HER IN TO [facility] AND [facility] OR [facility] LIKE THAT AND REQUESTED I GO SPEAK WTIH THEM. UPON ENTRY TO THE ROOM, PATIENT IN CHAIR AT BEDSIDE, NON VERBAL. DAUGHTER, LILLI HAMM, AT BEDSIDE. SHE STATED THAT THE PATIENTS IS HER POA AND SHE JUST CARES FOR HER AT HOME. SHE STATED THAT DR BLANTON PROMISED THEM INPATIENT REHAB FOR 21 DAYS AND THEN THEY PLANNED TO GO TO [place] FOR THE OTHER 90 DAYS TO GET HER OFF THE FEEDING TUBE AND HOME. TOOTIE CROCKETT APN HAD ENTERED THE ROOM THE CONVERSATION WAS STARTING. SHE EXPLAINED THAT THERE WERE RULES/CRITERIA THAT HAD TO BE MET [place] AND THAT SHE AND/OR DR CRAWFORD WOULD TALK TO DR BLANTON TOMORROW AND SEE. I HAVE ALSO EXPLAINED THAT WITH IT BEING A HOLIDAY, NO DECISION WOULD BE MADE TODAY ANYWAY. I HAVE EXPLAINED THAT I WOULD MAKE SURE TO SPEAK WITH THE PATIENT ASSIGNED PIE CRIMPING MACHINE OPERATOR TOMORROW AND LET HER KNOW WHERE WE WERE AND FURTHER INTERVENTION COULD HAPPEN AFTER DR BLANTON WAS TALKED TO. DCP- Discharge Planning Updated by [id number]: Mackenzie Linda on 07/10/18 10:[address] Referral sent to [facility] (07/09) I spoke with Teresita today and she said that she has to review it and will call me back DCP- Discharge Planning Updated by [id number]: Mackenzie Linda on 07/09/18 2:[address] RHIANNA WITH INPATIENT REHAB STATES THAT SHE IS TO LOW LEVEL FOR INPATIENT REHAB, REFERRAL SENT TO [place] [facility] PER FAMILY REQUEST DCP- Discharge Planning Updated by [email or web address]: Nava Álvarez on 07/02/18 9:[address] Met with patient and daughter, Lilli, in the room. States discharge plan is for inpatient rehab at [facility]. Daughter states if she is not approved for inpatient rehab, they would consider [facility], DIANNE form signed. CM will continue to follow and assist with discharge planning/needs. DCP- Discharge Planning Updated by [id number]: Debra Duvall on 06/30/18 10:[address] REHAB PRESCREEN WAS DONE 06/28/18. REHAB WILL FOLLOW HER TO SEE IF SHE CAN PROGRESS WITH THERAPY AND TO BE ABLE TO PARTICIPATE IN THE REQUIRED 3 HRS OF THERAPY A DAY. THAT IS THE MEDICARE REQUIREMENT FOR ACUTE REHAB. DCP- Discharge Planning Updated by [id number]: Debra Duvall on 06/30/18 10:[address] CASE MANAGEMENT CONSULT RECEIVED. CM WENT TO MET WITH THE PATIENT. SHE AND HER , ENOCH, ARE AT THE BEDSIDE. CM EXPLAINED ROLE AND REQUEST TO REVISIT FOR DISCHARGE PLANNING. THE STATES HE HAD SPOKEN WITH DR BLANTON REGARDING HIS . HE STATES DR BLANTON ENCOURAGED HIM TO HAVE HIS EVALUATED FOR REHAB AT [facility]. HE DID NOT WISH TO CONSIDER SNF AT THIS TIME. REHAB PRESCREEN ORDER RECEIVED. DCP- Discharge Planning Updated by [id number]: Alethea Venegas on 06/15/18 3:[address] Patient Name: ROGERIO DIXON Admission Status: Urgent Accout number: [id number] Admission Date: 06-14-2018 : 1940 Admission Diagnosis: Attending: JAVIER BLANTON Current LOS: 1 Anticipated DC Date: Planned Disposition: Home Primary Insurance: MEDICARE A & B Discharge Planning Comments: CM met with patient and daughter about discharge planning. CM explained CM role and verbal consent was given to do dc assessment. CM educated on Home Health, DME and rehab services that are available. Daughter states discharge plan is to return to home . The family are her total caregivers. Pt has all DME that the family feels she needs. States home environment is safe. Denies any discharge planning needs at this time. Family states the mobile van service they use and will call at dc will transport home upon discharge. CM will continue to follow and assist as needed with discharge planning needs. Turner Off: Alethea Venegas DCPIA - Discharge Planning Initial Assessment Updated by [id number]: Alethea Venegas on 06/15/18 4:52 pm * Is the patient Alert and Oriented? Yes * How many steps to enter\exit or inside your home? * PCP Javier Blanton * Pharmacy [facility] [address] * Preadmission Environment Home with Family * ADLs Total Dependent * Equipment Walker Wheelchair * Other Equipment hospital bed, gait belt * List name and contact numbers for known caregivers / representatives who currently or will assist patient after discharge: Daughter [phone] * Verbal permission to speak to the caregivers and representatives has been obtained from the patient. N/A * Community resources currently utilized None * Additional services required to return to the preadmission environment? No * Can the patient safely return to the preadmission environment? Yes * Has this patient been hospitalized within the prior 30 days at any hospital? No Coverage Notice Reviewer: [id number] Shannon Álvarez Notice Issued Date-Time: 07/02/2018 10:52 Notice Type: Patient Choice Letter Notice Delivered To: Family Member Relationship to Patient: Daughter [employer] Salesperson Name: Lilli Forrest Delivery Method: HAND - Hand Delivered Lianne Days: Prior Verbal Notification: Recipient Understood Notice: Yes Recipient Signature: Yes Med Rec Note Co-signed by Attending: Coverage Notice Comment: [facility] for [facility] Reviewer: [id number] - Mackenzie Linda Notice Issued Date-Time: 07/18/2018 11:40 Notice Type: IM Discharge Notice Notice Delivered To: Family Member Relationship to Patient: Daughter [employer] Salesperson Name: Delivery Method: HAND - Hand Delivered Lianne Days: Prior Verbal Notification: Recipient Understood Notice: Yes Recipient Signature: Yes Med Rec Note Co-signed by Attending: Coverage Notice Comment: Last DP export: 07/17/18 12:22 p Patient Name: ROGERIO DIXON Page [id number] at 1148 All edits/amendments must be made on the electronic document DICTATION DATE: 07/18/187 LIEUTENANT COLONEL: NORA 07/18/18 1147 RPT#: [id number] DC DATE: STATUS: ADM IN [facility] [address] [place] [address] END OF REPORT
[2018-07-18 12:52] VITALS: BP 118/62
--- NOTE | 2018-07-18 12:58 | NUR ---
OT NOTE: PT MORE ALERT TODAY. MAX ASSIST WITH BED MOB AND SUPINE TO SIT. MOD ASSIST WITH STATIC SITTING. MAX ASSIST WITH TRANSFER. PT ABLE TO TOLERATE SITTING UP IN CHAIR 4+ HRS. DENA CHRISTIANSON, OTR/L
[2018-07-18 17:06] VITALS: BP 106/41
[2018-07-18] MEDS ORDERED: PEPCID AC20 MG PO (18:32)
[2018-07-18] MEDS ORDERED: SYNTHROID75 MCG PO ×2 (18:32→18:33)
== END 2018-07-18 17:42 | DRG 207 ==
LOC: D.M3 17:01 → D.ICU 19:00 → D.MS 19:00 → D.ICU 06-17 09:02 → D.MS 06-28 14:14 → D.ICU 07-03 20:10 → D.MS 07-07 06:49 → D.SDCHOLD 07-08 17:06 → D.MS 07-08 17:08
PROVIDERS: Family Medicine; Internal Medicine Nephrology; Internal Medicine Pulmonary Disease; ADMIT Emergency Medicine; ATTEND Emergency Medicine
PROC: 0BH17EZ Insertion of Endotracheal Airway into Trachea, Via Natural or Artificial Opening (ICD-10-PCS; principal; 2018-06-21)
PROC: 5A1955Z Respiratory Ventilation, Greater than 96 Consecutive Hours (ICD-10-PCS; 2018-06-21)
PROC: 0DH63UZ Insertion of Feeding Device into Stomach, Percutaneous Approach (ICD-10-PCS; 2018-07-11)
DX: J18.9 Pneumonia, unspecified organism (principal); J96.91 Respiratory failure, unspecified with hypoxia; I50.43 Acute on chronic combined systolic (congestive) and diastolic (congestive) heart failure; N17.9 Acute kidney failure, unspecified; N39.0 Urinary tract infection, site not specified; I13.0 Hypertensive heart and chronic kidney disease with heart failure and stage 1 through stage 4 chronic kidney disease, or unspecified chronic kidney disease; I50.42 Chronic combined systolic (congestive) and diastolic (congestive) heart failure; I69.351 Hemiplegia and hemiparesis following cerebral infarction affecting right dominant side; E86.0 Dehydration; J69.0 Pneumonitis due to inhalation of food and vomit; B96.1 Klebsiella pneumoniae [K. pneumoniae] as the cause of diseases classified elsewhere; I48.91 Unspecified atrial fibrillation; Z95.0 Presence of cardiac pacemaker; N18.9 Chronic kidney disease, unspecified; E03.9 Hypothyroidism, unspecified; K21.9 Gastro-esophageal reflux disease without esophagitis; K59.09 Other constipation; D72.1 Eosinophilia

== ENCOUNTER 2018-07-18 17:10 | Inpatient (IN) | payer MEDICARE, OTHER ==
[~2018-07-18] VITALS: Ht 157.5 cm; Wt 68.0 kg
[~2018-07-18 17:10] MED LIST changes: +ATROVENT 0.02%2.5 ML UPD; +BROVANA15 MCG/2 M INH; +CYMBALTA30 MG PO; +K-DUR20 MEQ PO; +LOVENOX40 MG/0.4 SC; +MACRODANTIN100 MG PO; +MELATONIN 3 MG1 TAB PO; +MELATONIN5 MG PO; +ONCOLOGY MOUTHWASH PO; +PULMICORT0.5 MG/21 UPD; +Stresstabs With Zinc PEG; +Xopenex 0.63 MG INH INH; +[UNRECOGNIZED DRUG - OTHER] PO
[2018-07-18 18:12] VITALS: BP 120/51; BMI 27.5
[2018-07-18] MEDS ORDERED: SYNTHROID75 MCG PO ×2 (18:32→18:33)
[2018-07-18] MEDS ORDERED: PEPCID AC20 MG PO (18:32)
--- NOTE | 2018-07-18 19:18 | NUR ---
GREETED PATIENT AND INTRODUCED MYSELF HER NURSE. PATIENTS FAMILY MEMBER AT BEDSIDE. ADMINSSION PAPER WORK SIGNED. DENIES ANY FURTHER NEEDS AT THIS TIME. CALL LIGHT IN REACH.
[2018-07-18 19:30] VITALS: BP 120/51
[2018-07-19 03:07] LABS: APPEARANCE HAZY (CLEAR); BACTERIA MODERATE /hpf (NONE SEEN); BILIRUBIN NEGATIVE (NEGATIVE); COLOR YELLOW (YELLOW); EPITHELIAL CELLS 0-5 /hpf (0-5); GLUCOSE NEGATIVE (NEGATIVE); KETONE NEGATIVE (NEGATIVE); NITRITE NEGATIVE (NEGATIVE); PROTEIN TRACE mg/dL (NEGATIVE); UROBILINOGEN NORMAL (NORMAL); WHITE CELLS - URINE >50 /hpf (0-5)
--- NOTE | 2018-07-19 03:27 | NUR ---
PATIENT RESTING QUIETLY WITH EYES CLOSED. FAMILY MEMBER AT BEDSIDE. RESPIRATIONS EVEN. NO S/S OF DISTRESS. CALL LIGHT IN REACH.
[2018-07-19 07:15] LABS: ANION GAP 10.4 mmol/L (8-16); CALCIUM 8.8 mg/dL (8.5-10.1); CARBON DIOXIDE 26.9 mmol/L (21.0-32.0); POTASSIUM - SERUM 4.3 mmol/L (3.5-5.1)
[2018-07-19 07:18] LABS: BASOPHILS 0.1 % (0-2); EOSINOPHILS 2.3 % (0-7); HEMOGLOBIN 8.4 g/dL (12-16); IMMATURE GRANULOCYTES 0.6 % (0-5); LYMPHOCYTES 15.6 % (15-50); MCH 26.6 pg (26.0-34.0); MCHC 31.1 g/dL (31.0-37.0); MCV 85.4 fL (80.0-100.0); MEAN PLATELET VOLUME 10.3 fL (7.4-10.4); MONOCYTES 9.6 % (2-11); NEUTROPHILS 71.8 % (40-80); PLATELET COUNT 199 10x3/uL (130-400); RBC 3.16 10x6/uL (4.00-5.40); WBC 11.6 10x3/uL (4.8-10.8)
[2018-07-19 07:20] LABS: CREATININE - SERUM 0.8 mg/dL (0.6-1.3)
--- NOTE | 2018-07-19 08:00 | NUR ---
PATIENT RESTING IN BED. FAMILY AT BEDSIDE. CALL LIGHT WITHIN PATIENTS REACH. WILL CONTINUE WITH PLAN OF CARE
[2018-07-19 08:09] VITALS: BP 112/46
--- NOTE | 2018-07-19 09:00 | NUR ---
DR Collin CAMPOS INTO SEE THIS PATIENT. SIGNED DNR. MARKED ON CHART
--- NOTE | 2018-07-19 10:37 | NUR ---
OCCUPATIONAL THERAPIST WORKING WITH PATIENT IN ROOM. HELPING PATIENT WITH A SHOWER. KILN CHARGER IN ROOM. STATES SHE WILL BE CHANGING PEG TUBE FEEDINGS TO BOLUS. PATIENT TOLERATING CONTINUOUS FEEDINGS
[2018-07-19 10:47] VITALS: Ht 157.5 cm; Wt 68.0 kg
--- NOTE | 2018-07-19 11:31 | RHP ---
PATIENT: ROGERIO DIXON MEDICAL RECORD: [id number] ACCOUNT: [id number] [id number] : [facility] ADMISSION DATE: 07/18/18 REHABILITATION HISTORY AND PHYSICAL EXAMINATION POST ADMISSION PHYSICIAN EXAMINATION ADMITTING DIAGNOSIS: Disuse myopathy. HISTORY OF PRESENT ILLNESS: The patient admitted for a neurological condition disuse myopathy. She is a 77-year-old female patient with history of hypertension, hyperlipidemia, chronic kidney disease, CVA with right hemiplegia. She has had bilateral carotid endarterectomies, hypothyroidism, valvular heart disease, and pacemaker placement. She has also got AFib and chronic depression, presented secondary to decreased appetite, weakness. States that had just not been feeling well prior to admit. She was evaluated by house calls and sent in with a UTI. She had decreased appetite, p.o. intake and weakness. She was found to be hypoxic, was transferred to the ICU. Chest x-ray showed bilateral edema. She had a bronchoscopy performed on 06/21/2018 and 06/26/2018. Been requiring some blood transfusions also. She had been seen by pulmonary, cardiology, surgery, nephrology, dietitian, OT, speech therapy, and physical therapy during her stay. She had been found to be aspirating and has had a PEG tube placed for total nutritional support at this time. She continues to be on telemetry. Has had some tachycardia. Continues to need nutritional support and also teaching with the family. She has been having some tachycardia, she is going to need some medical adjustments, decline in ADLs, acute muscle wasting, extended hospitalization, proximal muscle weakness, new onset aspiration, debility, deconditioning, she has impaired mobility, she is a high fall risk. These are barriers to discharge home at this time. She lives at home with her family. They have progressed fairly well to regain some of her independence in the past except for mod assist for ADLs and cognition was set up for total assist for mobility, was able to self-propell herself in a wheelchair. She and her family would like her to return home at her prior level of functioning or somewhat better if there is any possibility of this. COMORBIDITIES: Include oropharyngeal dysphagia, aphasia, dysphagia, muscle mass loss, UTI, microcytic anemia, acute on chronic severe protein malnutrition, chronic constipation, hypothyroidism, cardiac arrhythmia, hyponatremia, hypertension, generalized weakness, anemia, dementia, chronic kidney disease, COPD, leukocytosis, neuropathy, AFib, and rapid ventricular response, controlled. PAST MEDICAL HISTORY: Significant for CVA, carotid disease, right hemiparesis, thyroid problems, hypertension, pacemaker, valve replacement, chronic back pain, depression, anxiety, has got a history of tobacco use, and UTI. PAST SURGICAL HISTORY: Includes hernia repair, tonsillectomy, adenoidectomy, hysterectomy, valve repair, bilateral carotid endarterectomy, cataract surgery, and PEG placement. ALLERGIES: CARLO INHIBITORS AND ALSO TRAZODONE. CURRENT MEDICATIONS: She is on an electrolyte protocol at this time. She is on Synthroid 75 mcg daily, vitamin B daily, Neurontin 300 mg at noon. She is on a multivitamin daily. Lovenox 40 mg subQ daily, Cymbalta 30 mg daily, Multaq 400 mg b.i.d. with meals, vitamin B12 500 mg daily, aspirin chewable 81 mg daily, HISTORY AND PHYSICAL [id number] [facility] She is on polyethylene glycol 17 grams in 8 ounces of water b.i.d. She is on Magic mouthwash p.r.n., Waldron 5/325 one tab q.4 hours p.r.n., melatonin 3 mg at bedtime p.r.n., Neurontin 600 mg b.i.d. with a divided 12:00 noon dose. She is on Pepcid 20 mg b.i.d., budesonide 0.5 mg b.i.d., Brovana 15 mcg b.i.d., Norvasc 5 mg b.i.d., and Tylenol with codeine as needed for mild pain. HABITS: No current alcohol or tobacco use. FAMILY HISTORY: Noncontributory. SOCIAL HISTORY: The patient hopes to return back home and get back to her prior level of functioning. REVIEW OF SYSTEMS: Difficult to obtain secondary to her CVA. PHYSICAL EXAMINATION: VITAL SIGNS: Stable. She is afebrile. GENERAL: An elderly female, in no acute distress, alert upon exam. HEENT: Normocephalic and atraumatic. Mucosa moist. NECK: Supple. No lymphadenopathy. She does smile when asked questions. LUNGS: Clear in upper aj. No wheezing, rhonchi, or rales. HEART: Irregular rate and rhythm. No murmurs, rubs or gallops. ABDOMEN: Soft, nontender, nondistended. Positive bowel sounds times 4. Her PEG tube looks good. EXTREMITIES: No clubbing, cyanosis or edema. NEUROLOGIC: She does have changes consistent with CVA with noted right-sided greater than left-sided weakness. LABORATORY DATA: White count is 11.6, H&H of 8 and 27, and platelet count was noted to be 199. Her sodium is 135, potassium 4.3, BUN and creatinine of 23 and 0.8, and blood sugar is noted to be 100. Her admit UA did show 2+ leukocyte esterase and also greater than 50 white blood cells, I will wait on culture and sensitivity on this. ASSESSMENT: This is a 77-year-old female patient admitted to rehab with a working diagnosis of disuse myopathy. The patient has potential to make improvement. We instituted the following multidisciplinary therapies including, but not limited to physical, occupational, respiratory, speech, nutritional services, prosthetics, and orthotics. Given her complex medical condition and risks for more complications, rehabilitation services cannot be provided at a low level of care such as [facility] facility. PLAN: 1. Admit to [facility] for intensive inpatient therapy to include the following disciplines: A. Physical therapy to improve gait, all transfer skills and bed mobility to a modified independent level. B. Occupational therapy to a modified independent level. C. Case management to assist with discharge planning and placement options. D. Nutrition to assist with nutritional needs. E. Rehabilitation nursing to assist in monitoring the patient's underling medical conditions and to assist with any type of bowel or bladder management. 2. The patient's current medication and medical care will be continued. 3. The patient will be placed on standard fall precautions. HISTORY AND PHYSICAL [id number] DIXON,ROGERIO 4. Estimated length of stay is approximately 7-10 days. 4. We will discuss this patient during care team staff meeting this week. We work with her family members on feeding and aspiration precautions and I will see again in the a.m. TRANSINT:[id number] Voice Confirmation ID: [id number] DOCUMENT ID: [id number] DARIUS notes whether there has been none or any medical/functional change since admission: - NO CHANGE SINCE PRESCREEN. DARIUS attests patient continues to be appropriate for IRF: - CONTINUES TO BE APPROPRIATE. CHADNAN CAMPOS MD at 1131 CC: [id number] DICTATION DATE: 07/19/18 0858 ASSIGNMENT CLERK: 07/19/18 1042 ADM IN [facility] [address] [id number]
--- NOTE | 2018-07-19 17:35 | NUR ---
I have reviewed this patient and I concur with the Shift Assessment completed by the Licensed Practical Nurse today this shift.
--- NOTE | 2018-07-19 17:42 | NUR ---
SPEECH THERAPIST IN ROOM. WORKING WITH PATIENT
[2018-07-19 19:00] VITALS: BP 114/51
--- NOTE | 2018-07-19 19:29 | NUR ---
PT LYING IN BED. CALL LIGHT IN REACH. DENIES NEEDS OR PAIN. BED IN LOW. SIDE RAILS X3. PT IS NONVERBAL BUT CAN SHAKE HEAD YES OR NO. TUBE FEED RUNNING AT THIS TIME. WILL CONTINUE TO MONITOR.
--- NOTE | 2018-07-19 22:55 | NUR ---
PT LYING IN BED WATCHING TV. CALL LIGHT IN REACH. DENIES NEEDS OR PAIN AT THIS TIME. PT ONLY ABLE TO STATE "COFFE" DUE TO APHASIA. BUT CAN SHAKE HEAD YES OR NO WHEN ASKED IF IN PAIN AND WHERE. PEG TUBE FEED RUNNING. TOLERATING WELL NO S/S OF PAIN OR DISCOMFORT. DRESSING INTACT TO TUBE SITE. CHANDRA CATH INTACT. URINE COLOR WNL. LUNGS CLEAR. BOWEL ACTIVE X4. A/O X1. BED ALARM ON. MEDS GIVEN VIA PEG TUBE. WCTM
--- NOTE | 2018-07-20 02:37 | NUR ---
I have reviewed this patient and I concur with the Shift Assessment completed by the Licensed Practical Nurse today this shift.
--- NOTE | 2018-07-20 03:55 | NUR ---
PT RESTING QUIETLY. CALL LIGHT IN REACH. NO SIGNS OF DISTRESS OR PAIN. WCTM
--- NOTE | 2018-07-20 05:45 | NUR ---
CHECKED PT AND WAS DRY. CHANDRA OUTPUT 600. CALL LIGHT IN REACH. TUBE FEED TURNED OFF DUE TO SYNTHROID NEEDING TO BE GIVEN IN AN HOUR.NEW BAG HUNG FOR TUBE FEED. TM
[2018-07-20 08:00] VITALS: BP 124/59
--- NOTE | 2018-07-20 08:10 | NUR ---
PATIENT ALERT/ NON VERBAL MOST OF THE TIME. FAMILY MEMBER IN WITH PATIENT. CALL LIGHT WITHIN REACH. WILL CONTINUE WITH PLAN OF CARE
--- NOTE | 2018-07-20 09:59 | NUR ---
PATIENT IN REHAB ROOM. WORKING WITH OCCUPATIONAL AND PHYSICAL THERAPIST
--- NOTE | 2018-07-20 12:43 | NUR ---
I have reviewed this patient and I concur with the Shift Assessment completed by the Licensed Practical Nurse today this shift.
--- NOTE | 2018-07-20 13:44 | NUR ---
PATIENT BACK IN BED AFTER THERAPY. FAMILY REMAINS IN ROOM AT BEDSIDE
--- NOTE | 2018-07-20 19:39 | NUR ---
PT LYING IN BED WATCHING TV. CALL LIGHT IN REACH. NO SIGNS OF DISTRESS OR PAIN DUE TO BEING NONVERBAL BESIDES STATING "COFFEE". TUBE FEED RUNNING AT THIS TIME. NO S/S OF DISCOMFORT OR PAIN. BED ALARM ON. A/O TO PERSON. WILL CONTINUE TO MONITOR.
[2018-07-20 20:53] VITALS: BP 104/44
--- NOTE | 2018-07-20 22:19 | NUR ---
PATIENT SLEEPING AT THIS TIME. WILL CONTINUE TO MONITOR.
--- NOTE | 2018-07-21 02:06 | NUR ---
RESTING IN BED WITH EYES CLOSED.
--- NOTE | 2018-07-21 04:50 | NUR ---
PT TURNED AND REPOSITIONED. SMALL SMEAR OF LOOSE STOOL CLEANSED WITH VERONIQUE/CHANDRA CARE.
--- NOTE | 2018-07-21 04:56 | NUR ---
PEG TUBE RESIDUAL IS 35CC AT THIS TIME. TUBE FEEDING STOPPED.
--- NOTE | 2018-07-21 07:59 | NUR ---
PATIENT ALERT. NON VERBAL. DAUGHTER AT BEDSIDE. DAUGHTER GIVING THIS PATIENT A SHOWER. LINENES CHANGED ON BED. WILL CONTINUE WITH PLAN OF CARE
[2018-07-21 08:00] VITALS: BP 134/55
--- NOTE | 2018-07-21 14:33 | NUR ---
PATIENT PUT BACK IN BED. MAX ASST FROM WHEELCHAIR UNTO BED. FAMILY REMAINS WITH PATIENT
--- NOTE | 2018-07-21 17:52 | NUR ---
I have reviewed this patient and I concur with the Shift Assessment completed by the Licensed Practical Nurse today this shift.
--- NOTE | 2018-07-21 17:53 | NUR ---
CONTINUOUS G TUBE FEEDING STARTED. JEVITY 1.2 RUNNING AT 40CC/HR WITH 15/CC HR FLUSH. HOB UP
--- NOTE | 2018-07-21 19:15 | NUR ---
PT RESTING IN BED WITH EYES OPEN. ALERT TO SOUNDS. PT IS APHASIC AND REPLIES COFFEE TO ALL QUESTIONS. UNABLE TO DETERMINE PROPER ORIENTATION. PT TURNED AND REPOSITIONED Q2 HRS AND PRN. INC. CARE GIVEN PRN. CHANDRA CATH PATENT AND DRAINING TO A GRAVITY BAG. OSMOLYTE 1.2 INFUSING TO PEG TUBE WITHOUT DIFFICULTY. HOB ELEVATED 30 DEGREES. LUNG SOUNDS ARE WET IN ALL LOBES. PTS RIGHT SIDE IS FLACID. POSITIONED IN BED WITH PILLOWS. TELEMETRY UNIT IS ON AND INTACT. SR'S ARE UP X 3 IN BED. CALL LIGHT AND BEDSIDE TABLE ARE WITHIN EASY REACH.
[2018-07-21 20:00] VITALS: BP 109/51
--- NOTE | 2018-07-21 21:16 | NUR ---
PT RESTING IN BED WATCHING TV. AWAKE AND ALERT. PT TURNS HEAD TO LOOK AT ME WHEN SPOKEN TO. SHE DOES NOT ALWAYS ATTEMPT TO SPEAK, BUT WHEN SHE DOES SHE ONLY SAYS "COFFEE". PT TOLERATED PM MEDS THROUGH PEG TUBE WITHOUT DIFFICULTY. NO ACUTE DISTRESS NOTED. PT TURNED AND REPOSITIONED IN BED.
--- NOTE | 2018-07-21 22:31 | NUR ---
PATIENT SLEEPING AT THIS TIME. WILL CONTINUE TO MONITOR.
--- NOTE | 2018-07-22 01:30 | NUR ---
PT RESTING IN BED WITH EYES CLOSED. NO ACUTE DISTRESS NOTED. RESPS ARE EVEN AND UNLABORED.
--- NOTE | 2018-07-22 06:03 | NUR ---
PT RESTING IN BED WATCHING TV. NO ACUTE DISTRESS NOTED. PT TURNED ONTO HER BACK AT THIS TIME.
[2018-07-22 06:45] LABS: BASOPHILS 0.1 % (0-2); EOSINOPHILS 4.3 % (0-7); HEMATOCRIT 27.8 % (36.0-48.0); HEMOGLOBIN 8.6 g/dL (12-16); IMMATURE GRANULOCYTES 0.8 % (0-5); LYMPHOCYTES 15.4 % (15-50); MCH 26.5 pg (26.0-34.0); MCHC 30.9 g/dL (31.0-37.0); MCV 85.5 fL (80.0-100.0); MEAN PLATELET VOLUME 10.4 fL (7.4-10.4); MONOCYTES 10.9 % (2-11); NEUTROPHILS 68.5 % (40-80); PLATELET COUNT 203 10x3/uL (130-400); RBC 3.25 10x6/uL (4.00-5.40); RDW 18.1 % (11.5-14.5); WBC 8.4 10x3/uL (4.8-10.8)
[2018-07-22 07:01] LABS: ANION GAP 13.4 mmol/L (8-16); CALCIUM 8.7 mg/dL (8.5-10.1); CREATININE - SERUM 0.9 mg/dL (0.6-1.3); POTASSIUM - SERUM 4.4 mmol/L (3.5-5.1)
[2018-07-22 08:00] VITALS: BP 114/56
--- NOTE | 2018-07-22 09:20 | NUR ---
PT RESTING IN BED. TF GIVEN. MEDS CRUSHED AND GIVEN THROUGH PEG TUBE. PT ENCOURAGED TO COUGH. PT DOESNT UNDERSTAND AND JUST REPEATES THE WORD "COFFEE."
--- NOTE | 2018-07-22 09:43 | NUR ---
Nutrition follow up: NPO diet order Jevity 1.2 continues as ordered Spoke with nursing, based on available information at this time, pt is tolerating TF Residuals WNL Head of bed >/=30 degrees Spoke with nursing about fluid intake RD following
--- NOTE | 2018-07-22 12:48 | NUR ---
PT TF ADMINISTERED. ASPIRATION BEFORE WAS 10ML. PT SITTING UP IN WHEELCHAIR AND TOLERATING WELL. WCTM.
--- NOTE | 2018-07-22 15:00 | NUR ---
PATIENT ADMITTED TO REHAB FROM ACUTE FLOOR. DR. CAMPOS IS HER PCP. DME AT HOME IS A WALKER, WHEELCHAIR, HOSPITAL BED AND A GAIT BELT. DISCHARGE PLANS ARE FOR PATIENT TO POSSIBLE DISCHARGE TO A SNF. WILL CONTINUE TO FOLLOW WITH PATIENT.
--- NOTE | 2018-07-22 18:16 | NUR ---
PT TF ADMINISTERED. 5ML RESIDUAL NOTED. PT TOLERATED WELL. FAMILY AT BEDSIDE. WCTM.
[2018-07-22 19:00] VITALS: BP 113/55
--- NOTE | 2018-07-22 20:30 | NUR ---
PT RESTING IN BED WATCHING TV. ALERT TO SURROUNDINGS. PT TURNS HEAD WHEN SPOKEN TO AND SMILES. SOMETIMES SHE SAYS COFFEE, BUT TO OTHER WORDS NOTED. PEG TUBE INFUSING WITHOUT DIFFICULTY. RIGHT SIDE IS FLACID. PT TURNED AND REPOSITIONED Q2 HRS AND PRN. CHANDRA CATH PATENT AND DRAINING TO A GRAVITY BAG. TELEMETRY UNIT ON AND INTACT. SR'S ARE UP X 3 IN BED. CALL LIGHT AND BEDSIDE TABLE ARE WITHIN EASY REACH.
--- NOTE | 2018-07-22 22:26 | NUR ---
PT RESTING IN BED WATCHING TV. NO ACUTE DISTRESS NOTED.
--- NOTE | 2018-07-22 23:47 | NUR ---
PT IN BED, LOWEST POSITION, EYES CLOSED, AROUSES EASILY TO VOICE, NO IMMEDIATE NEEDS NOTED, FLUIDS AND CALL LIGHT WITHIN REACH
--- NOTE | 2018-07-23 07:59 | NUR ---
PATIENTS DAUGHTER BATHING PATIENT AND GETTING PATIENT DRESSED. PATIENT IS ALERT/APHASIC. FAMILY MEMEBERS STAY WITH PATIENT 11/09. WILL CONTINUE WITH PLAN OF CARE
[2018-07-23 08:00] VITALS: BP 112/48
--- NOTE | 2018-07-23 09:34 | NUR ---
RESTING WO DISTRESS. CL IN REACH. DOES NOT SHOW SIGNS OF PAIN.
--- NOTE | 2018-07-23 10:10 | NUR ---
PATIENT UP IN WHEELCHAIR IN HALLWAY. DAUGHTER AT SIDE. ENCOURAGING PATIENT TO WHEEL SELF DOWN HALLWAY
--- NOTE | 2018-07-23 13:21 | NUR ---
I have reviewed this patient and I concur with the Shift Assessment completed by the Licensed Practical Nurse today this shift.
--- NOTE | 2018-07-23 13:37 | NUR ---
SPEECH THERAPIST WORKING WITH PATIENT IN ROOM. TRYING LIQ/FOOD WITH PATIENT
--- NOTE | 2018-07-23 23:58 | NUR ---
PT IN BED LOWEST POSITION, EYES CLOSED AROUSES EASILY TO VOICE, BREATHS EVEN AND UNLABORED, NO NEEDS NOTED, FLUIDS AND CALL LIGHT WITHIN REACH
--- NOTE | 2018-07-24 02:38 | NUR ---
PT IN BED LOWEST POSITION, EYES CLOSED AROUSES EASILY TO VOICE, BREATHS EVEN AND UNLABORED, NO NEEDS NOTED, FLUIDS AND CALL LIGHT WITHIN REACH
[2018-07-24 03:39] VITALS: BP 131/54
[2018-07-24 07:01] LABS: BASOPHILS 0 % (0-2); EOSINOPHILS 3.7 % (0-7); HEMATOCRIT 26.8 % (36.0-48.0); HEMOGLOBIN 8.4 g/dL (12-16); IMMATURE GRANULOCYTES 1.1 % (0-5); LYMPHOCYTES 23.2 % (15-50); MCH 26.8 pg (26.0-34.0); MCHC 31.3 g/dL (31.0-37.0); MCV 85.4 fL (80.0-100.0); MEAN PLATELET VOLUME 9.9 fL (7.4-10.4); MONOCYTES 12.4 % (2-11); NEUTROPHILS 59.6 % (40-80); PLATELET COUNT 191 10x3/uL (130-400); RBC 3.14 10x6/uL (4.00-5.40); RDW 17.9 % (11.5-14.5); WBC 7.4 10x3/uL (4.8-10.8)
[2018-07-24 07:20] LABS: ANION GAP 13.8 mmol/L (8-16); CALCIUM 9.1 mg/dL (8.5-10.1); CARBON DIOXIDE 25.9 mmol/L (21.0-32.0); CREATININE - SERUM 0.9 mg/dL (0.6-1.3); POTASSIUM - SERUM 4.7 mmol/L (3.5-5.1)
--- NOTE | 2018-07-24 08:00 | NUR ---
SHIFT ASSMT COMPLETED.FAMILY ACTIVE IN CARE.TAKEN TO SHOWER.ASSISTS WITH PATIENT.GT INTACT.ON TELEMETRY.
[2018-07-24 08:10] VITALS: BP 118/49
--- NOTE | 2018-07-24 12:00 | NUR ---
WITHELD FEEDING DUE TO REDSIDUAL >60ML.ABD DISTENDED.UP IN WC.
--- NOTE | 2018-07-24 13:10 | NUR ---
WENT TO RECHECK GT FOR RESIDUAL AND VOMITIED 240 ML +;CLEANED;CHECKED RESID AND < 5ML NOTED.WILL LET STOMACH REST,WILL HOLD FEEDING DUE TO VOMITIED.
--- NOTE | 2018-07-24 15:23 | NUR ---
CARE TEAM MEETING: PATIENT IS PROGRESSING IN THERAPY SLOWLY. TENATIVE DISCHARGE DATE IS 08/05/18. PATIENT MAY POSSIBLY BE DISCHARGING TO [facility].
[2018-07-24 19:00] VITALS: BP 119/54
--- NOTE | 2018-07-25 00:52 | NUR ---
PT IN BED LOWEST POSITION, EYES CLOSED AROUSES EASILY TO VOICE, BREATHS EVEN AND UNLABORED, NO NEEDS NOTED, FLUIDS AND CALL LIGHT WITHIN REACH,
--- NOTE | 2018-07-25 05:20 | NUR ---
PT JEVITY TUBE STOPPED AT 0500 IN ORDER TO GIVE 0600 SYNTHROID, PT SEEMS TO BE IN PAIN THIS AM GIVING PRN PAIN MED. FLUIDS AND CALL LIGHT WITHIN REACH
--- NOTE | 2018-07-25 06:15 | NUR ---
QUARTER SIZE BRUISE NOTED TO LEFT THIGH, ALSO A KNOT NOTED UNDER NEW BRUISE, PT ALSO NOTED TO BE GRIMMACING WITH PAIN EVENINGS AND PAPER TUBE MACHINE OPERATOR. PRN NORCO 5MG GIVEN AT 0600
[2018-07-25 08:00] VITALS: BP 127/49
--- NOTE | 2018-07-25 08:00 | NUR ---
SHIFT ASSMT COMPLETED.GT FEEDING BOLUS GIVEN.DAUGHTER AT BEDSIDE.
--- NOTE | 2018-07-25 13:00 | NUR ---
VOMITIED FEEDING AN ESTIMATE OF ENTIRE FEEDING OF 240 ML.CLEANED AND POSITIONED IN CHAIR.
--- NOTE | 2018-07-25 14:27 | NUR ---
Nutrition Follow Up: Chart reviewed. Spoke with RN who reported that pt has had some vomiting after TF. Pt currently receiving 1 can Jevity 1.2 TID with 45 ml H2O flush before and after given. Nocturnal TF of Jevity 1.2 @ 40 ml/hr with 40 ml H2O flush. Residuals < 100 ml I<O BM 07/24/18 Labs reviewed Meds noted including MV, Vit B12 Rec continue current TF regimen as tolerated. If pt continues with N/V will change TF to continuous. RD following.
--- NOTE | 2018-07-25 14:30 | NUR ---
XRAY DONE OF ABD AND CHEST.PENDING RESULTS.
--- NOTE | 2018-07-25 16:00 | NUR ---
RESTING QUIETLY IN BED.
--- NOTE | 2018-07-25 22:22 | NUR ---
PT IN BED LOWEST POSITION, EYES CLOSED AROUSES EASILY TO VOICE, BREATHS EVEN AND UNLABORED, NO NEEDS NOTED, FLUIDS AND CALL LIGHT WITHIN REACH
[2018-07-26 01:11] VITALS: BP 114/48
--- NOTE | 2018-07-26 03:17 | NUR ---
PT IN BED LOWEST POSITION, EYES CLOSED AROUSES EASILY TO VOICE, BREATHS EVEN AND UNLABORED, NO NEEDS NOTED, FLUIDS AND CALL LIGHT WITHIN REACH
[2018-07-26 07:27] LABS: BASOPHILS 0.1 % (0-2); EOSINOPHILS 2.3 % (0-7); HEMATOCRIT 24.7 % (36.0-48.0); HEMOGLOBIN 7.8 g/dL (12-16); IMMATURE GRANULOCYTES 0.9 % (0-5); LYMPHOCYTES 16.1 % (15-50); MCH 26.6 pg (26.0-34.0); MCHC 31.6 g/dL (31.0-37.0); MCV 84.3 fL (80.0-100.0); MEAN PLATELET VOLUME 9.8 fL (7.4-10.4); MONOCYTES 11.6 % (2-11); PLATELET COUNT 212 10x3/uL (130-400); RBC 2.93 10x6/uL (4.00-5.40); RDW 17.7 % (11.5-14.5); WBC 8.2 10x3/uL (4.8-10.8)
[2018-07-26 07:37] LABS: CALCIUM 8.8 mg/dL (8.5-10.1); CARBON DIOXIDE 24.9 mmol/L (21.0-32.0); CREATININE - SERUM 0.9 mg/dL (0.6-1.3); POTASSIUM - SERUM 4.9 mmol/L (3.5-5.1)
[2018-07-26 07:55] VITALS: BP 120/54
--- NOTE | 2018-07-26 13:30 | NUR ---
MAX ASST TO LAY DOWN IN BED. SHE ANSWERS "COFFEE" TO ALL QUESTIONS. RIGHT SIDE FLACCID. HALF OF BOLUS FEEDS GIVEN DUE TO PT THREW UP WITH PRIOR MEALS. F/C DRAINING CLOUDY URINE.
--- NOTE | 2018-07-26 17:38 | NUR ---
RESTING QUIETLY IN BED. IS RECIEVING BLOOD PRODUCTS AT PRESENT. NO S/S REACTION. FAMILY IS SITTING IN ROOM WITH PT.
--- NOTE | 2018-07-26 19:15 | NUR ---
PT LYING IN BED. CALL LIGHT IN REACH. BLOOD TRANSFUSING AT THIS TIME. NO DISTRESS NOTED. BED IN LOW. SIDE RAILS X2. ASSESSMENT COMPLETED AT THIS TIME. BED ALARM ON. WILL CONTINUE TO MONITOR.
--- NOTE | 2018-07-26 19:15 | NUR ---
PT LYING IN BED. CALL LIGHT IN REACH. BLOOD COMPLETED TRANSFUSING AT THIS TIME. HEADED TO GET SECOND BAG. VITALS WNL AFTER FIRST UNIT. WCTM
[2018-07-26 19:25] VITALS: BP 110/53
--- NOTE | 2018-07-26 20:15 | NUR ---
PT LYING IN BED WATCHING TV. FIRST UNIT OF BLOOD JUST COMPLETED. HEADED TO GET SECOND UNIT. VITALS WNL AFTER FIRST TRANSFUSION. NO DISTRESS NOTED. WCTM CL IN REACH.
--- NOTE | 2018-07-26 20:25 | NUR ---
SECOND BAG STARTED. VITALS WNL. NO S/S OF REACTION AFTER 15 MIN. CL IN REACH. BED ALARM ON. NO DISTRESS NOTED. LUNGS WHEEZES WHEN EXHALING AND CRACKLES. RESP EVEN. BOWEL ACTIVE X4. A/O X1. RIGHT SIDE FLACCID. WCTM
--- NOTE | 2018-07-26 23:00 | NUR ---
BLOOD TRANSFUSION COMPLETE. VITALS BP 117/59, TEMP 98.1, PULSE 91, RESP 18. NO DISTRESS NOTED. PT RESTING QUEITLY. EYES CLOSED. BED IN LOW. TUBE FEED RUNNING. PEG TUBE SITE C/D/I. TOLERATING TF WELL NO COMPLAINTS OF N/V. WILL CONTINUE TO MONITOR.
--- NOTE | 2018-07-27 01:50 | NUR ---
ROUNDED ON PT AND PT WAS AWAKE. CHECKED PEG TUBE SITE AND PALPATED THE ABDOMEN AND PT GRIMISED WHEN PALPATING THE LEFT LOWER QUAD. ASKED PT IF SHE WAS IN PAIN AND PT NODED YES. WILL GIVE PAIN MED PER MAR.
--- NOTE | 2018-07-27 02:38 | NUR ---
RESTING IN BED WITH RESPIRATIONS UNLABORED. NO DISTRESS NOTED. CALL LIGHT IN REACH.
--- NOTE | 2018-07-27 08:00 | NUR ---
PATIENT IS AWAKE. APHASIC. FAMILY IN ROOM WITH PATIENT. BED ALARM ON. WILL CONTINUE WITH PLAN OF CARE
[2018-07-27 08:08] VITALS: BP 124/51
--- NOTE | 2018-07-27 09:00 | NUR ---
G TUBE FEEDING DONE. PATIENT TOLERATED WELL. NO RESIDUAL.
[2018-07-27 10:41] LABS: BASOPHILS 0.3 % (0-2); EOSINOPHILS 2.8 % (0-7); IMMATURE GRANULOCYTES 1.3 % (0-5); LYMPHOCYTES 19.6 % (15-50); MCH 27.3 pg (26.0-34.0); MCHC 32.4 g/dL (31.0-37.0); MCV 84.4 fL (80.0-100.0); MEAN PLATELET VOLUME 9.9 fL (7.4-10.4); MONOCYTES 11.2 % (2-11); NEUTROPHILS 64.8 % (40-80); PLATELET COUNT 198 10x3/uL (130-400); RDW 16.6 % (11.5-14.5); WBC 6.9 10x3/uL (4.8-10.8)
[2018-07-27 10:42] LABS: RBC 4.03 10x6/uL (4.00-5.40)
--- NOTE | 2018-07-27 13:13 | NUR ---
NEW ORDER RECEIVED TO D/C TELEMTRY. TELELMTRY D/C'D
--- NOTE | 2018-07-27 16:29 | NUR ---
PRN PAIN MEDICATION GIVEN FOR S/S OF PAIN/DISC
--- NOTE | 2018-07-27 19:24 | NUR ---
PT IS RESTING IN BED WITH EYES OPEN. ALERT TO SURROUNDINGS. WATCHING TV AT THIS TIME. FAMILY MEMBER VISITING. 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 PT TURNED AND REPOSITIONED IN BED. Q2 HRS AND PRN. CHANDRA CATH IS PATENT AND DRAINING TO A GRAVITY BAG. PEG TUBE INFUSING OSMOLYTE WITHOUT DIFFICULTY. SR'S ARE UP X 3 IN BED. CALL LIGHT AND BEDSIDE TABLE ARE WITHIN EASY REACH.
[2018-07-27 21:52] VITALS: BP 129/74
--- NOTE | 2018-07-27 22:07 | NUR ---
PT IS RESTING IN BED WITH EYES CLOSED. NO DISTRESS NOTED.
--- NOTE | 2018-07-28 00:24 | NUR ---
RESTING IN BED WITH EYES CLOSED.
--- NOTE | 2018-07-28 05:37 | NUR ---
RESTING IN BED WITH RESPIRATIONS UNLABORED. NO DISTRESS NOTED. CALL LIGHT IN REACH.
--- NOTE | 2018-07-28 08:00 | NUR ---
RESTING QUIETLY IN BED, LAYING ON SIDE. NO S/S DISTRESS. EYES CLOSED. RESP EFFORT IS NON LABORED. SIDE RAILS UPX2, BED IN LOWEST POSITION, CALL LIGHT IN REACH. DOOR OPEN
[2018-07-28 08:31] VITALS: BP 98/34
--- NOTE | 2018-07-28 14:00 | NUR ---
RESTING QUIETLY IN BED, LAYING ON RIGHT SIDE. GRAND DAUGHTER IN ROOM WITH HER. THIS NURSE SPOKE AT LENGTH WITH GRAND DAUGHTER ABOUT PLANS AFTER DC. SHE IS AWARE PT NEEDS AROUND THE CLOCK CARE AND UNSURE OF HOW IT WILL BE ACCOMPLISHED. F/C DRAINING CLOUDY URINE. OXYGEN IN PLACE. PT IS NPO. PT'S KEEPS GIVING HER SIPS OF COFFEE (NO THICKNER ADDED) IN SPITE OF KNOWING SHE IS NPO........
--- NOTE | 2018-07-28 16:10 | NUR ---
RESTING QUIETLY IN BED, LAYING ON SIDE. FAMILY IN ROOM. CALL LIGHT IN REACH
[2018-07-28 18:44] VITALS: BP 117/53
[2018-07-28 19:00] VITALS: BP 117/53
--- NOTE | 2018-07-28 19:30 | NUR ---
PT RESTING IN BED WITH EYES OPEN. VISITING WITH GRAND DAUGHTER. ALERT TO SURROUNDINGS. NO VERBAL COMMUNICATION NOTED. PT WILL SHAKE HER HEAD YES OR NO APPROPRIATELY AT TIMES. OTHER TIMES SHE JUST SMILES. PEG TUBE FEEDING STARTED AT THIS TIME. NO RESIDUAL NOTED. CHANDRA CATH PATENT AND DRAINING TO A GRAVITY BAG. PT TURNED AND REPOSITIONED Q2 HRS AND PRN IN BED. SIGN HUNG ON WALL PER FAMILY REQUEST TO REMIND STAFF TO DO THIS. O2 IS ON @ 3LPM PER NC. NO SOB NOTED. PULSE OX IS 100 PERCENT. SR'S ARE UP X 3 IN BED. CALL LIGHT AND BEDSIDE TABLE ARE WITHIN EASY REACH.
--- NOTE | 2018-07-28 21:54 | NUR ---
PT IS RESTING IN BED WITH EYES OPEN. NO DISTRESS NOTED.
--- NOTE | 2018-07-28 22:04 | NUR ---
PATIENT WATCHING TV AT THIS TIME.WILL CONTINUE TO MONITOR.
--- NOTE | 2018-07-29 02:23 | NUR ---
PT RESTING IN BED WITH EYES CLOSED.
[2018-07-29 07:35] LABS: ANION GAP 14.4 mmol/L (8-16); CALCIUM 8.9 mg/dL (8.5-10.1); CARBON DIOXIDE 26.4 mmol/L (21.0-32.0); CREATININE - SERUM 0.8 mg/dL (0.6-1.3); POTASSIUM - SERUM 4.8 mmol/L (3.5-5.1)
[2018-07-29 07:37] LABS: BASOPHILS 0.2 % (0-2); EOSINOPHILS 2.1 % (0-7); HEMATOCRIT 35.5 % (36.0-48.0); HEMOGLOBIN 11.1 g/dL (12-16); IMMATURE GRANULOCYTES 1.9 % (0-5); LYMPHOCYTES 19.4 % (15-50); MCH 27.3 pg (26.0-34.0); MCHC 31.3 g/dL (31.0-37.0); MEAN PLATELET VOLUME 9.9 fL (7.4-10.4); MONOCYTES 12.8 % (2-11); NEUTROPHILS 63.6 % (40-80); PLATELET COUNT 230 10x3/uL (130-400); RBC 4.07 10x6/uL (4.00-5.40); RDW 17.2 % (11.5-14.5); WBC 8.3 10x3/uL (4.8-10.8)
[2018-07-29 07:45] LABS: MCV 87.2 fL (80.0-100.0)
[2018-07-29 08:00] VITALS: BP 151/60
--- NOTE | 2018-07-29 10:04 | NUR ---
SITTING IN WC IN ROOM. DTR IN ROOM DOING HER HAIR. SHE IS TOLERATING BOLUS TF'S WITHOUT N/V. F/C DRAINING CLOUDY URINE. RT SIDE FLACCID. IN ROOM WITH PT TOO
--- NOTE | 2018-07-29 16:11 | NUR ---
CHANDRA CATH CHANGED PER DR ANDERSON ORDERS. 16F PLACED. URINE IS CLOUDY
--- NOTE | 2018-07-29 17:48 | NUR ---
HAS BEEN GIVING SIPS OF COFFEE (THIN LIQUIDS). DR CAMPOS SPOKE TO FAMILY ABOUT THE POTENTIAL FOR ASPIRATION WELL NURSING STAFF ENCOURAGING FAMILY, ESPECIALLY [place] TO FOLLOW DR ORDERS AND NOT GIVE PT ANYTHING PO. REFUSED TO COMPLY AND TORE NPO SIGN OFF DOOR TO PT ROOM.
--- NOTE | 2018-07-29 19:28 | NUR ---
PT RESTING IN BED WITH EYES OPEN. EATING POTATO SOUP WITH SPEECH THERAPIST SUPERVISION. FAMILY MEMBER IS AT BEDSIDE. NO SWALLOWING DIFFICULTIES NOTED. O2 IS ON @ 3LPM PER NC. NO SOB NOTED. CHANDRA CATH IS PATENT AND DRAINING TO A GRAVITY BAG. SR'S ARE UP X 3 IN BED. CALL LIGHT AND BEDSIDE TABLE ARE WITHIN EASY REACH. PT IS TURNED AND REPOSITIONED Q2 HRS AND PRN IN BED.
[2018-07-29 20:51] VITALS: BP 127/67
--- NOTE | 2018-07-29 21:43 | NUR ---
PT RESTING IN BED DOING A UPDRAFT TX. DOSING ON AND OFF. PT TURNED AND REPOSITIONED FOR COMFORT. NO ACUTE DISTRESS NOTED.
--- NOTE | 2018-07-30 02:22 | NUR ---
RESTING IN BED WITH RESPIRATIONS UNLABORED. NO DISTRESS NOTED. CALL LIGHT IN REACH.
--- NOTE | 2018-07-30 05:47 | NUR ---
PT RESTING IN BED WITH EYES CLOSED. NO ACUTE DISTRESS NOTED. PT TURNED AND REPOSITIONED IN BED.
[2018-07-30 08:00] VITALS: BP 123/54
--- NOTE | 2018-07-30 08:00 | NUR ---
SHIFT ASSMT COMPLETED.FAMILY AT BEDSIDE.FC PATENT,URINE COLOR MUCH IMPROVED LOOKING SINCE LAST THURS.CL IN REACH.
--- NOTE | 2018-07-30 12:00 | NUR ---
SITTING UP IN CHAIR,APPEARS FRETFUL,WORRIESOME.TYLENOL 650MG PER GT GIVEN.
--- NOTE | 2018-07-30 14:54 | NUR ---
Nutrition follow up Pt is tolerating bolus feeds without nausea Based on reports pt does not tolerate bolus when it is pushed fast through tube. Pt needs a slow bolus feed RD considering bolus feeds of Jevity 1.2 240-300mL QID and d/c nocturnal feeds; would like to talk with family first RD following
[2018-07-30 19:00] VITALS: BP 140/65
--- NOTE | 2018-07-31 03:31 | NUR ---
PT IN BED LOWEST POSITION, EYES CLOSED OPENS EASILY TO VOICE, RESPIRATIONS SLOW AND EVEN, NO NEEDS NOTED, FLUIDS AND CALL LIGHT WITHIN REACH
[2018-07-31 07:22] LABS: BASOPHILS 0.6 % (0-2); EOSINOPHILS 2.8 % (0-7); HEMATOCRIT 33.9 % (36.0-48.0); HEMOGLOBIN 10.6 g/dL (12-16); MCHC 31.3 g/dL (31.0-37.0); MCV 86.3 fL (80.0-100.0); MEAN PLATELET VOLUME 9.9 fL (7.4-10.4); MONOCYTES 12.6 % (2-11); PLATELET COUNT 230 10x3/uL (130-400); RBC 3.93 10x6/uL (4.00-5.40); RDW 16.7 % (11.5-14.5)
[2018-07-31 07:48] LABS: ANION GAP 14.3 mmol/L (8-16); CARBON DIOXIDE 26.1 mmol/L (21.0-32.0); CREATININE - SERUM 0.8 mg/dL (0.6-1.3); POTASSIUM - SERUM 4.4 mmol/L (3.5-5.1)
[2018-07-31 08:00] VITALS: BP 103/56
--- NOTE | 2018-07-31 08:00 | NUR ---
SHIFT ASSMT COMPLETED.
--- NOTE | 2018-07-31 10:37 | NUR ---
Nutrition follow up Spoke with family d/c nocturnal feeds Start Jevity 1.2 300mL QID; flush with 45mL H20 before and after each feeding Will advance as tolerated to goal of 360mL QID family report that pt ate 8 ounces of potato soup with speech therapist this week. RD following
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
--- NOTE | 2018-07-31 12:00 | NUR ---
DRE GT FEEDINGS.CL IN REACH.DAUGHTER AT BEDSIDE.
--- NOTE | 2018-07-31 16:00 | NUR ---
AT BEDSIDE IN WC.DAUGHTER IN ROOM.NO NEEDS VOICED.
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
[2018-07-31 19:00] VITALS: BP 138/61
--- NOTE | 2018-07-31 23:34 | NUR ---
PT IN BED LOW POSITION, WATCHING TV. RESPIRATIONS EVEN AND UNLABORED, NO NEEDS NOTED, FLUIDS AND CALL LIGHT WITHIN REACH
--- NOTE | 2018-08-01 07:40 | NUR ---
SITTING UP IN BED LOOKING AROUND. ANSWERS "COFFEE" WHEN ASKED QUESTIONS. SANIA RASCON FLACCID. PEG TUBE IN PLACE. F/C DRAINING CLOUDY URINE.
[2018-08-01 08:00] VITALS: BP 108/55
--- NOTE | 2018-08-01 08:00 | NUR ---
SITTING UP IN BED LOOKING AROUND. SANIA RASOCN FLACCID. F/C DRAINING CLOUDY URINE. BED IN LOWEST POSITION, CALL LIGHT IN REACH
--- NOTE | 2018-08-01 09:35 | NUR ---
Nutrition Follow Up: Spoke with pt's daughter who reported that pt is tolerating bolus TF and trial meals with OFFICE ADMINISTRATION INSTRUCTOR. Nursing reports pt tolerating bolus TF. Per OFFICE ADMINISTRATION INSTRUCTOR pt is tolerating trials of certain foods. OFFICE ADMINISTRATION INSTRUCTOR rec hold bolus and allow pt to attempt to eat. Diet: NPO/TF with trials of meals per Speech BM: 08/01/18 Meds and Labs reviewed Will put order in to hold bolus at meal time to allow pt to attempt to eat. Meals and consistency per Speech. If pt eats < 50% of meal, bolus 1 can Jevity 1.2 with 45 ml H2O flush before and after bolus. Will put order in to bolus 1 can Jevity 1.2 @ HS with 45 ml H2O flush before and after bolus. RD monitoring pt progress.
--- NOTE | 2018-08-01 12:52 | NUR ---
PATIENT DISCHARGING TO [facility]. NO HOME HEALTH OR DME NEEDED AT THIS TIME. AN APPOINTMENT WITH DR. CAMPOS WILL BE MADE AT TIME OF DISCHARGE FROM THE FACILITY. PATIENT CHOICE FORM AND IMFM FORMS SIGNED, COPY GIVEN TO SPOUSE AND FILED IN CHART. DISCHARGE INSTRUCTIONS WITH FIM DATA FAXED TO PCP, SNF AND REVIEWED WITH PATIENT AND SPOUSE. PATIENT WILL TRANSPORT VIA FACILITY VAN.
--- NOTE | 2018-08-01 15:04 | NUR ---
DC TO DETENTION. ALL PERSONAL BELONGINGS SENT WITH PT.
--- NOTE | 2018-08-01 16:31 | NUR ---
REPORT CALLED TO CAROL ROMERO AT [facility].
== END 2018-08-01 15:42 | DRG 91 ==
LOC: D.REHAB 17:10
PROVIDERS: ADMIT Emergency Medicine; ATTEND Emergency Medicine
DX: G72.89 Other specified myopathies (principal); E43 Unspecified severe protein-calorie malnutrition; N39.0 Urinary tract infection, site not specified; R47.01 Aphasia; E87.1 Hypo-osmolality and hyponatremia; I50.42 Chronic combined systolic (congestive) and diastolic (congestive) heart failure; N17.9 Acute kidney failure, unspecified; R13.12 Dysphagia, oropharyngeal phase; I12.9 Hypertensive chronic kidney disease with stage 1 through stage 4 chronic kidney disease, or unspecified chronic kidney disease; N18.9 Chronic kidney disease, unspecified; R13.10 Dysphagia, unspecified; D50.9 Iron deficiency anemia, unspecified; K59.09 Other constipation; E03.9 Hypothyroidism, unspecified; R53.1 Weakness; F03.90 Unspecified dementia, unspecified severity, without behavioral disturbance, psychotic disturbance, mood disturbance, and anxiety; J44.9 Chronic obstructive pulmonary disease, unspecified; I48.91 Unspecified atrial fibrillation; G62.9 Polyneuropathy, unspecified; D72.829 Elevated white blood cell count, unspecified; R47.02 Dysphasia; I49.5 Sick sinus syndrome

== ENCOUNTER 2018-12-30 14:31 | Inpatient (IN) | payer MEDICARE, OTHER ==
[~2018-12-30] VITALS: Ht 157.5 cm; Wt 62.1 kg
[~2018-12-30 14:31] MED LIST changes: +PEPCID AC20 MG PO; +SYNTHROID75 MCG PO
[2018-12-30] MEDS ORDERED: LASIX40 MG PO (15:04)
[2018-12-30] MEDS ORDERED: CARAFATE1 G PO (15:05)
[2018-12-30] MEDS ORDERED: ELIQUIS5 MG PO (15:05)
[2018-12-30] MEDS ORDERED: SULFAMETHOXAZOL1 TA2 PO (15:06)
[2018-12-30] MEDS ORDERED: IPRAT-ALBUT 0.5-3 ML UPD (15:07)
[2018-12-30] MEDS ORDERED: MUCINEX600 MG PO (15:08)
[2018-12-30 15:44] LABS: BASOPHILS 0.2 % (0-2); EOSINOPHILS 2.4 % (0-7); IMMATURE GRANULOCYTES 0.6 % (0-5); LYMPHOCYTES 16.2 % (15-50); MCH 23.6 pg (26.0-34.0); MCHC 28.8 g/dL (31.0-37.0); MCV 81.7 fL (80.0-100.0); MEAN PLATELET VOLUME 9.9 fL (7.4-10.4); MONOCYTES 10.1 % (2-11); NEUTROPHILS 70.5 % (40-80); RBC 2.08 10x6/uL (4.00-5.40); RDW 16.5 % (11.5-14.5); WBC 13.7 10x3/uL (4.8-10.8)
--- NOTE | 2018-12-30 15:46 | NUR ---
22 gauge iv started in the left upper forearm on second attempt flushed without difficulty secured with tegaderm and tape saline locked. informed karly rn that iv was started.=
[2018-12-30 15:50] LABS: HEMOGLOBIN 4.9 g/dL (12-16); PLATELET COUNT 331 10x3/uL (130-400)
[2018-12-30 15:59] LABS: ANION GAP 16.9 mmol/L (8-16); CALCIUM 8.4 mg/dL (8.5-10.1); CARBON DIOXIDE 23.1 mmol/L (21.0-32.0)
[2018-12-30 16:08] VITALS: BP 121/89
[2018-12-30 16:30] LABS: ALBUMIN 3.2 g/dL (3.4-5.0); BILIRUBIN - TOTAL 0.64 mg/dL (0.2-1.3); PROTEIN - SERUM 7.1 g/dL (6.4-8.2); THYROID STIMULATING HORMONE 4.2 uIU/mL (0.36-3.74)
[2018-12-30 16:47] VITALS: BP 121/52; BMI 25.1
[2018-12-30 16:59] LABS: APTT 37.7 SECONDS (22.8-39.4); INR 2.29 (0.85-1.17); PROTIME 24.5 SECONDS (11.6-15.0)
[2018-12-30 18:05] LABS: APPEARANCE CLEAR (CLEAR); BILIRUBIN NEGATIVE (NEGATIVE); COLOR YELLOW (YELLOW); GLUCOSE NEGATIVE (NEGATIVE); KETONE NEGATIVE (NEGATIVE); NITRITE POSITIVE (NEGATIVE); PROTEIN NEGATIVE (NEGATIVE); SPECIFIC GRAVITY 1.015 (1.005-1.020); UROBILINOGEN NORMAL (NORMAL)
[2018-12-30 18:06] LABS: BACTERIA MANY /hpf (NEGATIVE); EPITHELIAL CELLS 0-5 /hpf (0-5); RED CELLS - URINE 0-5 /hpf (0-5); WHITE CELLS - URINE 25-50 /hpf (NEGATIVE)
[2018-12-30 20:42] VITALS: BP 120/51
[2018-12-31 01:06] VITALS: BP 112/52
[2018-12-31 04:49] VITALS: BP 125/52
[2018-12-31 05:01] LABS: ANION GAP 11.6 mmol/L (8-16); CALCIUM 8.4 mg/dL (8.5-10.1); CARBON DIOXIDE 25.9 mmol/L (21.0-32.0); CREATININE - SERUM 1.6 mg/dL (0.6-1.3); POTASSIUM - SERUM 3.5 mmol/L (3.5-5.1)
[2018-12-31 05:04] LABS: BASOPHILS 0.2 % (0-2); EOSINOPHILS 4.3 % (0-7); IMMATURE GRANULOCYTES 1.2 % (0-5); LYMPHOCYTES 10.3 % (15-50); MCH 26.4 pg (26.0-34.0); MCHC 30.8 g/dL (31.0-37.0); MEAN PLATELET VOLUME 10.3 fL (7.4-10.4); MONOCYTES 9.5 % (2-11); NEUTROPHILS 74.5 % (40-80); PLATELET COUNT 279 10x3/uL (130-400); RDW 15.6 % (11.5-14.5)
[2018-12-31 05:06] LABS: HEMATOCRIT 26.3 % (36.0-48.0); HEMOGLOBIN 8.1 g/dL (12-16); MCV 85.7 fL (80.0-100.0); RBC 3.07 10x6/uL (4.00-5.40)
--- NOTE | 2018-12-31 07:58 | NUR ---
PT EASILY AWAKENED FOR MORNING MEDS, GAVE IN APPLESAUCE, PT TOLERATED WELL, NO S/S OF DISTRESS, BED IN LOWEST POSITION, CONTINUE WITH PLAN OF CARE
[2018-12-31 09:05] VITALS: BP 120/53
--- NOTE | 2018-12-31 12:15 | NUR ---
ALERT AND ORIENTED TO SELF. FAMILY AT BEDSIDE. IV SITED TO LEFT FOREARM AFTER ONE ATTEMPT IWTH 20G. DENIES NEEDS.
[2018-12-31 12:54] VITALS: BP 94/49
[2018-12-31 13:38] VITALS: BMI 25.0
--- NOTE | 2018-12-31 15:30 | MORECARE ---
CASE MANAGEMENT DISCHARGE SUMMARY PATIENT: ROGERIO DIXON UNIT: [id number] ADM DATE: 12/30/18 AGE: 78 : 41 SEX: F ROOM/BED: D.2234 AUTHOR: APRIL JIMÉNEZ PHYSICIAN: REFERRING PHYSICIAN: CHANDAN CAMPOS MD DATE OF SERVICE: 12/31/18 Discharge Plan Patient Name: ROGERIO DIXON [facility] [facility] 1940 Planned Disposition: Home with Home Health Anticipated Discharge Date: Discharge Date: Expected LOS: Initial Reviewer: [email or web address] Initial Review Date: 12/31/2018 Generated: 12/31/18 4:30 pm Patient Name: ROGERIO DIXON Page [id number] at 1530 All edits/amendments must be made on the electronic document DICTATION DATE: 12/31/18 1530 COUNTRY SALES MANAGER: NORA 12/31/18 1530 RPT#: [id number] DC DATE: STATUS: ADM IN [facility] [address] [place] [address] END OF REPORT
--- NOTE | 2018-12-31 15:40 | MORECARE ---
CASE MANAGEMENT DISCHARGE SUMMARY PATIENT: ROGERIO ROJAS UNIT: [id number] ADM DATE: 12/30/18 AGE: 78 : 41 SEX: F ROOM/BED: D.2234 AUTHOR: APRIL JIMÉNEZ PHYSICIAN: REFERRING PHYSICIAN: CHANDAN BLANTON MD DATE OF SERVICE: 12/31/18 Discharge Plan Patient Name: ROGERIO ROJAS [facility] [facility] 1940 Planned Disposition: Home with Home Health Anticipated Discharge Date: Discharge Date: Expected LOS: Initial Reviewer: [email or web address] Initial Review Date: 12/31/2018 Generated: 12/31/18 4:40 pm DCPIA - Discharge Planning Initial Assessment Updated by [email or web address]: Nava Álvarez on 12/31/18 3:34 pm * PCP Dr. Javier Blanton * Pharmacy [facility] on [address] * Preadmission Environment Home with Family * ADLs Partial Dependent * Partial ADLs (Assistance needed) Ambulation Bathing Medication Management Toileting Transfers * Equipment Bedside Commode Hospital Bed Other Wheelchair * Other Equipment Gait belt Bedside table * List name and contact numbers for known caregivers / representatives who currently or will assist patient after discharge: Lilli Fallon [facility] - [phone] Clark Rojas - [phone] * Verbal permission to speak to the caregivers and representatives has been obtained from the patient. Yes * Community resources currently utilized Home Health * Please name any agencies selected above. [facility] * Additional services required to return to the preadmission environment? No * Can the patient safely return to the preadmission environment? Yes * Has this patient been hospitalized within the prior 30 days at any hospital? No Last DP export: 12/31/18 2:30 Patient Name: ROGERIO ROJAS Page 52749 at 1540 All edits/amendments must be made on the electronic document DICTATION DATE: 12/31/181539 STEEPLE JACK: NORA 12/31/18 154 RPT#: [id number] DC DATE: STATUS: ADM IN [facility] [address] [place] [address] END OF REPORT
--- NOTE | 2018-12-31 15:49 | MORECARE ---
CASE MANAGEMENT DISCHARGE SUMMARY PATIENT: ROGERIO ROJAS UNIT: [id number] ADM DATE: 12/30/18 AGE: 78 : 41 SEX: F ROOM/BED: D.2234 AUTHOR: JESSY,DOC PHYSICIAN: REFERRING PHYSICIAN: CHANDAN BLANTON MD DATE OF SERVICE: 12/31/18 Discharge Plan Patient Name: ROGERIO ROJAS Facility: [facility]:[place] : 1940 Planned Disposition: Home with Home Health Anticipated Discharge Date: Discharge Date: Expected LOS: Initial Reviewer: [email or web address] Initial Review Date: 12/31/2018 Generated: 12/31/18 4:49 pm Comments DCP- Discharge Planning Updated by [email or web address]: Nava Álvarez on 12/31/18 2:[address] Patient Name: ROGERIO Loaiza ROJAS Admission Status: Elective Accout number: [id number] Admission Date: 12-30-2018 : 1940 Admission Diagnosis: Attending: JAVIER BLANTON Current LOS: 1 Anticipated DC Date: Planned Disposition: Home with Home Health Primary Insurance: MEDICARE A & B Discharge Planning Comments: CM met with patient and her daughter to discuss discharge planning/needs. She lives in a two story home, but stays upstairs. Her daughter lives downstairs. Her daughter, Lilli, states she is with her and her from 7am until 7pm 7 days a week. States that she has [facility] home health services as well and would like to resume this on discharge. She declines rehab at this time. States she would like her mother to have a walker if insurance will pay for it. I faxed DME to [facility]. Updated clinical faxed to [facility]. CM will continue to follow and assist with discharge planning/needs. Registration Specialist: Nava Álvarez DCPIA - Discharge Planning Initial Assessment Updated by [email or web address]: Nava Álvarez on 12/31/18 3:34 pm * PCP Dr. Javier Blanton * Pharmacy [facility] [address] * Preadmission Environment Home with Family * ADLs Partial Dependent * Partial ADLs (Assistance needed) Ambulation Bathing Medication Management Toileting Transfers * Equipment Bedside Commode Hospital Bed Other Wheelchair * Other Equipment Gait belt Bedside table * List name and contact numbers for known caregivers / representatives who currently or will assist patient after discharge: Lilli Fallon - R - [phone] Clark Rojas - [phone] * Verbal permission to speak to the caregivers and representatives has been obtained from the patient. Yes * Community resources currently utilized Home Health * Please name any agencies selected above. [facility] * Additional services required to return to the preadmission environment? No * Can the patient safely return to the preadmission environment? Yes * Has this patient been hospitalized within the prior 30 days at any hospital? No External Providers External Provider: [facility] Next Contact Date: Service Request Date: Service Type: Resolution: Reviewer: Comments: Last DP export: 12/31/18 2:40 Patient Name: ROGERIO ROJAS Page [phone] at 1540 All edits/amendments must be made on the electronic document DICTATION DATE: 12/31/181548 CHEMICAL MACHINE TENDER: NORA 12/31/18 154 RPT#: [id number] DC DATE: STATUS: ADM IN [facility] [address] [place] [address] END OF REPORT
[2018-12-31 15:55] VITALS: Ht 157.5 cm; Wt 62.1 kg
--- NOTE | 2018-12-31 16:00 | MORECARE ---
CASE MANAGEMENT DISCHARGE SUMMARY PATIENT: ROGERIO ROJAS UNIT: [id number] ADM DATE: 12/30/18 AGE: 78 : 41 SEX: F ROOM/BED: D.2234 AUTHOR: JESSY,DOC PHYSICIAN: REFERRING PHYSICIAN: CHANDAN BLANTON MD DATE OF SERVICE: 12/31/18 Discharge Plan Patient Name: ROGERIO ROJAS Facility: [facility]:[place] : 1940 Planned Disposition: Home with Home Health Anticipated Discharge Date: Discharge Date: Expected LOS: Initial Reviewer: [email or web address] Initial Review Date: 12/31/2018 Generated: 12/31/18 5:00 pm Comments DCP- Discharge Planning Updated by [email or web address]: Nava Álvarez on 12/31/18 2:[address] Patient Name: ROGERIO Loaiza ROJAS Admission Status: Elective Accout number: [id number] Admission Date: 12-30-2018 : 1940 Admission Diagnosis: Attending: JAVIER BLANTON Current LOS: 1 Anticipated DC Date: Planned Disposition: Home with Home Health Primary Insurance: MEDICARE A & B Discharge Planning Comments: CM met with patient and her daughter to discuss discharge planning/needs. She lives in a two story home, but stays upstairs. Her daughter lives downstairs. Her daughter, Lilli, states she is with her and her from 7am until 7pm 7 days a week. States that she has [facility] home health services as well and would like to resume this on discharge. She declines rehab at this time. States she would like her mother to have a walker if insurance will pay for it. I faxed DME to [facility]. Updated clinical faxed to [facility]. CM will continue to follow and assist with discharge planning/needs. Wind Energy Mechanic: Nava Álvarez DCPIA - Discharge Planning Initial Assessment Updated by [id number]: Nava Álvarez on 12/31/18 3:34 pm * PCP Dr. Javier Blanton * [facility] [address] * Preadmission Environment Home with Family * ADLs Partial Dependent * Partial ADLs (Assistance needed) Ambulation Bathing Medication Management Toileting Transfers * Equipment Bedside Commode Hospital Bed Other Wheelchair * Other Equipment Gait belt Bedside table * List name and contact numbers for known caregivers / representatives who currently or will assist patient after discharge: Lilli Fallon - R - [phone] Clark Rojas - [phone] * Verbal permission to speak to the caregivers and representatives has been obtained from the patient. Yes * Community resources currently utilized Home Health * Please name any agencies selected above. [facility] * Additional services required to return to the preadmission environment? No * Can the patient safely return to the preadmission environment? Yes * Has this patient been hospitalized within the prior 30 days at any hospital? No External Providers [facility] Next Contact Date: Service Request Date: Service Type: Resolution: Reviewer: Comments: Coverage Notice Reviewer: [email or web address] Shannon Álvarez Notice Issued Date-Time: 12/31/2018 15:50 Notice Type: Patient Choice Letter Notice Delivered To: Family Member Relationship to Patient: Daughter Hosted Services Analyst Name: Lilli Forrest Delivery Method: HAND - Hand Delivered Lianne Days: Prior Verbal Notification: Recipient Understood Notice: Yes Recipient Signature: Yes Med Rec Note Co-signed by Attending: Coverage Notice Comment: DIANNE for Janey'Jose and [facility] Last DP export: 12/31/18 2:49 Patient Name: ROGERIO ROJAS Page [id number] at 1600 All edits/amendments must be made on the electronic document DICTATION DATE: 12/31/18 1600 DOOR OPERATOR: NORA 12/31/18 1600 RPT#: [id number] DC DATE: STATUS: ADM IN [facility] [address] [place] [address] END OF REPORT
--- NOTE | 2018-12-31 16:56 | NUR ---
OT NOTE: PT COMPLETED FACE WASH/HAND WASH WITH MIN A USING LUE. PT COMPLETED LUE AROM. PT COMLETED BED MOB TASKS WITH MOD A. THANK YOU,MARYLOU HONG
[2018-12-31 17:17] VITALS: BP 140/60
[2018-12-31 20:31] VITALS: BP 138/56
--- NOTE | 2018-12-31 21:30 | NUR ---
CONFUSED AND DISORIENTED. SHOWS NO SIGNS OF ACUTE DISTRESS. IV TO THE LT FOREARM WITH NO REDNESS OR SWELLING NOTED. SECOND IV SITE TO THE LT FOREARM SL. NC @3L AND PURWICK IN PLACE. AMADO ALARM ON. CALLED AND SPOKE TO DAUGHTER, DENA SMALLWOOD, ABOUT OBTAINING CONSENTS FOR PROCEDURE TOMMORROW. SHE STATED THAT SHE WOULD COME UP IN THE AM TO SIGN. NO OTHER NEEDS NOTED AT THIS TIME. CONTINUE PLAN OF CARE.
[2019-01-01 00:22] VITALS: BP 138/72
[2019-01-01 03:58] VITALS: BP 150/82
[2019-01-01 06:27] LABS: ANION GAP 12.8 mmol/L (8-16); CALCIUM 8.4 mg/dL (8.5-10.1); CARBON DIOXIDE 22.8 mmol/L (21.0-32.0); POTASSIUM - SERUM 3.6 mmol/L (3.5-5.1)
[2019-01-01 06:28] LABS: CREATININE - SERUM 1.1 mg/dL (0.6-1.3)
[2019-01-01 06:32] LABS: BASOPHILS 0.1 % (0-2); EOSINOPHILS 3.5 % (0-7); HEMATOCRIT 26.7 % (36.0-48.0); IMMATURE GRANULOCYTES 1.6 % (0-5); LYMPHOCYTES 8.7 % (15-50); MCV 86.7 fL (80.0-100.0); MEAN PLATELET VOLUME 10.6 fL (7.4-10.4); MONOCYTES 7.5 % (2-11); NEUTROPHILS 78.6 % (40-80); PLATELET COUNT 307 10x3/uL (130-400); RBC 3.08 10x6/uL (4.00-5.40); RDW 16.6 % (11.5-14.5); WBC 13.7 10x3/uL (4.8-10.8)
--- NOTE | 2019-01-01 07:27 | NUR ---
PT RESTING IN BED. NO SIGNS OF DISTRESS. IV TO LEFT FORARM PATENT NO REDNESS OR TENDERNESS. ON TELEMETRY 87 SR. ALL FALL PRECAUTIONS IN PLACE. DENIES ANY FURTHER NEED AT THIS TIME. CALL LIGHT IN REACH. BED LOW POSITION. NO FAMILY AT BEDSIDE AT THIS TIME.
[2019-01-01 09:13] VITALS: BP 117/72
[2019-01-01 12:26] VITALS: BP 160/57
[2019-01-01 16:22] VITALS: BP 154/74
[2019-01-01 19:30] VITALS: BP 144/64
[2019-01-02] VITALS (10 sets, daily range): BP systolic 90–140; BP diastolic 36–72
[2019-01-02 06:55] LABS: APTT 35.7 SECONDS (22.8-39.4); INR 1.38 (0.85-1.17); PROTIME 16.4 SECONDS (11.6-15.0)
[2019-01-02 07:05] LABS: CALCIUM 8.7 mg/dL (8.5-10.1); CARBON DIOXIDE 25.4 mmol/L (21.0-32.0); CREATININE - SERUM 1.1 mg/dL (0.6-1.3)
[2019-01-02 07:31] LABS: ANION GAP 14.6 mmol/L (8-16)
[2019-01-02 07:39] LABS: BASOPHILS 0.2 % (0-2); EOSINOPHILS 1.6 % (0-7); HEMATOCRIT 30.2 % (36.0-48.0); IMMATURE GRANULOCYTES 1.1 % (0-5); MCH 26.4 pg (26.0-34.0); MCHC 29.8 g/dL (31.0-37.0); MCV 88.6 fL (80.0-100.0); MEAN PLATELET VOLUME 10.7 fL (7.4-10.4); NEUTROPHILS 73.1 % (40-80); PLATELET COUNT 310 10x3/uL (130-400); RBC 3.41 10x6/uL (4.00-5.40); RDW 17.9 % (11.5-14.5)
--- NOTE | 2019-01-02 07:41 | NUR ---
PT RESTING IN BED WITH EYES OPEN, DAUGHTER AT THE BEDSIDE. IV LOCATED TO LEFT FOREARM RUNNING D5NS @ 20ML. NO S/S OF DISTRESS NOTED AT THIS TIME, DENIES NEEDS, WILL CONT TO MONITOR.
[2019-01-02 12:57] LABS: PROTEIN - BODY FLUID 1.9 G/DL
--- NOTE | 2019-01-02 14:11 | NUR ---
NUTRITION F/U DIET ADVANCED TO REG. WILL HONOR FOOD PREFERENCES, MONITOR PO INTAKE. RD FOLLOWING
[2019-01-02 15:06] LABS: MACROPHAGES BF 48 %; MESOTHELIALS BF 7 %; NEUT - BF 12 %
--- NOTE | 2019-01-02 15:59 | NUR ---
IV INFILTRATED, HEAT APPLIED.
[2019-01-02 17:01] LABS: MAGNESIUM - SERUM 1.9 mg/dL (1.8-2.4); POTASSIUM - SERUM 3.8 mmol/L (3.5-5.1)
--- NOTE | 2019-01-02 19:00 | NUR ---
BEDSIDE REPORT RECEIVED AND CARE OF PT ASSUMED. PT LYING IN LOW CRANE'S POSITION WATCHING TV. IV TO LEFT FA WITH NS INFUSING AT KVO. TELEMETRY IN PLACE PER ORDER. BED ALARM IN USE FOR SAFETY.
--- NOTE | 2019-01-02 21:48 | NUR ---
HS MEDICATIONS GIVEN TO INCLUDE NORSO FOR PAIN. MEDS CRUSHED AND MIXED WITH PUDDING.
[2019-01-03] VITALS: BP 127/57
--- NOTE | 2019-01-03 02:26 | NUR ---
PT BATHED AND ALL LINENS AND GOWN CHANGED.
[2019-01-03 04:00] VITALS: BP 110/46
[2019-01-03 06:57] LABS: ANION GAP 15.6 mmol/L (8-16); CALCIUM 9.2 mg/dL (8.5-10.1); CARBON DIOXIDE 25.9 mmol/L (21.0-32.0); CREATININE - SERUM 1.1 mg/dL (0.6-1.3); POTASSIUM - SERUM 3.5 mmol/L (3.5-5.1); PROTEIN - SERUM 7.1 g/dL (6.4-8.2)
[2019-01-03 07:42] LABS: BASOPHILS 0.2 % (0-2); EOSINOPHILS 4.6 % (0-7); HEMOGLOBIN 10.1 g/dL (12-16); IMMATURE GRANULOCYTES 0.9 % (0-5); LYMPHOCYTES 12.4 % (15-50); MCH 26.8 pg (26.0-34.0); MCHC 29.7 g/dL (31.0-37.0); MCV 90.2 fL (80.0-100.0); MEAN PLATELET VOLUME 10.7 fL (7.4-10.4); MONOCYTES 9.4 % (2-11); NEUTROPHILS 72.5 % (40-80); PLATELET COUNT 287 10x3/uL (130-400); RBC 3.77 10x6/uL (4.00-5.40); RDW 20.3 % (11.5-14.5); WBC 11.3 10x3/uL (4.8-10.8)
[2019-01-03 08:07] VITALS: BP 145/80
--- NOTE | 2019-01-03 08:30 | NUR ---
IV THERAPY INITIATED IN LEFT FOREARM. 22 G. X2 ATTEMPTS. IV THERAPY DC'ED WITH TIP INTACT FROM LEFT FOREARM WHERE IT WAS PREVIOUSLY. CL IN REACH. DAUGHTER DENA IN ROOM.
[2019-01-03 12:09] LABS: FUNGUS STAIN Final report (())
--- NOTE | 2019-01-03 12:31 | NUR ---
OT NOTE: PT GRIMACING WITH PAIN UPON ENTERING ROOM. DTR THINKS THAT SHE MIGHT BE HAVING MUSCLE CRAMPS IN LEGS. SUPINE TO SIT WITH MOD ASSIST; MAX ASSIST WITH STATIC SITTING TODAY. MAX ASSIST WITH FEEDING AND GROOMING TASKS. BACK TO BED WITH MAX ASSIST AND REPOSITIONED ON SIDE WITH PILLOW BETWEEN KNEES. DENA CHRISTIANSON, OTR/L
[2019-01-03 12:58] VITALS: BP 159/64
[2019-01-03 17:43] VITALS: BP 141/62
--- NOTE | 2019-01-03 17:46 | NUR ---
DAUGHTER DENA CONCERNED PATIENT HAS A POOR APPETITE. NORCO 7.5 AND ZOFRAN PROVIDED. PATIENT ON MEDS TO INCREASE APPETITE. POSSIBLY PATIENT NEEDS TO HAVE A BM. SPOKE ABOUT THE POSSIBILITIES. CL IN REACH. WCTM
--- NOTE | 2019-01-03 19:00 | NUR ---
BEDSIDE REPORT RECEIVED AND CARE OF PT ASSUMED. PT LYING IN LOW CRANE'S POSITION WATCHING TV. IV TO LEFT FA PATENT WITH IRON INFUSING AT THIS TIME. TELEMETRY IN PLACE AND READING [address] AT THIS ASSESSMENT. BED ALARM IN PLACE FOR SAFETY.
[2019-01-03 20:00] VITALS: BP 163/72
--- NOTE | 2019-01-03 20:03 | NUR ---
OT NOTE: PT REQUIRED MIN A FOR SUPINE TO SIT. PT COMPLETED EOB SITTING WITH SBA. PT COMPLETED HYGIENE TASK WITH MOD A. THANK YOU, MARYLOU HONG
--- NOTE | 2019-01-03 20:16 | NUR ---
GAVE NORCO FOR PAIN PER LAZARO BROWN FACES. WILL MONITOR FOR EFFECTIVENESS.
--- NOTE | 2019-01-03 21:06 | NUR ---
HS MEDICATIONS GIVEN CRUSHED AND MIXED WITH PUDDING.
[2019-01-04] VITALS: BP 167/68
[2019-01-04 04:00] VITALS: BP 143/64
[2019-01-04 06:46] LABS: BASOPHILS 0.1 % (0-2); EOSINOPHILS 2.6 % (0-7); HEMATOCRIT 36.9 % (36.0-48.0); HEMOGLOBIN 10.9 g/dL (12-16); IMMATURE GRANULOCYTES 0.7 % (0-5); LYMPHOCYTES 8.4 % (15-50); MCHC 29.5 g/dL (31.0-37.0); MCV 91.3 fL (80.0-100.0); MEAN PLATELET VOLUME 11.4 fL (7.4-10.4); MONOCYTES 10.5 % (2-11); NEUTROPHILS 77.7 % (40-80); PLATELET COUNT 312 10x3/uL (130-400); RBC 4.04 10x6/uL (4.00-5.40)
[2019-01-04 06:51] LABS: WBC 14.8 10x3/uL (4.8-10.8)
[2019-01-04 07:06] LABS: ANION GAP 14.2 mmol/L (8-16); CALCIUM 9.3 mg/dL (8.5-10.1); CARBON DIOXIDE 28.5 mmol/L (21.0-32.0); CREATININE - SERUM 1.5 mg/dL (0.6-1.3); POTASSIUM - SERUM 3.7 mmol/L (3.5-5.1)
--- NOTE | 2019-01-04 07:56 | NUR ---
AWAKE AND ALERT. ORIENTED TO SELF. REORIENTED PER STAFF. GRANDDAUGHTER AT BEDSIDE. LUNGS HAVE FAINT WHEEZES THROUGHOUT LUNG LAMB, NON PRODUCTIVE COUGH NOTED. SKIN IS INTACT WITHOUT REDNESS. IV TO LEFT FOREARM IS PATENT WTIHOUT REDNESS AT INSERTION SITE. PUREWICK IN PLACE WITH TEA COLORED URINE. DENIES NEEDS.
[2019-01-04 08:45] VITALS: BP 140/72
--- NOTE | 2019-01-04 10:00 | NUR ---
INCONTINENT OF URINE. SKIN CARE AND LINENS CHANGED PER STAFF. DENIES NEEDS.
--- NOTE | 2019-01-04 12:10 | NUR ---
REQUESTED AND GIVNE ONE HYDROCODONE PO FOR C/O GENERALIZED PAIN LEVEL 6. WILL MONITOR. PATIENT FAMILY REQUESTED SAME.
[2019-01-04 12:32] VITALS: BP 137/61
[2019-01-04 16:43] VITALS: BP 146/67
[2019-01-04 17:08] LABS: ACID FAST SMEAR Negative (()); AFB SPECIMEN PROCESSING Not Indicated (())
--- NOTE | 2019-01-04 17:30 | NUR ---
REQUESTED AND GIVNE ONE HYDROCOCONE PO FOR C/O GENERALIZED PAIN LEVEL 7. WILL MONITOR. ATE ONLY A FEW BITES OF SUPPER. REFUSED MORE. INCONTINENT OF URINE. SKIN CARE AND LINENS CHANGED PER STAFF. DENIES NEEDS. NO CHANGES NOTED.
--- NOTE | 2019-01-04 19:00 | NUR ---
BEDSIDE REPORT RECEIVED AND CARE OF PT ASSUMED. PT LYING IN MID CRANE'S POSITION WITH EYES CLOSED. IV TO LEFT FA SALINE LOCKED. TELEMETRY IN PLACE AND READING 95 SR AT THIS ASSESSMENT. PUREWICK EXTERNAL CATHETER IN USE TO SUCTION. BED ALARM IN USE FOR SAFETY.
[2019-01-04 19:57] VITALS: BP 114/57
--- NOTE | 2019-01-04 20:56 | NUR ---
HS MEDICATIONS GIVEN WHOLE IN PUDDING...ONE AT A TIME FOLLOWED WITH SIPS OF WATER.
--- NOTE | 2019-01-04 21:20 | NUR ---
PT BATHED AND ALL LINENS AND GOWN CHANGED.
[2019-01-05] VITALS: BP 123/55
[2019-01-05 04:00] VITALS: BP 114/55
[2019-01-05 06:35] LABS: BASOPHILS 0.1 % (0-2); EOSINOPHILS 3.2 % (0-7); HEMATOCRIT 33.7 % (36.0-48.0); IMMATURE GRANULOCYTES 0.5 % (0-5); MCH 27.2 pg (26.0-34.0); MCHC 29.7 g/dL (31.0-37.0); MCV 91.6 fL (80.0-100.0); MEAN PLATELET VOLUME 10.8 fL (7.4-10.4); MONOCYTES 11.9 % (2-11); NEUTROPHILS 73.3 % (40-80); PLATELET COUNT 272 10x3/uL (130-400); RBC 3.68 10x6/uL (4.00-5.40); RDW 20.7 % (11.5-14.5); WBC 14.4 10x3/uL (4.8-10.8)
[2019-01-05 07:01] LABS: ALBUMIN 3.1 g/dL (3.4-5.0); ANION GAP 13.1 mmol/L (8-16); BILIRUBIN - TOTAL 1.01 mg/dL (0.2-1.3); CALCIUM 9.3 mg/dL (8.5-10.1); CARBON DIOXIDE 28.3 mmol/L (21.0-32.0); CREATININE - SERUM 1.5 mg/dL (0.6-1.3); POTASSIUM - SERUM 3.4 mmol/L (3.5-5.1); PROTEIN - SERUM 7.1 g/dL (6.4-8.2)
[2019-01-05 07:59] VITALS: BP 132/57
--- NOTE | 2019-01-05 08:04 | NUR ---
AWAKE AND ALERT. ORIENTED X3. C/O SOME GENERALIZED PAIN THIS AM. WILL GIVE PRN MEDS. LUNGS ARE CLEAR BILATERALLY, NO COUGH NOTED. SKIN IS INTACT WTIHOUT REDNESS. IV TO LEFT FOREARM IS PATENT WITHOUT REDNESS AT INSERTION SITE. PURE WICK IS PATENT WITH TEA COLORED URINE. FAMILY AT BEDSIDE. BREAKFAST SERVED IN ROOM. DENIES NEEDS.
--- NOTE | 2019-01-05 08:48 | NUR ---
REQUESTED AND GIVNE ONE HYDROCODONE PO FOR C/O GENERALIZED PAIN LEVEL 6. WILL MONITOR. ATE ONLY A COUPLE OF BITES OF BREAKFAST. FAMILY IN ROOM.
--- NOTE | 2019-01-05 10:00 | NUR ---
RESTING QUIETLY IN BED WITH EYES CLOSED. FAMILY AT BEDSIDE.
[2019-01-05 11:39] VITALS: BP 112/57
--- NOTE | 2019-01-05 12:05 | NUR ---
TOOK NOON MEDS WITHOUT DIFFICULTY. NO C/O AT THIS TIME.
--- NOTE | 2019-01-05 15:15 | NUR ---
REQUESTED AND GIVEN ONE HYDROCODONE PO FOR C/O GENERALIZED PAIN. WILL MONITOR.
[2019-01-05 16:31] VITALS: BP 100/61
--- NOTE | 2019-01-05 17:52 | NUR ---
ATE ONLY A FEW BITES OF SUPPER. DENIES NEEDS. NO CHANGES NOTED. STILL DRINKING ENSURE AT THIS TIME. FAMILY AT BEDSIDE.
--- NOTE | 2019-01-05 19:00 | NUR ---
BEDSIDE REPORT RECEIVED AND CARE OF PT ASSUMED. PT LYING IN MID CRANE'S POSITION WITH EYES CLOSED. IV TO LEFT FA PATENT WITH NS INFUSING AT KVO. TELEMETRY IN PLACE PER ORDER. PUREWICK EXTERNAL CATHETER DRAINING TO GRAVITY. WILL MONITOR FOR NEEDS.
[2019-01-05 20:00] VITALS: BP 112/51
--- NOTE | 2019-01-05 20:46 | NUR ---
HS MEDICATIONS GIVEN. WILL CONTINUE TO MONITOR FOR NEEDS.
[2019-01-06] VITALS: BP 136/49
[2019-01-06 04:00] VITALS: BP 127/57
--- NOTE | 2019-01-06 05:00 | NUR ---
PT BATHED AND ALL LINENS AND GOWN CHANGED.
--- NOTE | 2019-01-06 05:35 | NUR ---
PT RIGHT HAND SWOLLEN THIS MORNING. ELEVATED ON PILLOW. WILL PASS ALONG IN REPORT.
[2019-01-06 06:02] LABS: BASOPHILS 0.2 % (0-2); HEMATOCRIT 32.6 % (36.0-48.0); HEMOGLOBIN 9.7 g/dL (12-16); IMMATURE GRANULOCYTES 0.3 % (0-5); LYMPHOCYTES 10.6 % (15-50); MCHC 29.8 g/dL (31.0-37.0); MCV 90.8 fL (80.0-100.0); MEAN PLATELET VOLUME 11.1 fL (7.4-10.4); MONOCYTES 11.3 % (2-11); NEUTROPHILS 74.6 % (40-80); PLATELET COUNT 260 10x3/uL (130-400); RBC 3.59 10x6/uL (4.00-5.40); RDW 20.4 % (11.5-14.5); WBC 12.8 10x3/uL (4.8-10.8)
[2019-01-06 06:37] LABS: ALBUMIN 3.1 g/dL (3.4-5.0); ANION GAP 13.4 mmol/L (8-16); BILIRUBIN - TOTAL 0.76 mg/dL (0.2-1.3); CALCIUM 9.5 mg/dL (8.5-10.1); CARBON DIOXIDE 27.6 mmol/L (21.0-32.0); CREATININE - SERUM 1.6 mg/dL (0.6-1.3); PROTEIN - SERUM 7.1 g/dL (6.4-8.2)
[2019-01-06 08:21] VITALS: BP 121/48
--- NOTE | 2019-01-06 09:28 | EC ---
PATIENT:ROGERIO DIXON DATE OF SERVICE: 12/30/18 SEX: F MEDICAL RECORD: [id number] DATE OF : [birth year] LOCATION:[id number] AGE OF PATIENT: 78 ADMISSION DATE: 12/30/18 REFERRING PHYSICIAN: INTERPRETING PHYSICIAN: PREM BROWN MD ECHOCARDIOGRAM REPORT ECHO CHARGES 5 ECHO LIMITED Date: 01/01/19 CLINICAL DIAGNOSIS: LARGE PLEURAL EFFUSION ECHOCARDIOGRAPHIC MEASUREMENTS (adult normal given) AC root (d.<3.7cm) 2.8 cm LV Septum d (<1.2 cm> 1.2 cm Valve Excursion 1.2 cm LV Septum (systole) 1.5 cm Left Atria (s.<4.0cm> 2.9 cm LVPW d(<1.2cm) 1.6 cm RV (d.<2.3cm) 2.7 cm LVPW (sytole) 1.7 cm LV diastole(<5.6CM) 3.3 cm MV E-F(>70mm/sec) cm LV systole 2.0 cm LVOT Diameter 1.8 cm MV exc.(>10mm) 1.2 cm Est.ejection fraction (50-75%) % DOPPLER: LVIT cm/sec A cm/sec E cm/sec LA cm/sec RVSP mmHg LVOT cm/sec AOP1/2T m/s Asc. Ao cm/sec RVOT 88 cm/sec RA cm/sec PA 109 cm/sec AV Gradient Peak mmHg AV Mean mmHg AV Area cm MV Gradient Peak mmHg MV Mean mmHg MV Area cm COMMENTS: Director Career Services: Alirio DOWELL Senior Project Accountant: 1 Dr. Brown TAPE# PACS Pericardial Effusion N DATE OF SERVICE: 01/01/2019 Limited echo for ejection fraction. Left ventricular chamber size is within normal limits. Left ventricular systolic function is preserved at 55%. TRANSINT:[id number] Voice Confirmation ID: [id number] DOCUMENT ID: [id number] ECHOCARDIOGRAM REPORT [id number] ROGERIO DIXON JEFFREY MD at 0928 CC: [id number] DICTATION DATE: 01/02/19 0827 WELFARE ADMINISTRATOR: 01/02/19 0841 [place] [address]
--- NOTE | 2019-01-06 10:46 | NUR ---
GRANDDAUGHTER SUMMER IN ROOM. [employer] IN PLACE AND WORKING. CL IN REACH. TM
--- NOTE | 2019-01-06 12:51 | NUR ---
OT NOTE: GENTLE STRETCHING AND ROM TO R LE; PT CONT TO GRIMACE DURING STRETCHING DUE TO HYPERTONICITY. BED MOB AND SITTING BALANCE WITH MAX ASSIST; REPOSITIONED PT ON SIDE WITH PILLOWS BETWEEN KNEES AND ON HER L SIDE TO PREVENT PRESSURE AREAS. DENA CHRISTIANSON, OTR/L
[2019-01-06 13:19] VITALS: BP 122/57
[2019-01-06 16:19] VITALS: BP 132/58
--- NOTE | 2019-01-06 18:11 | NUR ---
OT NOTE: PT LUE REACHING TASKS . PT COMPLETED LUE GRASP/RELEASE TASKS. PT COMPLETED FACE WASH WITH SETUP AND HAIR GROOMING WITH MOD A. THANK YOU, MARYLOU HONG
--- NOTE | 2019-01-06 18:40 | NUR ---
IV THERAPY IN LEFT FOREARM IS INFILTRATED. THERE IS A SMALL KNOT PRESENT. IV THERAPY RESTARTED IN LEFT FOREARM WITH A 22G. ATTEMPT X2.
--- NOTE | 2019-01-06 20:00 | NUR ---
ASSESSMENT PER FLOWSHEET. EXPRESSIVE APHASIA NOTED. IV PATENT LEFT FOREARM OF NS AT 10CC'S/HR. SITE CLEAR. RT ARM FLACCID RT LEG MODERATE WEAKNESS AND DRAWN UPWARD. TELM. SHOW3 SR WITH HR 94. PUREWIC IN PLACE.
[2019-01-06 20:53] VITALS: BP 100/64
--- NOTE | 2019-01-06 22:00 | NUR ---
MEDS GIVEN IN PUDDING.
--- NOTE | 2019-01-07 | NUR ---
RESTING QUIETLY SR UP X2 CALL LIGHT WITHIN REACH. SCD'S ON.
[2019-01-07 01:15] VITALS: BP 98/78
[2019-01-07 04:44] VITALS: BP 100/70
--- NOTE | 2019-01-07 06:05 | NUR ---
MEDS GIVEN PER APR. RESTING QUIETLY.
[2019-01-07 06:35] LABS: ALBUMIN 2.8 g/dL (3.4-5.0); ANION GAP 10.7 mmol/L (8-16); BILIRUBIN - TOTAL 0.74 mg/dL (0.2-1.3); CALCIUM 9.4 mg/dL (8.5-10.1); CARBON DIOXIDE 29.9 mmol/L (21.0-32.0); CREATININE - SERUM 1.5 mg/dL (0.6-1.3); POTASSIUM - SERUM 3.6 mmol/L (3.5-5.1)
[2019-01-07 06:43] LABS: BASOPHILS 0.2 % (0-2); EOSINOPHILS 3.8 % (0-7); HEMATOCRIT 32.2 % (36.0-48.0); HEMOGLOBIN 9.5 g/dL (12-16); IMMATURE GRANULOCYTES 0.5 % (0-5); LYMPHOCYTES 9.7 % (15-50); MCH 27.2 pg (26.0-34.0); MCHC 29.5 g/dL (31.0-37.0); MCV 92.3 fL (80.0-100.0); MEAN PLATELET VOLUME 10.8 fL (7.4-10.4); NEUTROPHILS 73.8 % (40-80); PLATELET COUNT 253 10x3/uL (130-400); RBC 3.49 10x6/uL (4.00-5.40); RDW 20.2 % (11.5-14.5)
--- NOTE | 2019-01-07 07:20 | NUR ---
RESTING IN BED, EYES CLOSED. RESPIRATIONS EVEN AND UNLABORED. NO C/O PAIN. NO S/S OF ACUTE DISTRESS NOTED. HAS EXPRESSIVE APHASIA. POD #1 THORACENTESIS TO RIGHT FLANK. RLE CONTRACTURE. RUE FLACCID. PUREWICK PRESENT. RESERVE RIGHT ARM. ON 2L O2, NC. IV TO LEFT FOREARM, NS INFUSING @ 10ML/HR. SITE PATENT WITHOUT REDNESS OR SWELLING. TELEMETRY 84 SR. DENIES ANY NEEDS. CALL LIGHT IN REACH. WILL CONTINUE TO MONITOR.
[2019-01-07 08:35] VITALS: BP 123/49
--- NOTE | 2019-01-07 11:25 | NUR ---
I have reviewed this patient and I concur with the Shift Assessment completed by the Licensed Practical Nurse today this shift.
[2019-01-07 12:15] VITALS: BP 144/64
[2019-01-07 16:51] VITALS: BP 144/91
--- NOTE | 2019-01-07 18:23 | NUR ---
RESTING IN BED, EYES OPEN. C/O PAIN, GAVE NORCO FOR PAIN. NO S/S OF ACUTE DISTRESS NOTED. DENIES ANY NEEDS AT THIS TIME. CALL LIGHT IN REACH. WILL CONTINUE TO MONITOR.
--- NOTE | 2019-01-07 19:38 | NUR ---
OT NOTE: PT COMPLETED BED MOB TASKS WITH MAX A. PT COMPLETED EOB SITTING WITH MOD A. PT COMPLETED HAIR GROOMING WITH MAX A. NURSING NOTIFIED PURE WICK NEEDS TO BE REPLACED. THANK YOU, MARYLOU HONG
[2019-01-07 20:48] VITALS: BP 116/54
[2019-01-08 00:59] VITALS: BP 122/62
[2019-01-08 05:12] VITALS: BP 130/61
--- NOTE | 2019-01-08 06:04 | NUR ---
I have reviewed this patient and I concur with the Shift Assessment completed by the Licensed Practical Nurse today this shift.
[2019-01-08 06:35] LABS: ALBUMIN 2.8 g/dL (3.4-5.0); ANION GAP 10.8 mmol/L (8-16); BASOPHILS 0.4 % (0-2); BILIRUBIN - TOTAL 0.84 mg/dL (0.2-1.3); CALCIUM 9.6 mg/dL (8.5-10.1); CARBON DIOXIDE 28.7 mmol/L (21.0-32.0); CREATININE - SERUM 1.4 mg/dL (0.6-1.3); HEMATOCRIT 32.3 % (36.0-48.0); HEMOGLOBIN 9.5 g/dL (12-16); IMMATURE GRANULOCYTES 0.4 % (0-5); MCH 27.1 pg (26.0-34.0); MCHC 29.4 g/dL (31.0-37.0); MCV 92.3 fL (80.0-100.0); MEAN PLATELET VOLUME 10.6 fL (7.4-10.4); MONOCYTES 11.8 % (2-11); NEUTROPHILS 73.4 % (40-80); PLATELET COUNT 288 10x3/uL (130-400); POTASSIUM - SERUM 3.5 mmol/L (3.5-5.1); PROTEIN - SERUM 7.2 g/dL (6.4-8.2); RDW 19.9 % (11.5-14.5); WBC 10.8 10x3/uL (4.8-10.8)
--- NOTE | 2019-01-08 07:25 | NUR ---
RESTING IN BED, EYES OPEN. NO C/O PAIN. NO S/S OF ACUTE DISTRESS NOTED. PT DNR. EXPRESSIVE APHASIA. PUREWICK PRESENT. DRESSING TO RIGHT FLANK, DRESSING C/D/I. CONTRACTURE TO RLE. RUE FLACCID. ON 2.5L O2, NC. IV TO LEFT FOREARM, NS INFUSING @ 30ML/HR. SITE PATENT WITHOUT REDNESS OR SWELLING. MEDS WITH PUDDING. ON TELEMETRY SR 92. DENIES ANY NEEDS AT THIS TIME. CALL LIGHT IN REACH. WILL CONTINUE TO MONITOR.
[2019-01-08 08:37] VITALS: BP 129/54
[2019-01-08 09:10] LABS: FUNGUS MYCOLOGY CULTURE Preliminary report (())
[2019-01-08 11:59] VITALS: BP 120/58
--- NOTE | 2019-01-08 13:12 | NUR ---
NUTRITION F/U CHART REVIEWED, PT VISIT X2. POOR PO INTAKE TODAYS MEALS, <25%. MAY BENEFIT FROM PEG TUBE IF NO IMPROVEMENT IN PO INTAKE. RD FOLLOWING
[2019-01-08 16:23] VITALS: BP 126/58
[2019-01-08 16:46] LABS: AMYLASE - SERUM 39 U/L (25-115); LIPASE 110 U/L (73-393)
--- NOTE | 2019-01-08 18:48 | NUR ---
RESTING IN BED, EYES OPEN. NO C/O PAIN. NO S/S OF ACUTE DISTRESS NOTED. DENIES ANY NEEDS AT THIS TIME. CALL LIGHT IN REACH. WILL CONTINUE TO MONITOR.
[2019-01-08 21:12] VITALS: BP 140/58
[2019-01-09 01:47] VITALS: BP 136/57
[2019-01-09 06:22] VITALS: BP 122/78
[2019-01-09 06:48] LABS: BASOPHILS 0.2 % (0-2); EOSINOPHILS 4.5 % (0-7); HEMATOCRIT 32.3 % (36.0-48.0); HEMOGLOBIN 9.6 g/dL (12-16); IMMATURE GRANULOCYTES 0.3 % (0-5); LYMPHOCYTES 14.5 % (15-50); MCH 27.4 pg (26.0-34.0); MCHC 29.7 g/dL (31.0-37.0); MCV 92.3 fL (80.0-100.0); MEAN PLATELET VOLUME 10.5 fL (7.4-10.4); MONOCYTES 12.6 % (2-11); NEUTROPHILS 67.9 % (40-80); PLATELET COUNT 245 10x3/uL (130-400); RDW 19.6 % (11.5-14.5); WBC 8.8 10x3/uL (4.8-10.8)
[2019-01-09 07:03] LABS: ALBUMIN 2.8 g/dL (3.4-5.0); ANION GAP 10.6 mmol/L (8-16); BILIRUBIN - TOTAL 0.72 mg/dL (0.2-1.3); CALCIUM 9.4 mg/dL (8.5-10.1); CREATININE - SERUM 1.2 mg/dL (0.6-1.3); POTASSIUM - SERUM 3.6 mmol/L (3.5-5.1); PROTEIN - SERUM 7.1 g/dL (6.4-8.2)
[2019-01-09 08:42] VITALS: BP 164/63
--- NOTE | 2019-01-09 11:27 | NUR ---
Right heel has a 4cm x 4cm deep tissue injury. Mepilex border has been applied for protection along with heel protectors. Left foot has red blanchable area on lateral side. It was covered with mepilex for protection. Right buttock has a nonblanchable red area measuring 1cm x 2cm. (Stage 1) It was covered with mepilex for protection and patient repositioned on her side. Recommendations: Continue turning/repositioning every 2 hours Float heels and use heel protectors at all times Protect with mepilex border (heel, foot, bottom) Wound care will monitor.
[2019-01-09] MEDS ORDERED: FUROSEMIDE20 MG PO (11:54)
--- NOTE | 2019-01-09 12:45 | MORECARE ---
CASE MANAGEMENT DISCHARGE SUMMARY PATIENT: ROGERIO ROJAS UNIT: [id number] ADM DATE: 12/30/18 AGE: 78 : 41 SEX: F ROOM/BED: D.2234 AUTHOR: JESSY,DOC PHYSICIAN: REFERRING PHYSICIAN: CHANDAN BLANTON MD DATE OF SERVICE: 01/09/19 Discharge Plan Patient Name: ROGERIO ROJAS Facility: [facility]:[place] : 1940 Planned Disposition: Home with Home Health Anticipated Discharge Date: Discharge Date: Expected LOS: Initial Reviewer: [id number] Initial Review Date: 12/31/2018 Generated: 01/09/19 1:45 pm DCP- Discharge Planning Updated by [id number]: Nava Álvarez on 12/31/18 2:[address] Patient Name: ROGERIO Loaiza ROJAS Admission Status: Elective Accout number: [id number] Admission Date: 12-30-2018 : 1940 Admission Diagnosis: Attending: JAVIER BLANTON Current LOS: 1 Anticipated DC Date: Planned Disposition: Home with Home Health Primary Insurance: MEDICARE A & B Discharge Planning Comments: CM met with patient and her daughter to discuss discharge planning/needs. She lives in a two story home, but stays upstairs. Her daughter lives downstairs. Her daughter, Lilli, states she is with her and her from 7am until 7pm 7 days a week. States that she has [facility] home health services as well and would like to resume this on discharge. She declines rehab at this time. States she would like her mother to have a walker if insurance will pay for it. I faxed DME to [facility]. Updated clinical faxed to [facility]. CM will continue to follow and assist with discharge planning/needs. Transit Specialist: Nava Álvarez DCPIA - Discharge Planning Initial Assessment Updated by [id number]: Nava Álvarez on 12/31/18 3:34 pm * PCP Dr. Javier Blanton * Pharmacy [facility] [address] * Preadmission Environment Home with Family * ADLs Partial Dependent * Partial ADLs (Assistance needed) Ambulation Bathing Medication Management Toileting Transfers * Equipment Bedside Commode Hospital Bed Other Wheelchair * Other Equipment Gait belt Bedside table * List name and contact numbers for known caregivers / representatives who currently or will assist patient after discharge: Lilli Fallon - R - [phone] Clark Rojas - [phone] * Verbal permission to speak to the caregivers and representatives has been obtained from the patient. Yes * Community resources currently utilized Home Health * Please name any agencies selected above. [facility] * Additional services required to return to the preadmission environment? No * Can the patient safely return to the preadmission environment? Yes * Has this patient been hospitalized within the prior 30 days at any hospital? No External Providers External Provider: JOSEReese Quintana Contact Date: Service Request Date: Service Type: Resolution: Reviewer: Comments: Coverage Notice Reviewer: [id number] Shannon Álvarez Notice Issued Date-Time: 12/31/2018 15:50 Notice Type: Patient Choice Letter Notice Delivered To: Family Member Relationship to Patient: Daughter Mri Assistant Name: Lilli Forrest Delivery Method: HAND - Hand Delivered Lianne Days: Prior Verbal Notification: Recipient Understood Notice: Yes Recipient Signature: Yes Med Rec Note Co-signed by Attending: Coverage Notice Comment: DIANNE for [facility] Last DP export: 12/31/18 3:00 Patient Name: ROGERIO ROJAS Page 12163 at 1245 All edits/amendments must be made on the electronic document DICTATION DATE: 01/09/19 1245 ENTERPRISE INTEGRATION DEVELOPER: NORA 01/09/19 1245 RPT#: [id number] DC DATE: STATUS: ADM IN [facility] [address] [place] [address] END OF REPORT
--- NOTE | 2019-01-09 12:53 | MORECARE ---
CASE MANAGEMENT DISCHARGE SUMMARY PATIENT: ROGERIO DIXON UNIT: [id number] ADM DATE: 12/30/18 AGE: 78 : 41 SEX: F ROOM/BED: D.2234 AUTHOR: JESSYDOC PHYSICIAN: REFERRING PHYSICIAN: CHANDAN BLANTON MD DATE OF SERVICE: 01/09/19 Discharge Plan Patient Name: ROGERIO DIXON Facility: [facility]:[place] : 1940 Planned Disposition: Home with Home Health Anticipated Discharge Date: Discharge Date: Expected LOS: Initial Reviewer: [id number] Initial Review Date: 12/31/2018 Generated: 01/09/19 1:52 pm Comments DCP- Discharge Planning Updated by [email or web address]: Nava Álvarez on 01/09/19 11:[address] Received discharge orders. I went to the room and patient is grimacing and daughter states her stomach is hurting. I informed the daughter that patient has discharge orders if OK with her other doctors. Daughter states she will be unable to care for her mother or lift on her today because she had back injections today. Daughter requests discharge tomorrow. I have notified [facility] Sanchez. I faxed order for overnight pulse ox and spoke with Akira Durham with [employer] and they will deliver the overnight tomorrow. I called [facility] and they state they have spoken to daughter and she will picker / packer the walker. CM will continue to follow and assist with discharge planning/needs. DCP- Discharge Planning Updated by [id number]: Nava Álvarez on 12/31/18 2:[address] Patient Name: ROGERIO Loaiza DIXON Admission Status: Elective Accout number: [id number] Admission Date: 12-30-2018 : 1940 Admission Diagnosis: Attending: JAVIER BLANTON Current LOS: 1 Anticipated DC Date: Planned Disposition: Home with Home Health Primary Insurance: MEDICARE A & B Discharge Planning Comments: CM met with patient and her daughter to discuss discharge planning/needs. She lives in a two story home, but stays upstairs. Her daughter lives downstairs. Her daughter, Lilli, states she is with her and her from 7am until 7pm 7 days a week. States that she has [facility] home [facility] services as well and would like to resume this on discharge. She declines rehab at this time. States she would like her mother to have a walker if insurance will pay for it. I faxed DME to [facility]. Updated clinical faxed to [facility]. CM will continue to follow and assist with discharge planning/needs. Manager Of Organizational Development: Nava Álvarez DCPIA - Discharge Planning Initial Assessment Updated by [id number]: Nava Álvarez on 12/31/18 3:34 pm * PCP Dr. Javier Blanton * Pharmacy [facility] [address] * Preadmission Environment Home with Family * ADLs Partial Dependent * Partial ADLs (Assistance needed) Ambulation Bathing Medication Management Toileting Transfers * Equipment Bedside Commode Hospital Bed Other Wheelchair * Other Equipment Gait belt Bedside table * List name and contact numbers for known caregivers / representatives who currently or will assist patient after discharge: Lilli Fallon [facility] - [phone] Clark [facility] [phone] * Verbal permission to speak to the caregivers and representatives has been obtained from the patient. Yes * Community resources currently utilized Home Health * Please name any agencies selected above. [facility] health * Additional services required to return to the preadmission environment? No * Can the patient safely return to the preadmission environment? Yes * Has this patient been hospitalized within the prior 30 days at any hospital? No Coverage Notice Reviewer: [id number] Shannon Álvarez Notice Issued Date-Time: 12/31/2018 15:50 Notice Type: Patient Choice Letter Notice Delivered To: Family Member Relationship to Patient: Daughter Chemical Manager Name: Lilli Forrest Delivery Method: HAND - Hand Delivered Lianne Days: Prior Verbal Notification: Recipient Understood Notice: Yes Recipient Signature: Yes Med Rec Note Co-signed by Attending: Coverage Notice Comment: DIANNE for [facility] and [facility] Reviewer: [id number] Shannon Álvarez Notice Issued Date-Time: 01/09/2019 12:51 Notice Type: IM Discharge Notice Notice Delivered To: Family Member Relationship to Patient: Daughter Chemical Manager Name: Lilli Forrest Delivery Method: HAND - Hand Delivered Lianne Days: Prior Verbal Notification: Recipient Understood Notice: Yes Recipient Signature: Yes Med Rec Note Co-signed by Attending: Coverage Notice Comment: DIANNE for [facility] Reviewer: [id number] Shannon Álvarez Notice Issued Date-Time: 01/09/2019 12:51 Notice Type: IM Discharge Notice Notice Delivered To: Patient Relationship to Patient: Daughter Chemical Manager Name: Lilli Forrest Delivery Method: - Lianne Days: Prior Verbal Notification: Recipient Understood Notice: Recipient Signature: Med Rec Note Co-signed by Attending: Coverage Notice Comment: Last DP export: 01/09/19 11:45 Patient Name: ROGERIO DIXON Page [id number] at 1253 All edits/amendments must be made on the electronic document DICTATION DATE: 01/09/19 1252 QA INTERNSHIP: NORA 01/09/19 1252 RPT#: [id number] DC DATE: STATUS: ADM IN [facility] [address] [place] [address] END OF REPORT
--- NOTE | 2019-01-09 15:26 | NUR ---
PT NON-NERBAL. BREATH SOUNDS CLEAR BILAT. NO IV ACCESS AT THIS TIME. PT APPEARS TO BE RESTING COMFORTABLE. NON-BLANCHABLE REDDENED AREA TO BUTTOCKS, CONVEYED TO WOUND CARE NURSE, MEPILEX APPLIED. HALF DOLLAR SIZE BLOOD BLISTER TO RIGHT HEEL, BLANCHABLE REDDENED AREA TO LEFT HEEL, MEPILEX AND BOOTS APPLIED, CONVEYED TO WOUND CARE. PUREWICK IN USE. FAMILY AT BEDSIDE. BED LOW, CALL LIGHT IN REACH. NO OTHER NEEDS AT THIS TIME.
[2019-01-09] MEDS ORDERED: HYDROCODON-ACE1 EAC7 PO (15:36)
[2019-01-09 15:39] VITALS: BP 115/43
[2019-01-09 21:23] VITALS: BP 148/57
--- NOTE | 2019-01-09 23:00 | NUR ---
PULLED PT UP AND TURNED TO ON RIGHT SIDE. PT WINCED AND CRIED OUT IN PAIN. NODDED HER HEAD "YES" FOR PAIN PILL. GAVE NORCO AND OTHER SCHEDULED MEDS WHOLE WITH PUDDING. PT TOLERATED WELL. NO OTHER NEEDS. WILL REASSESS AND CONTINUE TO MONITOR.
[2019-01-10 01:14] VITALS: BP 130/49
--- NOTE | 2019-01-10 05:33 | NUR ---
RESTED WELL THIS SHIFT. SHOWS NO S/S OF ANY ACUTE DISTRESS. WAS UNABLE TO PARTICIPATE. WILL NOTE ANY CHANGE.
[2019-01-10 06:01] VITALS: BP 128/46
--- NOTE | 2019-01-10 07:38 | NUR ---
PATIENT HAS EXPRESSIVE ALPHASIA. BED ALARM ON. HEELS HAVE HEEL PROTETORS ON BILATERAL. RESERVE RT ARM. CALL LIGHT WITHIN REACH. WILL CONTINUE WITH PLAN OF CARE
[2019-01-10 07:41] VITALS: BP 154/58
[2019-01-10 10:29] LABS: HEMATOCRIT 32.5 % (36.0-48.0); HEMOGLOBIN 9.9 g/dL (12-16); LYMPHOCYTES 7.8 % (15-50); MCH 27.7 pg (26.0-34.0); MCHC 30.5 g/dL (31.0-37.0); MEAN PLATELET VOLUME 10.3 fL (7.4-10.4); NEUTROPHILS 79.6 % (40-80); PLATELET COUNT 257 10x3/uL (130-400); RBC 3.57 10x6/uL (4.00-5.40); RDW 18.6 % (11.5-14.5)
[2019-01-10 10:52] LABS: ALBUMIN 2.8 g/dL (3.4-5.0); ANION GAP 10.4 mmol/L (8-16); BILIRUBIN - TOTAL 0.51 mg/dL (0.2-1.3); CALCIUM 9.2 mg/dL (8.5-10.1); CARBON DIOXIDE 28.8 mmol/L (21.0-32.0); CREATININE - SERUM 1.1 mg/dL (0.6-1.3); POTASSIUM - SERUM 3.2 mmol/L (3.5-5.1); PROTEIN - SERUM 7.2 g/dL (6.4-8.2)
--- NOTE | 2019-01-10 11:22 | MORECARE ---
CASE MANAGEMENT DISCHARGE SUMMARY PATIENT: ROGERIO DIXNO UNIT: [id number] ADM DATE: 12/30/18 AGE: 78 : 41 SEX: F ROOM/BED: D.2234 AUTHOR: JESSY,DOC PHYSICIAN: REFERRING PHYSICIAN: CHANDAN BLANTON MD DATE OF SERVICE: 01/10/19 Discharge Plan Patient Name: ROGERIO DIXON Facility: [facility]:[place] : 1940 Planned Disposition: Home with Home Health Anticipated Discharge Date: Discharge Date: Expected LOS: Initial Reviewer: [id number] Initial Review Date: 12/31/2018 Generated: 01/10/19 12:22 pm Comments DCP- Discharge Planning Updated by [id number]: Nava Álvarez on 01/10/19 10:[address] Discharging home today with [facility]. Daughter is arranging transportation with [employer]. DCP- Discharge Planning Updated by [id number]: Nava Álvarez on 01/09/19 11:[address] Received discharge orders. I went to the room and patient is grimacing and daughter states her stomach is hurting. I informed the daughter that patient has discharge orders if OK with her other doctors. Daughter states she will be unable to care for her mother or lift on her today because she had back injections today. Daughter requests discharge tomorrow. I have notified [facility]. I faxed order for overnight pulse ox and spoke with Akira Durham with [employer] and they will deliver the overnight tomorrow. I called [facility] and they state they have spoken to daughter and she will greens picker the walker. CM will continue to follow and assist with discharge planning/needs. DCP- Discharge Planning Updated by [id number]: Nava Álvarez on 12/31/18 2:[address] Patient Name: ROGERIO Loaiza DIXON Admission Status: Elective Accout number: [id number] Admission Date: 12-30-2018 : 1940 Admission Diagnosis: Attending: JAVIER BLANTON Current LOS: 1 Anticipated DC Date: Planned Disposition: Home with Home Health Primary Insurance: MEDICARE A & B Discharge Planning Comments: CM met with patient and her daughter to discuss discharge planning/needs. She lives in a two story home, but stays upstairs. Her daughter lives downstairs. Her daughter, Lilli, states she is with her and her from 7am until 7pm 7 days a week. States that she has [facility] home health services as well and would like to resume this on discharge. She declines rehab at this time. States she would like her mother to have a walker if insurance will pay for it. I faxed DME to [facility]. Updated clinical faxed to [facility]. CM will continue to follow and assist with discharge planning/needs. Slip Dumper: Nava Álvarez DCPIA - Discharge Planning Initial Assessment Updated by [id number]: Nava Álvarez on 12/31/18 3:34 pm * PCP Dr. Javier Blanton * Pharmacy [facility] [address] * Preadmission Environment Home with Family * ADLs Partial Dependent * Partial ADLs (Assistance needed) Ambulation Bathing Medication Management Toileting Transfers * Equipment Bedside Commode Hospital Bed Other Wheelchair * Other Equipment Gait belt Bedside table * List name and contact numbers for known caregivers / representatives who currently or will assist patient after discharge: Lilli Fallon [facility] - [phone] Clark [facility] [phone] * Verbal permission to speak to the caregivers and representatives has been obtained from the patient. Yes * Community resources currently utilized Home Health * Please name any agencies selected above. [facility] health * Additional services required to return to the preadmission environment? No * Can the patient safely return to the preadmission environment? Yes * Has this patient been hospitalized within the prior 30 days at any hospital? No Coverage Notice Reviewer: [id number] Shannon Álvarez Notice Issued Date-Time: 12/31/2018 15:50 Notice Type: Patient Choice Letter Notice Delivered To: Family Member Relationship to Patient: Daughter Box Truck Driver Name: Lilli Forrest Delivery Method: HAND - Hand Delivered Lianne Days: Prior Verbal Notification: Recipient Understood Notice: Yes Recipient Signature: Yes Med Rec Note Co-signed by Attending: Coverage Notice Comment: DIANNE for [facility] and [facility] Reviewer: [id number] Shannon Álvarez Notice Issued Date-Time: 01/09/2019 12:51 Notice Type: Patient Choice Letter Notice Delivered To: Family Member Relationship to Patient: Daughter Box Truck Driver Name: Lilli Forrest Delivery Method: HAND - Hand Delivered Lianne Days: Prior Verbal Notification: Recipient Understood Notice: Yes Recipient Signature: Yes Med Rec Note Co-signed by Attending: Coverage Notice Comment: DIANNE Tagina Reviewer: [id number] Shannon Álvarez Notice Issued Date-Time: 01/09/2019 12:51 Notice Type: IM Discharge Notice Notice Delivered To: Patient Relationship to Patient: Daughter Box Truck Driver Name: Lilli Forrest Delivery Method: HAND - Hand Delivered Lianne Days: Prior Verbal Notification: Recipient Understood Notice: Yes Recipient Signature: Yes Med Rec Note Co-signed by Attending: Coverage Notice Comment: IMM explained, signed by daughter, given, copy placed in MR Last DP export: 01/09/19 11:53 Patient Name: ROGERIO DIXON Page 12891 at 1122 All edits/amendments must be made on the electronic document DICTATION DATE: 01/10/191121 HAT STEAMER: NORA 01/10/191121 RPT#: [id number] DC DATE: STATUS: ADM IN [facility] [address] [place] [address] END OF REPORT
--- NOTE | 2019-01-10 12:30 | NUR ---
DISCHARGE INSTRUCTIONS GONE OVER WITH PATIENT AND PATIENTS DAUGHTER. PATIENT HELPED OUT TO CARE BY STAFF
--- NOTE | 2019-01-10 12:31 | NUR ---
DR SEE INTO SEE PATIENT. SEE DOCTORS NOTES
--- NOTE | 2019-01-10 16:14 | MORECARE ---
CASE MANAGEMENT DISCHARGE SUMMARY PATIENT: ROGERIO DIXON UNIT: [id number] ADM DATE: 12/30/18 AGE: 78 : 41 SEX: F ROOM/BED: D.2234 AUTHOR: JESSY,DOC PHYSICIAN: REFERRING PHYSICIAN: CHANDAN BLANTON MD DATE OF SERVICE: 01/10/19 Discharge Plan Patient Name: ROGERIO DIXON Facility: [facility]:[place] : 1940 Planned Disposition: Home with Home Health Anticipated Discharge Date: Discharge Date: 01/10/2019 Expected LOS: 0 Initial Reviewer: [id number] Initial Review Date: 12/31/2018 Generated: 01/10/19 5:13 pm Comments DCP- Discharge Planning Updated by [id number]: Nava Álvarez on 01/10/19 10:[address] Discharging home today with [facility]. Daughter is arranging transportation with [employer]. DCP- Discharge Planning Updated by [email or web address]: Nava Álvarez on 01/09/19 11:[address] Received discharge orders. I went to the room and patient is grimacing and daughter states her stomach is hurting. I informed the daughter that patient has discharge orders if OK with her other doctors. Daughter states she will be unable to care for her mother or lift on her today because she had back injections today. Daughter requests discharge tomorrow. I have notified [facility] Sanchez. I faxed order for overnight pulse ox and spoke with Akira Durham with [employer] and they will deliver the overnight tomorrow. I called [facility] and they state they have spoken to daughter and she will lease picker the walker. CM will continue to follow and assist with discharge planning/needs. DCP- Discharge Planning Updated by [id number]: Nava Álvarez on 12/31/18 2:[address] Patient Name: ROGERIO Loaiza DIXON Admission Status: Elective Accout number: [id number] Admission Date: 12-30-2018 : 1940 Admission Diagnosis: Attending: JAVIER BLANTON Current LOS: 1 Anticipated DC Date: Planned Disposition: Home with Home Health Primary Insurance: MEDICARE A & B Discharge Planning Comments: CM met with patient and her daughter to discuss discharge planning/needs. She lives in a two story home, but stays upstairs. Her daughter lives downstairs. Her daughter, Lilli, states she is with her and her from 7am until 7pm 7 days a week. States that she has [facility] home health services as well and would like to resume this on discharge. She declines rehab at this time. States she would like her mother to have a walker if insurance will pay for it. I faxed DME to [facility]. Updated clinical faxed to [facility]. CM will continue to follow and assist with discharge planning/needs. Refrigeration System Installer: Nava Álvarez DCPIA - Discharge Planning Initial Assessment Updated by [id number]: Nava Álvarez on 12/31/18 3:34 pm * PCP Dr. Javier Blanton * [facility] [address] * Preadmission Environment Home with Family * ADLs Partial Dependent * Partial ADLs (Assistance needed) Ambulation Bathing Medication Management Toileting Transfers * Equipment Bedside Commode Hospital Bed Other Wheelchair * Other Equipment Gait belt Bedside table * List name and contact numbers for known caregivers / representatives who currently or will assist patient after discharge: Lilli Fallon [facility] - [phone] [facility] [phone] * Verbal permission to speak to the caregivers and representatives has been obtained from the patient. Yes * Community resources currently utilized Home Health * Please name any agencies selected above. [facility] health * Additional services required to return to the preadmission environment? No * Can the patient safely return to the preadmission environment? Yes * Has this patient been hospitalized within the prior 30 days at any hospital? No Coverage Notice Reviewer: [id number] Shannon Álvarez Notice Issued Date-Time: 12/31/2018 15:50 Notice Type: Patient Choice Letter Notice Delivered To: Family Member Relationship to Patient: Daughter Butter Fat Tester Name: Lilli Forrest Delivery Method: HAND - Hand Delivered Lianne Days: Prior Verbal Notification: Recipient Understood Notice: Yes Recipient Signature: Yes Med Rec Note Co-signed by Attending: Coverage Notice Comment: DIANNE for [facility] and [facility] Reviewer: [id number] Shannon Álvarez Notice Issued Date-Time: 01/09/2019 12:51 Notice Type: Patient Choice Letter Notice Delivered To: Family Member Relationship to Patient: Daughter Butter Fat Tester Name: Lilli Forrest Delivery Method: HAND - Hand Delivered Lianne Days: Prior Verbal Notification: Recipient Understood Notice: Yes Recipient Signature: Yes Med Rec Note Co-signed by Attending: Coverage Notice Comment: DIANNE Mcclellan Reviewer: [id number] Shannon Álvarez Notice Issued Date-Time: 01/09/2019 12:51 Notice Type: IM Discharge Notice Notice Delivered To: Patient Relationship to Patient: Daughter Butter Fat Tester Name: Lilli Forrest Delivery Method: HAND - Hand Delivered Lianne Days: Prior Verbal Notification: Recipient Understood Notice: Yes Recipient Signature: Yes Med Rec Note Co-signed by Attending: Coverage Notice Comment: IMM explained, signed by daughter, given, copy placed in MR Last DP export: 01/10/19 10:22 Patient Name: ROGERIO DIXON Page 45651 at 1614 All edits/amendments must be made on the electronic document DICTATION DATE: 01/10/191612 HEALTH PROFESSIONAL: NORA 01/10/193 RPT#: [id number] DC DATE:01/10/19 STATUS: DIS IN [facility] [address] [place] [address] END OF REPORT
== END 2019-01-10 13:10 | disposition home health service (06) | DRG 70 ==
LOC: D.MS 14:31
PROVIDERS: Family Medicine; Internal Medicine Gastroenterology; Internal Medicine Nephrology; Internal Medicine Pulmonary Disease; Radiology Diagnostic Radiology; ADMIT Emergency Medicine; ATTEND Emergency Medicine
PROC: 0DB78ZX Excision of Stomach, Pylorus, Via Natural or Artificial Opening Endoscopic, Diagnostic (ICD-10-PCS; principal; 2019-01-01 14:19)
PROC: 0W993ZZ Drainage of Right Pleural Cavity, Percutaneous Approach (ICD-10-PCS; 2019-01-02)
DX: G93.40 Encephalopathy, unspecified (principal); R53.2 Functional quadriplegia; R40.2223 Coma scale, best verbal response, incomprehensible words, at hospital admission; D62 Acute posthemorrhagic anemia; R17 Unspecified jaundice; I69.351 Hemiplegia and hemiparesis following cerebral infarction affecting right dominant side; N17.9 Acute kidney failure, unspecified; N39.0 Urinary tract infection, site not specified; J90 Pleural effusion, not elsewhere classified; J98.11 Atelectasis; I50.22 Chronic systolic (congestive) heart failure; R04.2 Hemoptysis; D68.9 Coagulation defect, unspecified; I13.0 Hypertensive heart and chronic kidney disease with heart failure and stage 1 through stage 4 chronic kidney disease, or unspecified chronic kidney disease; Z79.01 Long term (current) use of anticoagulants; E86.0 Dehydration; R13.10 Dysphagia, unspecified; E03.9 Hypothyroidism, unspecified; I50.9 Heart failure, unspecified; Z95.0 Presence of cardiac pacemaker; M54.9 Dorsalgia, unspecified; Z66 Do not resuscitate; E61.1 Iron deficiency; K29.70 Gastritis, unspecified, without bleeding; K21.0 Gastro-esophageal reflux disease with esophagitis; J44.9 Chronic obstructive pulmonary disease, unspecified; B96.89 Other specified bacterial agents as the cause of diseases classified elsewhere; G62.9 Polyneuropathy, unspecified; N18.9 Chronic kidney disease, unspecified; K59.00 Constipation, unspecified; R40.2363 Coma scale, best motor response, obeys commands, at hospital admission; R40.2133 Coma scale, eyes open, to sound, at hospital admission